=== PATIENT | female | born 1945 | race Caucasian/White ===

== ENCOUNTER → 2019-07-25 | Outpatient (CLI) | payer MEDICARE, OTHER ==
[~2019-07-25] MED LIST: TMSL.4C PO
--- NOTE | 2019-07-25 13:11 | Diagnostic Imaging Report ---
PROCEDURE: CT abdomen without contrast. TECHNIQUE: Multiple contiguous axial images were obtained through the abdomen without the use of intravenous contrast. Auto Exposure Controls were utilized during the CT exam to meet ALARA standards for radiation dose reduction. INDICATION: Kidney neoplasm. COMPARISON: No prior studies are available for comparison. FINDINGS: The lung bases are clear. Liver is unremarkable. There is no biliary ductal dilatation. Gallbladder appears to be surgically absent. Pancreas and spleen are unremarkable. No adrenal mass is detected. Left kidney does contain a 3 mm calculus in the lower pole. No hydronephrosis is seen. There appear to be postsurgical changes involving the lower pole of the right kidney. No discrete mass is seen, however study is performed without contrast, limiting evaluation. No calculi in the right kidney or evidence of hydronephrosis is identified. Aorta is calcified but nonaneurysmal. No central, retroperitoneal, or mesenteric lymphadenopathy is seen. Visualized bowel loops are normal caliber. There is a defect in the right rectus musculature with bowel loop extending through the abdominal wall defect into the subcutaneous tissues. No free fluid or fluid collection is identified. The bony structures demonstrate generalized lumbar spondylosis but no acute bony abnormality is seen. IMPRESSION: 1. Postsurgical changes to the right kidney. No discrete renal mass or evidence of tumor recurrence is seen, although study is limited due to absence of intravenous contrast. 2. 3 mm nonobstructing left renal calculus. 3. Right lower quadrant abdominal wall defect with bowel loop extending into the right lower quadrant subcutaneous tissues consistent with hernia. This is incompletely evaluated on this study since only an abdomen was ordered. Hernia is only partially included on this study. Dictated by: Dictated on workstation # [id number]
== END ==
LOC: RAD FS 12:14
PROVIDERS: ATTEND Family Medicine
DX: C64.2 Malignant neoplasm of left kidney, except renal pelvis (principal); N20.0 Calculus of kidney; R19.8 Other specified symptoms and signs involving the digestive system and abdomen; Z98.890 Other specified postprocedural states
CPT/HCPCS: 74150

== ENCOUNTER 2019-07-26 19:31 | Emergency (ER) | payer MEDICARE, OTHER ==
[~2019-07-26] VITALS: Ht 157.5 cm; Wt 63.2 kg
--- NOTE | 2019-07-26 19:54 | ED GU-Female ---
General Stated Complaint: POSS KIDNEY STONE History of Present Illness Date Seen by Provider: Jul 26, 2019 Time Seen by Provider: 19:52 Initial Comments This patient is a 74-year-old female presents to the emergency for left-sided pain. Patient states this started just a few minutes after getting her new insulin pump catheter placed in her left lower quadrant. Patient denies any specific back pain patient denies any dysuria. With the medical evaluation treatment is needed. Timing/Duration: this afternoon Severity/Quality: mild Location: unknown Radiation: none Activities at Onset: none Prior Genitourinary Problems: none Sexual [place] History: not active Allergies and Home Medications Allergies Coded Allergies: No Known Drug Allergies (Unverified , 07/26/19) Patient Home Medication List Home Medication List Reviewed: Yes Review of Systems Review of Systems Constitutional: no symptoms reported; No see HPI, No chills, No diaphoresis, No dizziness, No fever, No malaise, No weakness, No weight gain, No weight loss, No other EENTM: No see HPI, No no symptoms reported, No ear discharge, No hearing loss, No ear pain, No blurred vision, No double vision, No eye pain, No tearing, No vision loss, No dental problems, No hoarseness, No mouth pain, No mouth swelling, No epistaxis, No nose congestion, No nose pain, No throat pain, No throat swelling, No other Respiratory: No no symptoms reported, No see HPI, No cough, No dyspnea on exertion, No hemoptysis, No orthopnea, No phlegm, No short of breath, No stridor, No wheezing, No other Cardiovascular: No no symptoms reported, No see HPI, No chest pain, No edema, No Hx of Intervention, No palpitations, No syncope, No vascular heart diseas, No other Gastrointestinal: No RUQ, No LUQ, No RLQ; LLQ; No no symptoms reported, No see HPI, No abdominal pain, No constipation, No diarrhea, No dysphagia, No hematemesis, No heartburn, No jaundice, No loss of appetite, No melena, No nausea, No vomiting, No other Genitourinary: see HPI Past Fxjuzau-Stdrih-Offkdy Hx Patient Social History Recent Foreign Travel: No Contact w/Someone Who Travel: No Physical Exam Vital Signs Vital Signs - First Documented 07/26/19 19:58 Temp 36.2 Pulse 87 Resp 16 B/P (MAP) 227/93 (137) Pulse Ox 100 Capillary Refill : Height, Weight, BMI Height: '" Weight: lbs. oz. kg; BMI Method: General Appearance: WD/WN, no apparent distress Cardiovascular: normal peripheral pulses, regular rate, rhythm, no edema, no gallop, no JVD, no murmur Respiratory: chest non-tender, lungs clear, normal breath sounds, no respiratory distress, no accessory muscle use, respiratory distress Gastrointestinal: normal bowel sounds, non tender, soft, no organomegaly, no p ulsatile mass, abnormal bowel sounds Back: normal inspection, no CVA tenderness, no vertebral tenderness, CVA tenderness (R), CVA tenderness (L) Extremities: normal range of motion, non-tender, normal inspection, no pedal edema, no calf tenderness, normal capillary refill Progress/Results/Core Measures Suspected Sepsis SIRS Temperature: Pulse: Respiratory Rate: Blood Pressure / Mean: Results/Orders Lab Results Laboratory Tests Test 07/26/19 19:40 Range/Units Urine Color YELLOW Urine Clarity CLEAR Urine pH 6.0 5-9 Urine Specific Oxford 1.020 1.016-1.022 Urine Protein 2+ H NEGATIVE Urine Glucose (UA) 3+ H NEGATIVE Urine Ketones NEGATIVE NEGATIVE Urine Nitrite NEGATIVE NEGATIVE Urine Bilirubin NEGATIVE NEGATIVE Urine Urobilinogen 0.2 < = 1.0 MG/DL Urine Leukocyte Esterase TRACE H NEGATIVE Urine RBC (Auto) 2+ H NEGATIVE Urine RBC 25-50 H /HPF Urine WBC 0-2 /HPF Urine Squamous Epithelial Cells 0-2 /HPF Urine Crystals NONE /LPF Urine Bacteria NEGATIVE /HPF Urine Casts NONE /LPF Urine Mucus NEGATIVE /LPF Urine Culture Indicated NO My Orders Orders - PING FERRER MD Urinalysis (07/26/19 19:51) Vital Signs/I&O 07/26/19 19:58 Temp 36.2 Pulse 87 Resp 16 B/P (MAP) 227/93 (137) Pulse Ox 100 Capillary Refill : Progress Note : Progress Note Patient is pain-free in the emergency department. Patient does have microscopic blood and rbc's in the urine. We did discuss at length with patient about findings. Patient is agreeable B placed on Flomax. She will follow up with her primary care physician in 2-3 days for repeat urinalysis if needed. No antibodies at this time. Patient was offered full medical screening exam and couldn't further labs and imaging testing if needed. Patient declines. He is that she is pain-free at this time. We did discuss at length with patient about possible kidney stones versus pain from the side of her subcutaneous catheter for dialysis patient states understanding she will follow up with PCP as instructed. Departure Impression Primary Impression: Flank pain Additional Impression: Benign hematuria Disposition: HOME, SELF-CARE Condition: Improved Departure-Patient Inst. Referrals: RONI MITCHELL MD (PCP/Family) Primary Care Physician Patient Instructions: Blood in the Urine (Hematuria) in Adults Add. Discharge Instructions: Encourage by mouth fluids. Take medications as instructed. Continue with Tylenol Motrin as needed for fever or pain. Follow-up with your PCP in 2-3 days for repeat urinalysis. Scripts Tamsulosin HCl (Flomax) 0.4 Mg Cap 0.4 MG PO DAILY for 7 Days, #7 CAP 0 Refills Prov: PING FERRER MD 07/26/19 PING FERRER MD Jul 26, 2019 19:54
[2019-07-26 19:58] VITALS: BP 227/93
[2019-07-26 20:04] LABS: CLARITY,URINE CLEAR; COLOR,URINE YELLOW
[2019-07-26 20:05] LABS: BILIRUBIN,URINE NEGATIVE (NEGATIVE); GLUCOSE, URINE (UA) 3+ (NEGATIVE); KETONES,URINE NEGATIVE (NEGATIVE); LEUKOCYTE ESTERASE ,URINE TRACE (NEGATIVE); NITRITE,URINE NEGATIVE (NEGATIVE); PROTEIN,URINE 2+ (NEGATIVE)
[2019-07-26 20:08] LABS: BACTERIA,URINE NEGATIVE /HPF; RBC,URINE 25-50 /HPF; SQUAMOUS EPITHELIAL CELL,UR 0-2 /HPF; WBC,URINE 0-2 /HPF
[2019-07-26] MEDS ORDERED: TMSL.4C PO (20:47)
--- OUTSIDE RECORDS SUMMARY | 2019-07-28 22:47 | XMS REPORT ---
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, unspecified laterality E11.3219 Active 099568280 Problem Benign essential hypertension I10 Active 8075716 Problem 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 Active 089775833 Problem Pure hypercholesterolemia E78.00 Acti ve [id number] ALLERGIES No Information ENCOUNTERS Encounter Location Date Diagnosis [facility] [address] [address] Feb, [address] [address] Jan, [address] [address] Dec, [address] [address] Nov, [address] [address] Nov, [address] [address] Nov, [facility] [address] [facility] [id number] [address] [place] [address] Nov, [facility] [address] [facility] [id number] [address] [place] [address] Nov, [facility] [address] [place] [address] Nov, [facility] [address] [address] Nov, 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 [facility] [place] [address] [place] [address] Oct, [address] [address] Oct, Type 2 diabetes mellitus with hyperglyce charli E11.65 and 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 [address] Oct, Type 2 diabetes mellitus with hyperglyce charli E11.[address] [address] Oct, [address] [address] Oct, Type 2 diabetes mellitus with hyperglyce charli E11.65 ; Pure hypercholesterolemia E78.00 and Benign essential hypertension I10 [facility] [address] [place] [facility] [place] [address] Oct, Poison rosalba L23.7 [facility] [place] [address] [place] [address] September, Type 2 diabetes mellitus with hyperglycemia E11.[address] [address] September, Type 2 diabetes mellitus with hyperglyce charli E11.[address] [address] Aug, Benign essential hypertension I10 ; Pure hypercholesterolemia E78.00 ; Type 2 diabetes mellitus without complication, without long-term current use of insulin E11.9 and 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 [address] Aug, Essential hypertension I10 [address] [address] Aug, [address] [address] Jul, Left leg swelling M79.[address] [facility] [address] [address] Jul, Left leg swelling M79.[address] [facility] [address] [address] Jul, IMMUNIZATIONS No Known Immunizations SOCIAL HISTORY Never Assessed REASON FOR VISIT ultrasound, Debby Emery RDMS, RVT PLAN OF CARE VITAL SIGNS MEDICATIONS Unknown Medications RESULTS Name Result Date Reference Range Ultrasound : Venous Doppler, Left Leg (IN-HOUSE) 2018-08-09 PROCEDURES Procedure Date Ordered Result Body Site EXTREMITY STUDY August 09, 2018 INSTRUCTIONS MEDICATIONS ADMINISTERED No Known Medications MEDICAL (GENERAL) HISTORY Type Description Date Medical History Hypertension Medical History Type 2 diabetes mellitus Medical History Diabetic neuropathy Medical History Hypercholesterolemia Medical History Malignant neoplasm of unspecified kidney , except renal pelvis Medical History Hypertension Surgical History hysterectomy 1994 Surgical History ileostomy Surgical History tumor removed from right kidney Surgical History cholecystectomy (done at the same time a s the kidney surgery Surgical History cateract surgery in both eyes Hospitalization History surgeries Hospitalization History child x3
--- OUTSIDE RECORDS SUMMARY | 2019-07-28 22:47 | XMS REPORT ---
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, unspecified laterality E11.3219 Active 466442279 Problem Insulin long-term use Z79.4 Active 777954858 Problem Vitamin D deficiency E55.9 Active 23063373 Problem 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 Active 161 488076 Problem Chronic kidney disease, stage 3 (moderate) N18.3 Active 645170307 Problem Type 1 diabetes mellitus with hyperglycemia E10.65 Active [id number] ALLERGIES Substance Reaction Event Type Date Status Meperidine HCl hallucination Drug Allergy Jul, Active Lisinopril cough Drug Allergy Jul, Active Gabapentin dizziness Drug Allergy Jul, Active ENCOUNTERS Encounter Location Date Diagnosis [place] [address] [place] [address] Jun, [place] [address] [place] [address] May, Type 2 diabetes mellitus wit h hyperglycemia E11.65 ; jail current use of insulin Z79.4 ; Insulin long-term use Z79.4 ; Chronic kidney disease, stage 3 (moderate) N18.3 and Low serum C-peptide R77.8 [address] [place] [address] May, [facility] [place] [id number] [place] [address] May, [facility] [address] [place] [address] Mar, [facility] [address] [place] [address] Mar, [facility] [address] [place] [address] Mar, [facility] [address] [place] [address] Feb, [facility] [address] [place] [address] Feb, [address] [place] [address] Feb, Benign essential hypertensio n I10 [facility] [address] [place] [address] Feb, [address] [place] [address] Feb, Benign essential hypertensio n I10 [address] [place] [address] Feb, Benign essential hypertensio n I10 ; Type 1 diabetes mellitus with hyperglycemia E10.65 ; Vitamin D deficiency E55.9 ; 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 and Chronic kidney disease, stage 3 (moderate) N18.3 [facility] [address] [place] [address] Feb, Pure hypercholesterolemia E7 8.00 ; Type 2 diabetes mellitus with hyperglycemia E11.65 and Benign essential hypertension I10 [address] [place] [address] Feb, Type 2 diabetes mellitus wit h hyperglycemia E11.65 ; Benign essential hypertension I10 and Pure hypercholesterolemia E78.00 [facility] [address] [address] [place] [address] Feb, Benign essential hypertensio n I10 ; Type 2 diabetes mellitus with hyperglycemia E11.65 ; Encounter for immunization Z23 and intermediate designer current use of insulin Z79.4 [facility] [place] [address] [place] [address] Jan, Benign essential hypertensio n I10 [facility] [address] [place] [address] Jan, [facility] [address] [place] [address] Jan, [facility] [address] [place] [address] Dec, [facility] [address] [place] [address] Nov, [facility] [address] [place] [address] Nov, [facility] [address] [place] [address] Nov, [facility] [address] [id number] [place] [address] Nov, [facility] [address] [id number] [place] [address] Nov, [facility] [address] [place] [address] Nov, [facility] [address] [place] [address] Nov, intermediate designer current use of ins ulin Z79.4 [facility] [place] [id number] [place] [address] Oct, [facility] [address] [place] [address] Oct, Type 2 diabetes mellitus wit h hyperglycemia E11.65 and jail current use of insulin Z79.4 [facility] [address] [place] [address] Oct, Type 2 diabetes mellitus wit h hyperglycemia E11.[address] [place] [address] Oct, [address] [place] [address] Oct, Type 2 diabetes mellitus wit h hyperglycemia E11.65 ; Pure hypercholesterolemia E78.00 and Benign essential hypertension I10 [facility] [address] [place] [address] Oct, Poison rosalba L23.7 [facility] [id number] [place] [address] September, Type 2 diabetes mellitus with hyperglyce charli E11.[address] [place] [address] September, Type 2 diabetes mellitus wit h hyperglycemia E11.[address] [place] [address] Aug, Benign essential hypertensio n I10 ; Pure hypercholesterolemia E78.00 ; Type 2 diabetes mellitus without complication, without long-term current use of insulin E11.9 and jail current use of insulin Z79.4 [facility] [address] [address] [place] [address] Aug, Essential hypertension I10 [facility] [address] [address] [place] [address] Aug, [address] [place] [address] Jul, Left leg swelling M79.89 [facility] [address] [address] [place] [address] Jul, Left leg swelling M79.[address] [place] [address] Jul, IMMUNIZATIONS No Known Immunizations SOCIAL HISTORY Never Assessed REASON FOR VISIT Lt foot swelling.Cassy COOPER PLAN OF CARE Activity Details Follow Up prn Reason: VITAL SIGNS Height 62 in 2018-08-09 Weight 142 lbs 2018-08-09 Temperature 96.0 degrees Fahrenheit 2018-08-09 Heart Rate 84 bpm 2018-08-09 Respiratory Rate 12 2018-08-09 BMI 25.97 kg/m2 2018-08-09 Blood pressure systolic 196 mmHg 2018-08-09 Blood pressure diastolic 86 mmHg 2018-08-09 MEDICATIONS Medication Instructions Dosage Frequency Start Date End Date Duration S tatus NovoLog 100 UNIT/ML Subcutaneous before evening meal 10 units Active Lantus 100 UNIT/ML Subcutaneous daily at betime 20 units Active Losartan Potassium 100 MG Orally Once a day 0.5 tablet 24h 30 day(s) Active Zocor 20 MG Orally Once a day 1 tablet in the evening 24h 30 day(s) Active Estradiol 0.05 MG/24HR Transdermal one times a Week 1 patch to skin 30 day(s) Active RESULTS No Results PROCEDURES Procedure Date Ordered Result Body Site [facility] VISIT NEW PATIENT August 09, 2018 INSTRUCTIONS MEDICATIONS ADMINISTERED No [...]
--- OUTSIDE RECORDS SUMMARY | 2019-07-28 22:47 | XMS REPORT ---
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, unspecified laterality E11.3219 Active 521759779 Problem Benign essential hypertension I10 Active 1633341 Problem 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 Active 060268040 Problem Pure hypercholesterolemia E78.00 Acti ve 915474486 ALLERGIES No Information ENCOUNTERS Encounter Location Date Diagnosis [facility] [address] [address] Feb, [address] [address] Jan, [address] [address] Dec, [address] [address] Nov, [address] [address] Nov, [address] [address] Nov, [facility] [address] [facility] [id number] [address] [place] [address] Nov, [facility] [address] [facility] [id number] [address] [place] [address] Nov, [facility] [address] [place] [address] Nov, [facility] [address] [address] Nov, senior care current use of insulin Z79.4 [facility] [place] [address] [place] [address] Oct, [address] [address] Oct, Type 2 diabetes mellitus with hyperglyce charli E11.65 and 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 [address] Oct, Type 2 diabetes mellitus with hyperglyce charli E11.[address] [address] Oct, [address] [address] Oct, Type 2 diabetes mellitus with hyperglyce charli E11.65 ; Pure hypercholesterolemia E78.00 and Benign essential hypertension I10 [facility] [address] [place] [address] Oct, Poison rosalba L23.7 [facility] [place] [address] [place] [address] September, Type 2 diabetes mellitus with hyperglycemia E11.[address] [address] September, Type 2 diabetes mellitus with hyperglyce charli E11.[address] [address] Aug, Benign essential hypertension I10 ; Pure hypercholesterolemia E78.00 ; Type 2 diabetes mellitus without complication, without long-term current use of insulin E11.9 and senior care current use of insulin Z79.[address] [address] Aug, Essential hypertension I10 [address] [address] Aug, [address] [address] Jul, Left leg swelling M79.[address] [address] Jul, Left leg swelling M79.[address] [address] Jul, IMMUNIZATIONS No Known Immunizations SOCIAL HISTORY Never Assessed REASON FOR VISIT Swelling PLAN OF CARE VITAL SIGNS MEDICATIONS Unknown Medications RESULTS No Results PROCEDURES No Known procedures INSTRUCTIONS MEDICATIONS ADMINISTERED No Known Medications MEDICAL [...]
--- OUTSIDE RECORDS SUMMARY | 2019-07-28 22:47 | XMS REPORT | Clinical Summary ---
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 Active Fito Lambert MD Calculus o f gallbladder with other cholecystitis, without mention of obstruction Body Mass Index 24.0-24.9 Adult Inactive 2017 Fadumo Babin CARDIAC/VASCULAR SONOGRAPHER Body Mass Index between 19-24, adult 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 Davey Jimenez MD Malignant neoplasm of kidney, except pel vis Body Mass Index 24.0-24.9 Adult Inactive 2017 Fadumo Babin CARDIAC/VASCULAR SONOGRAPHER Body Mass Index between 19-24, adult Type 2 diabetes mellitus with hyperglycemia 250.00 Act charley Kisha JONASP Diabetes mellitus without me ntion of complication, type II or unspecified type, not stated as uncontrolled Body Mass Index 23.0-23.9 Adult Inactive 2017 Fadumo Babin CARDIAC/VASCULAR SONOGRAPHER Body Mass Index between 19-24, adult Type 2 diabetes mellitus with diabetic polyneuropathy Inactive Fadumo Babin APRN 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 use of insulin treatment V58.67 Active 2 Maliheh Ziglari HANGER OFF Long-term (current) use of insulin Type 2 diabetes mellitus with hypoglycemia without coma 250.80 Resolved Fadumo Babin CARDIAC/VASCULAR SONOGRAPHER Diabetes mellitus with other specified manifestations, type II or unspecified type, not stated as uncontrolled Body Mass Index 24.0-24.9 Adult Resolved 2017 Fadumo Babin CARDIAC/VASCULAR SONOGRAPHER Body Mass Index between 19-24, adult Noncompliance with dietary regimen V15.81 Active 2 Fadumo Babin CARDIAC/VASCULAR SONOGRAPHER Personal history of noncompl iance with medical treatment, presenting hazards to health Type 2 diabetes with diabetic polyneuropathy 357.2 Ac tive Fadumo Babin CARDIAC/VASCULAR SONOGRAPHER Polyneuropathy in diabetes Body Mass Index 26.0-26.9 Adult Refinement 2017 Fadumo Babin CARDIAC/VASCULAR SONOGRAPHER Body Mass Index 26.0-26.9, adult BMI 25-25.9 Active Fadumo Babin CARDIAC/VASCULAR SONOGRAPHER Body Mass Index 26.0-26.9, adult Overweight (BMI 25-29.9) Active Fadumo Amaro inson CARDIAC/VASCULAR SONOGRAPHER Overweight Hypertension 401.9 Active Fadumo Babin APR N Unspecified essential hypertension Hyperlipidemia 272.4 Active Fadumo Babin A PRN Other and unspecified hyperlipidemia Type 2 diabetes mellitus with other specified complication 250.8 0 Active Fadumo Babin CARDIAC/VASCULAR SONOGRAPHER Diabetes mellitus with other specified manifestations, type II or unspecified type, not stated as uncontrolled Type 2 diabetes mellitus with hypoglycemia without coma 250.80 Active Fadumo Babin CARDIAC/VASCULAR SONOGRAPHER Diabetes mellitus with other specified manifestations, type II or unspecified type, not stated as uncontrolled Influenza Vaccination for Prophylaxis V04.81 Inactive Fadumo Babin CARDIAC/VASCULAR SONOGRAPHER Need for prophylactic vaccin ation and inoculation against influenza Noncompliance with medications V15.81 Active 07/28 Fadumo Babin CARDIAC/VASCULAR SONOGRAPHER Personal history of noncompl iance with medical treatment, presenting hazards to health Body Mass Index 24.0-24.9 Adult Inac tive Fadumo Babin CARDIAC/VASCULAR SONOGRAPHER Body Mass Index 24.0-24.9 Adult Inac tive Fadumo Babin CARDIAC/VASCULAR SONOGRAPHER Body Mass Index 23.0-23.9 Adult Inac tive Fadumo Babin CARDIAC/VASCULAR SONOGRAPHER Type 2 diabetes mellitus with diabetic polyneuropathy Inactive Fadumo Babin CARDIAC/VASCULAR SONOGRAPHER Type 2 diabetes mellitus with hypoglycemia without coma ICD-250. 80 Inactive Fadumo Babin CARDIAC/VASCULAR SONOGRAPHER Body Mass Index 24.0-24.9 Adult Inactiv e Fadumo Babin CARDIAC/VASCULAR SONOGRAPHER Influenza Vaccination for Prophylaxis ICD-V04.81 2 Inactive Marie Todd [employer] TRUCK [employer]IVER Medication List Medication Instructions Start Date Stop Date Generic Name NDC Status Provider Patient Instruction FUROSEMIDE 20 MG ORAL TABLET Take one by mouth daily FUROSEMIDE 54425912972 Active Fadumo Babin CARDIAC/VASCULAR SONOGRAPHER Active HUMALOG KWIKPEN 100 UNIT/ML SUBCUTANEOUS SOLUTION PEN- INJECTOR 10 units with dinner, SQ daily for DM [id number] 04/06 x2 pens INSULIN LISPRO 15542807417 Active Fadumo Babin CARDIAC/VASCULAR SONOGRAPHER Active NOVOLOG 100 UNIT/ML SUBCUTANEOUS SOLUTION Take 20u wit h dinner for DM 05/2019 [id number] x1 vial INSULIN ASPART 60991837794 No Longer Active Fadumo Babin CARDIAC/VASCULAR SONOGRAPHER Active LOSARTAN POTASSIUM-HCTZ 100-25 MG ORAL TABLET Take one by mo uth daily LOSARTAN POTASSIUM-HCTZ 74367821613 Active Fadumo Amaroin son CARDIAC/VASCULAR SONOGRAPHER Active LOSARTAN POTASSIUM 25 MG ORAL TABLET 1 pill daily, for blood pressure LOSARTAN POTASSIUM 71000862524 No Longer Active Chloe manriqueze Talya WASHBURNN Active GLIMEPIRIDE 2 MG ORAL TABLET 1 tab PO daily for DM 201 12/26/25 GLIMEPIRIDE 50606119294 No Longer Active Fadumo Babin ALCIDES A ctive FIASP FLEXTOUCH 100 UNIT/ML SUBCUTANEOUS SOLUTION PEN- INJECTOR 10 units at lunch and dinner 03/2019; [id number] 1 vial INSULIN ASPAR T 70722955337 No Longer Active Fadumo Babin APRN Active MYRBETRIQ 50 MG ORAL TABLET EXTENDED RELEASE 24 HOUR 1 tab [place] MIRABEGRON 37871000200 Active Diana Kwan LPN A ctive ONDANSETRON 4 MG ORAL TABLET DISINTEGRATING 1 q4h PRN nausea 201 12/18/14 ONDANSETRON 97247680228 No Longer Active Diana Kwan LPN Active CONTOUR NEXT TEST IN VITRO STRIP check blood sugars 3 times a day for DM E11.65 GLUCOSE BLOOD 82882194618 No Longer Active Fadumo Babin APRN Active ACTOS 15 MG ORAL TABLET 1 tablet by mouth daily for DM PIOGLITAZONE HCL 35129204871 No Longer Active Fadumo Babin APRN Active LANTUS SOLOSTAR 100 UNIT/ML SUBCUTANEOUS SOLUTION PEN- INJECTOR 20 units SQ every PM for DM INSULIN GLARGINE 93212479028 Active Fadumo Babin APRN Active CONTOUR NEXT TEST IN VITRO STRIP check blood sugars 3 times a day for DM E11.65 GLUCOSE BLOOD 37568454417 Active Kisha Wong Active ELIZABETH CONTOUR MONITOR W/DEVICE KIT BLOOD GLUCOSE MONITORING SUPPL 06046698686 No Longer Active Fadumo Babin APRN A ctive ALEVE 220 MG ORAL TABLET 2 tabs once every 4-6hrs PRN NAPROXEN SODIUM 28247717310 Active Brigitte Saucedo MA Active GLYBURIDE 2.5 MG ORAL TABLET 1 tab by mouth daily 2017 GLYBURIDE 49401572942 No Longer Active Brigitte Saucedo MA Acti ve CLIMARA 0.025 MG/24HR TRANSDERMAL PATCH WEEKLY Place 1 patch every week ESTRADIOL 16203994487 Carrie Jimenez MD Active SIMVASTATIN 20 MG ORAL TABLET 1 tab daily at bedtime SIMVASTATIN 87990733408 Carrie Jimenez MD Active GLYBURIDE 2.5 MG ORAL TABLET 1 tab by mouth daily 2017 GLYBURIDE 2.5 MG ORAL TABLET 494089 GLYBURIDE Inactive ACTOS 15 MG ORAL TABLET 1 tablet by mouth daily for DM ACTOS 15 MG ORAL TABLET 738320 PIOGLITAZONE HCL Inactive CONTOUR NEXT TEST IN VITRO STRIP check blood sugars 3 times a day for DM E11.65 CONTOUR NEXT TEST IN VITRO STRIP GLUCOSE BLOOD Inactive ONDANSETRON 4 MG ORAL TABLET DISINTEGRATING 1 q4h PRN nausea 201 12/18/14 ONDANSETRON 4 MG ORAL TABLET DISINTEGRATING 447123 ONDA NSETRON Inactive FIASP FLEXTOUCH 100 UNIT/ML SUBCUTANEOUS SOLUTION PEN- INJECTOR 10 units at lunch and dinner 03/2019; [id number] 1 vial FIASP FLEXTOUCH 100 UNIT/ML SUBCUTANEOUS SOLUTION PEN-INJECTOR INSULIN ASPART Inactive GLIMEPIRIDE 2 MG ORAL TABLET 1 tab PO daily for DM 201 12/26/25 GLIMEPIRIDE 2 MG ORAL TABLET 338776 GLIMEPIRIDE Inactive LOSARTAN POTASSIUM 25 MG ORAL TABLET 1 pill daily, for blood pressure LOSARTAN POTASSIUM 25 MG ORAL TABLET 397893 LOSA RTAN POTASSIUM Inactive NOVOLOG 100 UNIT/ML SUBCUTANEOUS SOLUTION Take 20u wit h dinner for DM 05/2019 [id number] x1 vial NOVOLOG 100 UNIT/ML SUBCUTANEOUS SOLUTION INSULIN ASPART Inactive Advance Directives Directive Description Start Date PERMISSION TO SHARE Immunizations Vaccine Administration Date Value Standard Nhan cription influenza immunization (Flu Vax) has been administered 07/26 Done according to patient influenza virus vaccine, unspecified for mulation pneumococcal immunization administered 7 pneumococcal polysaccharide vaccine, 23 valent influenza immunization (Flu Vax) has been administered 5 02/05/2017 influenza virus vaccine, unspecified formulation Vital Signs Date Name Value Unit Range Description blood pressure, diastolic 60 mm[Hg] BP davis blood pressure, systolic 130 mm[Hg] BP sys height E&M 62 [in_us] Bdy height pulse rate E&M 84 /min Heart rate weight E&M 141 [lb_av] Weight Measure d blood pressure, diastolic 80 mm[Hg] BP davis blood pressure, systolic 130 mm[Hg] BP sys height E&M 62 [in_us] Bdy height pulse rate E&M 84 /min Heart rate weight E&M 139.80 [lb_av] Weight Measure d blood pressure, diastolic 80 mm[Hg] BP davis blood pressure, systolic 180 mm[Hg] BP sys height E&M 62 [in_us] Bdy height pulse rate E&M 96 /min Heart rate weight E&M 138 [lb_av] Weight Measure d blood pressure, diastolic, repeated by physician 96 BP davis blood pressure, diastolic 96 mm[Hg] BP davis blood pressure, systolic, repeated by physician 202 BP sys blood pressure, systolic 202 mm[Hg] BP sys height E&M 62 [in_us] Bdy height pulse rate E&M 80 /min Heart rate weight E&M 142 [lb_av] Weight Measure d height E&M 62 [in_us] Bdy height temperature E&M 97.8 [degF] Body temp erature blood pressure, diastolic 70 mm[Hg] BP davis blood pressure, systolic 138 mm[Hg] BP sys height E&M 62 [in_us] Bdy height pulse rate E&M 96 /min Heart rate weight E&M 134 [lb_av] Weight Measure d blood pressure, diastolic 80 mm[Hg] BP davis blood pressure, systolic 138 mm[Hg] BP sys height E&M 62 [in_us] Bdy height pulse rate E&M 72 /min Heart rate weight E&M 132 [lb_av] Weight Measure d blood pressure, diastolic 80 mm[Hg] BP davis blood pressure, systolic 148 mm[Hg] BP sys height E&M 62 [in_us] Bdy height pulse rate E&M 84 /min Heart rate weight E&M 129 [lb_av] Weight Measure d blood pressure, diastolic 80 mm[Hg] BP davis blood pressure, systolic 142 mm[Hg] BP sys height E&M 62 [in_us] Bdy height pulse rate E&M 84 /min Heart rate weight E&M 130 [lb_av] Weight Measure d height E&M 62 [in_us] Bdy height weight E&M 132 [lb_av] Weight Measure d blood pressure, diastolic, repeated by physician 82 BP davis blood pressure, diastolic 77 mm[Hg] BP davis blood pressure, systolic, repeated by physician 173 BP sys blood pressure, systolic 184 mm[Hg] BP sys height E&M 62 [in_us] Bdy height pulse rate E&M 86 /min Heart rate temperature E&M 97.6 [degF] Body temp erature weight E&M 133 [lb_av] Weight Measure d Diagnostic Results Date Name Value Unit Range Description Chart Maintenance: outside lab added to flowsheet - Chemistry hemoglobin A1C, blood, as % of total hemoglobin 11.5 % creatinine, serum 0.91 mg/dL cholesterol, serum 191 mg/dL LDL cholesterol, serum 97 mg/dL HDL cholesterol, serum 83 mg/dL triglyceride, serum, fasting 57 mg/dL hemoglobin A1C, blood, as % of total hemoglobin 10.7 % blood glucose 218 mg/dL creatinine, serum 1.05 mg/dL cholesterol, serum 210 mg/dL LDL cholesterol, serum 105 mg/dL HDL cholesterol, serum 91 mg/dL triglyceride, serum, fasting 68 mg/dL Lab Report: Basic Metabolic Panel, HGBA1 C, MICROALB/CREAT W/RATIO - Chemistry sodium, serum 137 mmol/L 382-617 7041/03/11 potassium, serum 4.5 mmol/L 3.5-5.2 chloride, serum 101 mmol/L 98-107 carbon dioxide, venous blood 26.0 mmol/L 21.0-32 .0 blood glucose 219 mg/dL 65-95 calcium, serum 9.1 mg/dL 8.5-10.1 urea nitrogen, blood 24 mg/dL 7-18 creatinine, serum 1.12 mg/dL 0.60-1.30 Estimated Glomerular Filtration Rate (calc) 51 (?) mL/min/1.73m2 = OR > 60 mL/min hemoglobin A1C, blood, as % of total hemoglobin 9.9 % 4.3-6.0 Lab Report: Basic Metabolic Panel, HGBA1 C, MICROALB/CREAT W/RATIO - Lab microalbumin, urine 80 mg/L 0-19 Lab Report: Basic Metabolic Panel, HGBA1 C, MICROALB/CREAT W/RATIO - Urinalysis microalbumin/total urine volume 30 - 300 mg/g Abnormal mg/g mg/L 0-29 Office Visit: 6 month followup partial n ephrectomy - PMH sexually transmitted disease no risk noted Office Visit: Diabetes Visit - Basic LDL target level 100 mg/dL LDL target level 100 mg/dL LDL target level 100 mg/dL LDL target level 100 mg/dL LDL target level 100 mg/dL LDL target level 100 mg/dL Office Visit: Diabetes Visit - Chemistry home glucose monitor utilized Yes cholesterol, target level 200 mg/dL triglyceride, target level 200 mg/dL HDL cholesterol, serum, target level 35 mg/dL home glucose monitor utilized Yes cholesterol, target level 200 mg/dL triglyceride, target level 200 mg/dL HDL cholesterol, serum, target level 35 mg/dL cholesterol, target level 200 mg/dL triglyceride, target level 200 mg/dL HDL cholesterol, serum, target level 35 mg/dL cholesterol, target level 200 mg/dL triglyceride, target level 200 mg/dL HDL cholesterol, serum, target level 35 mg/dL home glucose monitor utilized Yes cholesterol, target level 200 mg/dL triglyceride, target level 200 mg/dL HDL cholesterol, serum, target level 35 mg/dL cholesterol, target level 200 mg/dL triglyceride, target level 200 mg/dL HDL cholesterol, serum, target level 35 mg/dL home glucose monitor utilized Yes home glucose monitor utilized Yes Encounters Code Encounter Date Provider Facility CPT-92696 [id number] Vst-Est Level III 09:33:33 CDT Fadumo [facility] CPT-94810 [id number] Vst-Est Level IV 14:52:44 C DT Fadum[facility] CPT-86425 Level 3 Est. 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 Patient 15:52:58 ASSISTANT LABORATORY DIRECTOR Fadumo Leslie [facility] [facility] CPT-63557 Level 4 Est. Patient 15:44:53 ASSISTANT LABORATORY DIRECTOR Fadumo Leslie [facility] [facility] CPT-57124 Level 3 Est. Patient 14:21:54 JOEL harper MD [facility] CPT-10449 Level 5 Est. Patient 15:02:09 CDT Fadumo Leslie [facility] CPT-12926 Level 4 Est. Patient 15:16:40 CDT Fadumo Leslie [facility] CPT-75320 Level 5 Est. Patient 11:51:47 CDT Fadumo Leslie [facility] CPT-86561 Level 5 Est. Patient 12:49:59 CDT [facility] C[facility]-86256 Level 4 Est. Patient 10:56:25 CDT Fito russell MD [facility] Procedures Code Procedure Name Date Entry Date Standard Desc ription CPT-43291 Postop F/U Visit 19:34:43 CDT CPT-13879 Postop F/U Visit 14:39:09 CDT
--- OUTSIDE RECORDS SUMMARY | 2019-07-28 22:47 | XMS REPORT | Clinical Summary ---
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 Davey Jimenez MD Malignant neoplasm of kidney, except pel vis Body Mass Index 24.0-24.9 Adult Inactive 2017 Fadumo Babin VACUUM PAN OPERATOR Body Mass Index between 19-24, adult Type 2 diabetes mellitus with hyperglycemia 250.00 Act charley Kisha JONASP Diabetes mellitus without me ntion of complication, type II or unspecified type, not stated as uncontrolled Body Mass Index 23.0-23.9 Adult Inactive 2017 Fadumo Babin VACUUM PAN OPERATOR Body Mass Index between 19-24, adult Type 2 diabetes mellitus with diabetic polyneuropathy Inactive Fadumo Babin 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 use of insulin treatment V58.67 Active 2 Maliheh Ziglari FRONTEND ENGINEER Long-term (current) use of insulin Type 2 diabetes mellitus with hypoglycemia without coma 250.80 Resolved Fadumo Babin VACUUM PAN OPERATOR Diabetes mellitus with other specified manifestations, type II or unspecified type, not stated as uncontrolled Body Mass Index 24.0-24.9 Adult Resolved 2017 Fadumo Babin VACUUM PAN OPERATOR Body Mass Index between 19-24, adult Noncompliance with dietary regimen V15.81 Active 2 Fadumo Babin VACUUM PAN OPERATOR Personal history of noncompl iance with medical treatment, presenting hazards to health Type 2 diabetes with diabetic polyneuropathy 357.2 Ac tive Fadumo Babin VACUUM PAN OPERATOR Polyneuropathy in diabetes Body Mass Index 26.0-26.9 Adult Refinement 2017 Fadumo Babin VACUUM PAN OPERATOR Body Mass Index 26.0-26.9, adult BMI 25-25.9 Active Fadumo Babin VACUUM PAN OPERATOR Body Mass Index 26.0-26.9, adult Overweight (BMI 25-29.9) Active Fadumo Amaro inson VACUUM PAN OPERATOR Overweight Hypertension 401.9 Active Fadumo Babin APR N Unspecified essential hypertension Hyperlipidemia 272.4 Active Fadumo Babin A PRN Other and unspecified hyperlipidemia Type 2 diabetes mellitus with other specified complication 250.8 0 Active Fadumo Babin VACUUM PAN OPERATOR Diabetes mellitus with other specified manifestations, type II or unspecified type, not stated as uncontrolled Type 2 diabetes mellitus with hypoglycemia without coma 250.80 Active Fadumo Babin VACUUM PAN OPERATOR Diabetes mellitus with other specified manifestations, type II or unspecified type, not stated as uncontrolled Influenza Vaccination for Prophylaxis V04.81 Inactive Fadumo Babin VACUUM PAN OPERATOR Need for prophylactic vaccin ation and inoculation against influenza Noncompliance with medications V15.81 Active 07/28 Fadumo Babin VACUUM PAN OPERATOR Personal history of noncompl iance with medical treatment, presenting hazards to health Body Mass Index 24.0-24.9 Adult Inac tive Fadumo Babin VACUUM PAN OPERATOR Body Mass Index 24.0-24.9 Adult Inac tive Fadumo Babin VACUUM PAN OPERATOR Body Mass Index 23.0-23.9 Adult Inac tive Fadumo Babin VACUUM PAN OPERATOR Type 2 diabetes mellitus with diabetic polyneuropathy Inactive Fadumo Babin VACUUM PAN OPERATOR Type 2 diabetes mellitus with hypoglycemia without coma ICD-250. 80 Inactive Fadumo Babin VACUUM PAN OPERATOR Body Mass Index 24.0-24.9 Adult Inactiv e Fadumo Babin VACUUM PAN OPERATOR Influenza Vaccination for Prophylaxis ICD-V04.81 2 Inactive Marie Todd SENIOR ASSISTANT MANAGER Medication List Medication Instructions Start Date Stop Date Generic Name NDC Status Provider Patient Instruction FUROSEMIDE 20 MG ORAL TABLET Take one by mouth daily FUROSEMIDE 29672598300 Active Fadumo Babin VACUUM PAN OPERATOR Active HUMALOG KWIKPEN 100 UNIT/ML SUBCUTANEOUS SOLUTION PEN- INJECTOR 10 units with dinner, SQ daily for DM [id number] 04/06 x2 pens INSULIN LISPRO 48184959395 Active Fadumo Babin VACUUM PAN OPERATOR Active NOVOLOG 100 UNIT/ML SUBCUTANEOUS SOLUTION Take 20u wit h dinner for DM 05/2019 [id number] x1 vial INSULIN ASPART 81039405347 No Longer Active Fadumo Babin VACUUM PAN OPERATOR Active LOSARTAN POTASSIUM-HCTZ 100-25 MG ORAL TABLET Take one by mo uth daily LOSARTAN POTASSIUM-HCTZ 34570324229 Active Fadumo Amaroin son VACUUM PAN OPERATOR Active LOSARTAN POTASSIUM 25 MG ORAL TABLET 1 pill daily, for blood pressure LOSARTAN POTASSIUM 99543642961 No Longer Active Chloe manriqueze Talya WASHBURNN Active GLIMEPIRIDE 2 MG ORAL TABLET 1 tab PO daily for DM 201 12/26/25 GLIMEPIRIDE 87996470412 No Longer Active Fadumo Babin ALCIDES A ctive FIASP FLEXTOUCH 100 UNIT/ML SUBCUTANEOUS SOLUTION PEN- INJECTOR 10 units at lunch and dinner 03/2019; [id number] 1 vial INSULIN ASPAR T 94076397302 No Longer Active Fadumo Babin APRN Active MYRBETRIQ 50 MG ORAL TABLET EXTENDED RELEASE 24 HOUR 1 tab [place] MIRABEGRON 79262102885 Active Diana Kwan LPN A ctive ONDANSETRON 4 MG ORAL TABLET DISINTEGRATING 1 q4h PRN nausea 201 12/18/14 ONDANSETRON 39295074244 No Longer Active Diana Kwan LPN Active CONTOUR NEXT TEST IN VITRO STRIP check blood sugars 3 times a day for DM E11.65 GLUCOSE BLOOD 18236563185 No Longer Active Fadumo Babin APRN Active ACTOS 15 MG ORAL TABLET 1 tablet by mouth daily for DM PIOGLITAZONE HCL 90586568833 No Longer Active Fadumo Babin APRN Active LANTUS SOLOSTAR 100 UNIT/ML SUBCUTANEOUS SOLUTION PEN- INJECTOR 20 units SQ every PM for DM INSULIN GLARGINE 44836965085 Active Fadumo Babin APRN Active CONTOUR NEXT TEST IN VITRO STRIP check blood sugars 3 times a day for DM E11.65 GLUCOSE BLOOD 67099298773 Active Kisha Wong Active ELIZABETH CONTOUR MONITOR W/DEVICE KIT BLOOD GLUCOSE MONITORING SUPPL 59051288411 No Longer Active Fadumo Babin APRN A ctive ALEVE 220 MG ORAL TABLET 2 tabs once every 4-6hrs PRN NAPROXEN SODIUM 23986432460 Active Brigitte Saucedo MA Active GLYBURIDE 2.5 MG ORAL TABLET 1 tab by mouth daily 2017 GLYBURIDE 63824368655 No Longer Active Brigitte Saucedo MA Acti ve CLIMARA 0.025 MG/24HR TRANSDERMAL PATCH WEEKLY Place 1 patch every week ESTRADIOL 62619237558 Carrie Jimenez MD Active SIMVASTATIN 20 MG ORAL TABLET 1 tab daily at bedtime SIMVASTATIN 71905168774 Carrie Jimenez MD Active GLYBURIDE 2.5 MG ORAL TABLET 1 tab by mouth daily 2017 GLYBURIDE 2.5 MG ORAL TABLET 088931 GLYBURIDE Inactive ACTOS 15 MG ORAL TABLET 1 tablet by mouth daily for DM ACTOS 15 MG ORAL TABLET 118850 PIOGLITAZONE HCL Inactive CONTOUR NEXT TEST IN VITRO STRIP check blood sugars 3 times a day for DM E11.65 CONTOUR NEXT TEST IN VITRO STRIP GLUCOSE BLOOD Inactive ONDANSETRON 4 MG ORAL TABLET DISINTEGRATING 1 q4h PRN nausea 201 12/18/14 ONDANSETRON 4 MG ORAL TABLET DISINTEGRATING 626920 ONDA NSETRON Inactive FIASP FLEXTOUCH 100 UNIT/ML SUBCUTANEOUS SOLUTION PEN- INJECTOR 10 units at lunch and dinner 03/2019; [id number] 1 vial FIASP FLEXTOUCH 100 UNIT/ML SUBCUTANEOUS SOLUTION PEN-INJECTOR INSULIN ASPART Inactive GLIMEPIRIDE 2 MG ORAL TABLET 1 tab PO daily for DM 201 12/26/25 GLIMEPIRIDE 2 MG ORAL TABLET 404507 GLIMEPIRIDE Inactive LOSARTAN POTASSIUM 25 MG ORAL TABLET 1 pill daily, for blood pressure LOSARTAN POTASSIUM 25 MG ORAL TABLET 344771 LOSA RTAN POTASSIUM Inactive NOVOLOG 100 UNIT/ML SUBCUTANEOUS SOLUTION Take 20u wit h dinner for DM 05/2019 [id number] x1 vial NOVOLOG 100 UNIT/ML SUBCUTANEOUS SOLUTION INSULIN ASPART Inactive Advance Directives Directive Description Start Date PERMISSION TO SHARE Immunizations Vaccine Administration Date Value Standard Nhan cription influenza immunization (Flu Vax) has been administered 07/26 Done according to patient influenza virus vaccine, unspecified for mulation influenza immunization (Flu Vax) has been administered 5 02/05/2017 influenza virus vaccine, unspecified formulation pneumococcal immunization administered 7 pneumococcal polysaccharide vaccine, 23 valent Vital Signs Date Name Value Unit Range [...] W/RATIO - Chemistry sodium, serum 137 mmol/L 010-168 5624/03/11 potassium, serum 4.5 mmol/L 3.5-5.2 chloride, serum [...] Yes Encounters Code Encounter Date Provider Facility CPT-50799 [id number] Vst-Est Level III 09:33:33 CDT Fadumo Teamie [facility] CPT-88229 [id number] Vst-Est Level IV 14:52:44 C DT Fadumo Teamie [facility] CPT-99725 Level 3 Est. 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 Patient 15:52:58 POWER GENERATION ENGINEER Fadumo Leslie [employer] [facility] CPT-82576 Level 4 Est. Patient 15:44:53 POWER GENERATION ENGINEER Fadumo Leslie [employer] [facility] CPT-86977 Level 3 Est. Patient 14:21:54 JOEL harper MD [facility] CPT-86538 Level 5 Est. Patient 15:02:09 CDT Fadumo Leslie [facility] CPT-25923 Level 4 Est. Patient 15:16:40 CDT Fadumo Leslie [facility] CPT-29300 Level 5 Est. Patient 11:51:47 CDT Fadumo Leslie [facility] CPT-86681 Level 5 Est. Patient 12:49:59 [facility] Level 4 Est. Patient 10:56:25 CDT Fito russell MD [facility] Procedures Code Procedure Name Date Entry Date Standard Desc ription CPT-42288 Postop F/U Visit 19:34:43 CDT CPT-73043 Postop F/U Visit 14:39:09 CDT
--- OUTSIDE RECORDS SUMMARY | 2019-07-28 22:47 | XMS REPORT | Clinical Summary ---
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 Davey Jimenez MD Malignant neoplasm of kidney, except pel vis Body Mass Index 24.0-24.9 Adult Inactive 2017 Fadumo Babin DIRECTOR PHARMACY SERVICES Body Mass Index between 19-24, adult Type 2 diabetes mellitus with hyperglycemia 250.00 Act charley Kisha JONASP Diabetes mellitus without me ntion of complication, type II or unspecified type, not stated as uncontrolled Body Mass Index 23.0-23.9 Adult Inactive 2017 Fadumo Babin DIRECTOR PHARMACY SERVICES Body Mass Index between 19-24, adult Type 2 diabetes mellitus with diabetic polyneuropathy Inactive Fadumo Babin 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 use of insulin treatment V58.67 Active 2 Maliheh Ziglari UNIONMELT OPERATOR Long-term (current) use of insulin Type 2 diabetes mellitus with hypoglycemia without coma 250.80 Resolved Fadumo Babin DIRECTOR PHARMACY SERVICES Diabetes mellitus with other specified manifestations, type II or unspecified type, not stated as uncontrolled Body Mass Index 24.0-24.9 Adult Resolved 2017 Fadumo Babin DIRECTOR PHARMACY SERVICES Body Mass Index between 19-24, adult Noncompliance with dietary regimen V15.81 Active 2 Fadumo Babin DIRECTOR PHARMACY SERVICES Personal history of noncompl iance with medical treatment, presenting hazards to health Type 2 diabetes with diabetic polyneuropathy 357.2 Ac tive Fadumo Babin DIRECTOR PHARMACY SERVICES Polyneuropathy in diabetes Body Mass Index 26.0-26.9 Adult Refinement 2017 Fadumo Babin DIRECTOR PHARMACY SERVICES Body Mass Index 26.0-26.9, adult BMI 25-25.9 Active Fadumo Babin DIRECTOR PHARMACY SERVICES Body Mass Index 26.0-26.9, adult Overweight (BMI 25-29.9) Active Fadumo Amaro inson DIRECTOR PHARMACY SERVICES Overweight Hypertension 401.9 Active Fadumo Babin APR N Unspecified essential hypertension Hyperlipidemia 272.4 Active Fadumo Babin A PRN Other and unspecified hyperlipidemia Type 2 diabetes mellitus with other specified complication 250.8 0 Active Fadumo Babin DIRECTOR PHARMACY SERVICES Diabetes mellitus with other specified manifestations, type II or unspecified type, not stated as uncontrolled Type 2 diabetes mellitus with hypoglycemia without coma 250.80 Active Fadumo Babin DIRECTOR PHARMACY SERVICES Diabetes mellitus with other specified manifestations, type II or unspecified type, not stated as uncontrolled Influenza Vaccination for Prophylaxis V04.81 Inactive Fadumo Babin DIRECTOR PHARMACY SERVICES Need for prophylactic vaccin ation and inoculation against influenza Noncompliance with medications V15.81 Active 07/28 Fadumo Babin DIRECTOR PHARMACY SERVICES Personal history of noncompl iance with medical treatment, presenting hazards to health Body Mass Index 24.0-24.9 Adult Inac tive Fadumo Babin DIRECTOR PHARMACY SERVICES Body Mass Index 24.0-24.9 Adult Inac tive Fadumo Babin DIRECTOR PHARMACY SERVICES Body Mass Index 23.0-23.9 Adult Inac tive Fadumo Babin DIRECTOR PHARMACY SERVICES Type 2 diabetes mellitus with diabetic polyneuropathy Inactive Fadumo Babin DIRECTOR PHARMACY SERVICES Type 2 diabetes mellitus with hypoglycemia without coma ICD-250. 80 Inactive Fadumo Babin DIRECTOR PHARMACY SERVICES Body Mass Index 24.0-24.9 Adult Inactiv e Fadumo Babin DIRECTOR PHARMACY SERVICES Influenza Vaccination for Prophylaxis ICD-V04.81 2 Inactive Marie Todd POWDER TRUCK DRIVER Medication List Medication Instructions Start Date Stop Date Generic Name NDC Status Provider Patient Instruction FUROSEMIDE 20 MG ORAL TABLET Take one by mouth daily FUROSEMIDE 10007124493 Active Fadumo Babin DIRECTOR PHARMACY SERVICES Active HUMALOG KWIKPEN 100 UNIT/ML SUBCUTANEOUS SOLUTION PEN- INJECTOR 10 units with dinner, SQ daily for DM [id number] 04/06 x2 pens INSULIN LISPRO 60173480816 Active Fadumo Babin DIRECTOR PHARMACY SERVICES Active NOVOLOG 100 UNIT/ML SUBCUTANEOUS SOLUTION Take 20u wit h dinner for DM 05/2019 [id number] x1 vial INSULIN ASPART 97830846881 No Longer Active Fadumo Babin DIRECTOR PHARMACY SERVICES Active LOSARTAN POTASSIUM-HCTZ 100-25 MG ORAL TABLET Take one by mo uth daily LOSARTAN POTASSIUM-HCTZ 12416438339 Active Fadumo Amaroin son DIRECTOR PHARMACY SERVICES Active LOSARTAN POTASSIUM 25 MG ORAL TABLET 1 pill daily, for blood pressure LOSARTAN POTASSIUM 24062707198 No Longer Active Chloe manriqueze Talya WASHBURNN Active GLIMEPIRIDE 2 MG ORAL TABLET 1 tab PO daily for DM 201 12/26/25 GLIMEPIRIDE 99575796465 No Longer Active Fadumo Babin ALCIDES A ctive FIASP FLEXTOUCH 100 UNIT/ML SUBCUTANEOUS SOLUTION PEN- INJECTOR 10 units at lunch and dinner 03/2019; [id number] 1 vial INSULIN ASPAR T 76323400432 No Longer Active Fadumo Babin APRN Active MYRBETRIQ 50 MG ORAL TABLET EXTENDED RELEASE 24 HOUR 1 tab [place] MIRABEGRON 96165865478 Active Diana Kwan LPN A ctive ONDANSETRON 4 MG ORAL TABLET DISINTEGRATING 1 q4h PRN nausea 201 12/18/14 ONDANSETRON 75675047876 No Longer Active Diana Kwan LPN Active CONTOUR NEXT TEST IN VITRO STRIP check blood sugars 3 times a day for DM E11.65 GLUCOSE BLOOD 78291685349 No Longer Active Fadumo Babin APRN Active ACTOS 15 MG ORAL TABLET 1 tablet by mouth daily for DM PIOGLITAZONE HCL 87540351777 No Longer Active Fadumo Babin APRN Active LANTUS SOLOSTAR 100 UNIT/ML SUBCUTANEOUS SOLUTION PEN- INJECTOR 20 units SQ every PM for DM INSULIN GLARGINE 42794411270 Active Fadumo Babin APRN Active CONTOUR NEXT TEST IN VITRO STRIP check blood sugars 3 times a day for DM E11.65 GLUCOSE BLOOD 50483481044 Active Kisha Wong Active ELIZABETH CONTOUR MONITOR W/DEVICE KIT BLOOD GLUCOSE MONITORING SUPPL 02328906876 No Longer Active Fadumo Babin APRN A ctive ALEVE 220 MG ORAL TABLET 2 tabs once every 4-6hrs PRN NAPROXEN SODIUM 14800275479 Active Brigitte Saucedo MA Active GLYBURIDE 2.5 MG ORAL TABLET 1 tab by mouth daily 2017 GLYBURIDE 92081508694 No Longer Active Brigitte Saucedo MA Acti ve CLIMARA 0.025 MG/24HR TRANSDERMAL PATCH WEEKLY Place 1 patch every week ESTRADIOL 75181269782 Carrie Jimenez MD Active SIMVASTATIN 20 MG ORAL TABLET 1 tab daily at bedtime SIMVASTATIN 51615508135 Carrie Jimenez MD Active GLYBURIDE 2.5 MG ORAL TABLET 1 tab by mouth daily 2017 GLYBURIDE 2.5 MG ORAL TABLET 083355 GLYBURIDE Inactive ACTOS 15 MG ORAL TABLET 1 tablet by mouth daily for DM ACTOS 15 MG ORAL TABLET 764287 PIOGLITAZONE HCL Inactive CONTOUR NEXT TEST IN VITRO STRIP check blood sugars 3 times a day for DM E11.65 CONTOUR NEXT TEST IN VITRO STRIP GLUCOSE BLOOD Inactive ONDANSETRON 4 MG ORAL TABLET DISINTEGRATING 1 q4h PRN nausea 201 12/18/14 ONDANSETRON 4 MG ORAL TABLET DISINTEGRATING 846678 ONDA NSETRON Inactive FIASP FLEXTOUCH 100 UNIT/ML SUBCUTANEOUS SOLUTION PEN- INJECTOR 10 units at lunch and dinner 03/2019; [id number] 1 vial FIASP FLEXTOUCH 100 UNIT/ML SUBCUTANEOUS SOLUTION PEN-INJECTOR INSULIN ASPART Inactive GLIMEPIRIDE 2 MG ORAL TABLET 1 tab PO daily for DM 201 12/26/25 GLIMEPIRIDE 2 MG ORAL TABLET 946093 GLIMEPIRIDE Inactive LOSARTAN POTASSIUM 25 MG ORAL TABLET 1 pill daily, for blood pressure LOSARTAN POTASSIUM 25 MG ORAL TABLET 021322 LOSA RTAN POTASSIUM Inactive NOVOLOG 100 UNIT/ML SUBCUTANEOUS SOLUTION Take 20u wit h dinner for DM 05/2019 [id number] x1 vial NOVOLOG 100 UNIT/ML SUBCUTANEOUS SOLUTION [...] W/RATIO - Chemistry sodium, serum 137 mmol/L 378-115 4840/03/11 potassium, serum 4.5 mmol/L 3.5-5.2 chloride, serum [...] Yes Encounters Code Encounter Date Provider Facility CPT-89068 [id number] Vst-Est Level III 09:33:33 CDT Fadumo Sitemasher [facility] CPT-09661 [id number] Vst-Est Level IV 14:52:44 C DT Fadumo Sitemasher [facility] CPT-19931 Level 3 Est. Patient 09:05:17 DRILL PRESS HAND [facility] CPT-42455 Level 4 Est. Patient 15:52:58 DRILL PRESS HAND Fadumo Leslie [employer] [facility] CPT-26125 Level 4 Est. Patient 15:44:53 DRILL PRESS HAND Fadumo Leslie [employer] [facility] CPT-31508 Level 3 Est. Patient 14:21:54 JOEL harper MD [facility] CPT-13057 Level 5 Est. Patient 15:02:09 CDT Fadumo Leslie [facility] CPT-83004 Level 4 Est. Patient 15:16:40 CDT Fadumo Leslie [facility] CPT-57572 Level 5 Est. Patient 11:51:47 CDT Fadumo Leslie [facility] CPT-15957 Level 5 Est. Patient 12:49:59 [facility] Level 4 Est. Patient 10:56:25 CDT Fito russell MD [facility] Procedures Code Procedure Name Date Entry Date Standard Desc ription CPT-30003 Postop F/U Visit 19:34:43 CDT CPT-74007 Postop F/U Visit 14:39:09 CDT
--- OUTSIDE RECORDS SUMMARY | 2019-07-28 22:48 | XMS REPORT | Clinical Summary ---
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 Davey Jimenez MD Malignant neoplasm of kidney, except pel vis Body Mass Index 24.0-24.9 Adult Inactive 2017 Fadumo Babin EMERGENCY DEPARTMENT PHYSICIAN Body Mass Index between 19-24, adult Type 2 diabetes mellitus with hyperglycemia 250.00 Act charley Kisha Fieldsglariana JONASP Diabetes mellitus without me ntion of complication, type II or unspecified type, not stated as uncontrolled Body Mass Index 23.0-23.9 Adult Inactive 2017 Fadumo Babin EMERGENCY DEPARTMENT PHYSICIAN Body Mass Index between 19-24, adult Type 2 diabetes mellitus with diabetic polyneuropathy Inactive 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 insulin treatment V58.67 Active 2 Kisha Fieldsglari HAT TRIMMER Long-term (current) use of insulin Type 2 diabetes mellitus with hypoglycemia without coma 250.80 Resolved Fadumo Babin EMERGENCY DEPARTMENT PHYSICIAN Diabetes mellitus with other specified manifestations, type II or unspecified type, not stated as uncontrolled Body Mass Index 24.0-24.9 Adult Resolved 2017 Fadumo Babin EMERGENCY DEPARTMENT PHYSICIAN Body Mass Index between 19-24, adult Noncompliance with dietary regimen V15.81 Active 2 Fadumo Babin EMERGENCY DEPARTMENT PHYSICIAN Personal history of noncompl iance with medical treatment, presenting hazards to health Type 2 diabetes with diabetic polyneuropathy 357.2 Ac tive Fadumo Babin EMERGENCY DEPARTMENT PHYSICIAN Polyneuropathy in diabetes Body Mass Index 26.0-26.9 Adult Refinement 2017 Fadumo Babin EMERGENCY DEPARTMENT PHYSICIAN Body Mass Index 26.0-26.9, adult BMI 25-25.9 Active Fadumo Babin EMERGENCY DEPARTMENT PHYSICIAN Body Mass Index 26.0-26.9, adult Overweight (BMI 25-29.9) Active Fadumo Amaro inson EMERGENCY DEPARTMENT PHYSICIAN Overweight Hypertension 401.9 Active Fadumo Babin APR N Unspecified essential hypertension Hyperlipidemia 272.4 Active Fadumo Babin A PRN Other and unspecified hyperlipidemia Type 2 diabetes mellitus with other specified complication 250.8 0 Active Fadumo Babin EMERGENCY DEPARTMENT PHYSICIAN Diabetes mellitus with other specified manifestations, type II or unspecified type, not stated as uncontrolled Type 2 diabetes mellitus with hypoglycemia without coma 250.80 Active Fadumo Babin EMERGENCY DEPARTMENT PHYSICIAN Diabetes mellitus with other specified manifestations, type II or unspecified type, not stated as uncontrolled Influenza Vaccination for Prophylaxis V04.81 Inactive Fadumo Babin EMERGENCY DEPARTMENT PHYSICIAN Need for prophylactic vaccin ation and inoculation against influenza Noncompliance with medications V15.81 Active 07/28 Fadumo Babin EMERGENCY DEPARTMENT PHYSICIAN Personal history of noncompl iance with medical treatment, presenting hazards to health Body Mass Index 24.0-24.9 Adult Inac tive Fadumo Babin EMERGENCY DEPARTMENT PHYSICIAN Body Mass Index 24.0-24.9 Adult Inac tive Fadumo Babin EMERGENCY DEPARTMENT PHYSICIAN Body Mass Index 23.0-23.9 Adult Inac tive Fadumo Babin EMERGENCY DEPARTMENT PHYSICIAN Type 2 diabetes mellitus with diabetic polyneuropathy Inactive Fadumo Babin EMERGENCY DEPARTMENT PHYSICIAN Type 2 diabetes mellitus with hypoglycemia without coma ICD-250. 80 Inactive Fadumo Babin EMERGENCY DEPARTMENT PHYSICIAN Body Mass Index 24.0-24.9 Adult Inactiv e Fadumo Babin EMERGENCY DEPARTMENT PHYSICIAN Influenza Vaccination for Prophylaxis ICD-V04.81 2 Inactive Marie Todd CLASSIFICATIONS OFFICER CC/CM Medication List Medication Instructions Start Date Stop Date Generic Name NDC Status Provider Patient Instruction FUROSEMIDE 20 MG ORAL TABLET Take one by mouth daily FUROSEMIDE 73455861921 Active Fadumo Babin EMERGENCY DEPARTMENT PHYSICIAN Active HUMALOG KWIKPEN 100 UNIT/ML SUBCUTANEOUS SOLUTION PEN- INJECTOR 10 units with dinner, SQ daily for DM [id number] 04/06 x2 pens INSULIN LISPRO 83167481664 Active Fadumo Babin EMERGENCY DEPARTMENT PHYSICIAN Active NOVOLOG 100 UNIT/ML SUBCUTANEOUS SOLUTION Take 20u wit h dinner for DM 05/2019 [id number] x1 vial INSULIN ASPART 00372709946 No Longer Active Fadumo Babin EMERGENCY DEPARTMENT PHYSICIAN Active LOSARTAN POTASSIUM-HCTZ 100-25 MG ORAL TABLET Take one by mo uth daily LOSARTAN POTASSIUM-HCTZ 13566384339 Active Fadumo Amaroin son EMERGENCY DEPARTMENT PHYSICIAN Active LOSARTAN POTASSIUM 25 MG ORAL TABLET 1 pill daily, for blood pressure LOSARTAN POTASSIUM 56674083159 No Longer Active Chloe ue [place] EMERGENCY DEPARTMENT PHYSICIAN Active GLIMEPIRIDE 2 MG ORAL TABLET 1 tab PO daily for DM 201 12/26/25 GLIMEPIRIDE 73418732433 No Longer Active Fadumo Babin EMERGENCY DEPARTMENT PHYSICIAN A ctive FIASP FLEXTOUCH 100 UNIT/ML SUBCUTANEOUS SOLUTION PEN- INJECTOR 10 units at lunch and dinner 03/2019; [id number] 1 vial INSULIN ASPAR T 87088846965 No Longer Active Fadumo Babin APRN Active MYRBETRIQ 50 MG ORAL TABLET EXTENDED RELEASE 24 HOUR 1 tab [place] MIRABEGRON 87682683575 Active Diana Kwan LPN A ctive ONDANSETRON 4 MG ORAL TABLET DISINTEGRATING 1 q4h PRN nausea 201 12/18/14 ONDANSETRON 31369580972 No Longer Active Diana Kwan LPN Active CONTOUR NEXT TEST IN VITRO STRIP check blood sugars 3 times a day for DM E11.65 GLUCOSE BLOOD 65602309641 No Longer Active Fadumo Babin APRN Active ACTOS 15 MG ORAL TABLET 1 tablet by mouth daily for DM PIOGLITAZONE HCL 20507425102 No Longer Active Fadumo Babin APRN Active LANTUS SOLOSTAR 100 UNIT/ML SUBCUTANEOUS SOLUTION PEN- INJECTOR 20 units SQ every PM for DM INSULIN GLARGINE 97976908108 Active Fadumo Babin APRN Active CONTOUR NEXT TEST IN VITRO STRIP check blood sugars 3 times a day for DM E11.65 GLUCOSE BLOOD 54216180964 Active Kisha Wong Active ELIZABETH CONTOUR MONITOR W/DEVICE KIT BLOOD GLUCOSE MONITORING SUPPL 83152406809 No Longer Active Fadumo Babin APRN A ctive ALEVE 220 MG ORAL TABLET 2 tabs once every 4-6hrs PRN NAPROXEN SODIUM 96083392524 Active Brigitte Saucedo MA Active GLYBURIDE 2.5 MG ORAL TABLET 1 tab by mouth daily 2017 GLYBURIDE 97239662267 No Longer Active Brigitte Saucedo MA Acti ve CLIMARA 0.025 MG/24HR TRANSDERMAL PATCH WEEKLY Place 1 patch every week ESTRADIOL 27696217858 Carrie Jimenez MD Active SIMVASTATIN 20 MG ORAL TABLET 1 tab daily at bedtime SIMVASTATIN 23728567411 Carrie Jimenez MD Active GLYBURIDE 2.5 MG ORAL TABLET 1 tab by mouth daily 2017 GLYBURIDE 2.5 MG ORAL TABLET 817830 GLYBURIDE Inactive ACTOS 15 MG ORAL TABLET 1 tablet by mouth daily for DM ACTOS 15 MG ORAL TABLET 175912 PIOGLITAZONE HCL Inactive CONTOUR NEXT TEST IN VITRO STRIP check blood sugars 3 times a day for DM E11.65 CONTOUR NEXT TEST IN VITRO STRIP GLUCOSE BLOOD Inactive ONDANSETRON 4 MG ORAL TABLET DISINTEGRATING 1 q4h PRN nausea 201 12/18/14 ONDANSETRON 4 MG ORAL TABLET DISINTEGRATING 449331 ONDA NSETRON Inactive FIASP FLEXTOUCH 100 UNIT/ML SUBCUTANEOUS SOLUTION PEN- INJECTOR 10 units at lunch and dinner 03/2019; [id number] 1 vial FIASP FLEXTOUCH 100 UNIT/ML SUBCUTANEOUS SOLUTION PEN-INJECTOR INSULIN ASPART Inactive GLIMEPIRIDE 2 MG ORAL TABLET 1 tab PO daily for DM 201 12/26/25 GLIMEPIRIDE 2 MG ORAL TABLET 276171 GLIMEPIRIDE Inactive LOSARTAN POTASSIUM 25 MG ORAL TABLET 1 pill daily, for blood pressure LOSARTAN POTASSIUM 25 MG ORAL TABLET 382792 LOSA RTAN POTASSIUM Inactive NOVOLOG 100 UNIT/ML SUBCUTANEOUS SOLUTION Take 20u wit h dinner for DM 05/2019 [id number] x1 vial NOVOLOG 100 UNIT/ML SUBCUTANEOUS SOLUTION [...] W/RATIO - Chemistry sodium, serum 137 mmol/L 766-614 6558/03/11 potassium, serum 4.5 mmol/L 3.5-5.2 chloride, serum [...] Yes Encounters Code Encounter Date Provider Facility CPT-25867 [id number] Vst-Est Level III 09:33:33 CDT Fadumo Freeze Tag [facility] CPT-65985 [id number] Vst-Est Level IV 14:52:44 C DT Fadumo Freeze Tag [facility] CPT-65671 Level 3 Est. Patient 09:05:17 SOFTWARE DEVELOPER MANAGER [facility] CPT-87215 Level 4 Est. Patient 15:52:58 SOFTWARE DEVELOPER MANAGER Fadumo Leslie Clouli [facility] CPT-11994 Level 4 Est. Patient 15:44:53 SOFTWARE DEVELOPER MANAGER Fadumo Leslie Clouli [facility] CPT-14503 Level 3 Est. Patient 14:21:54 SOFTWARE DEVELOPER MANAGER J Tomas harper MD [facility] CPT-85431 Level 5 Est. Patient 15:02:09 CDT Fadumo Leslie [facility] CPT-37628 Level 4 Est. Patient 15:16:40 CDT Fadumo Leslie [facility] CPT-32462 Level 5 Est. Patient 11:51:47 CDT Fadumo Leslie [facility] CPT-41580 Level 5 Est. Patient 12:49:59 [facility] Level 4 Est. Patient 10:56:25 CDT Fito russell MD [facility] Procedures Code Procedure Name Date Entry Date Standard Desc ription CPT-20285 Postop F/U Visit 19:34:43 CDT CPT-11909 Postop F/U Visit 14:39:09 CDT
--- OUTSIDE RECORDS SUMMARY | 2019-07-28 22:48 | XMS REPORT | Clinical Summary ---
Author Author Karina, Leeann Vasquez Organization [employer] Address Unknown Phone Unavailable Allergies, Adverse Reactions, [...] Index 24.0-24.9 Adult Inactive 2017 Fadumo Babin ENVIRONMENTAL SUSTAINABILITY MANAGER Body Mass Index between 19-24, adult Type 2 diabetes mellitus with hyperglycemia 250.00 Act charley Kisha Fieldsglariana JONASP Diabetes mellitus without me ntion of complication, type II or unspecified type, not stated as uncontrolled Body Mass Index 23.0-23.9 Adult Inactive 2017 Fadumo Babin ENVIRONMENTAL SUSTAINABILITY MANAGER Body Mass Index between 19-24, adult Type 2 diabetes mellitus with diabetic polyneuropathy Inactive 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 treatment V58.67 Active 2 Kisha Fieldsglari [employer] Long-term (current) use of insulin Type 2 diabetes mellitus with hypoglycemia without coma 250.80 Resolved Fadumo Babin ENVIRONMENTAL SUSTAINABILITY MANAGER Diabetes mellitus with other specified manifestations, type II or unspecified type, not stated as uncontrolled Body Mass Index 24.0-24.9 Adult Resolved 2017 Fadumo Babin ENVIRONMENTAL SUSTAINABILITY MANAGER Body Mass Index between 19-24, adult Noncompliance with dietary regimen V15.81 Active 2 Fadumo Babin ENVIRONMENTAL SUSTAINABILITY MANAGER Personal history of noncompl iance with medical treatment, presenting hazards to health Type 2 diabetes with diabetic polyneuropathy 357.2 Ac tive Fadumo Babin ENVIRONMENTAL SUSTAINABILITY MANAGER Polyneuropathy in diabetes Body Mass Index 26.0-26.9 Adult Refinement 2017 Fadumo Babin ENVIRONMENTAL SUSTAINABILITY MANAGER Body Mass Index 26.0-26.9, adult BMI 25-25.9 Active Fadumo Baibn ENVIRONMENTAL SUSTAINABILITY MANAGER Body Mass Index 26.0-26.9, adult Overweight (BMI 25-29.9) Active Fadumo Amaro inson ENVIRONMENTAL SUSTAINABILITY MANAGER Overweight Hypertension 401.9 Active Fadumo Babin APR N Unspecified essential hypertension Hyperlipidemia 272.4 Active Fadumo Babin A PRN Other and unspecified hyperlipidemia Type 2 diabetes mellitus with other specified complication 250.8 0 Active Fadumo Babin ENVIRONMENTAL SUSTAINABILITY MANAGER Diabetes mellitus with other specified manifestations, type II or unspecified type, not stated as uncontrolled Type 2 diabetes mellitus with hypoglycemia without coma 250.80 Active Fadumo Babin ENVIRONMENTAL SUSTAINABILITY MANAGER Diabetes mellitus with other specified manifestations, type II or unspecified type, not stated as uncontrolled Influenza Vaccination for Prophylaxis V04.81 Inactive Fadumo Babin ENVIRONMENTAL SUSTAINABILITY MANAGER Need for prophylactic vaccin ation and inoculation against influenza Noncompliance with medications V15.81 Active 07/28 Fadumo Babin ENVIRONMENTAL SUSTAINABILITY MANAGER Personal history of noncompl iance with medical treatment, presenting hazards to health Body Mass Index 24.0-24.9 Adult Inac tive Fadumo Babin ENVIRONMENTAL SUSTAINABILITY MANAGER Body Mass Index 24.0-24.9 Adult Inac tive Fadumo Babin ENVIRONMENTAL SUSTAINABILITY MANAGER Body Mass Index 23.0-23.9 Adult Inac tive Fadumo Babin ENVIRONMENTAL SUSTAINABILITY MANAGER Type 2 diabetes mellitus with diabetic polyneuropathy Inactive Fadumo Babin ENVIRONMENTAL SUSTAINABILITY MANAGER Type 2 diabetes mellitus with hypoglycemia without coma ICD-250. 80 Inactive Fadumo Babin ENVIRONMENTAL SUSTAINABILITY MANAGER Body Mass Index 24.0-24.9 Adult Inactiv e Fadumo Babin ENVIRONMENTAL SUSTAINABILITY MANAGER Influenza Vaccination for Prophylaxis ICD-V04.81 2 Inactive Marie Todd FUSE COILER Medication List Medication Instructions Start Date Stop Date Generic Name NDC Status Provider Patient Instruction HUMALOG KWIKPEN 100 UNIT/ML SUBCUTANEOUS SOLUTION PEN- INJECTOR 20units with dinner, SQ daily for DM [id number] 04/06 x2 pens INSULIN LISPRO 51497032894 Active Fadumo Babin ENVIRONMENTAL SUSTAINABILITY MANAGER Active NOVOLOG 100 UNIT/ML SUBCUTANEOUS SOLUTION Take 20u wit h dinner for DM 05/2019 [id number] x1 vial INSULIN ASPART 42705965571 No Longer Active Fadumo Babin ENVIRONMENTAL SUSTAINABILITY MANAGER Active LOSARTAN POTASSIUM-HCTZ 100-25 MG ORAL TABLET Take one by mo [facility] daily LOSARTAN POTASSIUM-HCTZ 65259868052 Active Fadumo Aamroramon jain ENVIRONMENTAL SUSTAINABILITY MANAGER Active LOSARTAN POTASSIUM 25 MG ORAL TABLET 1 pill daily, for blood pressure LOSARTAN POTASSIUM 18821277664 No Longer Active Nunulivier manriqueze Talya ENVIRONMENTAL SUSTAINABILITY MANAGER Active GLIMEPIRIDE 2 MG ORAL TABLET 1 tab PO daily for DM 201 12/26/25 GLIMEPIRIDE 20933317052 No Longer Active Fadumo Babin ENVIRONMENTAL SUSTAINABILITY MANAGER A ctive FIASP FLEXTOUCH 100 UNIT/ML SUBCUTANEOUS SOLUTION PEN- INJECTOR 10 units at lunch and dinner 03/2019; [id number] 1 vial INSULIN ASPAR T 68950552074 No Longer Active Fadumo Babin APRN Active MYRBETRIQ 50 MG ORAL TABLET EXTENDED RELEASE 24 HOUR 1 tab [place] MIRABEGRON 60137299699 Active Diana Kwan LPN A ctive ONDANSETRON 4 MG ORAL TABLET DISINTEGRATING 1 q4h PRN nausea 201 12/18/14 ONDANSETRON 64589065916 No Longer Active Diana Kwan LPN Active CONTOUR NEXT TEST IN VITRO STRIP check blood sugars 3 times a day for DM E11.65 GLUCOSE BLOOD 03780736648 No Longer Active Fadumo Babin APRN Active ACTOS 15 MG ORAL TABLET 1 tablet by mouth daily for DM PIOGLITAZONE HCL 63226345607 No Longer Active Fadumo Babin APRN Active LANTUS SOLOSTAR 100 UNIT/ML SUBCUTANEOUS SOLUTION PEN- INJECTOR 20 units SQ every PM for DM INSULIN GLARGINE 12994884535 Active Fadumo Babin APRN Active CONTOUR NEXT TEST IN VITRO STRIP check blood sugars 3 times a day for DM E11.65 GLUCOSE BLOOD 55825559151 Active Kisha Wong Active ELIZABETH CONTOUR MONITOR W/DEVICE KIT BLOOD GLUCOSE MONITORING SUPPL 61598350838 No Longer Active Fadumo Babin APRN A ctive ALEVE 220 MG ORAL TABLET 2 tabs once every 4-6hrs PRN NAPROXEN SODIUM 11926621463 Active Brigitte Saucedo MA Active GLYBURIDE 2.5 MG ORAL TABLET 1 tab by mouth daily 2017 GLYBURIDE 30617416416 No Longer Active Brigitte Saucedo MA Acti ve CLIMARA 0.025 MG/24HR TRANSDERMAL PATCH WEEKLY Place 1 patch every week ESTRADIOL 96358534438 Carrie Jimenez MD Active SIMVASTATIN 20 MG ORAL TABLET 1 tab daily at bedtime SIMVASTATIN 43089518409 Carrie Jimenez MD Active GLYBURIDE 2.5 MG ORAL TABLET 1 tab by mouth daily 2017 GLYBURIDE 2.5 MG ORAL TABLET 817193 GLYBURIDE Inactive ACTOS 15 MG ORAL TABLET 1 tablet by mouth daily for DM ACTOS 15 MG ORAL TABLET 704273 PIOGLITAZONE HCL Inactive CONTOUR NEXT TEST IN VITRO STRIP check blood sugars 3 times a day for DM E11.65 CONTOUR NEXT TEST IN VITRO STRIP GLUCOSE BLOOD Inactive ONDANSETRON 4 MG ORAL TABLET DISINTEGRATING 1 q4h PRN nausea 201 12/18/14 ONDANSETRON 4 MG ORAL TABLET DISINTEGRATING 406905 ONDA NSETRON Inactive FIASP FLEXTOUCH 100 UNIT/ML SUBCUTANEOUS SOLUTION PEN- INJECTOR 10 units at lunch and dinner 03/2019; [id number] 1 vial FIASP FLEXTOUCH 100 UNIT/ML SUBCUTANEOUS SOLUTION PEN-INJECTOR INSULIN ASPART Inactive GLIMEPIRIDE 2 MG ORAL TABLET 1 tab PO daily for DM 201 12/26/25 GLIMEPIRIDE 2 MG ORAL TABLET 310998 GLIMEPIRIDE Inactive LOSARTAN POTASSIUM 25 MG ORAL TABLET 1 pill daily, for blood pressure LOSARTAN POTASSIUM 25 MG ORAL TABLET 055617 LOS RTAN POTASSIUM Inactive NOVOLOG 100 UNIT/ML SUBCUTANEOUS SOLUTION Take 20u wit h dinner for DM 05/2019 [id number] x1 vial NOVOLOG 100 UNIT/ML SUBCUTANEOUS SOLUTION [...] Value Unit Range Description blood pressure, diastolic 80 mm[Hg] BP davis [...] pressure, diastolic, repeated by physician 96 BP advis blood pressure, diastolic 96 mm[Hg] BP davis [...] d blood pressure, diastolic 80 mm[Hg] BP dvais blood pressure, systolic 138 mm[Hg] BP sys [...] weight E&M 133 [lb_av] Weight Measure d blood pressure, diastolic 71 mm[Hg] BP davis blood pressure, systolic 135 mm[Hg] BP sys height E&M 62 [in_us] Bdy height pulse rate E&M 85 /min Heart rate temperature E&M 97.1 [degF] Body temp erature weight E&M 132 [lb_av] Weight Measure d Diagnostic Results Date Name Value Unit Range Description Chart Maintenance: outside lab added to flowsheet - Chemistry triglyceride, serum, fasting 57 mg/dL hemoglobin A1C, blood, as % of total hemoglobin 10.7 % blood glucose 218 mg/dL creatinine, serum 1.05 mg/dL cholesterol, serum 210 mg/dL LDL cholesterol, serum 105 mg/dL HDL cholesterol, serum 91 mg/dL triglyceride, serum, fasting 68 mg/dL HDL cholesterol, serum 83 mg/dL LDL cholesterol, serum 97 mg/dL cholesterol, serum 191 mg/dL creatinine, serum 0.91 mg/dL hemoglobin A1C, blood, as % of total hemoglobin 11.5 % Lab Report: Basic Metabolic Panel, HGBA1 C, MICROALB/CREAT W/RATIO - Chemistry sodium, serum 137 mmol/L 938-568 2945/03/11 potassium, serum 4.5 mmol/L 3.5-5.2 chloride, serum [...] utilized Yes home glucose monitor utilized Yes cholesterol, target level 200 mg/dL triglyceride, target level 200 mg/dL HDL cholesterol, serum, target level 35 mg/dL cholesterol, target level 200 mg/dL triglyceride, target level 200 mg/dL HDL cholesterol, serum, target level 35 mg/dL Encounters Code Encounter Date Provider Facility CPT-08964 [id number] Vst-Est Level IV 14:52:44 C ANSLEY Babin [facility] CPT-24307 Level 3 Est. Patient 09:05:17 SALES REPRESENTATIVE PRINTING Fadumo dunn [facility] CPT-17843 Level 4 Est. Patient 15:52:58 SALES REPRESENTATIVE PRINTING Fadumo Leslie icanya [facility] CPT-59150 Level 4 Est. Patient 15:44:53 SALES REPRESENTATIVE PRINTING Fadumo dunn [facility] CPT-83365 Level 3 Est. Patient 14:21:54 JOEL harper MD [facility] CPT-36658 Level 5 Est. Patient 15:02:09 [facility] Level 4 Est. Patient 15:16:40 CDT Fadumo Leslie [facility] CPT-95078 Level 5 Est. Patient 11:51:47 CDT Fadumo Leslie [facility] CPT-82624 Level 5 Est. Patient 12:49:59 CDT Kisha VALLE [facility] CPT-71364 Level 4 Est. Patient 10:56:25 CDT Fito russell MD [facility] Procedures Code Procedure Name Date Entry Date Standard Desc ription CPT-19396 Postop F/U Visit 19:34:43 CDT CPT-30157 Postop F/U Visit 14:39:09 CDT
--- OUTSIDE RECORDS SUMMARY | 2019-07-28 22:48 | XMS REPORT | Clinical Summary ---
Author Author Karina, Leeann Vasquez Organization [employer] Address Unknown Phone Unavailable Allergies, Adverse Reactions, [...] Index 24.0-24.9 Adult Inactive 2017 Fadumo Babin SOIL SORT WORKER Body Mass Index between 19-24, adult Type 2 diabetes mellitus with hyperglycemia 250.00 Act charley Kisha Fieldsglariana JONASP Diabetes mellitus without me ntion of complication, type II or unspecified type, not stated as uncontrolled Body Mass Index 23.0-23.9 Adult Inactive 2017 Fadumo Babin SOIL SORT WORKER Body Mass Index between 19-24, adult Type 2 diabetes mellitus with diabetic polyneuropathy Inactive Fadumo Babin 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 insulin treatment V58.67 Active 2 Kisha Fieldsglari POLYSOMNOGRAPHER Long-term (current) use of insulin Type 2 diabetes mellitus with hypoglycemia without coma 250.80 Resolved Fadumo Babin SOIL SORT WORKER Diabetes mellitus with other specified manifestations, type II or unspecified type, not stated as uncontrolled Body Mass Index 24.0-24.9 Adult Resolved 2017 Fadumo Babin SOIL SORT WORKER Body Mass Index between 19-24, adult Noncompliance with dietary regimen V15.81 Active 2 Fadumo Babin SOIL SORT WORKER Personal history of noncompl iance with medical treatment, presenting hazards to health Type 2 diabetes with diabetic polyneuropathy 357.2 Ac tive Fadumo Babin SOIL SORT WORKER Polyneuropathy in diabetes Body Mass Index 26.0-26.9 Adult Refinement 2017 Fadumo Babin SOIL SORT WORKER Body Mass Index 26.0-26.9, adult BMI 25-25.9 Active Fadumo Babin SOIL SORT WORKER Body Mass Index 26.0-26.9, adult Overweight (BMI 25-29.9) Active Fadumo Amaro inson SOIL SORT WORKER Overweight Hypertension 401.9 Active Fadumo Babin APR N Unspecified essential hypertension Hyperlipidemia 272.4 Active Fadumo Babin A PRN Other and unspecified hyperlipidemia Type 2 diabetes mellitus with other specified complication 250.8 0 Active Fadumo Babin SOIL SORT WORKER Diabetes mellitus with other specified manifestations, type II or unspecified type, not stated as uncontrolled Type 2 diabetes mellitus with hypoglycemia without coma 250.80 Active Fadumo Babin SOIL SORT WORKER Diabetes mellitus with other specified manifestations, type II or unspecified type, not stated as uncontrolled Influenza Vaccination for Prophylaxis V04.81 Inactive Fadumo Babin SOIL SORT WORKER Need for prophylactic vaccin ation and inoculation against influenza Noncompliance with medications V15.81 Active 07/28 Fadumo Babin SOIL SORT WORKER Personal history of noncompl iance with medical treatment, presenting hazards to health Body Mass Index 24.0-24.9 Adult Inac tive Fadumo Babin SOIL SORT WORKER Body Mass Index 24.0-24.9 Adult Ina tive Fadumo Babin SOIL SORT WORKER Type 2 diabetes mellitus with hypoglycemia without coma ICD-250. 80 Inactive Fadumo Babin SOIL SORT WORKER Body Mass Index 24.0-24.9 Adult Inactiv e Fadumo Babin SOIL SORT WORKER Body Mass Index 23.0-23.9 Adult Inac tive Fadumo Babin SOIL SORT WORKER Influenza Vaccination for Prophylaxis ICD-V04.81 2 Inactive aMrie Brooks RECRUITMENT ASSISTANT Type 2 diabetes mellitus with diabetic polyneuropathy Inactive Fadumo Babin SOIL SORT WORKER Medication List Medication Instructions Start Date Stop Date Generic Name NDC Status Provider Patient Instruction HUMALOG KWIKPEN 100 UNIT/ML SUBCUTANEOUS SOLUTION PEN- INJECTOR 20units with dinner, SQ daily for DM [id number] 04/06 x2 pens INSULIN LISPRO 55260007483 Active Fadumo Babin SOIL SORT WORKER Active NOVOLOG 100 UNIT/ML SUBCUTANEOUS SOLUTION Take 20u wit h dinner for DM 05/2019 [id number] x1 vial INSULIN ASPART 70361482776 No Longer Active Fadumo Babin SOIL SORT WORKER Active LOSARTAN POTASSIUM-HCTZ 100-25 MG ORAL TABLET Take one by mo [facility] daily LOSARTAN POTASSIUM-HCTZ 67901467385 Active Fadumo Amaroramon susy SOIL SORT WORKER Active LOSARTAN POTASSIUM 25 MG ORAL TABLET 1 pill daily, for blood pressure LOSARTAN POTASSIUM 16625885172 No Longer Active Nunulivier manriqueze Talya WASHBURNN Active GLIMEPIRIDE 2 MG ORAL TABLET 1 tab PO daily for DM 201 12/26/25 GLIMEPIRIDE 55037469064 No Longer Active Fadumo Babin ALCIDES A ctive FIASP FLEXTOUCH 100 UNIT/ML SUBCUTANEOUS SOLUTION PEN- INJECTOR 10 units at lunch and dinner 03/2019; [id number] 1 vial INSULIN ASPAR T 86257515191 No Longer Active Fadumo Babin APRN Active MYRBETRIQ 50 MG ORAL TABLET EXTENDED RELEASE 24 HOUR 1 tab [place] MIRABEGRON 05034915763 Active Diana Kwan LPN A ctive ONDANSETRON 4 MG ORAL TABLET DISINTEGRATING 1 q4h PRN nausea 201 12/18/14 ONDANSETRON 65043735332 No Longer Active Diana Kwan LPN Active CONTOUR NEXT TEST IN VITRO STRIP check blood sugars 3 times a day for DM E11.65 GLUCOSE BLOOD 54597603801 No Longer Active Fadumo Babin APRN Active ACTOS 15 MG ORAL TABLET 1 tablet by mouth daily for DM PIOGLITAZONE HCL 50915738376 No Longer Active Fadumo Babin APRN Active LANTUS SOLOSTAR 100 UNIT/ML SUBCUTANEOUS SOLUTION PEN- INJECTOR 20 units SQ every PM for DM INSULIN GLARGINE 14006890605 Active Fadumo Babin APRN Active CONTOUR NEXT TEST IN VITRO STRIP check blood sugars 3 times a day for DM E11.65 GLUCOSE BLOOD 50673879087 Active Kisha Wong Active ELIZABETH CONTOUR MONITOR W/DEVICE KIT BLOOD GLUCOSE MONITORING SUPPL 58791283821 No Longer Active Fadumo Babin APRN A ctive ALEVE 220 MG ORAL TABLET 2 tabs once every 4-6hrs PRN NAPROXEN SODIUM 23438597107 Active Brigitte Saucedo MA Active GLYBURIDE 2.5 MG ORAL TABLET 1 tab by mouth daily 2017 GLYBURIDE 87133909044 No Longer Active Brigitte Saucedo MA Acti ve CLIMARA 0.025 MG/24HR TRANSDERMAL PATCH WEEKLY Place 1 patch every week ESTRADIOL 19176187142 Carrie Jimenez MD Active SIMVASTATIN 20 MG ORAL TABLET 1 tab daily at bedtime SIMVASTATIN 15775187466 Carrie Jimenez MD Active GLYBURIDE 2.5 MG ORAL TABLET 1 tab by mouth daily 2017 GLYBURIDE 2.5 MG ORAL TABLET 740045 GLYBURIDE Inactive ACTOS 15 MG ORAL TABLET 1 tablet by mouth daily for DM ACTOS 15 MG ORAL TABLET 813747 PIOGLITAZONE HCL Inactive CONTOUR NEXT TEST IN VITRO STRIP check blood sugars 3 times a day for DM E11.65 CONTOUR NEXT TEST IN VITRO STRIP GLUCOSE BLOOD Inactive ONDANSETRON 4 MG ORAL TABLET DISINTEGRATING 1 q4h PRN nausea 201 12/18/14 ONDANSETRON 4 MG ORAL TABLET DISINTEGRATING 295351 ONDA NSETRON Inactive FIASP FLEXTOUCH 100 UNIT/ML SUBCUTANEOUS SOLUTION PEN- INJECTOR 10 units at lunch and dinner 03/2019; [id number] 1 vial FIASP FLEXTOUCH 100 UNIT/ML SUBCUTANEOUS SOLUTION PEN-INJECTOR INSULIN ASPART Inactive GLIMEPIRIDE 2 MG ORAL TABLET 1 tab PO daily for DM 201 12/26/25 GLIMEPIRIDE 2 MG ORAL TABLET 851575 GLIMEPIRIDE Inactive LOSARTAN POTASSIUM 25 MG ORAL TABLET 1 pill daily, for blood pressure LOSARTAN POTASSIUM 25 MG ORAL TABLET 564080 LOS RTAN POTASSIUM Inactive NOVOLOG 100 UNIT/ML SUBCUTANEOUS SOLUTION Take 20u wit h dinner for DM 05/2019 [id number] x1 vial NOVOLOG 100 UNIT/ML SUBCUTANEOUS SOLUTION [...] - Chemistry triglyceride, serum, fasting 57 mg/dL HDL cholesterol, serum 83 mg/dL LDL cholesterol, serum 97 mg/dL cholesterol, serum 191 mg/dL cholesterol, serum 210 mg/dL LDL cholesterol, serum 105 mg/dL HDL cholesterol, serum 91 mg/dL triglyceride, serum, fasting 68 mg/dL creatinine, serum 0.91 mg/dL hemoglobin A1C, blood, as % of total hemoglobin 11.5 % hemoglobin A1C, blood, as % of total hemoglobin 10.7 % blood glucose 218 mg/dL creatinine, serum 1.05 mg/dL Lab Report: Basic Metabolic Panel, HGBA1 C, MICROALB/CREAT W/RATIO - Chemistry carbon dioxide, venous blood 26.0 mmol/L 21.0-32 .0 urea nitrogen, blood 24 mg/dL 7-18 creatinine, serum 1.12 mg/dL 0.60-1.30 Estimated Glomerular Filtration Rate (calc) 51 (?) mL/min/1.73m2 = OR > 60 mL/min hemoglobin A1C, blood, as % of total hemoglobin 9.9 % 4.3-6.0 blood glucose 219 mg/dL 65-95 calcium, serum 9.1 mg/dL 8.5-10.1 sodium, serum 137 mmol/L 353-725 3077/03/11 potassium, serum 4.5 mmol/L 3.5-5.2 chloride, serum 101 mmol/L 98-107 Lab Report: Basic Metabolic Panel, HGBA1 C, MICROALB/CREAT W/RATIO - Lab microalbumin, urine 80 mg/L 0-19 Lab Report: Basic Metabolic Panel, HGBA1 C, MICROALB/CREAT W/RATIO - Urinalysis microalbumin/total urine volume 30 - 300 mg/g Abnormal mg/g mg/L 0-29 Office Visit: 6 month followup partial n ephrectomy - [facility] sexually transmitted disease no risk noted Office [...] mg/dL Encounters Code Encounter Date Provider Facility CPT-30562 [id number] Vst-Est Level IV 14:52:44 C DT Fadumo Babin [facility] CPT-29354 Level 3 Est. Patient 09:05:17 ALUMNI SECRETARY Fadumo dunn [facility] CPT-18248 Level 4 Est. Patient 15:52:58 ALUMNI SECRETARY Fadumo Mariama [facility] CPT-27161 Level 4 Est. Patient 15:44:53 ALUMNI SECRETARY [facility] Level 3 Est. Patient 14:21:54 ALUMNI SECRETARY Davey harper MD [facility] CPT-92212 Level 5 Est. Patient 15:02:09 CDT Fadumo Mariama icanya [facility] CPT-48145 Level 4 Est. Patient 15:16:40 CDT Fadumo Mariama ickinson [facility] CPT-68514 Level 5 Est. Patient 11:51:47 CDT Fadumo Mariama ickinson [facility] CPT-20821 Level 5 Est. Patient 12:49:59 CDT Kisha rnedon [facility] CPT-67479 Level 4 Est. Patient 10:56:25 CDT Fito russell MD [facility] Procedures Code Procedure Name Date Entry Date Standard Desc ription CPT-37364 Postop F/U Visit 19:34:43 CDT CPT-10096 Postop F/U Visit 14:39:09 CDT
--- OUTSIDE RECORDS SUMMARY | 2019-07-28 22:48 | XMS REPORT | Clinical Summary ---
Author Author Karina, Leeann Vasquez Organization [employer] Address Unknown Phone Unavailable Allergies, Adverse Reactions, [...] Index 24.0-24.9 Adult Inactive 2017 Fadumo Babin TRACK EQUIPMENT OPERATOR Body Mass Index between 19-24, adult Type 2 diabetes mellitus with hyperglycemia 250.00 Act charley Kisha Fieldsglariana JONASP Diabetes mellitus without me ntion of complication, type II or unspecified type, not stated as uncontrolled Body Mass Index 23.0-23.9 Adult Inactive 2017 Fadumo Babin TRACK EQUIPMENT OPERATOR Body Mass Index between 19-24, adult Type 2 diabetes mellitus with diabetic polyneuropathy Inactive Fadumo Babin APRN intermission coordinator use of insulin treatment V58.67 Active 2 Kisha Fieldsglari GASTROENTEROLOGY TEACHER Long-term (current) use of insulin Type 2 diabetes mellitus with hypoglycemia without coma 250.80 Resolved Fadumo Babin TRACK EQUIPMENT OPERATOR Diabetes mellitus with other specified manifestations, type II or unspecified type, not stated as uncontrolled Body Mass Index 24.0-24.9 Adult Resolved 2017 Fadumo Babin TRACK EQUIPMENT OPERATOR Body Mass Index between 19-24, adult Noncompliance with dietary regimen V15.81 Active 2 Fadumo Babin TRACK EQUIPMENT OPERATOR Personal history of noncompl iance with medical treatment, presenting hazards to health Type 2 diabetes with diabetic polyneuropathy 357.2 Ac tive Fadumo Babin TRACK EQUIPMENT OPERATOR Polyneuropathy in diabetes Body Mass Index 26.0-26.9 Adult Refinement 2017 Fadumo Babin TRACK EQUIPMENT OPERATOR Body Mass Index 26.0-26.9, adult BMI 25-25.9 Active Fadumo Babin TRACK EQUIPMENT OPERATOR Body Mass Index 26.0-26.9, adult Overweight (BMI 25-29.9) Active Fadumo Amaro inson TRACK EQUIPMENT OPERATOR Overweight Hypertension 401.9 Active Fadumo Babin APR N Unspecified essential hypertension Hyperlipidemia 272.4 Active Fadumo Babin A PRN Other and unspecified hyperlipidemia Type 2 diabetes mellitus with other specified complication 250.8 0 Active Fadumo Babin TRACK EQUIPMENT OPERATOR Diabetes mellitus with other specified manifestations, type II or unspecified type, not stated as uncontrolled Type 2 diabetes mellitus with hypoglycemia without coma 250.80 Active Fadumo Babin TRACK EQUIPMENT OPERATOR Diabetes mellitus with other specified manifestations, type II or unspecified type, not stated as uncontrolled Influenza Vaccination for Prophylaxis V04.81 Inactive Fadumo Babin TRACK EQUIPMENT OPERATOR Need for prophylactic vaccin ation and inoculation against influenza Noncompliance with medications V15.81 Active 07/28 Fadumo Babin TRACK EQUIPMENT OPERATOR Personal history of noncompl iance with medical treatment, presenting hazards to health Body Mass Index 24.0-24.9 Adult Inac tive Fadumo Babin TRACK EQUIPMENT OPERATOR Body Mass Index 24.0-24.9 Adult Inac tive Fadumo Babin TRACK EQUIPMENT OPERATOR Body Mass Index 23.0-23.9 Adult Inac tive Fadumo Babin TRACK EQUIPMENT OPERATOR Type 2 diabetes mellitus with diabetic polyneuropathy Inactive Fadumo Babin TRACK EQUIPMENT OPERATOR Type 2 diabetes mellitus with hypoglycemia without coma ICD-250. 80 Inactive Fadumo Babin TRACK EQUIPMENT OPERATOR Body Mass Index 24.0-24.9 Adult Inactiv e Fadumo Babin TRACK EQUIPMENT OPERATOR Influenza Vaccination for Prophylaxis ICD-V04.81 2 Inactive Marie Todd FOOD SAFETY FIELD SPECIALIST Medication List Medication Instructions Start Date Stop Date Generic Name NDC Status Provider Patient Instruction FUROSEMIDE 20 MG ORAL TABLET Take one by mouth daily FUROSEMIDE 09365865555 Active Fadumo Babin TRACK EQUIPMENT OPERATOR Active HUMALOG KWIKPEN 100 UNIT/ML SUBCUTANEOUS SOLUTION PEN- INJECTOR 10 units with dinner, SQ daily for DM [id number] 04/06 x2 pens INSULIN LISPRO 64608789766 Active Fadumo Babin TRACK EQUIPMENT OPERATOR Active NOVOLOG 100 UNIT/ML SUBCUTANEOUS SOLUTION Take 20u wit h dinner for DM 05/2019 [id number] x1 vial INSULIN ASPART 52840798093 No Longer Active Fadumo Babin TRACK EQUIPMENT OPERATOR Active LOSARTAN POTASSIUM-HCTZ 100-25 MG ORAL TABLET Take one by mo uth daily LOSARTAN POTASSIUM-HCTZ 74177854333 Active Fadumo Amaroin son TRACK EQUIPMENT OPERATOR Active LOSARTAN POTASSIUM 25 MG ORAL TABLET 1 pill daily, for blood pressure LOSARTAN POTASSIUM 25851233645 No Longer Active Chloe ue Stanberry TRACK EQUIPMENT OPERATOR Active GLIMEPIRIDE 2 MG ORAL TABLET 1 tab PO daily for DM 201 12/26/25 GLIMEPIRIDE 52564842439 No Longer Active Fadumo Babin TRACK EQUIPMENT OPERATOR A ctive FIASP FLEXTOUCH 100 UNIT/ML SUBCUTANEOUS SOLUTION PEN- INJECTOR 10 units at lunch and dinner 03/2019; [id number] 1 vial INSULIN ASPAR T 73761958017 No Longer Active Fadumo Babin APRN Active MYRBETRIQ 50 MG ORAL TABLET EXTENDED RELEASE 24 HOUR 1 tab [place] MIRABEGRON 15367750789 Active Diana Kwan LPN A ctive ONDANSETRON 4 MG ORAL TABLET DISINTEGRATING 1 q4h PRN nausea 201 12/18/14 ONDANSETRON 81377117769 No Longer Active Diana Kwan LPN Active CONTOUR NEXT TEST IN VITRO STRIP check blood sugars 3 times a day for DM E11.65 GLUCOSE BLOOD 16627531176 No Longer Active Fadumo Babin APRN Active ACTOS 15 MG ORAL TABLET 1 tablet by mouth daily for DM PIOGLITAZONE HCL 94127090402 No Longer Active Fadumo Babin APRN Active LANTUS SOLOSTAR 100 UNIT/ML SUBCUTANEOUS SOLUTION PEN- INJECTOR 20 units SQ every PM for DM INSULIN GLARGINE 09525254835 Active Fadumo Babin APRN Active CONTOUR NEXT TEST IN VITRO STRIP check blood sugars 3 times a day for DM E11.65 GLUCOSE BLOOD 82015432019 Active Kisha Wong Active ELIZABETH CONTOUR MONITOR W/DEVICE KIT BLOOD GLUCOSE MONITORING SUPPL 38865481671 No Longer Active Fadumo Babin APRN A ctive ALEVE 220 MG ORAL TABLET 2 tabs once every 4-6hrs PRN NAPROXEN SODIUM 86044976717 Active Brigitte Saucedo MA Active GLYBURIDE 2.5 MG ORAL TABLET 1 tab by mouth daily 2017 GLYBURIDE 23345024076 No Longer Active Brigitte Saucedo MA Acti ve CLIMARA 0.025 MG/24HR TRANSDERMAL PATCH WEEKLY Place 1 patch every week ESTRADIOL 13325196306 Carrie Jimenez MD Active SIMVASTATIN 20 MG ORAL TABLET 1 tab daily at bedtime SIMVASTATIN 11183101692 Carrie Jimenez MD Active GLYBURIDE 2.5 MG ORAL TABLET 1 tab by mouth daily 2017 GLYBURIDE 2.5 MG ORAL TABLET 296850 GLYBURIDE Inactive ACTOS 15 MG ORAL TABLET 1 tablet by mouth daily for DM ACTOS 15 MG ORAL TABLET 903904 PIOGLITAZONE HCL Inactive CONTOUR NEXT TEST IN VITRO STRIP check blood sugars 3 times a day for DM E11.65 CONTOUR NEXT TEST IN VITRO STRIP GLUCOSE BLOOD Inactive ONDANSETRON 4 MG ORAL TABLET DISINTEGRATING 1 q4h PRN nausea 201 12/18/14 ONDANSETRON 4 MG ORAL TABLET DISINTEGRATING 679574 ONDA NSETRON Inactive FIASP FLEXTOUCH 100 UNIT/ML SUBCUTANEOUS SOLUTION PEN- INJECTOR 10 units at lunch and dinner 03/2019; [id number] 1 vial FIASP FLEXTOUCH 100 UNIT/ML SUBCUTANEOUS SOLUTION PEN-INJECTOR INSULIN ASPART Inactive GLIMEPIRIDE 2 MG ORAL TABLET 1 tab PO daily for DM 201 12/26/25 GLIMEPIRIDE 2 MG ORAL TABLET 841170 GLIMEPIRIDE Inactive LOSARTAN POTASSIUM 25 MG ORAL TABLET 1 pill daily, for blood pressure LOSARTAN POTASSIUM 25 MG ORAL TABLET 807977 LOSA RTAN POTASSIUM Inactive NOVOLOG 100 UNIT/ML SUBCUTANEOUS SOLUTION Take 20u wit h dinner for DM 05/2019 [id number] x1 vial NOVOLOG 100 UNIT/ML SUBCUTANEOUS SOLUTION [...] W/RATIO - Chemistry sodium, serum 137 mmol/L 083-806 7372/03/11 potassium, serum 4.5 mmol/L 3.5-5.2 chloride, serum [...] mg/dL Encounters Code Encounter Date Provider Facility CPT-22391 [id number] Vst-Est Level III 09:33:33 CDT Fadumo BUX [facility] CPT-80992 [id number] Vst-Est Level IV 14:52:44 C DT Fadumo BUX [facility] CPT-80788 Level 3 Est. Patient 09:05:17 LEARNING SUPPORT SPECIALIST Fadumo Leslie [facility] [facility] CPT-94616 Level 4 Est. Patient 15:52:58 LEARNING SUPPORT SPECIALIST Fadumo Leslie [employer] [facility] CPT-15535 Level 4 Est. Patient 15:44:53 LEARNING SUPPORT SPECIALIST Fadumo Leslie [employer] [facility] CPT-37066 Level 3 Est. Patient 14:21:54 LEARNING SUPPORT SPECIALIST J Tomas harper MD [facility] CPT-16324 Level 5 Est. Patient 15:02:09 CDT Fadumo Leslie [facility] CPT-75757 Level 4 Est. Patient 15:16:40 CDT Fadumo Leslie [facility] CPT-08556 Level 5 Est. Patient 11:51:47 CDT Fadumo Leslie [facility] CPT-26978 Level 5 Est. Patient 12:49:59 [facility] Level 4 Est. Patient 10:56:25 CDT Fito russell MD [facility] Procedures Code Procedure Name Date Entry Date Standard Desc ription CPT-38476 Postop F/U Visit 19:34:43 CDT CPT-57539 Postop F/U Visit 14:39:09 CDT
--- OUTSIDE RECORDS SUMMARY | 2019-07-28 22:49 | XMS REPORT | Clinical Summary ---
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 Davey Jimenez MD Malignant neoplasm of kidney, except pel vis Body Mass Index 24.0-24.9 Adult Inactive 2017 Fadumo Babin PATHOLOGY ASSISTANT Body Mass Index between 19-24, adult Type 2 diabetes mellitus with hyperglycemia 250.00 Act charley Kisha JONASP Diabetes mellitus without me ntion of complication, type II or unspecified type, not stated as uncontrolled Body Mass Index 23.0-23.9 Adult Inactive 2017 Fadumo Babin PATHOLOGY ASSISTANT Body Mass Index between 19-24, adult Type 2 diabetes mellitus with diabetic polyneuropathy Inactive 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 V58.67 Active 2 Maliheh Ziglari SLICER MACHINE OPERATOR Long-term (current) use of insulin Type 2 diabetes mellitus with hypoglycemia without coma 250.80 Resolved Fadumo Babin PATHOLOGY ASSISTANT Diabetes mellitus with other specified manifestations, type II or unspecified type, not stated as uncontrolled Body Mass Index 24.0-24.9 Adult Resolved 2017 Fadumo Babin PATHOLOGY ASSISTANT Body Mass Index between 19-24, adult Noncompliance with dietary regimen V15.81 Active 2 Fadumo Babin PATHOLOGY ASSISTANT Personal history of noncompl iance with medical treatment, presenting hazards to health Type 2 diabetes with diabetic polyneuropathy 357.2 Ac tive Fadumo Babin PATHOLOGY ASSISTANT Polyneuropathy in diabetes Body Mass Index 26.0-26.9 Adult Refinement 2017 Fadumo Babin PATHOLOGY ASSISTANT Body Mass Index 26.0-26.9, adult BMI 25-25.9 Active Fadumo Babin PATHOLOGY ASSISTANT Body Mass Index 26.0-26.9, adult Overweight (BMI 25-29.9) Active Fadumo Amaro inson PATHOLOGY ASSISTANT Overweight Hypertension 401.9 Active Fadumo Babin APR N Unspecified essential hypertension Hyperlipidemia 272.4 Active Fadumo Babin A PRN Other and unspecified hyperlipidemia Type 2 diabetes mellitus with other specified complication 250.8 0 Active Fadumo Babin PATHOLOGY ASSISTANT Diabetes mellitus with other specified manifestations, type II or unspecified type, not stated as uncontrolled Type 2 diabetes mellitus with hypoglycemia without coma 250.80 Active Fadumo Babin PATHOLOGY ASSISTANT Diabetes mellitus with other specified manifestations, type II or unspecified type, not stated as uncontrolled Influenza Vaccination for Prophylaxis V04.81 Inactive Fadumo Babin PATHOLOGY ASSISTANT Need for prophylactic vaccin ation and inoculation against influenza Noncompliance with medications V15.81 Active 07/28 Fadumo Babin PATHOLOGY ASSISTANT Personal history of noncompl iance with medical treatment, presenting hazards to health Body Mass Index 24.0-24.9 Adult Inac tive Fadumo Babin PATHOLOGY ASSISTANT Body Mass Index 24.0-24.9 Adult Inac tive Fadumo Babin PATHOLOGY ASSISTANT Type 2 diabetes mellitus with hypoglycemia without coma ICD-250. 80 Inactive Fadumo Babin PATHOLOGY ASSISTANT Body Mass Index 24.0-24.9 Adult Inactiv e Fadumo Babin PATHOLOGY ASSISTANT Influenza Vaccination for Prophylaxis ICD-V04.81 2 Inactive Marie Brooks POKER [place] Body Mass Index 23.0-23.9 Adult Inac tive Fadumo Babin PATHOLOGY ASSISTANT Type 2 diabetes mellitus with diabetic polyneuropathy Inactive Fadumo Babin PATHOLOGY ASSISTANT Medication List Medication Instructions Start Date Stop Date Generic Name NDC Status Provider Patient Instruction HUMALOG KWIKPEN 100 UNIT/ML SUBCUTANEOUS SOLUTION PEN- INJECTOR 20units with dinner, SQ daily for DM [id number] 04/06 x2 pens INSULIN LISPRO 81406886192 Active Fadumo Babin PATHOLOGY ASSISTANT Active NOVOLOG 100 UNIT/ML SUBCUTANEOUS SOLUTION Take 20u wit h dinner for DM 05/2019 [id number] x1 vial INSULIN ASPART 43914122022 No Longer Active Fadumo Babin PATHOLOGY ASSISTANT Active LOSARTAN POTASSIUM-HCTZ 100-25 MG ORAL TABLET Take one by mo nmh daily LOSARTAN POTASSIUM-HCTZ 30002761550 Active Fadumo Palma jain PATHOLOGY ASSISTANT Active LOSARTAN POTASSIUM 25 MG ORAL TABLET 1 pill daily, for blood pressure LOSARTAN POTASSIUM 44736241199 No Longer Active Nunulivier manriqueze Talya WASHBURNN Active GLIMEPIRIDE 2 MG ORAL TABLET 1 tab PO daily for DM 201 12/26/25 GLIMEPIRIDE 84856546333 No Longer Active Fadumo Babin ALCIDES A ctive FIASP FLEXTOUCH 100 UNIT/ML SUBCUTANEOUS SOLUTION PEN- INJECTOR 10 units at lunch and dinner 03/2019; [id number] 1 vial INSULIN ASPAR T 37141060193 No Longer Active Fadumo Babin APRN Active MYRBETRIQ 50 MG ORAL TABLET EXTENDED RELEASE 24 HOUR 1 tab [place] MIRABEGRON 23587378454 Active Diana Kwan LPN A ctive ONDANSETRON 4 MG ORAL TABLET DISINTEGRATING 1 q4h PRN nausea 201 12/18/14 ONDANSETRON 14385157580 No Longer Active Diana Kwan LPN Active CONTOUR NEXT TEST IN VITRO STRIP check blood sugars 3 times a day for DM E11.65 GLUCOSE BLOOD 45972825763 No Longer Active Fadumo Babin APRN Active ACTOS 15 MG ORAL TABLET 1 tablet by mouth daily for DM PIOGLITAZONE HCL 66306972540 No Longer Active Fadumo Babin APRN Active LANTUS SOLOSTAR 100 UNIT/ML SUBCUTANEOUS SOLUTION PEN- INJECTOR 20 units SQ every PM for DM INSULIN GLARGINE 20017678367 Active Fadumo Babin APRN Active CONTOUR NEXT TEST IN VITRO STRIP check blood sugars 3 times a day for DM E11.65 GLUCOSE BLOOD 31565875307 Active Kisha Wong Active ELIZABETH CONTOUR MONITOR W/DEVICE KIT BLOOD GLUCOSE MONITORING SUPPL 64835521617 No Longer Active Fadumo Babin APRN A ctive ALEVE 220 MG ORAL TABLET 2 tabs once every 4-6hrs PRN NAPROXEN SODIUM 47865705473 Active Brigitte Saucedo MA Active GLYBURIDE 2.5 MG ORAL TABLET 1 tab by mouth daily 2017 GLYBURIDE 02435762752 No Longer Active Brigitte Saucedo MA Acti ve CLIMARA 0.025 MG/24HR TRANSDERMAL PATCH WEEKLY Place 1 patch every week ESTRADIOL 77470300100 Carrie Jimenez MD Active SIMVASTATIN 20 MG ORAL TABLET 1 tab daily at bedtime SIMVASTATIN 19714522472 Carrie Jimenez MD Active GLYBURIDE 2.5 MG ORAL TABLET 1 tab by mouth daily 2017 GLYBURIDE 2.5 MG ORAL TABLET 544966 GLYBURIDE Inactive ACTOS 15 MG ORAL TABLET 1 tablet by mouth daily for DM ACTOS 15 MG ORAL TABLET 382508 PIOGLITAZONE HCL Inactive CONTOUR NEXT TEST IN VITRO STRIP check blood sugars 3 times a day for DM E11.65 CONTOUR NEXT TEST IN VITRO STRIP GLUCOSE BLOOD Inactive ONDANSETRON 4 MG ORAL TABLET DISINTEGRATING 1 q4h PRN nausea 201 12/18/14 ONDANSETRON 4 MG ORAL TABLET DISINTEGRATING 879705 ONDA NSETRON Inactive FIASP FLEXTOUCH 100 UNIT/ML SUBCUTANEOUS SOLUTION PEN- INJECTOR 10 units at lunch and dinner 03/2019; [id number] 1 vial FIASP FLEXTOUCH 100 UNIT/ML SUBCUTANEOUS SOLUTION PEN-INJECTOR INSULIN ASPART Inactive GLIMEPIRIDE 2 MG ORAL TABLET 1 tab PO daily for DM 201 12/26/25 GLIMEPIRIDE 2 MG ORAL TABLET 528577 GLIMEPIRIDE Inactive LOSARTAN POTASSIUM 25 MG ORAL TABLET 1 pill daily, for blood pressure LOSARTAN POTASSIUM 25 MG ORAL TABLET 747793 LOSA RTAN POTASSIUM Inactive NOVOLOG 100 UNIT/ML SUBCUTANEOUS SOLUTION Take 20u wit h dinner for DM 05/2019 [id number] x1 vial NOVOLOG 100 UNIT/ML SUBCUTANEOUS SOLUTION [...] W/RATIO - Chemistry sodium, serum 137 mmol/L 667-066 8252/03/11 potassium, serum 4.5 mmol/L 3.5-5.2 chloride, serum [...] mg/dL Encounters Code Encounter Date Provider Facility CPT-06655 [id number] Vst-Est Level IV 14:52:44 C ANSLEY Babin [facility] CPT-41609 Level 3 Est. Patient 09:05:17 AIR DEFENSE SPECIALIST Fadumo dunn [facility] CPT-85781 Level 4 Est. Patient 15:52:58 AIR DEFENSE SPECIALIST Fadumo Leslie icanya [facility] CPT-16481 Level 4 Est. Patient 15:44:53 AIR DEFENSE SPECIALIST Fadumo dunn [facility] CPT-81209 Level 3 Est. Patient 14:21:54 JOEL harper MD [facility] CPT-99022 Level 5 Est. Patient 15:02:09 [facility] Level 4 Est. Patient 15:16:40 CDT [facility] Level 5 Est. Patient 11:51:47 CDT Fadumo Leslie anya [facility] CPT-57439 Level 5 Est. Patient 12:49:59 CDT Kisha VALLE [facility] CPT-37216 Level 4 Est. Patient 10:56:25 CDT Fito russell MD [facility] Procedures Code Procedure Name Date Entry Date Standard Desc ription CPT-84287 Postop F/U Visit 19:34:43 CDT CPT-88665 Postop F/U Visit 14:39:09 CDT
--- OUTSIDE RECORDS SUMMARY | 2019-07-28 22:49 | XMS REPORT | Clinical Summary ---
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 Davey Jimenez MD Malignant neoplasm of kidney, except pel vis Body Mass Index 24.0-24.9 Adult Inactive 2017 Fadumo Babin MANAGER COUN[place] Body Mass Index between 19-24, adult Type 2 diabetes mellitus with hyperglycemia 250.00 Act charley Kisha JONASP Diabetes mellitus without me ntion of complication, type II or unspecified type, not stated as uncontrolled Body Mass Index 23.0-23.9 Adult Inactive 2017 Fadumo Babin MANAGER COUN[place] Body Mass Index between 19-24, adult Type 2 diabetes mellitus with diabetic polyneuropathy Inactive 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 V58.67 Active 2 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 Long-term (current) use of insulin Type 2 diabetes mellitus with hypoglycemia without coma 250.80 Resolved Fadumo Babin MANAGER COUNTRY Diabetes mellitus with other specified manifestations, type II or unspecified type, not stated as uncontrolled Body Mass Index 24.0-24.9 Adult Resolved 2017 Fadumo Babin MANAGER [place] Body Mass Index between 19-24, adult Noncompliance with dietary regimen V15.81 Active 2 Fadumo Babin MANAGER [place] Personal history of noncompl iance with medical treatment, presenting hazards to health Type 2 diabetes with diabetic polyneuropathy 357.2 Ac tive Fadumo Babin MANAGER COUNTRY Polyneuropathy in diabetes Body Mass Index 26.0-26.9 Adult Refinement 2017 Fadumo Babin MANAGER [place] Body Mass Index 26.0-26.9, adult BMI 25-25.9 Active Fadumo Babin MANAGER [place] Body Mass Index 26.0-26.9, adult Overweight (BMI 25-29.9) Active Fadumo Amaro inson MANAGER COUNTRY Overweight Hypertension 401.9 Active Fadumo Babin APR N Unspecified essential hypertension Hyperlipidemia 272.4 Active Fadumo Babin A PRN Other and unspecified hyperlipidemia Type 2 diabetes mellitus with other specified complication 250.8 0 Active Fadumo Babin MANAGER [place] Diabetes mellitus with other specified manifestations, type II or unspecified type, not stated as uncontrolled Type 2 diabetes mellitus with hypoglycemia without coma 250.80 Active Fadumo Babin MANAGER [place] Diabetes mellitus with other specified manifestations, type II or unspecified type, not stated as uncontrolled Influenza Vaccination for Prophylaxis V04.81 Inactive Fadumo Babin MANAGER COUNTRY Need for prophylactic vaccin ation and inoculation against influenza Noncompliance with medications V15.81 Active 07/28 Fadumo Babin MANAGER [place] Personal history of noncompl iance with medical treatment, presenting hazards to health Body Mass Index 24.0-24.9 Adult Inac tive Fadumo Babin MANAGER COUNTRY Body Mass Index 24.0-24.9 Adult Inac tive Fadumo Babin MANAGER COUNTRY Type 2 diabetes mellitus with diabetic polyneuropathy Inactive Fadumo Babin MANAGER [place] Type 2 diabetes mellitus with hypoglycemia without coma ICD-250. 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 Body Mass Index 23.0-23.9 Adult Inac tive Fadumo Babin MANAGER COUNTRY Medication List Medication Instructions Start Date Stop Date Generic Name NDC Status Provider Patient Instruction HUMALOG KWIKPEN 100 UNIT/ML SUBCUTANEOUS SOLUTION PEN- INJECTOR 20units with dinner, SQ daily for DM [id number] 04/06 x2 pens INSULIN LISPRO 74518359922 Active Fadumo Babin MANAGER COUN[place] Active NOVOLOG 100 UNIT/ML SUBCUTANEOUS SOLUTION Take 20u wit h dinner for DM 05/2019 [id number] x1 vial INSULIN ASPART 02329626185 No Longer Active Fadumo Babin MANAGER COUNTRY Active LOSARTAN POTASSIUM-HCTZ 100-25 MG ORAL TABLET Take one by mo uth daily LOSARTAN POTASSIUM-HCTZ 74363960039 Active Fadumo Amaroramon son MANAGER COUNTRY Active LOSARTAN POTASSIUM 25 MG ORAL TABLET 1 pill daily, for blood pressure LOSARTAN POTASSIUM 92873065306 No Longer Active Chloe ue Talya WASHBURNN Active GLIMEPIRIDE 2 MG ORAL TABLET 1 tab PO daily for DM 201 12/26/25 GLIMEPIRIDE 64813822877 No Longer Active Fadumo Babin MANAGER COUNTRY A ctive FIASP FLEXTOUCH 100 UNIT/ML SUBCUTANEOUS SOLUTION PEN- INJECTOR 10 units at lunch and dinner 03/2019; [id number] 1 vial INSULIN ASPAR T 45538308593 No Longer Active Fadumo Babin APRN Active MYRBETRIQ 50 MG ORAL TABLET EXTENDED RELEASE 24 HOUR 1 tab [place] MIRABEGRON 09941387270 Active Diana Kwan LPN A ctive ONDANSETRON 4 MG ORAL TABLET DISINTEGRATING 1 q4h PRN nausea 201 12/18/14 ONDANSETRON 81404418735 No Longer Active Diana Kwan LPN Active CONTOUR NEXT TEST IN VITRO STRIP check blood sugars 3 times a day for DM E11.65 GLUCOSE BLOOD 85354529189 No Longer Active Fadumo Babin APRN Active ACTOS 15 MG ORAL TABLET 1 tablet by mouth daily for DM PIOGLITAZONE HCL 57302345291 No Longer Active Fadumo Babin APRN Active LANTUS SOLOSTAR 100 UNIT/ML SUBCUTANEOUS SOLUTION PEN- INJECTOR 20 units SQ every PM for DM INSULIN GLARGINE 34636841545 Active Fadumo Babin APRN Active CONTOUR NEXT TEST IN VITRO STRIP check blood sugars 3 times a day for DM E11.65 GLUCOSE BLOOD 05966204611 Active Kisha Wong Active ELIZABETH CONTOUR MONITOR W/DEVICE KIT BLOOD GLUCOSE MONITORING SUPPL 94621556690 No Longer Active Fadumo Babin APRN A ctive ALEVE 220 MG ORAL TABLET 2 tabs once every 4-6hrs PRN NAPROXEN SODIUM 44440621386 Active Brigitte Saucedo MA Active GLYBURIDE 2.5 MG ORAL TABLET 1 tab by mouth daily 2017 GLYBURIDE 11244296846 No Longer Active Brigitte Saucedo MA Acti ve CLIMARA 0.025 MG/24HR TRANSDERMAL PATCH WEEKLY Place 1 patch every week ESTRADIOL 12697122188 Carrie Jimenez MD Active SIMVASTATIN 20 MG ORAL TABLET 1 tab daily at bedtime SIMVASTATIN 24740717547 Carrie Jimenez MD Active GLYBURIDE 2.5 MG ORAL TABLET 1 tab by mouth daily 2017 GLYBURIDE 2.5 MG ORAL TABLET 128097 GLYBURIDE Inactive ACTOS 15 MG ORAL TABLET 1 tablet by mouth daily for DM ACTOS 15 MG ORAL TABLET 358650 PIOGLITAZONE HCL Inactive CONTOUR NEXT TEST IN VITRO STRIP check blood sugars 3 times a day for DM E11.65 CONTOUR NEXT TEST IN VITRO STRIP GLUCOSE BLOOD Inactive ONDANSETRON 4 MG ORAL TABLET DISINTEGRATING 1 q4h PRN nausea 201 12/18/14 ONDANSETRON 4 MG ORAL TABLET DISINTEGRATING 929155 ONDA NSETRON Inactive FIASP FLEXTOUCH 100 UNIT/ML SUBCUTANEOUS SOLUTION PEN- INJECTOR 10 units at lunch and dinner 03/2019; [id number] 1 vial FIASP FLEXTOUCH 100 UNIT/ML SUBCUTANEOUS SOLUTION PEN-INJECTOR INSULIN ASPART Inactive GLIMEPIRIDE 2 MG ORAL TABLET 1 tab PO daily for DM 201 12/26/25 GLIMEPIRIDE 2 MG ORAL TABLET 902208 GLIMEPIRIDE Inactive LOSARTAN POTASSIUM 25 MG ORAL TABLET 1 pill daily, for blood pressure LOSARTAN POTASSIUM 25 MG ORAL TABLET 186701 LOSA RTAN POTASSIUM Inactive NOVOLOG 100 UNIT/ML SUBCUTANEOUS SOLUTION Take 20u wit h dinner for DM 05/2019 [id number] x1 vial NOVOLOG 100 UNIT/ML SUBCUTANEOUS SOLUTION [...] [lb_av] Weight Measure d blood pressure, diastolic 75 mm[Hg] BP davis blood pressure, systolic 115 mm[Hg] BP sys height E&M 62 [in_us] Bdy height pulse rate E&M 94 /min Heart rate temperature E&M 97.6 [degF] Body temp erature weight E&M 135 [lb_av] Weight Measure d Diagnostic Results Date Name Value Unit Range Description Chart Maintenance: outside lab added to flowsheet - Chemistry triglyceride, serum, fasting 57 mg/dL HDL cholesterol, serum 91 mg/dL triglyceride, serum, fasting 68 mg/dL LDL cholesterol, serum 105 mg/dL cholesterol, serum 210 mg/dL creatinine, serum 1.05 mg/dL blood glucose 218 mg/dL HDL cholesterol, serum 83 mg/dL LDL cholesterol, serum 97 mg/dL cholesterol, serum 191 mg/dL creatinine, serum 0.91 mg/dL hemoglobin A1C, blood, as % of total hemoglobin 11.5 % hemoglobin A1C, blood, as % of total hemoglobin 10.7 % Lab Report: Basic Metabolic Panel, HGBA1 C, MICROALB/CREAT W/RATIO - Chemistry potassium, serum 4.5 mmol/L 3.5-5.2 chloride, serum 101 mmol/L 98-107 carbon dioxide, venous blood 26.0 mmol/L 21.0-32 .0 sodium, serum 137 mmol/L 697-896 3990/03/11 blood glucose 219 mg/dL 65-95 calcium, serum [...] 35 mg/dL home glucose monitor utilized Yes Encounters Code Encounter Date Provider Facility CPT-04557 [id number] Vst-Est Level IV 14:52:44 C ANSLEY Babin [facility] CPT-78020 Level 3 Est. Patient 09:05:17 DIRECTOR SURGICAL Fadumo dunn [facility] CPT-95557 Level 4 Est. Patient 15:52:58 [facility] Level 4 Est. Patient 15:44:53 DIRECTOR SURGICAL Fadumo Leslie [facility] CPT-67954 Level 3 Est. Patient 14:21:54 JOEL harper MD [facility] CPT-28662 Level 5 Est. Patient 15:02:09 CDT Fadumo Leslie [facility] CPT-00996 Level 4 Est. Patient 15:16:40 CDT Fadumo Leslie [facility] CPT-20617 Level 5 Est. Patient 11:51:47 CDT Fadumo Leslie [facility]-97089 Level 5 Est. Patient 12:49:59 [facility] Level 4 Est. Patient 10:56:25 CDT Fito russell MD [facility] Procedures Code Procedure Name Date Entry Date Standard Desc ription CPT-05927 Postop F/U Visit 19:34:43 CDT CPT-69524 Postop F/U Visit 14:39:09 CDT
--- OUTSIDE RECORDS SUMMARY | 2019-07-28 22:49 | XMS REPORT | Clinical Summary ---
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 Body Mass Index between 19-24, adult Type 2 diabetes mellitus with hyperglycemia 250.00 Act charley Kisha Fieldsglariana JONASP Diabetes mellitus without me ntion of complication, type II or unspecified type, not stated as uncontrolled Body Mass Index 23.0-23.9 Adult Inactive 2017 Fadumo Babin COAL GASIFICATION TECHNICIAN Body Mass Index between 19-24, adult Type 2 diabetes mellitus with diabetic polyneuropathy Inactive 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 use of insulin treatment V58.67 Active 2 Kisha Fieldsglari 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 Long-term (current) use of insulin Type 2 diabetes mellitus with hypoglycemia without coma 250.80 Resolved Fadumo Babin COAL GASIFICATION TECHNICIAN Diabetes mellitus with other specified manifestations, type II or unspecified type, not stated as uncontrolled Body Mass Index 24.0-24.9 Adult Resolved 2017 Fadumo Babin COAL GASIFICATION TECHNICIAN Body Mass Index between 19-24, adult Noncompliance with dietary regimen V15.81 Active 2 Fadumo Babin COAL GASIFICATION TECHNICIAN Personal history of noncompl iance with medical treatment, presenting hazards to health Type 2 diabetes with diabetic polyneuropathy 357.2 Ac tive Fadumo Babin COAL GASIFICATION TECHNICIAN Polyneuropathy in diabetes Body Mass Index 26.0-26.9 Adult Refinement 2017 Fadumo Babin COAL GASIFICATION TECHNICIAN Body Mass Index 26.0-26.9, adult BMI 25-25.9 Active Fadumo Babin COAL GASIFICATION TECHNICIAN Body Mass Index 26.0-26.9, adult Overweight (BMI 25-29.9) Active Fadumo Amaro inson COAL GASIFICATION TECHNICIAN Overweight Hypertension 401.9 Active Fadumo Babin APR N Unspecified essential hypertension Hyperlipidemia 272.4 Active Fadumo Babin A PRN Other and unspecified hyperlipidemia Type 2 diabetes mellitus with other specified complication 250.8 0 Active Fadumo Babin COAL GASIFICATION TECHNICIAN Diabetes mellitus with other specified manifestations, type II or unspecified type, not stated as uncontrolled Type 2 diabetes mellitus with hypoglycemia without coma 250.80 Active Fadumo Babin COAL GASIFICATION TECHNICIAN Diabetes mellitus with other specified manifestations, type II or unspecified type, not stated as uncontrolled Influenza Vaccination for Prophylaxis V04.81 Inactive Fadumo Babin COAL GASIFICATION TECHNICIAN Need for prophylactic vaccin ation and inoculation against influenza Noncompliance with medications V15.81 Active 07/28 Fadumo Babin COAL GASIFICATION TECHNICIAN Personal history of noncompl iance with medical treatment, presenting hazards to health Body Mass Index 24.0-24.9 Adult Inac tive Fadumo Babin COAL GASIFICATION TECHNICIAN Body Mass Index 24.0-24.9 Adult Inac tive Fadumo Babin COAL GASIFICATION TECHNICIAN Body Mass Index 23.0-23.9 Adult Inac tive Fadumo Babin COAL GASIFICATION TECHNICIAN Type 2 diabetes mellitus with diabetic polyneuropathy Inactive Fadumo Babin COAL GASIFICATION TECHNICIAN Type 2 diabetes mellitus with hypoglycemia without coma ICD-250. 80 Inactive Fadumo Babin COAL GASIFICATION TECHNICIAN Body Mass Index 24.0-24.9 Adult Inactiv e Fadumo Babin COAL GASIFICATION TECHNICIAN Influenza Vaccination for Prophylaxis ICD-V04.81 2 Inactive Marie Todd HEALTH ANALYTICS CONSULTANT Medication List Medication Instructions Start Date Stop Date Generic Name NDC Status Provider Patient Instruction HUMALOG KWIKPEN 100 UNIT/ML SUBCUTANEOUS SOLUTION PEN- INJECTOR 20units with dinner, SQ daily for DM [id number] 04/06 x2 pens INSULIN LISPRO 71591854470 Active Fadumo Babin COAL GASIFICATION TECHNICIAN Active NOVOLOG 100 UNIT/ML SUBCUTANEOUS SOLUTION Take 20u wit h dinner for DM 05/2019 [id number] x1 vial INSULIN ASPART 11854662505 No Longer Active Fadumo Babin COAL GASIFICATION TECHNICIAN Active LOSARTAN POTASSIUM-HCTZ 100-25 MG ORAL TABLET Take one by mo [facility] daily LOSARTAN POTASSIUM-HCTZ 57563126044 Active Fadumo Amaroramon jain COAL GASIFICATION TECHNICIAN Active LOSARTAN POTASSIUM 25 MG ORAL TABLET 1 pill daily, for blood pressure LOSARTAN POTASSIUM 63168380541 No Longer Active Nunulivier manriqueze Talya COAL GASIFICATION TECHNICIAN Active GLIMEPIRIDE 2 MG ORAL TABLET 1 tab PO daily for DM 201 12/26/25 GLIMEPIRIDE 82919242031 No Longer Active Fadumo Babin COAL GASIFICATION TECHNICIAN A ctive FIASP FLEXTOUCH 100 UNIT/ML SUBCUTANEOUS SOLUTION PEN- INJECTOR 10 units at lunch and dinner 03/2019; [id number] 1 vial INSULIN ASPAR T 37628507134 No Longer Active Fadumo Babin APRN Active MYRBETRIQ 50 MG ORAL TABLET EXTENDED RELEASE 24 HOUR 1 tab [place] MIRABEGRON 06305739611 Active Diana Kwan LPN A ctive ONDANSETRON 4 MG ORAL TABLET DISINTEGRATING 1 q4h PRN nausea 201 12/18/14 ONDANSETRON 83491954099 No Longer Active Diana Kwan LPN Active CONTOUR NEXT TEST IN VITRO STRIP check blood sugars 3 times a day for DM E11.65 GLUCOSE BLOOD 96320999626 No Longer Active Fadumo Babin APRN Active ACTOS 15 MG ORAL TABLET 1 tablet by mouth daily for DM PIOGLITAZONE HCL 46528237388 No Longer Active Fadumo Babin APRN Active LANTUS SOLOSTAR 100 UNIT/ML SUBCUTANEOUS SOLUTION PEN- INJECTOR 20 units SQ every PM for DM INSULIN GLARGINE 66495361944 Active Fadumo Babin APRN Active CONTOUR NEXT TEST IN VITRO STRIP check blood sugars 3 times a day for DM E11.65 GLUCOSE BLOOD 11213795294 Active Kisha Wong Active ELIZABETH CONTOUR MONITOR W/DEVICE KIT BLOOD GLUCOSE MONITORING SUPPL 29821840119 No Longer Active Fadumo Babin APRN A ctive ALEVE 220 MG ORAL TABLET 2 tabs once every 4-6hrs PRN NAPROXEN SODIUM 16598210769 Active Brigitte Saucedo MA Active GLYBURIDE 2.5 MG ORAL TABLET 1 tab by mouth daily 2017 GLYBURIDE 48598807102 No Longer Active Brigitte Saucedo MA Acti ve CLIMARA 0.025 MG/24HR TRANSDERMAL PATCH WEEKLY Place 1 patch every week ESTRADIOL 80964875128 Carrie Jimenez MD Active SIMVASTATIN 20 MG ORAL TABLET 1 tab daily at bedtime SIMVASTATIN 55671710061 Carrie Jimenez MD Active GLYBURIDE 2.5 MG ORAL TABLET 1 tab by mouth daily 2017 GLYBURIDE 2.5 MG ORAL TABLET 018712 GLYBURIDE Inactive ACTOS 15 MG ORAL TABLET 1 tablet by mouth daily for DM ACTOS 15 MG ORAL TABLET 257588 PIOGLITAZONE HCL Inactive CONTOUR NEXT TEST IN VITRO STRIP check blood sugars 3 times a day for DM E11.65 CONTOUR NEXT TEST IN VITRO STRIP GLUCOSE BLOOD Inactive ONDANSETRON 4 MG ORAL TABLET DISINTEGRATING 1 q4h PRN nausea 201 12/18/14 ONDANSETRON 4 MG ORAL TABLET DISINTEGRATING 897331 ONDA NSETRON Inactive FIASP FLEXTOUCH 100 UNIT/ML SUBCUTANEOUS SOLUTION PEN- INJECTOR 10 units at lunch and dinner 03/2019; [id number] 1 vial FIASP FLEXTOUCH 100 UNIT/ML SUBCUTANEOUS SOLUTION PEN-INJECTOR INSULIN ASPART Inactive GLIMEPIRIDE 2 MG ORAL TABLET 1 tab PO daily for DM 201 12/26/25 GLIMEPIRIDE 2 MG ORAL TABLET 574831 GLIMEPIRIDE Inactive LOSARTAN POTASSIUM 25 MG ORAL TABLET 1 pill daily, for blood pressure LOSARTAN POTASSIUM 25 MG ORAL TABLET 098259 LOS RTAN POTASSIUM Inactive NOVOLOG 100 UNIT/ML SUBCUTANEOUS SOLUTION Take 20u wit h dinner for DM 05/2019 [id number] x1 vial NOVOLOG 100 UNIT/ML SUBCUTANEOUS SOLUTION [...] W/RATIO - Chemistry sodium, serum 137 mmol/L 778-935 4462/03/11 potassium, serum 4.5 mmol/L 3.5-5.2 chloride, serum [...] Yes Encounters Code Encounter Date Provider Facility CPT-[id number] Vst-Est Level IV 14:52:44 C ANSLEY Babin [facility] CPT-96878 Level 3 Est. Patient 09:05:17 IRIDOLOGIST Fadumo dunn [facility] CPT-74916 Level 4 Est. Patient 15:52:58 IRIDOLOGIST Fadumo Leslie ickinson [facility] CPT-88894 Level 4 Est. Patient 15:44:53 IRIDOLOGIST Fadumo dunn [facility] CPT-00818 Level 3 Est. Patient 14:21:54 JOEL harper MD [facility] CPT-54662 Level 5 Est. [facility] 15[facility]02[facility] 4 Est. Patient 15:16:[address] [facility] [place] CPT-65505 Level 5 Est. Patient 11:51:[address] [facility] [place] CPT-24188 Level 5 Est. Patient 12:49:59 CDT Kisha VALLE [facility] CPT-43922 Level 4 Est. Patient 10:56:25 CDT Fito russell MD [facility] Procedures Code Procedure Name Date Entry Date Standard Desc ription CPT-96436 Postop F/U Visit 19:34:43 CDT CPT-77132 Postop F/U Visit 14:39:09 CDT
--- OUTSIDE RECORDS SUMMARY | 2019-07-28 22:49 | XMS REPORT | Clinical Summary ---
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 Active Dvaey Jimenez MD Malignant neoplasm of kidney, except pel vis Body Mass Index 24.0-24.9 Adult Inactive 2017 Fadumo Babin TURNING MACHINE OPERATOR Body Mass Index between 19-24, adult Type 2 diabetes mellitus with hyperglycemia 250.00 Act charley Kisha Fieldsglariana JONASP Diabetes mellitus without me ntion of complication, type II or unspecified type, not stated as uncontrolled Body Mass Index 23.0-23.9 Adult Inactive 2017 Fadumo Babin TURNING MACHINE OPERATOR Body Mass Index between 19-24, adult Type 2 diabetes mellitus with diabetic polyneuropathy Inactive Fadumo Babin APRN exterminator use of insulin treatment V58.67 Active 2 Kisha Fieldsglari GAS PROCESSING PLANT OPERATOR Long-term (current) use of insulin Type 2 diabetes mellitus with hypoglycemia without coma 250.80 Resolved Fadumo Babin TURNING MACHINE OPERATOR Diabetes mellitus with other specified manifestations, type II or unspecified type, not stated as uncontrolled Body Mass Index 24.0-24.9 Adult Resolved 2017 Fadumo Babin TURNING MACHINE OPERATOR Body Mass Index between 19-24, adult Noncompliance with dietary regimen V15.81 Active 2 Fadumo Babin TURNING MACHINE OPERATOR Personal history of noncompl iance with medical treatment, presenting hazards to health Type 2 diabetes with diabetic polyneuropathy 357.2 Ac tive Fadumo Babin TURNING MACHINE OPERATOR Polyneuropathy in diabetes Body Mass Index 26.0-26.9 Adult Refinement 2017 Fadumo Babin TURNING MACHINE OPERATOR Body Mass Index 26.0-26.9, adult BMI 25-25.9 Active Fadumo Babin TURNING MACHINE OPERATOR Body Mass Index 26.0-26.9, adult Overweight (BMI 25-29.9) Active Fadumo Amaro inson TURNING MACHINE OPERATOR Overweight Hypertension 401.9 Active Fadumo Babin APR N Unspecified essential hypertension Hyperlipidemia 272.4 Active Fadumo Babin A PRN Other and unspecified hyperlipidemia Type 2 diabetes mellitus with other specified complication 250.8 0 Active Fadumo Babin TURNING MACHINE OPERATOR Diabetes mellitus with other specified manifestations, type II or unspecified type, not stated as uncontrolled Type 2 diabetes mellitus with hypoglycemia without coma 250.80 Active Fadumo Babin TURNING MACHINE OPERATOR Diabetes mellitus with other specified manifestations, type II or unspecified type, not stated as uncontrolled Influenza Vaccination for Prophylaxis V04.81 Inactive Fadumo Babin TURNING MACHINE OPERATOR Need for prophylactic vaccin ation and inoculation against influenza Noncompliance with medications V15.81 Active 07/28 Fadumo Babin TURNING MACHINE OPERATOR Personal history of noncompl iance with medical treatment, presenting hazards to health Body Mass Index 24.0-24.9 Adult Inac tive Fadumo Babin TURNING MACHINE OPERATOR Body Mass Index 24.0-24.9 Adult Inac tive Fadumo Babin TURNING MACHINE OPERATOR Body Mass Index 23.0-23.9 Adult Inac tive Fadumo Babin TURNING MACHINE OPERATOR Type 2 diabetes mellitus with diabetic polyneuropathy Inactive Fadumo Babin TURNING MACHINE OPERATOR Type 2 diabetes mellitus with hypoglycemia without coma ICD-250. 80 Inactive Fadumo Babin TURNING MACHINE OPERATOR Body Mass Index 24.0-24.9 Adult Inactiv e Fadumo Babni TURNING MACHINE OPERATOR Influenza Vaccination for Prophylaxis ICD-V04.81 2 Inactive Marie Todd MUSIC RESEARCHER Medication List Medication Instructions Start Date Stop Date Generic Name NDC Status Provider Patient Instruction HUMALOG KWIKPEN 100 UNIT/ML SUBCUTANEOUS SOLUTION PEN- INJECTOR 20units with dinner, SQ daily for DM [id number] 04/06 x2 pens INSULIN LISPRO 09203035272 Active Fadumo Babin TURNING MACHINE OPERATOR Active NOVOLOG 100 UNIT/ML SUBCUTANEOUS SOLUTION Take 20u wit h dinner for DM 05/2019 [id number] x1 vial INSULIN ASPART 84568949036 No Longer Active Fadumo Babin TURNING MACHINE OPERATOR Active LOSARTAN POTASSIUM-HCTZ 100-25 MG ORAL TABLET Take one by mo [facility] daily LOSARTAN POTASSIUM-HCTZ 23258317001 Active Fadumo Amaroramon jain TURNING MACHINE OPERATOR Active LOSARTAN POTASSIUM 25 MG ORAL TABLET 1 pill daily, for blood pressure LOSARTAN POTASSIUM 90706673834 No Longer Active Nunulivier manriqueze Talya TURNING MACHINE OPERATOR Active GLIMEPIRIDE 2 MG ORAL TABLET 1 tab PO daily for DM 201 12/26/25 GLIMEPIRIDE 92371582062 No Longer Active Fadumo Babin TURNING MACHINE OPERATOR A ctive FIASP FLEXTOUCH 100 UNIT/ML SUBCUTANEOUS SOLUTION PEN- INJECTOR 10 units at lunch and dinner 03/2019; [id number] 1 vial INSULIN ASPAR T 27204724004 No Longer Active Fadumo Babin APRN Active MYRBETRIQ 50 MG ORAL TABLET EXTENDED RELEASE 24 HOUR 1 tab [place] MIRABEGRON 33856466610 Active Diana Kwan LPN A ctive ONDANSETRON 4 MG ORAL TABLET DISINTEGRATING 1 q4h PRN nausea 201 12/18/14 ONDANSETRON 95994372653 No Longer Active Diana Kwan LPN Active CONTOUR NEXT TEST IN VITRO STRIP check blood sugars 3 times a day for DM E11.65 GLUCOSE BLOOD 17458003338 No Longer Active Fadumo Babin APRN Active ACTOS 15 MG ORAL TABLET 1 tablet by mouth daily for DM PIOGLITAZONE HCL 69978847505 No Longer Active Fadumo Babin APRN Active LANTUS SOLOSTAR 100 UNIT/ML SUBCUTANEOUS SOLUTION PEN- INJECTOR 20 units SQ every PM for DM INSULIN GLARGINE 21007304630 Active Fadumo Babin APRN Active CONTOUR NEXT TEST IN VITRO STRIP check blood sugars 3 times a day for DM E11.65 GLUCOSE BLOOD 13971768843 Active Kisha Wong Active ELIZABETH CONTOUR MONITOR W/DEVICE KIT BLOOD GLUCOSE MONITORING SUPPL 06743426437 No Longer Active Fadumo Babin APRN A ctive ALEVE 220 MG ORAL TABLET 2 tabs once every 4-6hrs PRN NAPROXEN SODIUM 69024923863 Active Brigitte Saucedo MA Active GLYBURIDE 2.5 MG ORAL TABLET 1 tab by mouth daily 2017 GLYBURIDE 29608907373 No Longer Active Brigitte Saucedo MA Acti ve CLIMARA 0.025 MG/24HR TRANSDERMAL PATCH WEEKLY Place 1 patch every week ESTRADIOL 41904842015 Carrie Jimenez MD Active SIMVASTATIN 20 MG ORAL TABLET 1 tab daily at bedtime SIMVASTATIN 69108334809 Carrie Jimenez MD Active GLYBURIDE 2.5 MG ORAL TABLET 1 tab by mouth daily 2017 GLYBURIDE 2.5 MG ORAL TABLET 545610 GLYBURIDE Inactive ACTOS 15 MG ORAL TABLET 1 tablet by mouth daily for DM ACTOS 15 MG ORAL TABLET 099307 PIOGLITAZONE HCL Inactive CONTOUR NEXT TEST IN VITRO STRIP check blood sugars 3 times a day for DM E11.65 CONTOUR NEXT TEST IN VITRO STRIP GLUCOSE BLOOD Inactive ONDANSETRON 4 MG ORAL TABLET DISINTEGRATING 1 q4h PRN nausea 201 12/18/14 ONDANSETRON 4 MG ORAL TABLET DISINTEGRATING 162849 ONDA NSETRON Inactive FIASP FLEXTOUCH 100 UNIT/ML SUBCUTANEOUS SOLUTION PEN- INJECTOR 10 units at lunch and dinner 03/2019; [id number] 1 vial FIASP FLEXTOUCH 100 UNIT/ML SUBCUTANEOUS SOLUTION PEN-INJECTOR INSULIN ASPART Inactive GLIMEPIRIDE 2 MG ORAL TABLET 1 tab PO daily for DM 201 12/26/25 GLIMEPIRIDE 2 MG ORAL TABLET 431522 GLIMEPIRIDE Inactive LOSARTAN POTASSIUM 25 MG ORAL TABLET 1 pill daily, for blood pressure LOSARTAN POTASSIUM 25 MG ORAL TABLET 046106 LOS RTAN POTASSIUM Inactive NOVOLOG 100 UNIT/ML SUBCUTANEOUS SOLUTION Take 20u wit h dinner for DM 05/2019 [id number] x1 vial NOVOLOG 100 UNIT/ML SUBCUTANEOUS SOLUTION [...] W/RATIO - Chemistry sodium, serum 137 mmol/L 671-046 4337/03/11 potassium, serum 4.5 mmol/L 3.5-5.2 chloride, serum [...] Yes Encounters Code Encounter Date Provider Facility CPT-[id number] Vst-Est Level IV 14:52:44 C ANSLEY Babin [facility] CPT-21550 Level 3 Est. Patient 09:05:17 ADJUNCT INSTRUCTOR Fadumo dunn [facility] CPT-67253 Level 4 Est. Patient 15:52:58 [facility] IN[facility] 4 Est. Patient 15:44:53 ADJUNCT INSTRUCTOR Fadumo Leslie [facility] CPT-25991 Level 3 Est. Patient 14:21:54 ADJUNCT INSTRUCTOR Davey harper MD [facility] CPT-69592 Level 5 Est. Patient 15:02:09 CDT Fadumo Mariama [facility] CPT-66482 Level 4 Est. Patient 15:16:40 CDT Fadumo Leslie [facility] CPT-57349 Level 5 Est. Patient 11:51:47 CDT Fadumo Leslie [facility] [place]-57061 Level 5 Est. Patient 12:49:59 CDT Kisha JONASHCA [facility] CPT-56735 Level 4 Est. Patient 10:56:25 CDT Fito russell MD [facility] Procedures Code Procedure Name Date Entry Date Standard Desc ription CPT-97155 Postop F/U Visit 19:34:43 CDT CPT-26302 Postop F/U Visit 14:39:09 CDT
--- OUTSIDE RECORDS SUMMARY | 2019-07-28 22:50 | XMS REPORT | Clinical Summary ---
Author Author Karina, Leeann Vasquez Organization [employer] Address Unknown Phone Unavailable Allergies, Adverse Reactions, [...] Index 24.0-24.9 Adult Inactive 2017 Fadumo Babin MAILROOM PERSONNEL Body Mass Index between 19-24, adult Type 2 diabetes mellitus with hyperglycemia 250.00 Act charley Kisha Fieldsglariana JONASP Diabetes mellitus without me ntion of complication, type II or unspecified type, not stated as uncontrolled Body Mass Index 23.0-23.9 Adult Inactive 2017 Fadumo Babin [employer]ILROOM PERSONNEL Body Mass Index between 19-24, adult Type 2 diabetes mellitus with diabetic polyneuropathy Inactive 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 insulin treatment V58.67 Active 2 Kisha Fieldsglari PAPER PATTERN FOLDER Long-term (current) use of insulin Type 2 diabetes mellitus with hypoglycemia without coma 250.80 Resolved Fadumo Babin MAILROOM PERSONNEL Diabetes mellitus with other specified manifestations, type II or unspecified type, not stated as uncontrolled Body Mass Index 24.0-24.9 Adult Resolved 2017 Fadumo Babin MAILROOM PERSONNEL Body Mass Index between 19-24, adult Noncompliance with dietary regimen V15.81 Active 2 Fadumo Babin MAILROOM PERSONNEL Personal history of noncompl iance with medical treatment, presenting hazards to health Type 2 diabetes with diabetic polyneuropathy 357.2 Ac tive Fadumo Babin MAILROOM PERSONNEL Polyneuropathy in diabetes Body Mass Index 26.0-26.9 Adult Refinement 2017 Fadumo Babin MAILROOM PERSONNEL Body Mass Index 26.0-26.9, adult BMI 25-25.9 Active Fadumo Babin MAILROOM PERSONNEL Body Mass Index 26.0-26.9, adult Overweight (BMI 25-29.9) Active Fadumo Amaro inson [employer]ILROOM PERSONNEL Overweight Hypertension 401.9 Active Fadumojeny Babin APR N Unspecified essential hypertension Hyperlipidemia 272.4 Active Fadumo Babin A PRN Other and unspecified hyperlipidemia Type 2 diabetes mellitus with other specified complication 250.8 0 Active Fadumo Babin MAILROOM PERSONNEL Diabetes mellitus with other specified manifestations, type II or unspecified type, not stated as uncontrolled Type 2 diabetes mellitus with hypoglycemia without coma 250.80 Active Fadumo Babin MAILROOM PERSONNEL Diabetes mellitus with other specified manifestations, type II or unspecified type, not stated as uncontrolled Body Mass Index 24.0-24.9 Adult Inac tive Fadumo Talya [employer]ILROOM PERSONNEL Body Mass Index 24.0-24.9 Adult Inac tive Fadumo Talya MAILROOM PERSONNEL Body Mass Index 23.0-23.9 Adult Inac tive Fadumo Talya [employer]ILROOM PERSONNEL Type 2 diabetes mellitus with diabetic polyneuropathy Inactive Fadumo Babin MAILROOM PERSONNEL Type 2 diabetes mellitus with hypoglycemia without coma ICD-250. 80 Inactive Fadumo Babin MAILROOM PERSONNEL Body Mass Index 24.0-24.9 Adult Inactiv e Fadumo Babin MAILROOM PERSONNEL Medication List Medication Instructions Start Date Stop Date Generic Name NDC Status Provider Patient Instruction NOVOLOG 100 UNIT/ML SUBCUTANEOUS SOLUTION Take 20u wit h dinner for DM 05/2019 [id number] x1 vial INSULIN ASPART 29659531508 Active Maria G berumen Talya MCGRATH Active LOSARTAN POTASSIUM-HCTZ 100-25 MG ORAL TABLET Take one by mo uth daily LOSARTAN POTASSIUM-HCTZ 21209538803 Active Fadumo Premramon jain [employer]ILROOM PERSONNEL Active LOSARTAN POTASSIUM 25 MG ORAL TABLET 1 pill daily, for blood pressure LOSARTAN POTASSIUM 00201597971 No Longer Active Nunulivier zambrano Talya MCGRATH Active GLIMEPIRIDE 2 MG ORAL TABLET 1 tab PO daily for DM 201 12/26/25 GLIMEPIRIDE 65211623844 No Longer Active Fadumo Babin APRN A ctive FIASP FLEXTOUCH 100 UNIT/ML SUBCUTANEOUS SOLUTION PEN- INJECTOR 10 units at lunch and dinner 03/2019; [id number] 1 vial INSULIN ASPAR T 21513629714 No Longer Active Fadumo Babin APRN Active MYRBETRIQ 50 MG ORAL TABLET EXTENDED RELEASE 24 HOUR 1 tab [place] MIRABEGRON 85230564287 Active Diana Kwan LPN A ctive ONDANSETRON 4 MG ORAL TABLET DISINTEGRATING 1 q4h PRN nausea 201 12/18/14 ONDANSETRON 88650493545 No Longer Active Diana Kwan LPN Active CONTOUR NEXT TEST IN VITRO STRIP check blood sugars 3 times a day for DM E11.65 GLUCOSE BLOOD 87070180532 No Longer Active Fadumo Babin APRN Active ACTOS 15 MG ORAL TABLET 1 tablet by mouth daily for DM PIOGLITAZONE HCL 47728773433 No Longer Active Fitcline MAILROOM PERSONNEL Active LANTUS SOLOSTAR 100 UNIT/ML SUBCUTANEOUS SOLUTION PEN- INJECTOR 20 units SQ every PM for DM INSULIN GLARGINE 97814114072 Active Fitcline MAILROOM PERSONNEL Active CONTOUR NEXT TEST IN VITRO STRIP check blood sugars 3 times a day for DM E11.65 GLUCOSE BLOOD 15144009008 Active Kisha Wong Active ELIZABETH CONTOUR MONITOR W/DEVICE KIT BLOOD GLUCOSE MONITORING SUPPL 93345116856 No Longer Active Fitcline ALCIDES A ctive ALEVE 220 MG ORAL TABLET 2 tabs once every 4-6hrs PRN NAPROXEN SODIUM 49439214086 Active Brigitte Saucedo MA Active GLYBURIDE 2.5 MG ORAL TABLET 1 tab by mouth daily 2017 GLYBURIDE 77168724544 No Longer Active Brigitte Saucedo MA Acti ve CLIMARA 0.025 MG/24HR TRANSDERMAL PATCH WEEKLY Place 1 patch every week ESTRADIOL 42530697287 Active Davey Jimenez MD Active SIMVASTATIN 20 MG ORAL TABLET 1 tab daily at bedtime SIMVASTATIN 34702439510 Active Davey Jimenez MD Active GLYBURIDE 2.5 MG ORAL TABLET 1 tab by mouth daily 2017 GLYBURIDE 2.5 MG ORAL TABLET 303198 GLYBURIDE Inactive ACTOS 15 MG ORAL TABLET 1 tablet by mouth daily for DM ACTOS 15 MG ORAL TABLET 333835 PIOGLITAZONE HCL Inactive CONTOUR NEXT TEST IN VITRO STRIP check blood sugars 3 times a day for DM E11.65 CONTOUR NEXT TEST IN VITRO STRIP GLUCOSE BLOOD Inactive ONDANSETRON 4 MG ORAL TABLET DISINTEGRATING 1 q4h PRN nausea 201 12/18/14 ONDANSETRON 4 MG ORAL TABLET DISINTEGRATING 168616 ONDA NSETRON Inactive FIASP FLEXTOUCH 100 UNIT/ML SUBCUTANEOUS SOLUTION PEN- INJECTOR 10 units at lunch and dinner 03/2019; [id number] 1 vial FIASP FLEXTOUCH 100 UNIT/ML SUBCUTANEOUS SOLUTION PEN-INJECTOR INSULIN ASPART Inactive GLIMEPIRIDE 2 MG ORAL TABLET 1 tab PO daily for DM 201 12/26/25 GLIMEPIRIDE 2 MG ORAL TABLET 843314 GLIMEPIRIDE Inactive LOSARTAN POTASSIUM 25 MG ORAL TABLET 1 pill daily, for blood pressure LOSARTAN POTASSIUM 25 MG ORAL TABLET 544405 FABRICE RTAN POTASSIUM Inactive Advance Directives Directive Description Start Date [...] as % of total hemoglobin 11.5 % Office Visit: 6 month followup partial n ephrectomy - PM sexually transmitted disease no risk noted Office [...] mg/dL Encounters Code Encounter Date Provider Facility CPT-09900 Level 3 Est. Patient 09:05:17 PROFESSOR OF LITERACY [facility] CPT-47236 Level 4 Est. Patient 15:52:58 PROFESSOR OF LITERACY [facility]PT-[facility] Level 4 Est. Patient 15:44:53 PROFESSOR OF LITERACY [facility] CPT-08871 Level 3 Est. Patient 14:21:54 PROFESSOR OF LITERACY Davey harper MD [facility] CPT-59704 Level 5 Est. Patient 15:02:09 CDT [facility] D [facility] CPT-70592 Level 4 Est. Patient 15:16:40 CDT [facility] CPT-48037 Level 5 Est. Patient 11:51:47 CDT [facility] CPT-38147 Level 5 Est. Patient 12:49:59 CDT Kisha Faith joseariana VALLE [facility] CPT-23040 Level 4 Est. Patient 10:56:25 CDT Fito russell MD [facility] Procedures Code Procedure Name Date Entry Date Standard Desc ription CPT-69686 Postop F/U Visit 19:34:43 CDT CPT-43183 Postop F/U Visit 14:39:09 CDT
--- OUTSIDE RECORDS SUMMARY | 2019-07-28 22:50 | XMS REPORT | Clinical Summary ---
Author Author Karina, Leeann Vasquez Organization 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 Active Fito Lambert MD Calculus o f gallbladder with other cholecystitis, without mention of obstruction Body Mass Index 24.0-24.9 Adult Inactive 2017 Fadumo Babin ARCH SUPPORT MAKER Body Mass Index between 19-24, adult 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 Davey Jimenez MD Malignant neoplasm of kidney, except pel vis Body Mass Index 24.0-24.9 Adult Inactive 2017 Fadumo Babin ARCH SUPPORT MAKER Body Mass Index between 19-24, adult Type 2 diabetes mellitus with hyperglycemia 250.00 Act charley Kisha JONASP Diabetes mellitus without me ntion of complication, type II or unspecified type, not stated as uncontrolled Body Mass Index 23.0-23.9 Adult Inactive 2017 Fadumo Babin ARCH SUPPORT MAKER Body Mass Index between 19-24, adult Type 2 diabetes mellitus with diabetic polyneuropathy Inactive Fadumo Babin APRN terminologist use of insulin treatment V58.67 Active 2 Maliheh Ziglari METAL MODEL BUILDER Long-term (current) use of insulin Type 2 diabetes mellitus with hypoglycemia without coma 250.80 Resolved Fadumo Rothsay ARCH SUPPORT MAKER Diabetes mellitus with other specified manifestations, type II or unspecified type, not stated as uncontrolled Body Mass Index 24.0-24.9 Adult Resolved 2017 Fadumojeny Babin ARCH SUPPORT MAKER Body Mass Index between 19-24, adult Noncompliance with dietary regimen V15.81 Active 2 Fadumo Babin ARCH SUPPORT MAKER Personal history of noncompl iance with medical treatment, presenting hazards to health Type 2 diabetes with diabetic polyneuropathy 357.2 Ac tive Fadumojeny Babin ARCH SUPPORT MAKER Polyneuropathy in diabetes Body Mass Index 26.0-26.9 Adult Refinement 2017 Fadumojeny Babin ARCH SUPPORT MAKER Body Mass Index 26.0-26.9, adult BMI 25-25.9 Active Fadumo Babin ARCH SUPPORT MAKER Body Mass Index 26.0-26.9, adult Overweight (BMI 25-29.9) Active Fadumo Amaro inson ARCH SUPPORT MAKER Overweight Hypertension 401.9 Active Fadumo Rothsay APR N Unspecified essential hypertension Hyperlipidemia 272.4 Active Fadumojeny Babin A PRN Other and unspecified hyperlipidemia Type 2 diabetes mellitus with other specified complication 250.8 0 Active Fadumojeny Babin ARCH SUPPORT MAKER Diabetes mellitus with other specified manifestations, type II or unspecified type, not stated as uncontrolled Type 2 diabetes mellitus with hypoglycemia without coma 250.80 Active Fadumo Rothsay ARCH SUPPORT MAKER Diabetes mellitus with other specified manifestations, type II or unspecified type, not stated as uncontrolled Body Mass Index 24.0-24.9 Adult Inac tive Fadumo Talya ARCH SUPPORT MAKER Body Mass Index 24.0-24.9 Adult Inac tive Fadumo Talya ARCH SUPPORT MAKER Body Mass Index 23.0-23.9 Adult Inac tive Fadumo Talya ARCH SUPPORT MAKER Type 2 diabetes mellitus with diabetic polyneuropathy Inactive Fadumo Babin ALCIDES Type 2 diabetes mellitus with hypoglycemia without coma ICD-250. 80 Inactive Fadumo Babin ARCH SUPPORT MAKER Body Mass Index 24.0-24.9 Adult Inactiv e Fadumo Babin ARCH SUPPORT MAKER Medication List Medication Instructions Start Date Stop Date Generic Name NDC Status Provider Patient Instruction NOVOLOG 100 UNIT/ML SUBCUTANEOUS SOLUTION Take 20u wit h dinner for DM 05/2019 [id number] x1 vial INSULIN ASPART 92254170269 Active Maria G berumen Talya MCGRATH Active LOSARTAN POTASSIUM-HCTZ 100-25 MG ORAL TABLET Take one by mo uth daily LOSARTAN POTASSIUM-HCTZ 45087352514 Active Fadumo Premramon jain ARCH SUPPORT MAKER Active LOSARTAN POTASSIUM 25 MG ORAL TABLET 1 pill daily, for blood pressure LOSARTAN POTASSIUM 53757392882 No Longer Active Nunulivier zambrano Talya MCGRATH Active GLIMEPIRIDE 2 MG ORAL TABLET 1 tab PO daily for DM 201 12/26/25 GLIMEPIRIDE 28967393148 No Longer Active Fadumo Babin APRN A ctive FIASP FLEXTOUCH 100 UNIT/ML SUBCUTANEOUS SOLUTION PEN- INJECTOR 10 units at lunch and dinner 03/2019; [id number] 1 vial INSULIN ASPAR T 98919145388 No Longer Active Fadumo Babin APRN Active MYRBETRIQ 50 MG ORAL TABLET EXTENDED RELEASE 24 HOUR 1 tab [place] MIRABEGRON 17343240284 Active Diana Kwan LPN A ctive ONDANSETRON 4 MG ORAL TABLET DISINTEGRATING 1 q4h PRN nausea 201 12/18/14 ONDANSETRON 83875917459 No Longer Active Diana Kwan LPN Active CONTOUR NEXT TEST IN VITRO STRIP check blood sugars 3 times a day for DM E11.65 GLUCOSE BLOOD 53815279114 No Longer Active Fadumo Babin APRN Active ACTOS 15 MG ORAL TABLET 1 tablet by mouth daily for DM PIOGLITAZONE HCL 98093309926 No Longer Active [employer] ARCH SUPPORT MAKER Active LANTUS SOLOSTAR 100 UNIT/ML SUBCUTANEOUS SOLUTION PEN- INJECTOR 20 units SQ every PM for DM INSULIN GLARGINE 88022383509 Active FadumoPhilanthropedia ARCH SUPPORT MAKER Active CONTOUR NEXT TEST IN VITRO STRIP check blood sugars 3 times a day for DM E11.65 GLUCOSE BLOOD 46069837495 Active Kisha Wong Active ELIZABETH CONTOUR MONITOR W/DEVICE KIT BLOOD GLUCOSE MONITORING SUPPL 16982523598 No Longer Active Fadumo Rothsay ALCIDES A ctive ALEVE 220 MG ORAL TABLET 2 tabs once every 4-6hrs PRN NAPROXEN SODIUM 75534842402 Active Brigitte Saucedo MA Active GLYBURIDE 2.5 MG ORAL TABLET 1 tab by mouth daily 2017 GLYBURIDE 32552737620 No Longer Active Brigitte Saucedo MA Acti ve CLIMARA 0.025 MG/24HR TRANSDERMAL PATCH WEEKLY Place 1 patch every week ESTRADIOL 64007248954 Active Davey Jimenez MD Active SIMVASTATIN 20 MG ORAL TABLET 1 tab daily at bedtime SIMVASTATIN 11516106685 Active Davey Jimenez MD Active GLYBURIDE 2.5 MG ORAL TABLET 1 tab by mouth daily 2017 GLYBURIDE 2.5 MG ORAL TABLET 327314 GLYBURIDE Inactive ACTOS 15 MG ORAL TABLET 1 tablet by mouth daily for DM ACTOS 15 MG ORAL TABLET 248485 PIOGLITAZONE HCL Inactive CONTOUR NEXT TEST IN VITRO STRIP check blood sugars 3 times a day for DM E11.65 CONTOUR NEXT TEST IN VITRO STRIP GLUCOSE BLOOD Inactive ONDANSETRON 4 MG ORAL TABLET DISINTEGRATING 1 q4h PRN nausea 201 12/18/14 ONDANSETRON 4 MG ORAL TABLET DISINTEGRATING 161303 ONDA NSETRON Inactive FIASP FLEXTOUCH 100 UNIT/ML SUBCUTANEOUS SOLUTION PEN- INJECTOR 10 units at lunch and dinner 03/2019; [id number] 1 vial FIASP FLEXTOUCH 100 UNIT/ML SUBCUTANEOUS SOLUTION PEN-INJECTOR INSULIN ASPART Inactive GLIMEPIRIDE 2 MG ORAL TABLET 1 tab PO daily for DM 201 12/26/25 GLIMEPIRIDE 2 MG ORAL TABLET 456975 GLIMEPIRIDE Inactive LOSARTAN POTASSIUM 25 MG ORAL TABLET 1 pill daily, for blood pressure LOSARTAN POTASSIUM 25 MG ORAL TABLET 352813 FABRICE RTAN POTASSIUM Inactive Advance Directives Directive [...] mg/dL Encounters Code Encounter Date Provider Facility CPT-12686 Level 3 Est. Patient 09:05:17 SPECIAL AGENT GROUP INSURANCE Fadumo D [facility] CPT-80714 Level 4 Est. Patient 15:52:58 SPECIAL AGENT GROUP INSURANCE [facility] Level 4 Est. Patient 15:44:53 SPECIAL AGENT GROUP INSURANCE [facility]PT-178[facility] Level 3 Est. Patient 14:21:54 SPECIAL AGENT GROUP INSURANCE Davey harper MD [facility] CPT-84667 Level 5 Est. Patient 15:02:09 CDT Fadumo D [facility] CPT-79034 Level 4 Est. Patient 15:16:40 CDT [facility]PT-84394 Level 5 Est. Patient 11:51:47 CDT [facility] CPT-[facility]19 Level 5 Est. Patient 12:49:59 CDT Kisha VALLE [facility] CPT-69137 Level 4 Est. Patient 10:56:25 CDT Fito russell MD [facility] Procedures Code Procedure Name Date Entry Date Standard Desc ription CPT-08531 Postop F/U Visit 19:34:43 CDT CPT-24026 Postop F/U Visit 14:39:09 CDT
--- OUTSIDE RECORDS SUMMARY | 2019-07-28 22:50 | XMS REPORT | Clinical Summary ---
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 Davey Jimenez MD Malignant neoplasm of kidney, except pel vis Body Mass Index 24.0-24.9 Adult Inactive 2017 Fadumo Babin LOGGING CREW SUPERVISOR Body Mass Index between 19-24, adult Type 2 diabetes mellitus with hyperglycemia 250.00 Act charley Kisha JONASP Diabetes mellitus without me ntion of complication, type II or unspecified type, not stated as uncontrolled Body Mass Index 23.0-23.9 Adult Inactive 2017 Fadumo Babin LOGGING CREW SUPERVISOR Body Mass Index between 19-24, adult Type 2 diabetes mellitus with diabetic polyneuropathy Inactive Fadumo Babin APRN prepress stripper use of insulin treatment V58.67 Active 2 Maliheh Ziglari EQUINE DENTIST Long-term (current) use of insulin Type 2 diabetes mellitus with hypoglycemia without coma 250.80 Resolved Fadumojeny Babin LOGGING CREW SUPERVISOR Diabetes mellitus with other specified manifestations, type II or unspecified type, not stated as uncontrolled Body Mass Index 24.0-24.9 Adult Resolved 2017 Fadumojeny Babin LOGGING CREW SUPERVISOR Body Mass Index between 19-24, adult Noncompliance with dietary regimen V15.81 Active 2 Fadumo Babin LOGGING CREW SUPERVISOR Personal history of noncompl iance with medical treatment, presenting hazards to health Type 2 diabetes with diabetic polyneuropathy 357.2 Ac tive Fadumo Babin LOGGING CREW SUPERVISOR Polyneuropathy in diabetes Body Mass Index 26.0-26.9 Adult Refinement 2017 Fadumo Babin LOGGING CREW SUPERVISOR Body Mass Index 26.0-26.9, adult BMI 25-25.9 Active Fadumo Babin LOGGING CREW SUPERVISOR Body Mass Index 26.0-26.9, adult Overweight (BMI 25-29.9) Active Fadumo Amaro inson LOGGING CREW SUPERVISOR Overweight Hypertension 401.9 Active Fadumojeny Babin APR N Unspecified essential hypertension Hyperlipidemia 272.4 Active Fadumo Babin A PRN Other and unspecified hyperlipidemia Type 2 diabetes mellitus with other specified complication 250.8 0 Active Fadumo Babin LOGGING CREW SUPERVISOR Diabetes mellitus with other specified manifestations, type II or unspecified type, not stated as uncontrolled Type 2 diabetes mellitus with hypoglycemia without coma 250.80 Active Fadumojeny Babin LOGGING CREW SUPERVISOR Diabetes mellitus with other specified manifestations, type II or unspecified type, not stated as uncontrolled Influenza Vaccination for Prophylaxis V04.81 Active Fadumo Babin LOGGING CREW SUPERVISOR Need for prophylactic vaccin ation and inoculation against influenza Body Mass Index 24.0-24.9 Adult Inac tive Fadumo Talya LOGGING CREW SUPERVISOR Body Mass Index 24.0-24.9 Adult Inac tive Fadumo Talya LOGGING CREW SUPERVISOR Body Mass Index 23.0-23.9 Adult Inac tive Fadumo Babin LOGGING CREW SUPERVISOR Type 2 diabetes mellitus with diabetic polyneuropathy Inactive Fadumo Babin LOGGING CREW SUPERVISOR Type 2 diabetes mellitus with hypoglycemia without coma ICD-250. 80 Inactive Fadumo Babin ALCIDES Body Mass Index 24.0-24.9 Adult Inactiv e Fadumo Babin LOGGING CREW SUPERVISOR Medication List Medication Instructions Start Date Stop Date Generic Name NDC Status Provider Patient Instruction HUMALOG KWIKPEN 100 UNIT/ML SUBCUTANEOUS SOLUTION PEN- INJECTOR 20units with dinner, SQ daily for DM [id number] 04/06 x2 pens INSULIN LISPRO 80866254008 Active Fadumo Babin ALCDIES Active NOVOLOG 100 UNIT/ML SUBCUTANEOUS SOLUTION Take 20u wit h dinner for DM 05/2019 [id number] x1 vial INSULIN ASPART 11571258829 No Longer Active Fadumo Talya MCGRATH Active LOSARTAN POTASSIUM-HCTZ 100-25 MG ORAL TABLET Take one by mo uth daily LOSARTAN POTASSIUM-HCTZ 49369010965 Active Fadumo jain LOGGING CREW SUPERVISOR Active LOSARTAN POTASSIUM 25 MG ORAL TABLET 1 pill daily, for blood pressure LOSARTAN POTASSIUM 60161333057 No Longer Active Chloe zambrano Talya MCGRATH Active GLIMEPIRIDE 2 MG ORAL TABLET 1 tab PO daily for DM 201 12/26/25 GLIMEPIRIDE 44123622077 No Longer Active Fadumojeny Babin APRN A ctive FIASP FLEXTOUCH 100 UNIT/ML SUBCUTANEOUS SOLUTION PEN- INJECTOR 10 units at lunch and dinner 03/2019; [id number] 1 vial INSULIN ASPAR T 98088858110 No Longer Active Fadumo Talya MCGRATH Active MYRBETRIQ 50 MG ORAL TABLET EXTENDED RELEASE 24 HOUR 1 tab [place] MIRABEGRON 58294001263 Active Diana Kwan LPN A ctive ONDANSETRON 4 MG ORAL TABLET DISINTEGRATING 1 q4h PRN nausea 201 12/18/14 ONDANSETRON 81548673579 No Longer Active Diana Kwan LPN Active CONTOUR NEXT TEST IN VITRO STRIP check blood sugars 3 times a day for DM E11.65 GLUCOSE BLOOD 56223956241 No Longer Active Fadumo Babin APRN Active ACTOS 15 MG ORAL TABLET 1 tablet by mouth daily for DM PIOGLITAZONE HCL 80570491414 No Longer Active Fadumo Babin APRN Active LANTUS SOLOSTAR 100 UNIT/ML SUBCUTANEOUS SOLUTION PEN- INJECTOR 20 units SQ every PM for DM INSULIN GLARGINE 14856428245 Active Fadumo Babin APRN Active CONTOUR NEXT TEST IN VITRO STRIP check blood sugars 3 times a day for DM E11.65 GLUCOSE BLOOD 07269769698 Active Kisha JONAS P Active ELIZABETH CONTOUR MONITOR W/DEVICE KIT BLOOD GLUCOSE MONITORING SUPPL 86694367050 No Longer Active Fadumo Babin APRN A ctive ALEVE 220 MG ORAL TABLET 2 tabs once every 4-6hrs PRN NAPROXEN SODIUM 85309982680 Active Brigitte Saucedo MA Active GLYBURIDE 2.5 MG ORAL TABLET 1 tab by mouth daily 2017 GLYBURIDE 70833973435 No Longer Active Brigitte Saucedo MA Acti ve CLIMARA 0.025 MG/24HR TRANSDERMAL PATCH WEEKLY Place 1 patch every week ESTRADIOL 84473095266 Carrie Jimenez MD Active SIMVASTATIN 20 MG ORAL TABLET 1 tab daily at bedtime SIMVASTATIN 23814353561 Active Davey Jimenez MD Active GLYBURIDE 2.5 MG ORAL TABLET 1 tab by mouth daily 2017 GLYBURIDE 2.5 MG ORAL TABLET 070410 GLYBURIDE Inactive ACTOS 15 MG ORAL TABLET 1 tablet by mouth daily for DM ACTOS 15 MG ORAL TABLET 704126 PIOGLITAZONE HCL Inactive CONTOUR NEXT TEST IN VITRO STRIP check blood sugars 3 times a day for DM E11.65 CONTOUR NEXT TEST IN VITRO STRIP GLUCOSE BLOOD Inactive ONDANSETRON 4 MG ORAL TABLET DISINTEGRATING 1 q4h PRN nausea 201 12/18/14 ONDANSETRON 4 MG ORAL TABLET DISINTEGRATING 149005 ONDA NSETRON Inactive FIASP FLEXTOUCH 100 UNIT/ML SUBCUTANEOUS SOLUTION PEN- INJECTOR 10 units at lunch and dinner 03/2019; [id number] 1 vial FIASP FLEXTOUCH 100 UNIT/ML SUBCUTANEOUS SOLUTION PEN-INJECTOR INSULIN ASPART Inactive GLIMEPIRIDE 2 MG ORAL TABLET 1 tab PO daily for DM 201 12/26/25 GLIMEPIRIDE 2 MG ORAL TABLET 203714 GLIMEPIRIDE Inactive LOSARTAN POTASSIUM 25 MG ORAL TABLET 1 pill daily, for blood pressure LOSARTAN POTASSIUM 25 MG ORAL TABLET 574615 LOSA RTAN POTASSIUM Inactive NOVOLOG 100 UNIT/ML SUBCUTANEOUS SOLUTION Take 20u wit h dinner for DM 05/2019 [id number] x1 vial NOVOLOG 100 UNIT/ML SUBCUTANEOUS SOLUTION [...] W/RATIO - Chemistry sodium, serum 137 mmol/L 736-330 9668/03/11 potassium, serum 4.5 mmol/L 3.5-5.2 chloride, serum [...] 6 month followup partial n ephrectomy - [facility] sexually transmitted disease no risk noted Office [...] Yes Encounters Code Encounter Date Provider Facility CPT-32921 Level 3 Est. Patient 09:05:17 FACTORY HELPER [facility] CPT-98322 Level 4 Est. Patient 15:52:58 FACTORY HELPER Fadumo D [facility] CPT-81099 Level 4 Est. Patient 15:44:53 [facility] Level 3 Est. Patient 14:21:54 FACTORY HELPER Davey harper MD [facility] CPT-33302 Level 5 Est. Patient 15:02:09 CDT [facility] D [facility] CPT-77802 Level 4 Est. Patient 15:16:40 [facility] Level 5 Est. Patient 11:51:47 CDT [facility] D [facility] CPT-37686 Level 5 Est. Patient 12:49:59 CDT Kisha rendon [facility] CPT-89719 Level 4 Est. Patient 10:56:25 CDT Fito russell MD [facility] Procedures Code Procedure Name Date Entry Date Standard Desc ription CPT-32754 Postop F/U Visit 19:34:43 CDT CPT-85870 Postop F/U Visit 14:39:09 CDT
--- OUTSIDE RECORDS SUMMARY | 2019-07-28 22:50 | XMS REPORT | Clinical Summary ---
Author Author Karina, Leeann Vasquez Organization [facility] Address Unknown Phone Unavailable Allergies, Adverse Reactions, [...] Index 24.0-24.9 Adult Inactive 2017 Fadumo Babin PET CARE ASSOCIATE Body Mass Index between 19-24, adult Type 2 diabetes mellitus with hyperglycemia 250.00 Act charley Kisha Fieldsglariana JONASP Diabetes mellitus without me ntion of complication, type II or unspecified type, not stated as uncontrolled Body Mass Index 23.0-23.9 Adult Inactive 2017 Fadumo Babin PET CARE ASSOCIATE Body Mass Index between 19-24, adult Type 2 diabetes mellitus with diabetic polyneuropathy Inactive Fadumo Babin APRN buttermaker continuous churn use of insulin treatment V58.67 Active 2 Kisha Fieldsglari BIZTALK SOFTWARE DEVELOPER Long-term (current) use of insulin Type 2 diabetes mellitus with hypoglycemia without coma 250.80 Resolved Fadumo Babin PET CARE ASSOCIATE Diabetes mellitus with other specified manifestations, type II or unspecified type, not stated as uncontrolled Body Mass Index 24.0-24.9 Adult Resolved 2017 Fadumo Babin PET CARE ASSOCIATE Body Mass Index between 19-24, adult Noncompliance with dietary regimen V15.81 Active 2 Fadumo Babin PET CARE ASSOCIATE Personal history of noncompl iance with medical treatment, presenting hazards to health Type 2 diabetes with diabetic polyneuropathy 357.2 Ac tive Fadumo Babin PET CARE ASSOCIATE Polyneuropathy in diabetes Body Mass Index 26.0-26.9 Adult Refinement 2017 Fadumo Babin PET CARE ASSOCIATE Body Mass Index 26.0-26.9, adult BMI 25-25.9 Active Fadumo Babin PET CARE ASSOCIATE Body Mass Index 26.0-26.9, adult Overweight (BMI 25-29.9) Active Fadumo Amaro inson PET CARE ASSOCIATE Overweight Hypertension 401.9 Active Fadumojeny Babin APR N Unspecified essential hypertension Hyperlipidemia 272.4 Active Fadumo Babin A PRN Other and unspecified hyperlipidemia Type 2 diabetes mellitus with other specified complication 250.8 0 Active Fadumo Babin PET CARE ASSOCIATE Diabetes mellitus with other specified manifestations, type II or unspecified type, not stated as uncontrolled Type 2 diabetes mellitus with hypoglycemia without coma 250.80 Active Fadumo Babin PET CARE ASSOCIATE Diabetes mellitus with other specified manifestations, type II or unspecified type, not stated as uncontrolled Body Mass Index 24.0-24.9 Adult Inac tive Fadumo Talya PET CARE ASSOCIATE Body Mass Index 24.0-24.9 Adult Inac tive Fadumo Talya PET CARE ASSOCIATE Body Mass Index 23.0-23.9 Adult Inac tive Fadumo Talya PET CARE ASSOCIATE Type 2 diabetes mellitus with diabetic polyneuropathy Inactive Fadumo Babin PET CARE ASSOCIATE Type 2 diabetes mellitus with hypoglycemia without coma ICD-250. 80 Inactive Fadumo Babin PET CARE ASSOCIATE Body Mass Index 24.0-24.9 Adult Inactiv e Fadumo Babin PET CARE ASSOCIATE Medication List Medication Instructions Start Date Stop Date Generic Name NDC Status Provider Patient Instruction NOVOLOG 100 UNIT/ML SUBCUTANEOUS SOLUTION Take 20u wit h dinner for DM 05/2019 [id number] x1 vial INSULIN ASPART 53202142912 Active Maria G berumen Talya MCGRATH Active LOSARTAN POTASSIUM-HCTZ 100-25 MG ORAL TABLET Take one by mo uth daily LOSARTAN POTASSIUM-HCTZ 84062913288 Active Fadumo Premramon jain PET CARE ASSOCIATE Active LOSARTAN POTASSIUM 25 MG ORAL TABLET 1 pill daily, for blood pressure LOSARTAN POTASSIUM 75444768977 No Longer Active Nunulivier zambrano Talya MCGRATH Active GLIMEPIRIDE 2 MG ORAL TABLET 1 tab PO daily for DM 201 12/26/25 GLIMEPIRIDE 28792205887 No Longer Active Fadumo Babin APRN A ctive FIASP FLEXTOUCH 100 UNIT/ML SUBCUTANEOUS SOLUTION PEN- INJECTOR 10 units at lunch and dinner 03/2019; [id number] 1 vial INSULIN ASPAR T 50926956258 No Longer Active Fadumo Babin APRN Active MYRBETRIQ 50 MG ORAL TABLET EXTENDED RELEASE 24 HOUR 1 tab [place] MIRABEGRON 72856924107 Active Diana Kwan LPN A ctive ONDANSETRON 4 MG ORAL TABLET DISINTEGRATING 1 q4h PRN nausea 201 12/18/14 ONDANSETRON 03909429139 No Longer Active Diana Kwan LPN Active CONTOUR NEXT TEST IN VITRO STRIP check blood sugars 3 times a day for DM E11.65 GLUCOSE BLOOD 74232207508 No Longer Active Fadumo Babin APRN Active ACTOS 15 MG ORAL TABLET 1 tablet by mouth daily for DM PIOGLITAZONE HCL 74062160536 No Longer Active [employer] PET CARE ASSOCIATE Active LANTUS SOLOSTAR 100 UNIT/ML SUBCUTANEOUS SOLUTION PEN- INJECTOR 20 units SQ every PM for DM INSULIN GLARGINE 80571623306 Active [employer] PET CARE ASSOCIATE Active CONTOUR NEXT TEST IN VITRO STRIP check blood sugars 3 times a day for DM E11.65 GLUCOSE BLOOD 98712107342 Active Kisha Wong Active ELIZABETH CONTOUR MONITOR W/DEVICE KIT BLOOD GLUCOSE MONITORING SUPPL 90133164817 No Longer Active [employer] ALCIDES A ctive ALEVE 220 MG ORAL TABLET 2 tabs once every 4-6hrs PRN NAPROXEN SODIUM 03342106041 Active Brigitte Saucedo MA Active GLYBURIDE 2.5 MG ORAL TABLET 1 tab by mouth daily 2017 GLYBURIDE 33776916807 No Longer Active Brigitte Saucedo MA Acti ve CLIMARA 0.025 MG/24HR TRANSDERMAL PATCH WEEKLY Place 1 patch every week ESTRADIOL 38874025088 Active Davey Jimenez MD Active SIMVASTATIN 20 MG ORAL TABLET 1 tab daily at bedtime SIMVASTATIN 07058120932 Active Davey Jimenez MD Active GLYBURIDE 2.5 MG ORAL TABLET 1 tab by mouth daily 2017 GLYBURIDE 2.5 MG ORAL TABLET 560750 GLYBURIDE Inactive ACTOS 15 MG ORAL TABLET 1 tablet by mouth daily for DM ACTOS 15 MG ORAL TABLET 010683 PIOGLITAZONE HCL Inactive CONTOUR NEXT TEST IN VITRO STRIP check blood sugars 3 times a day for DM E11.65 CONTOUR NEXT TEST IN VITRO STRIP GLUCOSE BLOOD Inactive ONDANSETRON 4 MG ORAL TABLET DISINTEGRATING 1 q4h PRN nausea 201 12/18/14 ONDANSETRON 4 MG ORAL TABLET DISINTEGRATING 879215 ONDA NSETRON Inactive FIASP FLEXTOUCH 100 UNIT/ML SUBCUTANEOUS SOLUTION PEN- INJECTOR 10 units at lunch and dinner 03/2019; [id number] 1 vial FIASP FLEXTOUCH 100 UNIT/ML SUBCUTANEOUS SOLUTION PEN-INJECTOR INSULIN ASPART Inactive GLIMEPIRIDE 2 MG ORAL TABLET 1 tab PO daily for DM 201 12/26/25 GLIMEPIRIDE 2 MG ORAL TABLET 773205 GLIMEPIRIDE Inactive LOSARTAN POTASSIUM 25 MG ORAL TABLET 1 pill daily, for blood pressure LOSARTAN POTASSIUM 25 MG ORAL TABLET 866914 FABRICE RTAN POTASSIUM Inactive Advance Directives Directive [...] 91 mg/dL triglyceride, serum, fasting 68 mg/dL Office Visit: 6 month followup partial n [...] Yes Encounters Code Encounter Date Provider Facility CPT-47896 Level 3 Est. Patient 09:05:17 LOW ALTITUDE [employer] DEFENSE OFFICER Fadumo D [employer] [facility] CPT-87576 Level 4 Est. Patient 15:52:58 LOW [employer] DEFENSE OFFICER [facility] Level 4 Est. Patient 15:44:53 LOW [employer]ITUDE [employer] DEFENSE OFFICER Fadumo D [employer] [facility] CPT-18873 Level 3 Est. Patient 14:21:54 LOW [employer]ITUDE [employer] DEFENSE OFFICER Davey harper MD [facility] CPT-16219 Level 5 Est. Patient 15:02:09 CDT Fadumo D [employer] [facility] CPT-57090 Level 4 Est. Patient 15:16:40 CDT Fadumo D [employer] [facility] CPT-27810 Level 5 Est. Patient 11:51:47 CDT [facility] CPT-53218 Level 5 Est. Patient 12:49:59 CDT Kisha Faith joseariana VALLE [facility] CPT-79220 Level 4 Est. Patient 10:56:25 CDT Fito russell MD [facility] Procedures Code Procedure Name Date Entry Date Standard Desc ription CPT-43355 Postop F/U Visit 19:34:43 CDT CPT-22877 Postop F/U Visit 14:39:09 CDT
--- OUTSIDE RECORDS SUMMARY | 2019-07-28 22:50 | XMS REPORT | Clinical Summary ---
Author Author Karina, Leeann Vasquez Organization [facility] Address Unknown Phone Unavailable Allergies, Adverse Reactions, [...] Index 24.0-24.9 Adult Inactive 2017 Fadumo Babin LIME HIDE INSPECTOR Body Mass Index between 19-24, adult Type 2 diabetes mellitus with hyperglycemia 250.00 Act charley Kisha Fieldsglariana JONASP Diabetes mellitus without me ntion of complication, type II or unspecified type, not stated as uncontrolled Body Mass Index 23.0-23.9 Adult Inactive 2017 Fadumo Babin LIME HIDE INSPECTOR Body Mass Index between 19-24, adult Type 2 diabetes mellitus with diabetic polyneuropathy Inactive Fadumo Babin APRN joint terminal 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 use of insulin treatment V58.67 Active 2 Kisha Fieldsglari APN Long-term (current) use of insulin Type 2 diabetes mellitus with hypoglycemia without coma 250.80 Resolved Fadumo Babin LIME HIDE INSPECTOR Diabetes mellitus with other specified manifestations, type II or unspecified type, not stated as uncontrolled Body Mass Index 24.0-24.9 Adult Resolved 2017 Fadumo Babin LIME HIDE INSPECTOR Body Mass Index between 19-24, adult Noncompliance with dietary regimen V15.81 Active 2 Fadumo Babin LIME HIDE INSPECTOR Personal history of noncompl iance with medical treatment, presenting hazards to health Type 2 diabetes with diabetic polyneuropathy 357.2 Ac tive Fadumo Babin LIME HIDE INSPECTOR Polyneuropathy in diabetes Body Mass Index 26.0-26.9 Adult Refinement 2017 Fadumo Babin LIME HIDE INSPECTOR Body Mass Index 26.0-26.9, adult BMI 25-25.9 Active Fadumo Babin LIME HIDE INSPECTOR Body Mass Index 26.0-26.9, adult Overweight (BMI 25-29.9) Active Fadumo Amaro inson LIME HIDE INSPECTOR Overweight Hypertension 401.9 Active Fadumo Babin APR N Unspecified essential hypertension Hyperlipidemia 272.4 Active Fadumo Babin A PRN Other and unspecified hyperlipidemia Type 2 diabetes mellitus with other specified complication 250.8 0 Active Fadumo Babin LIME HIDE INSPECTOR Diabetes mellitus with other specified manifestations, type II or unspecified type, not stated as uncontrolled Type 2 diabetes mellitus with hypoglycemia without coma 250.80 Active Fadumo Babin LIME HIDE INSPECTOR Diabetes mellitus with other specified manifestations, type II or unspecified type, not stated as uncontrolled Influenza Vaccination for Prophylaxis V04.81 Active Fadumo Babin LIME HIDE INSPECTOR Need for prophylactic vaccin ation and inoculation against influenza Body Mass Index 24.0-24.9 Adult Inac tive Fadumo Babin LIME HIDE INSPECTOR Body Mass Index 24.0-24.9 Adult Inac tive Fadumo Babin LIME HIDE INSPECTOR Body Mass Index 23.0-23.9 Adult Inac tive Fadumo Babin LIME HIDE INSPECTOR Type 2 diabetes mellitus with diabetic polyneuropathy Inactive Fadumo Babin LIME HIDE INSPECTOR Type 2 diabetes mellitus with hypoglycemia without coma ICD-250. 80 Inactive Fadumo Babin ALCIDES Body Mass Index 24.0-24.9 Adult Inactiv e Fadumo Babin LIME HIDE INSPECTOR Medication List Medication Instructions Start Date Stop Date Generic Name NDC Status Provider Patient Instruction HUMALOG KWIKPEN 100 UNIT/ML SUBCUTANEOUS SOLUTION PEN- INJECTOR 20units with dinner, SQ daily for DM [id number] 04/06 x2 pens INSULIN LISPRO 73724426028 Active Fadumo Talya MCGRATH Active NOVOLOG 100 UNIT/ML SUBCUTANEOUS SOLUTION Take 20u wit h dinner for DM 05/2019 [id number] x1 vial INSULIN ASPART 40055180024 No Longer Active Fadumo Talya MCGRATH Active LOSARTAN POTASSIUM-HCTZ 100-25 MG ORAL TABLET Take one by mo uth daily LOSARTAN POTASSIUM-HCTZ 14771220956 Active Fadumo jain ALCIDES Active LOSARTAN POTASSIUM 25 MG ORAL TABLET 1 pill daily, for blood pressure LOSARTAN POTASSIUM 40924818547 No Longer Active Chloe zambrano Talya MCGRATH Active GLIMEPIRIDE 2 MG ORAL TABLET 1 tab PO daily for DM 201 12/26/25 GLIMEPIRIDE 43353461927 No Longer Active Fadumojeny Babin APRN A ctive FIASP FLEXTOUCH 100 UNIT/ML SUBCUTANEOUS SOLUTION PEN- INJECTOR 10 units at lunch and dinner 03/2019; [id number] 1 vial INSULIN ASPAR T 78767463707 No Longer Active Fadumo Talya MCGRATH Active MYRBETRIQ 50 MG ORAL TABLET EXTENDED RELEASE 24 HOUR 1 tab [place] MIRABEGRON 58677787587 Active Diana Kwan LPN A ctive ONDANSETRON 4 MG ORAL TABLET DISINTEGRATING 1 q4h PRN nausea 201 12/18/14 ONDANSETRON 39710425278 No Longer Active Diana Kwan LPN Active CONTOUR NEXT TEST IN VITRO STRIP check blood sugars 3 times a day for DM E11.65 GLUCOSE BLOOD 44767534685 No Longer Active Fadumo Babin APRN Active ACTOS 15 MG ORAL TABLET 1 tablet by mouth daily for DM PIOGLITAZONE HCL 35651521057 No Longer Active Fadumo Babin APRN Active LANTUS SOLOSTAR 100 UNIT/ML SUBCUTANEOUS SOLUTION PEN- INJECTOR 20 units SQ every PM for DM INSULIN GLARGINE 23157488431 Active Fadumo Babin APRN Active CONTOUR NEXT TEST IN VITRO STRIP check blood sugars 3 times a day for DM E11.65 GLUCOSE BLOOD 05204219526 Active Kisha JONAS P Active ELIZABETH CONTOUR MONITOR W/DEVICE KIT BLOOD GLUCOSE MONITORING SUPPL 20526071276 No Longer Active Fadumo Babin APRN A ctive ALEVE 220 MG ORAL TABLET 2 tabs once every 4-6hrs PRN NAPROXEN SODIUM 62589835547 Active Brigitte Saucedo MA Active GLYBURIDE 2.5 MG ORAL TABLET 1 tab by mouth daily 2017 GLYBURIDE 73114538063 No Longer Active Brigitte Saucedo MA Acti ve CLIMARA 0.025 MG/24HR TRANSDERMAL PATCH WEEKLY Place 1 patch every week ESTRADIOL 94351014758 Carrie Jimenez MD Active SIMVASTATIN 20 MG ORAL TABLET 1 tab daily at bedtime SIMVASTATIN 61883889258 Carrie Jimenez MD Active GLYBURIDE 2.5 MG ORAL TABLET 1 tab by mouth daily 2017 GLYBURIDE 2.5 MG ORAL TABLET 085129 GLYBURIDE Inactive ACTOS 15 MG ORAL TABLET 1 tablet by mouth daily for DM ACTOS 15 MG ORAL TABLET 667806 PIOGLITAZONE HCL Inactive CONTOUR NEXT TEST IN VITRO STRIP check blood sugars 3 times a day for DM E11.65 CONTOUR NEXT TEST IN VITRO STRIP GLUCOSE BLOOD Inactive ONDANSETRON 4 MG ORAL TABLET DISINTEGRATING 1 q4h PRN nausea 201 12/18/14 ONDANSETRON 4 MG ORAL TABLET DISINTEGRATING 246024 ONDA NSETRON Inactive FIASP FLEXTOUCH 100 UNIT/ML SUBCUTANEOUS SOLUTION PEN- INJECTOR 10 units at lunch and dinner 03/2019; [id number] 1 vial FIASP FLEXTOUCH 100 UNIT/ML SUBCUTANEOUS SOLUTION PEN-INJECTOR INSULIN ASPART Inactive GLIMEPIRIDE 2 MG ORAL TABLET 1 tab PO daily for DM 201 12/26/25 GLIMEPIRIDE 2 MG ORAL TABLET 813669 GLIMEPIRIDE Inactive LOSARTAN POTASSIUM 25 MG ORAL TABLET 1 pill daily, for blood pressure LOSARTAN POTASSIUM 25 MG ORAL TABLET 557550 LOSA RTAN POTASSIUM Inactive NOVOLOG 100 UNIT/ML SUBCUTANEOUS SOLUTION Take 20u wit h dinner for DM 05/2019 [id number] x1 vial NOVOLOG 100 UNIT/ML SUBCUTANEOUS SOLUTION INSULIN ASPART Inactive Advance Directives Directive Description Start Date PERMISSION TO SHARE Immunizations Vaccine Administration Date Value Standard Nhan cription pneumococcal immunization administered 7 pneumococcal polysaccharide vaccine, [...] W/RATIO - Chemistry sodium, serum 137 mmol/L 310-469 3132/03/11 potassium, serum 4.5 mmol/L 3.5-5.2 chloride, serum [...] 6 month followup partial n ephrectomy - [facility] sexually transmitted disease no risk noted [...] Yes Encounters Code Encounter Date Provider Facility CPT-65476 Level 3 Est. Patient 09:05:17 [facility] 4 Est[facility] Patient 15:52:58 MEDICAL DIR Fadumo D [facility] CPT-89595 Level 4 Est. Patient 15:44:53 [facility] Level 3 Est. Patient 14:21:54 MEDICAL DIR Davey harper MD [facility] CPT-71581 Level 5 Est. Patient 15:02:09 CDT Fadumo D ickinson [facility] CPT-44618 Level 4 Est. Patient 15:16:40 CD[facility] Level 5 Est. Patient 11:51:47 CD[facility] Level 5 Est. Patient 12:49:[address] [facility] CPT-07067 Level 4 Est. Patient 10:56:25 CDT Fito russell MD [facility] Procedures Code Procedure Name Date Entry Date Standard Desc ription CPT-85245 Postop F/U Visit 19:34:43 CDT CPT-41647 Postop F/U Visit 14:39:09 CDT
--- OUTSIDE RECORDS SUMMARY | 2019-07-28 22:51 | XMS REPORT | Clinical Summary ---
Author Author Karina, Leeann Vasquez Organization [facility] Address Unknown Phone Unavailable Allergies, Adverse Reactions, [...] Index 24.0-24.9 Adult Inactive 2017 Fadumo Babin WHEEL WORKER Body Mass Index between 19-24, adult Type 2 diabetes mellitus with hyperglycemia 250.00 Act charley Kisha Fieldsglariana JONASP Diabetes mellitus without me ntion of complication, type II or unspecified type, not stated as uncontrolled Body Mass Index 23.0-23.9 Adult Inactive 2017 Fadumo Babin WHEEL WORKER Body Mass Index between 19-24, adult Type 2 diabetes mellitus with diabetic polyneuropathy Inactive 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 V58.67 Active 2 Kisha Fieldsglari 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 OPERATOR Long-term (current) use of insulin Type 2 diabetes mellitus with hypoglycemia without coma 250.80 Resolved Fadumo Babin WHEEL WORKER Diabetes mellitus with other specified manifestations, type II or unspecified type, not stated as uncontrolled Body Mass Index 24.0-24.9 Adult Resolved 2017 Fadumo Babin WHEEL WORKER Body Mass Index between 19-24, adult Noncompliance with dietary regimen V15.81 Active 2 Fadumo Babin WHEEL WORKER Personal history of noncompl iance with medical treatment, presenting hazards to health Type 2 diabetes with diabetic polyneuropathy 357.2 Ac tive Fadumo Babin WHEEL WORKER Polyneuropathy in diabetes Body Mass Index 26.0-26.9 Adult Refinement 2017 Fadumo Babin WHEEL WORKER Body Mass Index 26.0-26.9, adult BMI 25-25.9 Active Fadumo Babin WHEEL WORKER Body Mass Index 26.0-26.9, adult Overweight (BMI 25-29.9) Active Fadumo Amaro inson WHEEL WORKER Overweight Hypertension 401.9 Active Fadumojeny Babin APR N Unspecified essential hypertension Hyperlipidemia 272.4 Active Fadumo Babin A PRN Other and unspecified hyperlipidemia Type 2 diabetes mellitus with other specified complication 250.8 0 Active Fadumo Babin WHEEL WORKER Diabetes mellitus with other specified manifestations, type II or unspecified type, not stated as uncontrolled Type 2 diabetes mellitus with hypoglycemia without coma 250.80 Active Fadumo Babin WHEEL WORKER Diabetes mellitus with other specified manifestations, type II or unspecified type, not stated as uncontrolled Body Mass Index 24.0-24.9 Adult Inac tive Fadumo Talya WHEEL WORKER Body Mass Index 24.0-24.9 Adult Inac tive Fadumo Talya WHEEL WORKER Body Mass Index 23.0-23.9 Adult Inac tive Fadumo Talya WHEEL WORKER Type 2 diabetes mellitus with diabetic polyneuropathy Inactive Fadumo Babin WHEEL WORKER Type 2 diabetes mellitus with hypoglycemia without coma ICD-250. 80 Inactive Fadumo Babin WHEEL WORKER Body Mass Index 24.0-24.9 Adult Inactiv e Fadumo Babin WHEEL WORKER Medication List Medication Instructions Start Date Stop Date Generic Name NDC Status Provider Patient Instruction NOVOLOG 100 UNIT/ML SUBCUTANEOUS SOLUTION Take 20u wit h dinner for DM 05/2019 [id number] x1 vial INSULIN ASPART 92613338972 Active Maria G berumen Talya MCGRATH Active LOSARTAN POTASSIUM-HCTZ 100-25 MG ORAL TABLET Take one by mo uth daily LOSARTAN POTASSIUM-HCTZ 00778302249 Active Fadumo Premramon jain WHEEL WORKER Active LOSARTAN POTASSIUM 25 MG ORAL TABLET 1 pill daily, for blood pressure LOSARTAN POTASSIUM 31133120193 No Longer Active Nunulivier zambrano Talya MCGRATH Active GLIMEPIRIDE 2 MG ORAL TABLET 1 tab PO daily for DM 201 12/26/25 GLIMEPIRIDE 52334795825 No Longer Active Fadumo Babin APRN A ctive FIASP FLEXTOUCH 100 UNIT/ML SUBCUTANEOUS SOLUTION PEN- INJECTOR 10 units at lunch and dinner 03/2019; [id number] 1 vial INSULIN ASPAR T 83306491262 No Longer Active Fadumo Babin APRN Active MYRBETRIQ 50 MG ORAL TABLET EXTENDED RELEASE 24 HOUR 1 tab [place] MIRABEGRON 85342014398 Active Diana Kwan LPN A ctive ONDANSETRON 4 MG ORAL TABLET DISINTEGRATING 1 q4h PRN nausea 201 12/18/14 ONDANSETRON 07266440364 No Longer Active Diana Kwan LPN Active CONTOUR NEXT TEST IN VITRO STRIP check blood sugars 3 times a day for DM E11.65 GLUCOSE BLOOD 52298069484 No Longer Active Fadumo Babin APRN Active ACTOS 15 MG ORAL TABLET 1 tablet by mouth daily for DM PIOGLITAZONE HCL 31735363623 No Longer Active Bilbus WHEEL WORKER Active LANTUS SOLOSTAR 100 UNIT/ML SUBCUTANEOUS SOLUTION PEN- INJECTOR 20 units SQ every PM for DM INSULIN GLARGINE 54585396720 Active Bilbus WHEEL WORKER Active CONTOUR NEXT TEST IN VITRO STRIP check blood sugars 3 times a day for DM E11.65 GLUCOSE BLOOD 34995409995 Active Kisha Wong Active ELIZABETH CONTOUR MONITOR W/DEVICE KIT BLOOD GLUCOSE MONITORING SUPPL 69623940842 No Longer Active Bilbus ALCIDES A ctive ALEVE 220 MG ORAL TABLET 2 tabs once every 4-6hrs PRN NAPROXEN SODIUM 74187230420 Active Brigitte Saucedo MA Active GLYBURIDE 2.5 MG ORAL TABLET 1 tab by mouth daily 2017 GLYBURIDE 01684781328 No Longer Active Brigitte Saucedo MA Acti ve CLIMARA 0.025 MG/24HR TRANSDERMAL PATCH WEEKLY Place 1 patch every week ESTRADIOL 25780394398 Active Davey Jimenez MD Active SIMVASTATIN 20 MG ORAL TABLET 1 tab daily at bedtime SIMVASTATIN 41971273202 Active Davey Jimenez MD Active GLYBURIDE 2.5 MG ORAL TABLET 1 tab by mouth daily 2017 GLYBURIDE 2.5 MG ORAL TABLET 055545 GLYBURIDE Inactive ACTOS 15 MG ORAL TABLET 1 tablet by mouth daily for DM ACTOS 15 MG ORAL TABLET 532791 PIOGLITAZONE HCL Inactive CONTOUR NEXT TEST IN VITRO STRIP check blood sugars 3 times a day for DM E11.65 CONTOUR NEXT TEST IN VITRO STRIP GLUCOSE BLOOD Inactive ONDANSETRON 4 MG ORAL TABLET DISINTEGRATING 1 q4h PRN nausea 201 12/18/14 ONDANSETRON 4 MG ORAL TABLET DISINTEGRATING 304181 ONDA NSETRON Inactive FIASP FLEXTOUCH 100 UNIT/ML SUBCUTANEOUS SOLUTION PEN- INJECTOR 10 units at lunch and dinner 03/2019; [id number] 1 vial FIASP FLEXTOUCH 100 UNIT/ML SUBCUTANEOUS SOLUTION PEN-INJECTOR INSULIN ASPART Inactive GLIMEPIRIDE 2 MG ORAL TABLET 1 tab PO daily for DM 201 12/26/25 GLIMEPIRIDE 2 MG ORAL TABLET 398976 GLIMEPIRIDE Inactive LOSARTAN POTASSIUM 25 MG ORAL TABLET 1 pill daily, for blood pressure LOSARTAN POTASSIUM 25 MG ORAL TABLET 876261 FABRICE RTAN POTASSIUM Inactive Advance Directives Directive [...] Yes Encounters Code Encounter Date Provider Facility CPT-16022 Level 3 Est. Patient 09:05:17 ROLLER CHECKER Fadumo D [facility]pany [facility] CPT-46637 Level 4 Est. Patient 15:52:58 [facility] Level 4 Est[facility] Patient 15:44:53 ROLLER CHECKER Fadumo D [facility] [place] CPT-20890 Level 3 Est. Patient 14:21:54 ROLLER CHECKER Davey harper MD [facility] CPT-66524 Level 5 Est. Patient 15:02:09 CDT Fadumo D [facility] [place] CPT-64519 Level 4 Est. Patient 15:16:40 CDT Fadumo D [facility] [place] CPT-83923 Level 5 Est. Patient 11:51:47 [facility] Level 5 Est. Patient 12:49:59 CDT Kisha Faith joseariana VALLE [facility] CPT-36556 Level 4 Est. Patient 10:56:25 CDT Fito russell MD [facility] Procedures Code Procedure Name Date Entry Date Standard Desc ription CPT-28042 Postop F/U Visit 19:34:43 CDT CPT-82514 Postop F/U Visit 14:39:09 CDT
--- OUTSIDE RECORDS SUMMARY | 2019-07-28 22:51 | XMS REPORT | Clinical Summary ---
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 Davey Jimenez MD Malignant neoplasm of kidney, except pel vis Body Mass Index 24.0-24.9 Adult Inactive 2017 Fadumo Babin LAY OUT AND DETAIL DRAFTER Body Mass Index between 19-24, adult Type 2 diabetes mellitus with hyperglycemia 250.00 Act charley Kisha JONASP Diabetes mellitus without me ntion of complication, type II or unspecified type, not stated as uncontrolled Body Mass Index 23.0-23.9 Adult Inactive 2017 Fadumo Babin LAY OUT AND DETAIL DRAFTER Body Mass Index between 19-24, adult Type 2 diabetes mellitus with diabetic polyneuropathy Inactive Fadumo Babin 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 use of insulin treatment V58.67 Active 2 Maliheh Ziglari EMAIL MARKETING SPECIALIST Long-term (current) use of insulin Type 2 diabetes mellitus with hypoglycemia without coma 250.80 Resolved Fadumo Babin LAY OUT AND DETAIL DRAFTER Diabetes mellitus with other specified manifestations, type II or unspecified type, not stated as uncontrolled Body Mass Index 24.0-24.9 Adult Resolved 2017 Fadumo Babin LAY OUT AND DETAIL DRAFTER Body Mass Index between 19-24, adult Noncompliance with dietary regimen V15.81 Active 2 Fadumo Babin LAY OUT AND DETAIL DRAFTER Personal history of noncompl iance with medical treatment, presenting hazards to health Type 2 diabetes with diabetic polyneuropathy 357.2 Ac tive Fadumo Babin LAY OUT AND DETAIL DRAFTER Polyneuropathy in diabetes Body Mass Index 26.0-26.9 Adult Active 2017 Fadumo Babin LAY OUT AND DETAIL DRAFTER Body Mass Index 26.0-26.9, adult Overweight (BMI 25-29.9) Active Fadumo Amaro inson LAY OUT AND DETAIL DRAFTER Overweight Hypertension 401.9 Active Fadumo Babin APR N Unspecified essential hypertension Hyperlipidemia 272.4 Active Fadumo Babin A PRN Other and unspecified hyperlipidemia Body Mass Index 24.0-24.9 Adult Inac tive Fadumo Sinclair LAY OUT AND DETAIL DRAFTER Body Mass Index 24.0-24.9 Adult Inac tive Fadumo Talya LAY OUT AND DETAIL DRAFTER Body Mass Index 23.0-23.9 Adult Inac tive Fadumo Talya LAY OUT AND DETAIL DRAFTER Type 2 diabetes mellitus with diabetic polyneuropathy Inactive Fadumo Talya LAY OUT AND DETAIL DRAFTER Type 2 diabetes mellitus with hypoglycemia without coma ICD-250. 80 Inactive Fadumojeny Babin LAY OUT AND DETAIL DRAFTER Body Mass Index 24.0-24.9 Adult Inactiv e Fadumojeny Babin LAY OUT AND DETAIL DRAFTER Medication List Medication Instructions Start Date Stop Date Generic Name NDC Status Provider Patient Instruction GLIMEPIRIDE 2 MG ORAL TABLET 1 tab PO daily for DM 201 12/26/25 GLIMEPIRIDE 87641308039 No Longer Active Fadumo Babin APRN A ctive NOVOLOG 100 UNIT/ML SUBCUTANEOUS SOLUTION Take 20u wit h dinner for DM 05/2019 [id number] x1 vial INSULIN ASPART 96743333561 Active Maria G Babin APRN Active FIASP FLEXTOUCH 100 UNIT/ML SUBCUTANEOUS SOLUTION PEN- INJECTOR 10 units at lunch and dinner 03/2019; [id number] 1 vial INSULIN ASPAR T 47820111950 No Longer Active Fadumo Babin APRN Active MYRBETRIQ 50 MG ORAL TABLET EXTENDED RELEASE 24 HOUR 1 tab [place] MIRABEGRON 22889435591 Active Diana Kwan LPN A ctive ONDANSETRON 4 MG ORAL TABLET DISINTEGRATING 1 q4h PRN nausea 201 12/18/14 ONDANSETRON 24716399594 No Longer Active Diana Kwan LPN Active CONTOUR NEXT TEST IN VITRO STRIP check blood sugars 3 times a day for DM E11.65 GLUCOSE BLOOD 38884695583 No Longer Active Fadumo Babin APRN Active ACTOS 15 MG ORAL TABLET 1 tablet by mouth daily for DM PIOGLITAZONE HCL 73038997654 No Longer Active Fadumo Babin APRN Active LANTUS SOLOSTAR 100 UNIT/ML SUBCUTANEOUS SOLUTION PEN- INJECTOR 20 units SQ every PM for DM INSULIN GLARGINE 01136387452 Active Fadumo Babin APRN Active CONTOUR NEXT TEST IN VITRO STRIP check blood sugars 3 times a day for DM E11.65 GLUCOSE BLOOD 77533456934 Active Kisha JONAS P Active ELIZABETH CONTOUR MONITOR W/DEVICE KIT BLOOD GLUCOSE MONITORING SUPPL 70943976321 No Longer Active Fadumo Babin APRN A ctive ALEVE 220 MG ORAL TABLET 2 tabs once every 4-6hrs PRN NAPROXEN SODIUM 60880247504 Active Brigitte Saucedo MA Active GLYBURIDE 2.5 MG ORAL TABLET 1 tab by mouth daily 2017 GLYBURIDE 30619426227 No Longer Active Brigitte Saucedo MA Acti ve CLIMARA 0.025 MG/24HR TRANSDERMAL PATCH WEEKLY Place 1 patch every week ESTRADIOL 22471961100 Active Davey Jimenez MD Active SIMVASTATIN 20 MG ORAL TABLET 1 tab daily at bedtime SIMVASTATIN 98757356839 Active Davey Jimenez MD Active LOSARTAN POTASSIUM 25 MG ORAL TABLET 1 pill daily, for blood pressure LOSARTAN POTASSIUM 66106130540 Active Davey Jimenez MD Active GLYBURIDE 2.5 MG ORAL TABLET 1 tab by mouth daily 2017 GLYBURIDE 2.5 MG ORAL TABLET 621412 GLYBURIDE Inactive ACTOS 15 MG ORAL TABLET 1 tablet by mouth daily for DM ACTOS 15 MG ORAL TABLET 777935 PIOGLITAZONE HCL Inactive CONTOUR NEXT TEST IN VITRO STRIP check blood sugars 3 times a day for DM E11.65 CONTOUR NEXT TEST IN VITRO STRIP GLUCOSE BLOOD Inactive ONDANSETRON 4 MG ORAL TABLET DISINTEGRATING 1 q4h PRN nausea 201 12/18/14 ONDANSETRON 4 MG ORAL TABLET DISINTEGRATING 755741 ONDA NSETRON Inactive FIASP FLEXTOUCH 100 UNIT/ML SUBCUTANEOUS SOLUTION PEN- INJECTOR 10 units at lunch and dinner 03/2019; [id number] 1 vial FIASP FLEXTOUCH 100 UNIT/ML SUBCUTANEOUS SOLUTION PEN-INJECTOR INSULIN ASPART Inactive GLIMEPIRIDE 2 MG ORAL TABLET 1 tab PO daily for DM 201 12/26/25 GLIMEPIRIDE 2 MG ORAL TABLET 355141 GLIMEPIRIDE Inactive Advance Directives Directive Description Start Date PERMISSION TO SHARE Immunizations Vaccine Administration Date Value Standard Nhan cription influenza immunization (Flu Vax) has been administered 5 02/05/2017 influenza virus vaccine, unspecified formulation pneumococcal immunization administered 7 pneumococcal polysaccharide vaccine, 23 valent Vital Signs Date Name Value Unit Range Description blood pressure, diastolic, repeated by physician 96 [...] mg/dL Encounters Code Encounter Date Provider Facility CPT-33760 Level 4 Est. 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 Patient 15:44:53 [facility] Level 3 Est. Patient 14:21:54 JOEL harper MD [facility] CPT-00243 Level 5 Est. Patient 15:02:09 [facility] Level 4 Est. Patient 15:16:40 CDT Fadumo Leslie [facility] CPT-76967 Level 5 Est. Patient 11:51:47 CDT Fadumo Leslie [facility] CPT-14506 Level 5 Est. Patient 12:49:59 [facility] Level 4 Est. Patient 10:56:25 CDT Fito russell MD [facility] Procedures Code Procedure Name Date Entry Date Standard Desc ription CPT-84542 Postop F/U Visit 19:34:43 CDT CPT-38516 Postop F/U Visit 14:39:09 CDT
--- OUTSIDE RECORDS SUMMARY | 2019-07-28 22:51 | XMS REPORT | Clinical Summary ---
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 Davey Jimenez MD Malignant neoplasm of kidney, except pel vis Body Mass Index 24.0-24.9 Adult Inactive 2017 Fadumo Babin FISHING BOAT MATE Body Mass Index between 19-24, adult Type 2 diabetes mellitus with hyperglycemia 250.00 Act charley Kisha JONASP Diabetes mellitus without me ntion of complication, type II or unspecified type, not stated as uncontrolled Body Mass Index 23.0-23.9 Adult Inactive 2017 Fadumo Babin FISHING BOAT MATE Body Mass Index between 19-24, adult Type 2 diabetes mellitus with diabetic polyneuropathy Inactive 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 insulin treatment V58.67 Active 2 Maliheh Ziglari WEATHER STRIP INSTALLER Long-term (current) use of insulin Type 2 diabetes mellitus with hypoglycemia without coma 250.80 Resolved Fadumo Babin FISHING BOAT MATE Diabetes mellitus with other specified manifestations, type II or unspecified type, not stated as uncontrolled Body Mass Index 24.0-24.9 Adult Resolved 2017 Fadumo Babin FISHING BOAT MATE Body Mass Index between 19-24, adult Noncompliance with dietary regimen V15.81 Active 2 Fadumo Babin FISHING BOAT MATE Personal history of noncompl iance with medical treatment, presenting hazards to health Type 2 diabetes with diabetic polyneuropathy 357.2 Ac tive Fadumo Babin FISHING BOAT MATE Polyneuropathy in diabetes Body Mass Index 26.0-26.9 Adult Active 2017 Fadumo Babin FISHING BOAT MATE Body Mass Index 26.0-26.9, adult Overweight (BMI 25-29.9) Active Fadumo Amaro inson FISHING BOAT MATE Overweight Hypertension 401.9 Active Fadumo Babin APR N Unspecified essential hypertension Hyperlipidemia 272.4 Active Fadumo Babin A PRN Other and unspecified hyperlipidemia Body Mass Index 24.0-24.9 Adult Inac tive Fadumo [place] FISHING BOAT MATE Body Mass Index 24.0-24.9 Adult Inac tive Fadumo Talya FISHING BOAT MATE Body Mass Index 23.0-23.9 Adult Inac tive Fadumo Talya FISHING BOAT MATE Type 2 diabetes mellitus with diabetic polyneuropathy Inactive Fadumo Talya FISHING BOAT MATE Type 2 diabetes mellitus with hypoglycemia without coma ICD-250. 80 Inactive Fadumojeny Babin FISHING BOAT MATE Body Mass Index 24.0-24.9 Adult Inactiv e Fadumojeny Babin FISHING BOAT MATE Medication List Medication Instructions Start Date Stop Date Generic Name NDC Status Provider Patient Instruction GLIMEPIRIDE 2 MG ORAL TABLET 1 tab PO daily for DM 201 12/26/25 GLIMEPIRIDE 95563666034 No Longer Active Fadumo Babin APRN A ctive NOVOLOG 100 UNIT/ML SUBCUTANEOUS SOLUTION Take 20u wit h dinner for DM 05/2019 [id number] x1 vial INSULIN ASPART 62114493183 Active Maria G Babin APRN Active FIASP FLEXTOUCH 100 UNIT/ML SUBCUTANEOUS SOLUTION PEN- INJECTOR 10 units at lunch and dinner 03/2019; [id number] 1 vial INSULIN ASPAR T 20492803860 No Longer Active Fadumo Babin APRN Active MYRBETRIQ 50 MG ORAL TABLET EXTENDED RELEASE 24 HOUR 1 tab [place] MIRABEGRON 58543753405 Active Diana Kwan LPN A ctive ONDANSETRON 4 MG ORAL TABLET DISINTEGRATING 1 q4h PRN nausea 201 12/18/14 ONDANSETRON 42636302802 No Longer Active Diana Kwan LPN Active CONTOUR NEXT TEST IN VITRO STRIP check blood sugars 3 times a day for DM E11.65 GLUCOSE BLOOD 56910507167 No Longer Active Fadumo Babin APRN Active ACTOS 15 MG ORAL TABLET 1 tablet by mouth daily for DM PIOGLITAZONE HCL 17218325740 No Longer Active Fadumo Babin APRN Active LANTUS SOLOSTAR 100 UNIT/ML SUBCUTANEOUS SOLUTION PEN- INJECTOR 20 units SQ every PM for DM INSULIN GLARGINE 06200350013 Active Fadumo Babin APRN Active CONTOUR NEXT TEST IN VITRO STRIP check blood sugars 3 times a day for DM E11.65 GLUCOSE BLOOD 44612827718 Active Kisha JONAS P Active ELIZABETH CONTOUR MONITOR W/DEVICE KIT BLOOD GLUCOSE MONITORING SUPPL 72244226457 No Longer Active Fadumo Babin APRN A ctive ALEVE 220 MG ORAL TABLET 2 tabs once every 4-6hrs PRN NAPROXEN SODIUM 51372646895 Active Brigitte Saucedo MA Active GLYBURIDE 2.5 MG ORAL TABLET 1 tab by mouth daily 2017 GLYBURIDE 04903029573 No Longer Active Brigitte Saucedo MA Acti ve CLIMARA 0.025 MG/24HR TRANSDERMAL PATCH WEEKLY Place 1 patch every week ESTRADIOL 39763329887 Active Davey Jimenez MD Active SIMVASTATIN 20 MG ORAL TABLET 1 tab daily at bedtime SIMVASTATIN 03412862302 Active Davey Jimenez MD Active LOSARTAN POTASSIUM 25 MG ORAL TABLET 1 pill daily, for blood pressure LOSARTAN POTASSIUM 35494263240 Active Davey Jimenez MD Active GLYBURIDE 2.5 MG ORAL TABLET 1 tab by mouth daily 2017 GLYBURIDE 2.5 MG ORAL TABLET 450380 GLYBURIDE Inactive ACTOS 15 MG ORAL TABLET 1 tablet by mouth daily for DM ACTOS 15 MG ORAL TABLET 690559 PIOGLITAZONE HCL Inactive CONTOUR NEXT TEST IN VITRO STRIP check blood sugars 3 times a day for DM E11.65 CONTOUR NEXT TEST IN VITRO STRIP GLUCOSE BLOOD Inactive ONDANSETRON 4 MG ORAL TABLET DISINTEGRATING 1 q4h PRN nausea 201 12/18/14 ONDANSETRON 4 MG ORAL TABLET DISINTEGRATING 825420 ONDA NSETRON Inactive FIASP FLEXTOUCH 100 UNIT/ML SUBCUTANEOUS SOLUTION PEN- INJECTOR 10 units at lunch and dinner 03/2019; [id number] 1 vial FIASP FLEXTOUCH 100 UNIT/ML SUBCUTANEOUS SOLUTION PEN-INJECTOR INSULIN ASPART Inactive GLIMEPIRIDE 2 MG ORAL TABLET 1 tab PO daily for DM 201 12/26/25 GLIMEPIRIDE 2 MG ORAL TABLET 196216 GLIMEPIRIDE Inactive Advance Directives Directive Description Start [...] mg/dL Encounters Code Encounter Date Provider Facility CPT-18511 Level 4 Est. 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 Patient 15:44:53 PRINT BINDING WORKER [facility] Level 3 Est. Patient 14:21:54 JOEL harper MD [facility] CPT-66514 Level 5 Est. Patient 15:02:09 [facility] Level 4 Est. Patient 15:16:40 CDT Fadumo Leslie [facility] CPT-93587 Level 5 Est. Patient 11:51:47 CDT Fadumo Leslie [facility] CPT-51042 Level 5 Est. Patient 12:49:59 [facility] Level 4 Est. Patient 10:56:25 CDT Fito russell MD [facility] Procedures Code Procedure Name Date Entry Date Standard Desc ription CPT-34728 Postop F/U Visit 19:34:43 CDT CPT-03985 Postop F/U Visit 14:39:09 CDT
--- OUTSIDE RECORDS SUMMARY | 2019-07-28 22:51 | XMS REPORT | Clinical Summary ---
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 Davey Jimenez MD Malignant neoplasm of kidney, except pel vis Body Mass Index 24.0-24.9 Adult Inactive 2017 Fadumo Babin SECRETARY TO BOARD OF COMMISSIONERS Body Mass Index between 19-24, adult Type 2 diabetes mellitus with hyperglycemia 250.00 Act charley Kisha JONASP Diabetes mellitus without me ntion of complication, type II or unspecified type, not stated as uncontrolled Body Mass Index 23.0-23.9 Adult Inactive 2017 Fadumo Babin SECRETARY TO BOARD OF COMMISSIONERS Body Mass Index between 19-24, adult Type 2 diabetes mellitus with diabetic polyneuropathy Inactive Fadumo Babin APRN 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 container 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 use of insulin treatment V58.67 Active 2 Maliheh Ziglari PATTERN DRUM MAKER Long-term (current) use of insulin Type 2 diabetes mellitus with hypoglycemia without coma 250.80 Resolved Fadumo Babin SECRETARY TO BOARD OF COMMISSIONERS Diabetes mellitus with other specified manifestations, type II or unspecified type, not stated as uncontrolled Body Mass Index 24.0-24.9 Adult Resolved 2017 Fadumojeny Babin SECRETARY TO BOARD OF COMMISSIONERS Body Mass Index between 19-24, adult Noncompliance with dietary regimen V15.81 Active 2 Fadumo Babin SECRETARY TO BOARD OF COMMISSIONERS Personal history of noncompl iance with medical treatment, presenting hazards to health Type 2 diabetes with diabetic polyneuropathy 357.2 Ac tive Fadumo Babin SECRETARY TO BOARD OF COMMISSIONERS Polyneuropathy in diabetes Body Mass Index 26.0-26.9 Adult Active 2017 Fadumo Babin SECRETARY TO BOARD OF COMMISSIONERS Body Mass Index 26.0-26.9, adult Overweight (BMI 25-29.9) Active Fadumo Amaro inson SECRETARY TO BOARD OF COMMISSIONERS Overweight Hypertension 401.9 Active Fadumo Babin APR N Unspecified essential hypertension Hyperlipidemia 272.4 Active Fadumo Babin A PRN Other and unspecified hyperlipidemia Body Mass Index 24.0-24.9 Adult Inac tive Fadumojeny Babin SECRETARY TO BOARD OF COMMISSIONERS Body Mass Index 24.0-24.9 Adult Inac tive Fadumojeny Babin SECRETARY TO BOARD OF COMMISSIONERS Type 2 diabetes mellitus with diabetic polyneuropathy Inactive Fadumo Villalba SECRETARY TO BOARD OF COMMISSIONERS Type 2 diabetes mellitus with hypoglycemia without coma ICD-250. 80 Inactive Fadumojeny Babin SECRETARY TO BOARD OF COMMISSIONERS Body Mass Index 24.0-24.9 Adult Inactiv e Fadumo Babin SECRETARY TO BOARD OF COMMISSIONERS Body Mass Index 23.0-23.9 Adult Inac tive Fadumojeny Babin SECRETARY TO BOARD OF COMMISSIONERS Medication List Medication Instructions Start Date Stop Date Generic Name NDC Status Provider Patient Instruction GLIMEPIRIDE 2 MG ORAL TABLET 1 tab PO daily for DM 201 12/26/25 GLIMEPIRIDE 25219665949 No Longer Active Fadumo Babin APRN A ctive NOVOLOG 100 UNIT/ML SUBCUTANEOUS SOLUTION Take 20u wit h dinner for DM 05/2019 [id number] x1 vial INSULIN ASPART 51078491643 Active Maria G Babin APRN Active FIASP FLEXTOUCH 100 UNIT/ML SUBCUTANEOUS SOLUTION PEN- INJECTOR 10 units at lunch and dinner 03/2019; [id number] 1 vial INSULIN ASPAR T 52955873492 No Longer Active Fadumo Babin APRN Active MYRBETRIQ 50 MG ORAL TABLET EXTENDED RELEASE 24 HOUR 1 tab [place] MIRABEGRON 97427857603 Active Diana Kwan LPN A ctive ONDANSETRON 4 MG ORAL TABLET DISINTEGRATING 1 q4h PRN nausea 201 12/18/14 ONDANSETRON 42547813431 No Longer Active Diana Kwan LPN Active CONTOUR NEXT TEST IN VITRO STRIP check blood sugars 3 times a day for DM E11.65 GLUCOSE BLOOD 64322773065 No Longer Active Fadumo Babin APRN Active ACTOS 15 MG ORAL TABLET 1 tablet by mouth daily for DM PIOGLITAZONE HCL 87017119935 No Longer Active Fadumo Babin APRN Active LANTUS SOLOSTAR 100 UNIT/ML SUBCUTANEOUS SOLUTION PEN- INJECTOR 20 units SQ every PM for DM INSULIN GLARGINE 19430571895 Active Fadumo Babin APRN Active CONTOUR NEXT TEST IN VITRO STRIP check blood sugars 3 times a day for DM E11.65 GLUCOSE BLOOD 59647898125 Active Kisha JONAS P Active ELIZABETH CONTOUR MONITOR W/DEVICE KIT BLOOD GLUCOSE MONITORING SUPPL 31503003750 No Longer Active Fadumo Babin APRN A ctive ALEVE 220 MG ORAL TABLET 2 tabs once every 4-6hrs PRN NAPROXEN SODIUM 83474952499 Active Brigitte Saucedo MA Active GLYBURIDE 2.5 MG ORAL TABLET 1 tab by mouth daily 2017 GLYBURIDE 70800913150 No Longer Active Brigitte Saucedo MA Acti ve CLIMARA 0.025 MG/24HR TRANSDERMAL PATCH WEEKLY Place 1 patch every week ESTRADIOL 43395691043 Active Davey Jimenez MD Active SIMVASTATIN 20 MG ORAL TABLET 1 tab daily at bedtime SIMVASTATIN 44653863756 Active Davey Jimenez MD Active LOSARTAN POTASSIUM 25 MG ORAL TABLET 1 pill daily, for blood pressure LOSARTAN POTASSIUM 75814977012 Active Davey Jimenez MD Active GLYBURIDE 2.5 MG ORAL TABLET 1 tab by mouth daily 2017 GLYBURIDE 2.5 MG ORAL TABLET 347438 GLYBURIDE Inactive ACTOS 15 MG ORAL TABLET 1 tablet by mouth daily for DM ACTOS 15 MG ORAL TABLET 952803 PIOGLITAZONE HCL Inactive CONTOUR NEXT TEST IN VITRO STRIP check blood sugars 3 times a day for DM E11.65 CONTOUR NEXT TEST IN VITRO STRIP GLUCOSE BLOOD Inactive ONDANSETRON 4 MG ORAL TABLET DISINTEGRATING 1 q4h PRN nausea 201 12/18/14 ONDANSETRON 4 MG ORAL TABLET DISINTEGRATING 807483 ONDA NSETRON Inactive FIASP FLEXTOUCH 100 UNIT/ML SUBCUTANEOUS SOLUTION PEN- INJECTOR 10 units at lunch and dinner 03/2019; [id number] 1 vial FIASP FLEXTOUCH 100 UNIT/ML SUBCUTANEOUS SOLUTION PEN-INJECTOR INSULIN ASPART Inactive GLIMEPIRIDE 2 MG ORAL TABLET 1 tab PO daily for DM 201 12/26/25 GLIMEPIRIDE 2 MG ORAL TABLET 885984 GLIMEPIRIDE Inactive Advance Directives Directive Description Start [...] mg/dL Encounters Code Encounter Date Provider Facility CPT-59902 Level 4 Est. Patient 15:52:58 OPTOMECHANICAL TECHNICIAN Fadumo dunn [facility] CPT-18888 Level 4 Est. Patient 15:44:53 OPTOMECHANICAL TECHNICIAN [facility] Level 3 Est. Patient 14:21:54 JOEL harper MD [facility] CPT-83568 Level 5 Est. Patient 15:02:09 [facility] Level 4 Est. Patient 15:16:40 CDT Fadumo Leslie [facility] CPT-03370 Level 5 Est. Patient 11:51:47 CDT Fadumo Leslie [facility] CPT-04394 Level 5 Est. Patient 12:49:59 [facility] Level 4 Est. Patient 10:56:25 CDT Fito russell MD [facility] Procedures Code Procedure Name Date Entry Date Standard Desc ription CPT-52097 Postop F/U Visit 19:34:43 CDT CPT-13239 Postop F/U Visit 14:39:09 CDT
--- OUTSIDE RECORDS SUMMARY | 2019-07-28 22:51 | XMS REPORT | Clinical Summary ---
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 Davey Jimenez MD Malignant neoplasm of kidney, except pel vis Body Mass Index 24.0-24.9 Adult Inactive 2017 Fadumo Babin POWER PLANT INSTALLER Body Mass Index between 19-24, adult Type 2 diabetes mellitus with hyperglycemia 250.00 Act charley Kisha JONASP Diabetes mellitus without me ntion of complication, type II or unspecified type, not stated as uncontrolled Body Mass Index 23.0-23.9 Adult Inactive 2017 Fadumo Babin POWER PLANT INSTALLER Body Mass Index between 19-24, adult Type 2 diabetes mellitus with diabetic polyneuropathy Inactive Fadumo Babin APRN 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 intermediates use of insulin treatment V58.67 Active 2 Maliheh Ziglari [employer] DEAN Long-term (current) use of insulin Type 2 diabetes mellitus with hypoglycemia without coma 250.80 Resolved Fadumo [place] POWER PLANT INSTALLER Diabetes mellitus with other specified manifestations, type II or unspecified type, not stated as uncontrolled Body Mass Index 24.0-24.9 Adult Resolved 2017 Fadumojeny Babin POWER PLANT INSTALLER Body Mass Index between 19-24, adult Noncompliance with dietary regimen V15.81 Active 2 Fadumo Babin POWER PLANT INSTALLER Personal history of noncompl iance with medical treatment, presenting hazards to health Type 2 diabetes with diabetic polyneuropathy 357.2 Ac tive Fadumojeny Babin POWER PLANT INSTALLER Polyneuropathy in diabetes Body Mass Index 26.0-26.9 Adult Refinement 2017 Fadumojeny Babin POWER PLANT INSTALLER Body Mass Index 26.0-26.9, adult BMI 25-25.9 Active Fadumo Babin POWER PLANT INSTALLER Body Mass Index 26.0-26.9, adult Overweight (BMI 25-29.9) Active Fadumo Amaro inson POWER PLANT INSTALLER Overweight Hypertension 401.9 Active Fadumo [place] APR N Unspecified essential hypertension Hyperlipidemia 272.4 Active Fadumojeny Babin A PRN Other and unspecified hyperlipidemia Type 2 diabetes mellitus with other specified complication 250.8 0 Active Fadumojeny Babin POWER PLANT INSTALLER Diabetes mellitus with other specified manifestations, type II or unspecified type, not stated as uncontrolled Type 2 diabetes mellitus with hypoglycemia without coma 250.80 Active Fadumo [place] POWER PLANT INSTALLER Diabetes mellitus with other specified manifestations, type II or unspecified type, not stated as uncontrolled Body Mass Index 24.0-24.9 Adult Inac tive Fadumo Talya POWER PLANT INSTALLER Body Mass Index 24.0-24.9 Adult Inac tive Fadumo Talya POWER PLANT INSTALLER Body Mass Index 23.0-23.9 Adult Inac tive Fadumo Talya POWER PLANT INSTALLER Type 2 diabetes mellitus with diabetic polyneuropathy Inactive Fadumo Babin ALCIDES Type 2 diabetes mellitus with hypoglycemia without coma ICD-250. 80 Inactive Fadumo Babin POWER PLANT INSTALLER Body Mass Index 24.0-24.9 Adult Inactiv e Fadumo Babin POWER PLANT INSTALLER Medication List Medication Instructions Start Date Stop Date Generic Name NDC Status Provider Patient Instruction NOVOLOG 100 UNIT/ML SUBCUTANEOUS SOLUTION Take 20u wit h dinner for DM 05/2019 [id number] x1 vial INSULIN ASPART 37289005854 Active Maria G berumen Talya MCGRATH Active LOSARTAN POTASSIUM-HCTZ 100-25 MG ORAL TABLET Take one by mo uth daily LOSARTAN POTASSIUM-HCTZ 57987207361 Active Fadumo Premramon jain POWER PLANT INSTALLER Active LOSARTAN POTASSIUM 25 MG ORAL TABLET 1 pill daily, for blood pressure LOSARTAN POTASSIUM 42739654337 No Longer Active Nunulivier zambrano Talya MCGRATH Active GLIMEPIRIDE 2 MG ORAL TABLET 1 tab PO daily for DM 201 12/26/25 GLIMEPIRIDE 00594325148 No Longer Active Fadumo Babin APRN A ctive FIASP FLEXTOUCH 100 UNIT/ML SUBCUTANEOUS SOLUTION PEN- INJECTOR 10 units at lunch and dinner 03/2019; [id number] 1 vial INSULIN ASPAR T 41540725896 No Longer Active Fadumo Babin APRN Active MYRBETRIQ 50 MG ORAL TABLET EXTENDED RELEASE 24 HOUR 1 tab [place] MIRABEGRON 66849993670 Active Diana Kwan LPN A ctive ONDANSETRON 4 MG ORAL TABLET DISINTEGRATING 1 q4h PRN nausea 201 12/18/14 ONDANSETRON 11500405688 No Longer Active Diana Kwan LPN Active CONTOUR NEXT TEST IN VITRO STRIP check blood sugars 3 times a day for DM E11.65 GLUCOSE BLOOD 54961105369 No Longer Active Fadumo Babin APRN Active ACTOS 15 MG ORAL TABLET 1 tablet by mouth daily for DM PIOGLITAZONE HCL 62207556485 No Longer Active [employer] POWER PLANT INSTALLER Active LANTUS SOLOSTAR 100 UNIT/ML SUBCUTANEOUS SOLUTION PEN- INJECTOR 20 units SQ every PM for DM INSULIN GLARGINE 40655343743 Active [employer]Watch POWER PLANT INSTALLER Active CONTOUR NEXT TEST IN VITRO STRIP check blood sugars 3 times a day for DM E11.65 GLUCOSE BLOOD 33275157629 Active Kisha Wong Active ELIZABETH CONTOUR MONITOR W/DEVICE KIT BLOOD GLUCOSE MONITORING SUPPL 91982841394 No Longer Active Fadumo [place] ALCIDES A ctive ALEVE 220 MG ORAL TABLET 2 tabs once every 4-6hrs PRN NAPROXEN SODIUM 61280641311 Active Brigitte Saucedo MA Active GLYBURIDE 2.5 MG ORAL TABLET 1 tab by mouth daily 2017 GLYBURIDE 51312822015 No Longer Active Brigitte Saucedo MA Acti ve CLIMARA 0.025 MG/24HR TRANSDERMAL PATCH WEEKLY Place 1 patch every week ESTRADIOL 72980149110 Active Davey Jimenez MD Active SIMVASTATIN 20 MG ORAL TABLET 1 tab daily at bedtime SIMVASTATIN 28295385599 Active Davey Jimenez MD Active GLYBURIDE 2.5 MG ORAL TABLET 1 tab by mouth daily 2017 GLYBURIDE 2.5 MG ORAL TABLET 541177 GLYBURIDE Inactive ACTOS 15 MG ORAL TABLET 1 tablet by mouth daily for DM ACTOS 15 MG ORAL TABLET 924950 PIOGLITAZONE HCL Inactive CONTOUR NEXT TEST IN VITRO STRIP check blood sugars 3 times a day for DM E11.65 CONTOUR NEXT TEST IN VITRO STRIP GLUCOSE BLOOD Inactive ONDANSETRON 4 MG ORAL TABLET DISINTEGRATING 1 q4h PRN nausea 201 12/18/14 ONDANSETRON 4 MG ORAL TABLET DISINTEGRATING 031200 ONDA NSETRON Inactive FIASP FLEXTOUCH 100 UNIT/ML SUBCUTANEOUS SOLUTION PEN- INJECTOR 10 units at lunch and dinner 03/2019; [id number] 1 vial FIASP FLEXTOUCH 100 UNIT/ML SUBCUTANEOUS SOLUTION PEN-INJECTOR INSULIN ASPART Inactive GLIMEPIRIDE 2 MG ORAL TABLET 1 tab PO daily for DM 201 12/26/25 GLIMEPIRIDE 2 MG ORAL TABLET 156661 GLIMEPIRIDE Inactive LOSARTAN POTASSIUM 25 MG ORAL TABLET 1 pill daily, for blood pressure LOSARTAN POTASSIUM 25 MG ORAL TABLET 587162 FABRICE RTAN POTASSIUM Inactive Advance Directives Directive [...] outside lab added to flowsheet - Chemistry HDL cholesterol, serum 83 mg/dL LDL cholesterol, serum 97 mg/dL cholesterol, serum 191 mg/dL creatinine, serum 0.91 mg/dL hemoglobin A1C, blood, as % of total hemoglobin 11.5 % hemoglobin A1C, blood, as % of total hemoglobin 10.7 % blood glucose 218 mg/dL creatinine, serum 1.05 mg/dL cholesterol, serum 210 mg/dL triglyceride, serum, fasting 68 mg/dL HDL cholesterol, serum 91 mg/dL LDL cholesterol, serum 105 mg/dL triglyceride, serum, fasting 57 mg/dL Office Visit: 6 month followup partial [...] Yes Encounters Code Encounter Date Provider Facility CPT-04853 Level 3 Est. Patient 09:05:17 ANALYTICAL CONSULTANT Fadumo D [employer] [facility] CPT-70723 Level 4 Est. Patient 15:52:58 ANALYTICAL CONSULTANT [facility] Level 4 Est. Patient 15:44:53 ANALYTICAL CONSULTANT [facility]70834 Level 3 Est. Patient 14:21:54 ANALYTICAL CONSULTANT Davey harper MD [facility] CPT-32079 Level 5 Est. Patient 15:02:09 CDT [facility]31292 Level 4 Est. Patient 15:16:40 CDT [facility]72128 Level 5 Est. Patient 11:51:47 [facility] Level 5 Est. Patient 12:49:59 CDT Kisha VALLE [facility] CPT-32858 Level 4 Est. Patient 10:56:25 CDT Fito russell MD [facility] Procedures Code Procedure Name Date Entry Date Standard Desc ription CPT-72986 Postop F/U Visit 19:34:43 CDT CPT-90072 Postop F/U Visit 14:39:09 CDT
--- OUTSIDE RECORDS SUMMARY | 2019-07-28 22:52 | XMS REPORT | Clinical Summary ---
Author Author Karina, Leeann Vasquez Organization [employer] Address Unknown Phone Unavailable Allergies, Adverse Reactions, Alerts Allergy Name Reaction Description Start Date Severity Status Pr ovider DEMEROL hallucinations Critical Active Davye vazquez MD LISINOPRIL cough Moderate Active Davey [...] Index 24.0-24.9 Adult Inactive 2017 Fadumo Babin BANDOLEER STRAIGHTENER STAMPER Body Mass Index between 19-24, adult Type 2 diabetes mellitus with hyperglycemia 250.00 Act charley Kisha Fieldsglariana JONASP Diabetes mellitus without me ntion of complication, type II or unspecified type, not stated as uncontrolled Body Mass Index 23.0-23.9 Adult Inactive 2017 Fadumo Babin BANDOLEER STRAIGHTENER STAMPER Body Mass Index between 19-24, adult Type 2 diabetes mellitus with diabetic polyneuropathy Inactive Fadumo Babin APRN buttermaker use of insulin treatment V58.67 Active 2 Kisha Fieldsglari [employer] Long-term (current) use of insulin Type 2 diabetes mellitus with hypoglycemia without coma 250.80 Resolved Fadumo Babin BANDOLEER STRAIGHTENER STAMPER Diabetes mellitus with other specified manifestations, type II or unspecified type, not stated as uncontrolled Body Mass Index 24.0-24.9 Adult Resolved 2017 Fadumo Babin BANDOLEER STRAIGHTENER STAMPER Body Mass Index between 19-24, adult Noncompliance with dietary regimen V15.81 Active 2 Fadumo Babin BANDOLEER STRAIGHTENER STAMPER Personal history of noncompl iance with medical treatment, presenting hazards to health Type 2 diabetes with diabetic polyneuropathy 357.2 Ac tive Fadumo Babin BANDOLEER STRAIGHTENER STAMPER Polyneuropathy in diabetes Body Mass Index 26.0-26.9 Adult Active 2017 Fadumo Babin BANDOLEER STRAIGHTENER STAMPER Body Mass Index 26.0-26.9, adult Overweight (BMI 25-29.9) Active Fadumo Amaro inson BANDOLEER STRAIGHTENER STAMPER Overweight Hypertension 401.9 Active Fadumo Babin APR N Unspecified essential hypertension Hyperlipidemia 272.4 Active Fadumo Babin A PRN Other and unspecified hyperlipidemia Body Mass Index 24.0-24.9 Adult Inac tive Fadumojeny Babin BANDOLEER STRAIGHTENER STAMPER Body Mass Index 24.0-24.9 Adult Inac bran Fadumojeny Babin BANDOLEER STRAIGHTENER STAMPER Body Mass Index 23.0-23.9 Adult Inac tive Fadumo Talya BANDOLEER STRAIGHTENER STAMPER Type 2 diabetes mellitus with diabetic polyneuropathy Inactive Fadumojeny Babin BANDOLEER STRAIGHTENER STAMPER Type 2 diabetes mellitus with hypoglycemia without coma ICD-250. 80 Inactive Fadumojeny Babin BANDOLEER STRAIGHTENER STAMPER Body Mass Index 24.0-24.9 Adult Inactiv e Fadumo Babin BANDOLEER STRAIGHTENER STAMPER Medication List Medication Instructions Start Date Stop Date Generic Name NDC Status Provider Patient Instruction GLIMEPIRIDE 2 MG ORAL TABLET 1 tab PO daily for DM 201 12/26/25 GLIMEPIRIDE 87835586596 No Longer Active Fadumo Babin APRN A ctive NOVOLOG 100 UNIT/ML SUBCUTANEOUS SOLUTION Take 20u wit h dinner for DM 05/2019 [id number] x1 vial INSULIN ASPART 08312447819 Active Maria G Babin APRN Active FIASP FLEXTOUCH 100 UNIT/ML SUBCUTANEOUS SOLUTION PEN- INJECTOR 10 units at lunch and dinner 03/2019; [id number] 1 vial INSULIN ASPAR T 88515873003 No Longer Active Fadumo Babin APRN Active MYRBETRIQ 50 MG ORAL TABLET EXTENDED RELEASE 24 HOUR 1 tab [place] MIRABEGRON 71500818262 Active JENNIFER Jimenez ctive ONDANSETRON 4 MG ORAL TABLET DISINTEGRATING 1 q4h PRN nausea 201 12/18/14 ONDANSETRON 89666302743 No Longer Active Diana Kwan LPN Active CONTOUR NEXT TEST IN VITRO STRIP check blood sugars 3 times a day for DM E11.65 GLUCOSE BLOOD 10216421894 No Longer Active Fadumo Babin APRN Active ACTOS 15 MG ORAL TABLET 1 tablet by mouth daily for DM PIOGLITAZONE HCL 85511430790 No Longer Active Fadumo Babin APRN Active LANTUS SOLOSTAR 100 UNIT/ML SUBCUTANEOUS SOLUTION PEN- INJECTOR 20 units SQ every PM for DM INSULIN GLARGINE 32469767992 Active Fadumo Babin APRN Active CONTOUR NEXT TEST IN VITRO STRIP check blood sugars 3 times a day for DM E11.65 GLUCOSE BLOOD 99936915802 Active Kisha JONAS P Active ELIZABETH CONTOUR MONITOR W/DEVICE KIT BLOOD GLUCOSE MONITORING SUPPL 14152279199 No Longer Active Fadumo Babin APRN A ctive ALEVE 220 MG ORAL TABLET 2 tabs once every 4-6hrs PRN NAPROXEN SODIUM 53427648582 Active Brigitte Saucedo MA Active GLYBURIDE 2.5 MG ORAL TABLET 1 tab by mouth daily 2017 GLYBURIDE 21601204111 No Longer Active Brigitte Saucedo MA Acti ve CLIMARA 0.025 MG/24HR TRANSDERMAL PATCH WEEKLY Place 1 patch every week ESTRADIOL 56861950696 Active Davey Jimenez MD Active SIMVASTATIN 20 MG ORAL TABLET 1 tab daily at bedtime SIMVASTATIN 08930200028 Active Davey Jimenez MD Active LOSARTAN POTASSIUM 25 MG ORAL TABLET 1 pill daily, for blood pressure LOSARTAN POTASSIUM 89945658166 Active Davey Jimenez MD Active GLYBURIDE 2.5 MG ORAL TABLET 1 tab by mouth daily 2017 GLYBURIDE 2.5 MG ORAL TABLET 423495 GLYBURIDE Inactive ACTOS 15 MG ORAL TABLET 1 tablet by mouth daily for DM ACTOS 15 MG ORAL TABLET 003565 PIOGLITAZONE HCL Inactive CONTOUR NEXT TEST IN VITRO STRIP check blood sugars 3 times a day for DM E11.65 CONTOUR NEXT TEST IN VITRO STRIP GLUCOSE BLOOD Inactive ONDANSETRON 4 MG ORAL TABLET DISINTEGRATING 1 q4h PRN nausea 201 12/18/14 ONDANSETRON 4 MG ORAL TABLET DISINTEGRATING 135567 ONDA NSETRON Inactive FIASP FLEXTOUCH 100 UNIT/ML SUBCUTANEOUS SOLUTION PEN- INJECTOR 10 units at lunch and dinner 03/2019; [id number] 1 vial FIASP FLEXTOUCH 100 UNIT/ML SUBCUTANEOUS SOLUTION PEN-INJECTOR INSULIN ASPART Inactive GLIMEPIRIDE 2 MG ORAL TABLET 1 tab PO daily for DM 201 12/26/25 GLIMEPIRIDE 2 MG ORAL TABLET 613340 GLIMEPIRIDE Inactive Advance Directives Directive Description Start [...] mg/dL Encounters Code Encounter Date Provider Facility CPT-16259 Level 4 Est. Patient 15:52:58 JOEL dunn [facility] CPT-38417 Level 4 Est. Patient 15:44:53 INSPECTOR BARREL [facility] Level 3 Est. Patient 14:21:54 JOEL harper MD [facility] CPT-87163 Level 5 Est. Patient 15:02:09 [facility] Level 4 Est. Patient 15:16:40 CDT Fadumo Leslie [facility] CPT-19178 Level 5 Est. Patient 11:51:47 CDT Fadumo Leslie [facility] CPT-07355 Level 5 Est. Patient 12:49:59 [facility] Level 4 Est. Patient 10:56:25 CDT Fito russell MD [facility] Procedures Code Procedure Name Date Entry Date Standard Desc ription CPT-28345 Postop F/U Visit 19:34:43 CDT CPT-31156 Postop F/U Visit 14:39:09 CDT
--- OUTSIDE RECORDS SUMMARY | 2019-07-28 22:52 | XMS REPORT | Clinical Summary ---
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 Davey Jimenez MD Malignant neoplasm of kidney, except pel vis Body Mass Index 24.0-24.9 Adult Inactive 2017 Fadumo Babin LOG SORTING SUPERVISOR Body Mass Index between 19-24, adult Type 2 diabetes mellitus with hyperglycemia 250.00 Act charley Kisha JONASP Diabetes mellitus without me ntion of complication, type II or unspecified type, not stated as uncontrolled Body Mass Index 23.0-23.9 Adult Inactive 2017 Fadumo Babin LOG SORTING SUPERVISOR Body Mass Index between 19-24, adult Type 2 diabetes mellitus with diabetic polyneuropathy Inactive Fadumo 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 insulin treatment V58.67 Active 2 Maliheh Ziglari WATER MAIN INSPECTOR Long-term (current) use of insulin Type 2 diabetes mellitus with hypoglycemia without coma 250.80 Resolved Fadumo Babin LOG SORTING SUPERVISOR Diabetes mellitus with other specified manifestations, type II or unspecified type, not stated as uncontrolled Body Mass Index 24.0-24.9 Adult Active 2017 Fadumo [place] LOG SORTING SUPERVISOR Body Mass Index between 19-24, adult Noncompliance with dietary regimen V15.81 Active 2 Fadumo Talya WASHBURNN Personal history of noncompl iance with medical treatment, presenting hazards to health Type 2 diabetes with diabetic polyneuropathy 357.2 Ac tive Fadumo Talya WASHBURNN Polyneuropathy in diabetes Body Mass Index 26.0-26.9 Adult Active 2017 Fadumo Babin LOG SORTING SUPERVISOR Body Mass Index 26.0-26.9, adult Body Mass Index 24.0-24.9 [facility] LOG SORTING SUPERVISOR Body Mass Index 24.0-24.9 Adult [facility] LOG SORTING SUPERVISOR Type 2 diabetes mellitus with diabetic polyneuropathy Inactive Fadumo Babin LOG SORTING SUPERVISOR Type 2 diabetes mellitus with hypoglycemia without coma ICD-250. 80 Inactive Fadumo Babin LOG SORTING SUPERVISOR Body Mass Index 23.0-23.9 Adult [facility] Fadumo Babin LOG SORTING SUPERVISOR Medication List Medication Instructions Start Date Stop Date Generic Name NDC Status Provider Patient Instruction NOVOLOG 100 UNIT/ML SUBCUTANEOUS SOLUTION Take 20u wit h dinner for DM 05/2019 [id number] x1 vial INSULIN ASPART 11147264682 Active Maria G berumen Talya WASHBURNN Active GLIMEPIRIDE 2 MG ORAL TABLET 1 tab PO daily for DM GLIMEPIRIDE 64796024965 Active Fadumo Babin LOG SORTING SUPERVISOR Active FIASP FLEXTOUCH 100 UNIT/ML SUBCUTANEOUS SOLUTION PEN- INJECTOR 10 units at lunch and dinner 03/2019; [id number] 1 vial INSULIN ASPAR T 57002351159 No Longer Active Fadumo Babin APRN Active MYRBETRIQ 50 MG ORAL TABLET EXTENDED RELEASE 24 HOUR 1 tab [place] MIRABEGRON 80089082627 Active Diana Kwan LPN A ctive ONDANSETRON 4 MG ORAL TABLET DISINTEGRATING 1 q4h PRN nausea 201 12/18/14 ONDANSETRON 15042051451 No Longer Active Diana Kwan LPN Active CONTOUR NEXT TEST IN VITRO STRIP check blood sugars 3 times a day for DM E11.65 GLUCOSE BLOOD 86349019993 No Longer Active Fadumo Babin APRN Active ACTOS 15 MG ORAL TABLET 1 tablet by mouth daily for DM PIOGLITAZONE HCL 87824841412 No Longer Active Fadumo Babin APRN Active LANTUS SOLOSTAR 100 UNIT/ML SUBCUTANEOUS SOLUTION PEN- INJECTOR 20 units SQ every PM for DM INSULIN GLARGINE 88275475913 Active Fadumo Babin APRN Active CONTOUR NEXT TEST IN VITRO STRIP check blood sugars 3 times a day for DM E11.65 GLUCOSE BLOOD 90342987877 Active Kisha Wong Active ELIZABETH CONTOUR MONITOR W/DEVICE KIT BLOOD GLUCOSE MONITORING SUPPL 21175307096 No Longer Active Fadumo Babin APRN A ctive ALEVE 220 MG ORAL TABLET 2 tabs once every 4-6hrs PRN NAPROXEN SODIUM 96658768544 Active Brigitte Saucedo MA Active GLYBURIDE 2.5 MG ORAL TABLET 1 tab by mouth daily 2017 GLYBURIDE 63924432631 No Longer Active Brigitte Saucedo MA Acti ve CLIMARA 0.025 MG/24HR TRANSDERMAL PATCH WEEKLY Place 1 patch every week ESTRADIOL 59685539863 Carrie Jimenez MD Active SIMVASTATIN 20 MG ORAL TABLET 1 tab daily at bedtime SIMVASTATIN 21889326733 Carrie Jimenez MD Active LOSARTAN POTASSIUM 25 MG ORAL TABLET 1 pill daily, for blood pressure LOSARTAN POTASSIUM 52506088381 Carrie Jimenez MD Active GLYBURIDE 2.5 MG ORAL TABLET 1 tab by mouth daily 2017 GLYBURIDE 2.5 MG ORAL TABLET 820466 GLYBURIDE Inactive ACTOS 15 MG ORAL TABLET 1 tablet by mouth daily for DM ACTOS 15 MG ORAL TABLET 698606 PIOGLITAZONE HCL Inactive CONTOUR NEXT TEST IN VITRO STRIP check blood sugars 3 times a day for DM E11.65 CONTOUR NEXT TEST IN VITRO STRIP GLUCOSE BLOOD Inactive ONDANSETRON 4 MG ORAL TABLET DISINTEGRATING 1 q4h PRN nausea 201 12/18/14 ONDANSETRON 4 MG ORAL TABLET DISINTEGRATING 553121 ONDA NSETRON Inactive FIASP FLEXTOUCH 100 UNIT/ML SUBCUTANEOUS SOLUTION PEN- INJECTOR 10 units at lunch and dinner 03/2019; [id number] 1 vial FIASP FLEXTOUCH 100 UNIT/ML SUBCUTANEOUS SOLUTION PEN-INJECTOR INSULIN ASPART Inactive Advance Directives Directive Description Start Date PERMISSION TO SHARE Immunizations Vaccine Administration Date Value Standard Nhan cription pneumococcal immunization administered 7 pneumococcal polysaccharide vaccine, 23 valent influenza immunization (Flu Vax) has been administered 5 02/05/2017 influenza virus vaccine, unspecified formulation Vital Signs Date Name Value Unit Range Description height E&M 62 [in_us] Bdy height temperature [...] 6 month followup partial n ephrectomy - [facility] sexually transmitted disease no risk noted [...] Yes Encounters Code Encounter Date Provider Facility CPT-73537 Level 3 Est. Patient 14:21:54 LOCOMOTIVE OILER J Tomas harper MD [facility] CPT-45998 Level 5 Est. Patient 15:02:09 CDT Fadumo Leslie [facility] CPT-86270 Level 4 Est. Patient 15:16:40 CDT Fadumo Leslie [facility] CPT-29825 Level 5 Est. Patient 11:51:47 CDT Fadumo Leslie [facility] CPT-70594 Level 5 Est. Patient 12:49:59 [facility] Level 4 Est. Patient 10:56:25 CDT Fito russell MD [facility] Procedures Code Procedure Name Date Entry Date Standard Desc ription CPT-05411 Postop F/U Visit 19:34:43 CDT CPT-19429 Postop F/U Visit 14:39:09 CDT
--- OUTSIDE RECORDS SUMMARY | 2019-07-28 22:52 | XMS REPORT | Clinical Summary ---
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 Davey Jimenez MD Malignant neoplasm of kidney, except pel vis Body Mass Index 24.0-24.9 Adult Inactive 2017 Fadumo Babin WEIGHT CONTROL ENGINEER Body Mass Index between 19-24, adult Type 2 diabetes mellitus with hyperglycemia 250.00 Act charley Kisha JONASP Diabetes mellitus without me ntion of complication, type II or unspecified type, not stated as uncontrolled Body Mass Index 23.0-23.9 Adult Inactive 2017 Fadumo Babin WEIGHT CONTROL ENGINEER Body Mass Index between 19-24, adult Type 2 diabetes mellitus with diabetic polyneuropathy Inactive Fadumo Babin APRN bed bug exterminator use of insulin treatment V58.67 Active 2 Maliheh Ziglari BOOM STORAGE Long-term (current) use of insulin Type 2 diabetes mellitus with hypoglycemia without coma 250.80 Resolved Fadumo Talya WASHBURNN Diabetes mellitus with other specified manifestations, type II or unspecified type, not stated as uncontrolled Body Mass Index 24.0-24.9 Adult Active 2017 Fadumo Hiram WEIGHT CONTROL ENGINEER Body Mass Index between 19-24, adult Noncompliance with dietary regimen V15.81 Active 2 Fadumo Talya WASHBURNN Personal history of noncompl iance with medical treatment, presenting hazards to health Type 2 diabetes with diabetic polyneuropathy 357.2 Ac tive Fadumo Talya WASHBURNN Polyneuropathy in diabetes Body Mass Index 24.0-24.9 Adult Inac tive Fadumo Babin WEIGHT CONTROL ENGINEER Body Mass Index 24.0-24.9 [facility] Hiram WEIGHT CONTROL ENGINEER Body Mass Index 23.0-23.9 Adult [facility] tive Fadumo Hiram WEIGHT CONTROL ENGINEER Type 2 diabetes mellitus with diabetic polyneuropathy Inactive Fadumo Babin WEIGHT CONTROL ENGINEER Type 2 diabetes mellitus with hypoglycemia without coma ICD-250. 80 Inactive Fadumo Babin WEIGHT CONTROL ENGINEER Medication List Medication Instructions Start Date Stop Date Generic Name NDC Status Provider Patient Instruction CONTOUR NEXT TEST IN VITRO STRIP check blood sugars 3 times a day for DM E11.65 GLUCOSE BLOOD 83028760250 No Longer Active Fadumo Babin ALCIDES Active ACTOS 15 MG ORAL TABLET 1 tablet by mouth daily for DM PIOGLITAZONE HCL 63289625603 No Longer Active Fadumo Babin WEIGHT CONTROL ENGINEER Active FIASP FLEXTOUCH 100 UNIT/ML SUBCUTANEOUS SOLUTION PEN- INJECTOR 10 units at lunch and dinner 03/2019; [id number] 1 vial INSULIN ASPART 0016 2814816 [facility] Active LANTUS SOLOSTAR 100 UNIT/ML SUBCUTANEOUS SOLUTION PEN- INJECTOR 20 units SQ every PM for DM INSULIN GLARGINE 30349626311 Active Fadumo Babin WEIGHT CONTROL ENGINEER Active CONTOUR NEXT TEST IN VITRO STRIP check blood sugars 3 times a day for DM E11.65 GLUCOSE BLOOD 83373129965 Active Kisha Fieldsmason JONAS P Active GLIMEPIRIDE 2 MG ORAL TABLET 2 tabs PO daily GL IMEPIRIDE 87490732973 Active Fadumo Babin APRN Active ELIZABETH CONTOUR MONITOR W/DEVICE KIT BLOOD GLUCOSE MONITORING SUPPL 75429625231 No Longer Active Fadumo Babin APRN A ctive ALEVE 220 MG ORAL TABLET 2 tabs once every 4-6hrs PRN NAPROXEN SODIUM 51216719846 Active Brigitte Saucedo MA Active GLYBURIDE 2.5 MG ORAL TABLET 1 tab by mouth daily 2017 GLYBURIDE 09452054423 No Longer Active Brigitte Saucedo MA Acti ve CLIMARA 0.025 MG/24HR TRANSDERMAL PATCH WEEKLY Place 1 patch every week ESTRADIOL 51726394587 Active Davey Jimenez MD Active ONDANSETRON 4 MG ORAL TABLET DISINTEGRATING 1 q4h PRN nausea 07/30 ONDANSETRON 15032742276 Active Davey Jimenez MD Active SIMVASTATIN 20 MG ORAL TABLET 1 tab daily at bedtime SIMVASTATIN 90521166500 Active Davey Jimenez MD Active LOSARTAN POTASSIUM 25 MG ORAL TABLET 1 pill daily, for blood pressure LOSARTAN POTASSIUM 73523489456 Active Davey Jimenez MD Active GLYBURIDE 2.5 MG ORAL TABLET 1 tab by mouth daily 2017 GLYBURIDE 2.5 MG ORAL TABLET 819980 GLYBURIDE Inactive ACTOS 15 MG ORAL TABLET 1 tablet by mouth daily for DM ACTOS 15 MG ORAL TABLET 759077 PIOGLITAZONE HCL Inactive CONTOUR NEXT TEST IN VITRO STRIP check blood sugars 3 times a day for DM E11.65 CONTOUR NEXT TEST IN VITRO STRIP GLUCOSE BLOOD Inactive Advance Directives Directive Description Start Date [...] erature blood pressure, diastolic 70 mm[Hg] BP dvais blood pressure, systolic 138 [...] Yes Encounters Code Encounter Date Provider Facility CPT-91388 Level 3 Est. Patient 14:21:54 ALARM ADJUSTER J Tomas harper MD [facility] CPT-94517 Level 5 Est. Patient 15:02:09 CDT [facility] Level 4 Est. Patient 15:16:40 CDT Fadumo D [facility] CPT-37679 Level 5 Est. Patient 11:51:47 CDT Fadumo Leslie [facility] CPT-53962 Level 5 Est. Patient 12:49:59 CDT Kisha rendon [facility] CPT-72813 Level 4 Est. Patient 10:56:25 CDT Fito russell MD [facility] Procedures Code Procedure Name Date Entry Date Standard Desc ription CPT-93105 Postop F/U Visit 19:34:43 CDT CPT-46242 Postop F/U Visit 14:39:09 CDT
--- OUTSIDE RECORDS SUMMARY | 2019-07-28 22:52 | XMS REPORT | Clinical Summary ---
Author Author Karina, Leeann Vasquez Organization [employer] Address Unknown Phone Unavailable Allergies, Adverse Reactions, [...] carcinoma of right kidney 189.0 Active Davey Jimneez MD Malignant neoplasm of kidney, except pel vis Body Mass Index 24.0-24.9 Adult Inactive 2017 Fadumo Babin COAL HAULER Body Mass Index between 19-24, adult Type 2 diabetes mellitus with hyperglycemia 250.00 Act charley Kisha Fieldsglariana JONASP Diabetes mellitus without me ntion of complication, type II or unspecified type, not stated as uncontrolled Body Mass Index 23.0-23.9 Adult Inactive 2017 Fadumo Babin COAL HAULER Body Mass Index between 19-24, adult Type 2 diabetes mellitus with diabetic polyneuropathy Inactive Fadumo Babin APRN 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 marine oil terminal use of insulin treatment V58.67 Active 2 Kisha Fieldsglari FUEL HANDLER Long-term (current) use of insulin Type 2 diabetes mellitus with hypoglycemia without coma 250.80 Resolved Fadumo Talya WASHBURNN Diabetes mellitus with other specified manifestations, type II or unspecified type, not stated as uncontrolled Body Mass Index 24.0-24.9 Adult Active 2017 Fadumojeny Babin COAL HAULER Body Mass Index between 19-24, adult Noncompliance with dietary regimen V15.81 Active 2 Fadumojeny Babin APRN Personal history of noncompl iance with medical treatment, presenting hazards to health Type 2 diabetes with diabetic polyneuropathy 357.2 Ac tive Fadumojeny Babin APRN Polyneuropathy in diabetes Body Mass Index 26.0-26.9 Adult Active 2017 Fadumojeny Babin APRN Body Mass Index 26.0-26.9, adult Body Mass Index 24.0-24.9 Adult [facility] bran Thorne [place] COAL HAULER Body Mass Index 24.0-24.9 Adult [facility] bran Babin COAL HAULER Body Mass Index 23.0-23.9 [facility] Type 2 diabetes mellitus with diabetic polyneuropathy Inactive Fadumo Talya WASHBURNN Type 2 diabetes mellitus with hypoglycemia without coma ICD-250. 80 Inactive Fadumo Babin COAL HAULER Medication List Medication Instructions Start Date Stop Date Generic Name NDC Status Provider Patient Instruction NOVOLOG 100 UNIT/ML SUBCUTANEOUS SOLUTION Take 20u wit h dinner for DM 05/2019 [id number] x1 vial INSULIN ASPART 98788378692 Active Maria G jamaica Babin APRN Active GLIMEPIRIDE 2 MG ORAL TABLET 1 tab PO daily for DM GLIMEPIRIDE 08650615900 Active Fadumo Talya WASHBURNN Active FIASP FLEXTOUCH 100 UNIT/ML SUBCUTANEOUS SOLUTION PEN- INJECTOR 10 units at lunch and dinner 03/2019; [id number] 1 vial INSULIN ASPAR T 79855966312 No Longer Active Fadumo Babin APRN Active MYRBETRIQ 50 MG ORAL TABLET EXTENDED RELEASE 24 HOUR 1 tab [place] MIRABEGRON 45023736806 Active Diana Kwan LPN A ctive ONDANSETRON 4 MG ORAL TABLET DISINTEGRATING 1 q4h PRN nausea 201 12/18/14 ONDANSETRON 35954377693 No Longer Active Diana Kwan LPN Active CONTOUR NEXT TEST IN VITRO STRIP check blood sugars 3 times a day for DM E11.65 GLUCOSE BLOOD 95481148239 No Longer Active Fadumo Babin APRN Active ACTOS 15 MG ORAL TABLET 1 tablet by mouth daily for DM PIOGLITAZONE HCL 67715660532 No Longer Active Fadumo Babin APRN Active LANTUS SOLOSTAR 100 UNIT/ML SUBCUTANEOUS SOLUTION PEN- INJECTOR 20 units SQ every PM for DM INSULIN GLARGINE 66352454876 Active Fadumo Babin APRN Active CONTOUR NEXT TEST IN VITRO STRIP check blood sugars 3 times a day for DM E11.65 GLUCOSE BLOOD 84620249801 Active Kisha Wong Active ELIZABETH CONTOUR MONITOR W/DEVICE KIT BLOOD GLUCOSE MONITORING SUPPL 52702308374 No Longer Active Fadumo Babin APRN A ctive ALEVE 220 MG ORAL TABLET 2 tabs once every 4-6hrs PRN NAPROXEN SODIUM 74325941233 Active Brigitte Saucedo MA Active GLYBURIDE 2.5 MG ORAL TABLET 1 tab by mouth daily 2017 GLYBURIDE 12267058739 No Longer Active Brigitte Saucedo MA Acti ve CLIMARA 0.025 MG/24HR TRANSDERMAL PATCH WEEKLY Place 1 patch every week ESTRADIOL 04625289000 Carrie Jimenez MD Active SIMVASTATIN 20 MG ORAL TABLET 1 tab daily at bedtime SIMVASTATIN 72522880040 Carrie Jimenez MD Active LOSARTAN POTASSIUM 25 MG ORAL TABLET 1 pill daily, for blood pressure LOSARTAN POTASSIUM 01449262657 Carrie Jimenez MD Active GLYBURIDE 2.5 MG ORAL TABLET 1 tab by mouth daily 2017 GLYBURIDE 2.5 MG ORAL TABLET 028218 GLYBURIDE Inactive ACTOS 15 MG ORAL TABLET 1 tablet by mouth daily for DM ACTOS 15 MG ORAL TABLET 156193 PIOGLITAZONE HCL Inactive CONTOUR NEXT TEST IN VITRO STRIP check blood sugars 3 times a day for DM E11.65 CONTOUR NEXT TEST IN VITRO STRIP GLUCOSE BLOOD Inactive ONDANSETRON 4 MG ORAL TABLET DISINTEGRATING 1 q4h PRN nausea 201 12/18/14 ONDANSETRON 4 MG ORAL TABLET DISINTEGRATING 901892 ONDA NSETRON Inactive FIASP FLEXTOUCH 100 UNIT/ML SUBCUTANEOUS SOLUTION PEN- INJECTOR 10 units at lunch and dinner 03/2019; [id number] 1 vial FIASP FLEXTOUCH 100 UNIT/ML SUBCUTANEOUS [...] 6 month followup partial n ephrectomy - [facility] sexually transmitted disease no risk noted [...] Yes Encounters Code Encounter Date Provider Facility CPT-52271 Level 3 Est. Patient 14:21:54 ROAD TRAIN DRIVER J Tomas harper MD [facility] CPT-71354 Level 5 Est. Patient 15:02:09 CDT Fadumo Leslie [facility] CPT-37524 Level 4 Est. Patient 15:16:40 CDT Fadumo Leslie [facility] CPT-74775 Level 5 Est. Patient 11:51:47 CDT Fadumo Leslie [facility] CPT-82734 Level 5 Est. Patient 12:49:59 CDT Kisha VALLE [facility] CPT-98558 Level 4 Est. Patient 10:56:25 CDT Fito russell MD [facility] Procedures Code Procedure Name Date Entry Date Standard Desc ription CPT-42448 Postop F/U Visit 19:34:43 CDT CPT-87503 Postop F/U Visit 14:39:09 CDT
--- OUTSIDE RECORDS SUMMARY | 2019-07-28 22:52 | XMS REPORT | Clinical Summary ---
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 Davey Jimenez MD Malignant neoplasm of kidney, except pel vis Body Mass Index 24.0-24.9 Adult Inactive 2017 Fadumo Babin TANDEM MILL OPERATOR Body Mass Index between 19-24, adult Type 2 diabetes mellitus with hyperglycemia 250.00 Act charley Kisha JONASP Diabetes mellitus without me ntion of complication, type II or unspecified type, not stated as uncontrolled Body Mass Index 23.0-23.9 Adult Inactive 2017 Fadumo Babin TANDEM MILL OPERATOR Body Mass Index between 19-24, adult Type 2 diabetes mellitus with diabetic polyneuropathy Inactive Fadumo Babin APRN terminal make up operator use of insulin treatment V58.67 Active 2 Maliheh Ziglari NATIONAL ACCOUNT EXECUTIVE Long-term (current) use of insulin Type 2 diabetes mellitus with hypoglycemia without coma 250.80 Resolved Fadumo Babin TANDEM MILL OPERATOR Diabetes mellitus with other specified manifestations, type II or unspecified type, not stated as uncontrolled Body Mass Index 24.0-24.9 Adult Resolved 2017 Fadumo Babin TANDEM MILL OPERATOR Body Mass Index between 19-24, adult Noncompliance with dietary regimen V15.81 Active 2 Fadumo Babin TANDEM MILL OPERATOR Personal history of noncompl iance with medical treatment, presenting hazards to health Type 2 diabetes with diabetic polyneuropathy 357.2 Ac tive Fadumo Babin TANDEM MILL OPERATOR Polyneuropathy in diabetes Body Mass Index 26.0-26.9 Adult Active 2017 Fadumo Babin TANDEM MILL OPERATOR Body Mass Index 26.0-26.9, adult Overweight (BMI 25-29.9) Active Fadumo Amaro inson TANDEM MILL OPERATOR Overweight Hypertension 401.9 Active Fadumo Babin APR N Unspecified essential hypertension Hyperlipidemia 272.4 Active Fadumo Babin A PRN Other and unspecified hyperlipidemia Body Mass Index 24.0-24.9 Adult Inac tive Fadumo Barron TANDEM MILL OPERATOR Body Mass Index 24.0-24.9 Adult Inac tive Fadumo Talya TANDEM MILL OPERATOR Body Mass Index 23.0-23.9 Adult Inac tive Fadumo Tayla TANDEM MILL OPERATOR Type 2 diabetes mellitus with diabetic polyneuropathy Inactive Fadumo Talya TANDEM MILL OPERATOR Type 2 diabetes mellitus with hypoglycemia without coma ICD-250. 80 Inactive Fadumojeny Babin TANDEM MILL OPERATOR Body Mass Index 24.0-24.9 Adult Inactiv e Fadumojeny Babin TANDEM MILL OPERATOR Medication List Medication Instructions Start Date Stop Date Generic Name NDC Status Provider Patient Instruction GLIMEPIRIDE 2 MG ORAL TABLET 1 tab PO daily for DM 201 12/26/25 GLIMEPIRIDE 39658256078 No Longer Active Fadumo Babin APRN A ctive NOVOLOG 100 UNIT/ML SUBCUTANEOUS SOLUTION Take 20u wit h dinner for DM 05/2019 [id number] x1 vial INSULIN ASPART 50362525493 Active Maria G Babin APRN Active FIASP FLEXTOUCH 100 UNIT/ML SUBCUTANEOUS SOLUTION PEN- INJECTOR 10 units at lunch and dinner 03/2019; [id number] 1 vial INSULIN ASPAR T 17857283939 No Longer Active Fadumo Babin APRN Active MYRBETRIQ 50 MG ORAL TABLET EXTENDED RELEASE 24 HOUR 1 tab [place] MIRABEGRON 54344690119 Active Diana Kwan LPN A ctive ONDANSETRON 4 MG ORAL TABLET DISINTEGRATING 1 q4h PRN nausea 201 12/18/14 ONDANSETRON 91812840487 No Longer Active Diana Kwan LPN Active CONTOUR NEXT TEST IN VITRO STRIP check blood sugars 3 times a day for DM E11.65 GLUCOSE BLOOD 32770221964 No Longer Active Fadumo Babin APRN Active ACTOS 15 MG ORAL TABLET 1 tablet by mouth daily for DM PIOGLITAZONE HCL 48532226543 No Longer Active Fadumo Babin APRN Active LANTUS SOLOSTAR 100 UNIT/ML SUBCUTANEOUS SOLUTION PEN- INJECTOR 20 units SQ every PM for DM INSULIN GLARGINE 06075218307 Active Fadumo Babin APRN Active CONTOUR NEXT TEST IN VITRO STRIP check blood sugars 3 times a day for DM E11.65 GLUCOSE BLOOD 33893254434 Active Kisha JONAS P Active ELIZABETH CONTOUR MONITOR W/DEVICE KIT BLOOD GLUCOSE MONITORING SUPPL 29147712438 No Longer Active Fadumo Babin APRN A ctive ALEVE 220 MG ORAL TABLET 2 tabs once every 4-6hrs PRN NAPROXEN SODIUM 56057003470 Active Brigitte Saucedo MA Active GLYBURIDE 2.5 MG ORAL TABLET 1 tab by mouth daily 2017 GLYBURIDE 51074567377 No Longer Active Brigitte Saucedo MA Acti ve CLIMARA 0.025 MG/24HR TRANSDERMAL PATCH WEEKLY Place 1 patch every week ESTRADIOL 84545380029 Active Davey Jimenez MD Active SIMVASTATIN 20 MG ORAL TABLET 1 tab daily at bedtime SIMVASTATIN 43782496577 Active Davey Jimenez MD Active LOSARTAN POTASSIUM 25 MG ORAL TABLET 1 pill daily, for blood pressure LOSARTAN POTASSIUM 24700642085 Active Davey Jimenez MD Active GLYBURIDE 2.5 MG ORAL TABLET 1 tab by mouth daily 2017 GLYBURIDE 2.5 MG ORAL TABLET 913329 GLYBURIDE Inactive ACTOS 15 MG ORAL TABLET 1 tablet by mouth daily for DM ACTOS 15 MG ORAL TABLET 037237 PIOGLITAZONE HCL Inactive CONTOUR NEXT TEST IN VITRO STRIP check blood sugars 3 times a day for DM E11.65 CONTOUR NEXT TEST IN VITRO STRIP GLUCOSE BLOOD Inactive ONDANSETRON 4 MG ORAL TABLET DISINTEGRATING 1 q4h PRN nausea 201 12/18/14 ONDANSETRON 4 MG ORAL TABLET DISINTEGRATING 062182 ONDA NSETRON Inactive FIASP FLEXTOUCH 100 UNIT/ML SUBCUTANEOUS SOLUTION PEN- INJECTOR 10 units at lunch and dinner 03/2019; [id number] 1 vial FIASP FLEXTOUCH 100 UNIT/ML SUBCUTANEOUS SOLUTION PEN-INJECTOR INSULIN ASPART Inactive GLIMEPIRIDE 2 MG ORAL TABLET 1 tab PO daily for DM 201 12/26/25 GLIMEPIRIDE 2 MG ORAL TABLET 354270 GLIMEPIRIDE Inactive Advance Directives Directive Description Start [...] mg/dL Encounters Code Encounter Date Provider Facility CPT-19209 Level 4 Est. Patient 15:52:58 CASING SOAKER Fadumo dunn [facility][note 3] CPT-96555 Level 4 Est. Patient 15:44:53 CASING SOAKER [facility] Level 3 Est. Patient 14:21:54 JOEL harper MD [facility] CPT-79007 Level 5 Est. Patient 15:02:09 CDT [facility] CPT-98534 Level 4 Est. Patient 15:16:40 CDT Fadumo Leslie [facility] CPT-05031 Level 5 Est. Patient 11:51:47 CDT Fadumo Leslie [facility] CPT-99345 Level 5 Est. Patient 12:49:59 [facility] Level 4 Est. Patient 10:56:25 CDT Fito russell MD [facility] Procedures Code Procedure Name Date Entry Date Standard Desc ription CPT-93987 Postop F/U Visit 19:34:43 CDT CPT-22965 Postop F/U Visit 14:39:09 CDT
--- OUTSIDE RECORDS SUMMARY | 2019-07-28 22:53 | XMS REPORT | Clinical Summary ---
Author Author Karina, Leeann Vasquez Organization [employer] Address Unknown Phone Unavailable Allergies, Adverse Reactions, [...] Index 24.0-24.9 Adult Inactive 2017 Fadumo Babin SISAL PICKER Body Mass Index between 19-24, adult Type 2 diabetes mellitus with hyperglycemia 250.00 Act charley Kisha Fieldsglariana JONASP Diabetes mellitus without me ntion of complication, type II or unspecified type, not stated as uncontrolled Body Mass Index 23.0-23.9 Adult Inactive 2017 Fadumo Babin SISAL PICKER Body Mass Index between 19-24, adult Type 2 diabetes mellitus with diabetic polyneuropathy Inactive Fadumo Babin 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 use of insulin treatment V58.67 Active 2 Kisha Fieldsglari PIANO ACCOMPANIST Long-term (current) use of insulin Type 2 diabetes mellitus with hypoglycemia without coma 250.80 Resolved Fadumo Talya WASHBURNN Diabetes mellitus with other specified manifestations, type II or unspecified type, not stated as uncontrolled Body Mass Index 24.0-24.9 Adult Active 2017 Fadumojeny Babin APRN Body Mass Index between 19-24, adult Noncompliance with dietary regimen V15.81 Active 2 Fadumo Babin APRN Personal history of noncompl iance with medical treatment, presenting hazards to health Type 2 diabetes with diabetic polyneuropathy 357.2 Ac tive Fadumo Talya WASHBURNN Polyneuropathy in diabetes Body Mass Index 24.0-24.9 Adult [facility] ti Fadumo Talya WASHBURNN Body Mass Index 24.0-24.9 Adult [facility] Fadumo Talya WASHBURNN Type 2 diabetes mellitus with hypoglycemia without coma ICD-250. 80 Inactive Fadumo Babin SISAL PICKER Body Mass Index 23.0-23.9 Adult [facility] tileslie Babin SISAL PICKER Type 2 diabetes mellitus with diabetic polyneuropathy Inactive Fadumo Babin SISAL PICKER Medication List Medication Instructions Start Date Stop Date Generic Name NDC Status Provider Patient Instruction CONTOUR NEXT TEST IN VITRO STRIP check blood sugars 3 times a day for DM E11.65 GLUCOSE BLOOD 09423812595 No Longer Active Fadumo Talya MCGRATH Active ACTOS 15 MG ORAL TABLET 1 tablet by mouth daily for DM PIOGLITAZONE HCL 98825893966 No Longer Active Fadumo Babin ALCIDES Active FIASP FLEXTOUCH 100 UNIT/ML SUBCUTANEOUS SOLUTION PEN- INJECTOR 10 units at lunch and dinner 03/2019; [id number] 1 vial INSULIN ASPART 0016 4864687 Active Fadumo [place] ALCIDES Active LANTUS SOLOSTAR 100 UNIT/ML SUBCUTANEOUS SOLUTION PEN- INJECTOR 20 units SQ every PM for DM INSULIN GLARGINE 32968381122 Active Fadumo Talya WASHBURNN Active CONTOUR NEXT TEST IN VITRO STRIP check blood sugars 3 times a day for DM E11.65 GLUCOSE BLOOD 18817931534 Active Kisha Fieldsmason JONAS P Active GLIMEPIRIDE 2 MG ORAL TABLET 2 tabs PO daily GL IMEPIRIDE 78735838242 Active Fadumo Bbain APRN Active ELIZABETH CONTOUR MONITOR W/DEVICE KIT BLOOD GLUCOSE MONITORING SUPPL 01681262525 No Longer Active Fadumo Babin APRN A ctive ALEVE 220 MG ORAL TABLET 2 tabs once every 4-6hrs PRN NAPROXEN SODIUM 50501382500 Active Brigitte Saucedo MA Active GLYBURIDE 2.5 MG ORAL TABLET 1 tab by mouth daily 2017 GLYBURIDE 43762497220 No Longer Active Brigitte Saucedo MA Acti ve CLIMARA 0.025 MG/24HR TRANSDERMAL PATCH WEEKLY Place 1 patch every week ESTRADIOL 50173411591 Active Davey Jimenez MD Active ONDANSETRON 4 MG ORAL TABLET DISINTEGRATING 1 q4h PRN nausea 07/30 ONDANSETRON 60830613890 Active Davey Jimenez MD Active SIMVASTATIN 20 MG ORAL TABLET 1 tab daily at bedtime SIMVASTATIN 33536773005 Active Davey Jimenez MD Active LOSARTAN POTASSIUM 25 MG ORAL TABLET 1 pill daily, for blood pressure LOSARTAN POTASSIUM 92192773099 Active Davey Jimenez MD Active GLYBURIDE 2.5 MG ORAL TABLET 1 tab by mouth daily 2017 GLYBURIDE 2.5 MG ORAL TABLET 320020 GLYBURIDE Inactive ACTOS 15 MG ORAL TABLET 1 tablet by mouth daily for DM ACTOS 15 MG ORAL TABLET 608753 PIOGLITAZONE HCL Inactive CONTOUR NEXT TEST IN [...] Yes Encounters Code Encounter Date Provider Facility CPT-47333 Level 3 Est. Patient 14:21:54 EXTRACORPOREAL CIRCULATION SPECIALIST J Tomas harper MD [facility] CPT-85364 Level 5 Est. Patient 15:02:09 CDT Fadumo Mariama [facility] CPT-10900 Level 4 Est. Patient 15:16:40 [facility] Level 5 Est. Patient 11:51:47 CDT Fadumo D [facility] CPT-71690 Level 5 Est. Patient 12:49:59 [facility] Level 4 Est. Patient 10:56:25 CDT Fito russell MD [facility] Procedures Code Procedure Name Date Entry Date Standard Desc ription CPT-90030 Postop F/U Visit 19:34:43 CDT CPT-55019 Postop F/U Visit 14:39:09 CDT
--- OUTSIDE RECORDS SUMMARY | 2019-07-28 22:53 | XMS REPORT | Clinical Summary ---
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 Davey Jimenez MD Malignant neoplasm of kidney, except pel vis Body Mass Index 24.0-24.9 Adult Inactive 2017 Fadumo Babin MEDICAL VAN DRIVER Body Mass Index between 19-24, adult Type 2 diabetes mellitus with hyperglycemia 250.00 Act charley Kisha JONASP Diabetes mellitus without me ntion of complication, type II or unspecified type, not stated as uncontrolled Body Mass Index 23.0-23.9 Adult Inactive 2017 Fadumo Babin MEDICAL VAN DRIVER Body Mass Index between 19-24, adult Type 2 diabetes mellitus with diabetic polyneuropathy Inactive Fadumo Babin APRN tip 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 use of insulin treatment V58.67 Active 2 Maliheh Ziglari SOLE BUFFER Long-term (current) use of insulin Type 2 diabetes mellitus with hypoglycemia without coma 250.80 Resolved Fadumo Talya WASHBURNN Diabetes mellitus with other specified manifestations, type II or unspecified type, not stated as uncontrolled Body Mass Index 24.0-24.9 Adult Active 2017 Fadumo [place] MEDICAL VAN DRIVER Body Mass Index between 19-24, adult Noncompliance with dietary regimen V15.81 Active 2 Fadumo Talya WASHBURNN Personal history of noncompl iance with medical treatment, presenting hazards to health Type 2 diabetes with diabetic polyneuropathy 357.2 Ac tive Fadumo Talya WASHBURNN Polyneuropathy in diabetes Body Mass Index 24.0-24.9 Adult Inac tive Fadumo Babin MEDICAL VAN DRIVER Body Mass Index 24.0-24.[address] [place] MEDICAL VAN DRIVER Body Mass Index 23.0-23.9 Adult [facility] tive Fadumo [place] MEDICAL VAN DRIVER Type 2 diabetes mellitus with diabetic polyneuropathy Inactive Fadumo Babin MEDICAL VAN DRIVER Type 2 diabetes mellitus with hypoglycemia without coma ICD-250. 80 Inactive Fadumo Babin MEDICAL VAN DRIVER Medication List Medication Instructions Start Date Stop Date Generic Name NDC Status Provider Patient Instruction CONTOUR NEXT TEST IN VITRO STRIP check blood sugars 3 times a day for DM E11.65 GLUCOSE BLOOD 61792218214 No Longer Active Fadumo Babin ALCIDES Active ACTOS 15 MG ORAL TABLET 1 tablet by mouth daily for DM PIOGLITAZONE HCL 27789402151 No Longer Active Fadumo Babin MEDICAL VAN DRIVER Active FIASP FLEXTOUCH 100 UNIT/ML SUBCUTANEOUS SOLUTION PEN- INJECTOR 10 units at lunch and dinner 03/2019; [id number] 1 vial INSULIN ASPART 0016 7782808 [facility] Active LANTUS SOLOSTAR 100 UNIT/ML SUBCUTANEOUS SOLUTION PEN- INJECTOR 20 units SQ every PM for DM INSULIN GLARGINE 63179265069 Active Fadumo Babin MEDICAL VAN DRIVER Active CONTOUR NEXT TEST IN VITRO STRIP check blood sugars 3 times a day for DM E11.65 GLUCOSE BLOOD 24516671958 Active Kisha Fieldsmason JONAS P Active GLIMEPIRIDE 2 MG ORAL TABLET 2 tabs PO daily GL IMEPIRIDE 79979114462 Active Fadumo Babin APRN Active ELIZABETH CONTOUR MONITOR W/DEVICE KIT BLOOD GLUCOSE MONITORING SUPPL 83219336854 No Longer Active Fadumo Babin APRN A ctive ALEVE 220 MG ORAL TABLET 2 tabs once every 4-6hrs PRN NAPROXEN SODIUM 18261318940 Active Brigitte Saucedo MA Active GLYBURIDE 2.5 MG ORAL TABLET 1 tab by mouth daily 2017 GLYBURIDE 56904426516 No Longer Active Brigitte Saucedo MA Acti ve CLIMARA 0.025 MG/24HR TRANSDERMAL PATCH WEEKLY Place 1 patch every week ESTRADIOL 66570846252 Active Davey Jimenez MD Active ONDANSETRON 4 MG ORAL TABLET DISINTEGRATING 1 q4h PRN nausea 07/30 ONDANSETRON 49638019687 Active Davey Jimenez MD Active SIMVASTATIN 20 MG ORAL TABLET 1 tab daily at bedtime SIMVASTATIN 01590685103 Active Davey Jimenez MD Active LOSARTAN POTASSIUM 25 MG ORAL TABLET 1 pill daily, for blood pressure LOSARTAN POTASSIUM 24126483312 Active Davey Jimenez MD Active GLYBURIDE 2.5 MG ORAL TABLET 1 tab by mouth daily 2017 GLYBURIDE 2.5 MG ORAL TABLET 942256 GLYBURIDE Inactive ACTOS 15 MG ORAL TABLET 1 tablet by mouth daily for DM ACTOS 15 MG ORAL TABLET 252611 PIOGLITAZONE HCL Inactive CONTOUR NEXT TEST IN [...] Value Unit Range Description blood pressure, diastolic 70 mm[Hg] BP davis [...] 83 mg/dL triglyceride, serum, fasting 57 mg/dL Office Visit: Diabetes Visit - Basic LDL target level 100 mg/dL LDL target level 100 mg/dL LDL target level 100 mg/dL LDL target level 100 mg/dL Office Visit: Diabetes Visit - Chemistry home glucose monitor utilized Yes home glucose [...] mg/dL Encounters Code Encounter Date Provider Facility CPT-62110 Level 5 Est. Patient 15:02:09 CDT Fadumo Leslie [facility] CPT-24584 Level 4 Est. Patient 15:16:40 CDT Fadumo Leslie [facility] CPT-39949 Level 5 Est. Patient 11:51:47 CDT Fadumo Leslie [facility] CPT-69003 Level 5 Est. Patient 12:49:59 CDT Kisha VALLE [facility] CPT-80438 Level 4 Est. Patient 10:56:25 CDT Fito russell MD [facility] Procedures Code Procedure Name Date Entry Date Standard Desc ription CPT-56596 Postop F/U Visit 19:34:43 CDT CPT-62778 Postop F/U Visit 14:39:09 CDT
--- OUTSIDE RECORDS SUMMARY | 2019-07-28 22:53 | XMS REPORT | Clinical Summary ---
Author Author Karina, Leeann Vasquez Organization [email or web address] Address Unknown Phone Unavailable Allergies, Adverse Reactions, [...] Index 24.0-24.9 Adult Inactive 2017 Fadumo Babin EXPLOSIVE SPECIALIST Body Mass Index between 19-24, adult Type 2 diabetes mellitus with hyperglycemia 250.00 Act charley Kisha Fieldsglariana JONASP Diabetes mellitus without me ntion of complication, type II or unspecified type, not stated as uncontrolled Body Mass Index 23.0-23.9 Adult Inactive 2017 Fadumo Babin EXPLOSIVE SPECIALIST Body Mass Index between 19-24, adult Type 2 diabetes mellitus with diabetic polyneuropathy Inactive Fadumo Babin 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 use of insulin treatment V58.67 Active 2 Kisha Fieldsglari HR INTERN Long-term (current) use of insulin Type 2 diabetes mellitus with hypoglycemia without coma 250.80 Resolved Fadumo Babin APRN Diabetes mellitus with other specified manifestations, type II or unspecified type, not stated as uncontrolled Body Mass Index 24.0-24.9 Adult Active 2017 Fadumo Babin APRN Body Mass Index between 19-24, adult Noncompliance with dietary regimen V15.81 Active 2 Fadumo Babin APRN Personal history of noncompl iance with medical treatment, presenting hazards to health Type 2 diabetes with diabetic polyneuropathy 357.2 Ac tive Fadumo Babin APRN Polyneuropathy in diabetes Body Mass Index 24.0-24.9 Adult Inac tive Fadumo Talya WASHBURNN Body Mass Index 24.0-24.9 Adult [facility] tive Fadumo Talya WASHBURNN Body Mass Index 23.0-23.9 Adult [place] t[place] Fadumo Babin EXPLOSIVE SPECIALIST Type 2 diabetes mellitus with diabetic polyneuropathy Inactive Fadumojeny Babin APRN Type 2 diabetes mellitus with hypoglycemia without coma ICD-250. 80 Inactive Fadumo Babin ALCIDES Medication List Medication Instructions Start Date Stop Date Generic Name NDC Status Provider Patient Instruction LANTUS SOLOSTAR 100 UNIT/ML SUBCUTANEOUS SOLUTION PEN- INJECTOR 20 units SQ every PM for DM INSULIN GLARGINE 51128614307 Active Fadumo Talya MCGRATH Active FIASP FLEXTOUCH 100 UNIT/ML SUBCUTANEOUS SOLUTION PEN- INJECTOR Take 5 units at breakfast and 10 units at dinner. [id number] 8- I NSULIN ASPART 28502642684 Active Fadumo Talya MCGRATH Active ACTOS 15 MG ORAL TABLET 1 tablet by mouth daily for DM PIOGLITAZONE HCL 87656171126 Active Fadumo Talya MCGRATH Activ e CONTOUR NEXT TEST IN VITRO STRIP check blood sugars 3 times a day for DM E11.65 GLUCOSE BLOOD 16929781066 Active Kseniadick Devine Active CONTOUR NEXT TEST IN VITRO STRIP check blood sugars 3 times a day for DM E11.65 GLUCOSE BLOOD 92788066767 Active Fadumo Babin A PRN Active GLIMEPIRIDE 2 MG ORAL TABLET 2 tabs PO daily GL IMEPIRIDE 30682371100 Active Fadumo [place] EXPLOSIVE SPECIALIST Active ELIZABETH CONTOUR MONITOR W/DEVICE KIT BLOOD GLUCOSE MONITORING SUPPL 35985997330 No Longer Active Fadumo Babin APRN A ctive ALEVE 220 MG ORAL TABLET 2 tabs once every 4-6hrs PRN NAPROXEN SODIUM 92366266067 Active Brigitte Saucedo MA Active GLYBURIDE 2.5 MG ORAL TABLET 1 tab by mouth daily 2017 GLYBURIDE 30084853085 No Longer Active Brigitte Saucedo MA Acti ve CLIMARA 0.025 MG/24HR TRANSDERMAL PATCH WEEKLY Place 1 patch every week ESTRADIOL 04446123703 Active Davey Jimenez MD Active ONDANSETRON 4 MG ORAL TABLET DISINTEGRATING 1 q4h PRN nausea 07/30 ONDANSETRON 79641554527 Active Davey Jimenez MD Active SIMVASTATIN 20 MG ORAL TABLET 1 tab daily at bedtime SIMVASTATIN 20586112658 Active Davey Jimenez MD Active LOSARTAN POTASSIUM 25 MG ORAL TABLET 1 pill daily, for blood pressure LOSARTAN POTASSIUM 32430255826 Active Davey Jimenez MD Active GLYBURIDE 2.5 MG ORAL TABLET 1 tab by mouth daily 2017 GLYBURIDE 2.5 MG ORAL TABLET 615152 GLYBURIDE Inactive Advance Directives Directive Description Start Date PERMISSION TO SHARE Immunizations Vaccine Administration Date Value Standard Hnan cription influenza immunization (Flu Vax) has been [...] d blood pressure, diastolic 80 mm[Hg] BP davsi blood pressure, systolic 138 mm[Hg] BP sys [...] mg/dL Encounters Code Encounter Date Provider Facility CPT-04906 Level 5 Est. Patient 15:02:09 CDT Fadumo Leslie [facility] CPT-20495 Level 4 Est. Patient 15:16:40 CDT Fadumo Leslie [facility] CPT-08440 Level 5 Est. Patient 11:51:47 CDT Fadumo Lelsie [facility] CPT-65561 Level 5 Est. [facility] 12[facility]49:59 [facility] Level 4 Est. Patient 10:56:25 CDT Fito russell MD [facility] Procedures Code Procedure Name Date Entry Date Standard Desc ription CPT-85890 Postop F/U Visit 19:34:43 CDT CPT-21768 Postop F/U Visit 14:39:09 CDT
--- OUTSIDE RECORDS SUMMARY | 2019-07-28 22:53 | XMS REPORT | Clinical Summary ---
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 Davey Jimenez MD Malignant neoplasm of kidney, except pel vis Body Mass Index 24.0-24.9 Adult Inactive 2017 Fadumo Babin COREMAKING SUPERVISOR Body Mass Index between 19-24, adult Type 2 diabetes mellitus with hyperglycemia 250.00 Act charley Kisha JONASP Diabetes mellitus without me ntion of complication, type II or unspecified type, not stated as uncontrolled Body Mass Index 23.0-23.9 Adult Inactive 2017 Fadumo Babin COREMAKING SUPERVISOR Body Mass Index between 19-24, adult Type 2 diabetes mellitus with diabetic polyneuropathy Inactive Fadumo Babin 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 use of insulin treatment V58.67 Active 2 Maliheh Ziglari [employer] Long-term (current) use of insulin Type 2 diabetes mellitus with hypoglycemia without coma 250.80 Resolved Fadumo Talya WASHBURNN Diabetes mellitus with other specified manifestations, type II or unspecified type, not stated as uncontrolled Body Mass Index 24.0-24.9 Adult Active 2017 Fadumo Talya WASHBURNN Body Mass Index between 19-24, adult Noncompliance with dietary regimen V15.81 Active 2 Fadumo Babin APRN Personal history of noncompl iance with medical treatment, presenting hazards to health Type 2 diabetes with diabetic polyneuropathy 357.2 Ac tive Fadumo Talya WASHBURNN Polyneuropathy in diabetes Body Mass Index 24.0-24.9 Adult Inac tive Fadumo [place] COREMAKING SUPERVISOR Body Mass Index 24.0-24.9 Adult Inac tive Fadumo Placer COREMAKING SUPERVISOR Body Mass Index 23.0-23.9 Adult Inac tive Fadumo Placer COREMAKING SUPERVISOR Type 2 diabetes mellitus with diabetic polyneuropathy Inactive Fadumo Talya MCGRATH Type 2 diabetes mellitus with hypoglycemia without coma ICD-250. 80 Inactive Fadumo Babin COREMAKING SUPERVISOR Medication List Medication Instructions Start Date Stop Date Generic Name NDC Status Provider Patient Instruction LANTUS SOLOSTAR 100 UNIT/ML SUBCUTANEOUS SOLUTION PEN- INJECTOR 20 units SQ every PM for DM INSULIN GLARGINE 91877196333 Active Fadumo Babin ALCIDES Active FIASP FLEXTOUCH 100 UNIT/ML SUBCUTANEOUS SOLUTION PEN- INJECTOR Take 5 units at breakfast and 10 units at dinner. [id number] 01-03 I NSULIN ASPART 77509735464 Active Fadumo Talya MCGRATH Active ACTOS 15 MG ORAL TABLET 1 tablet by mouth daily for DM PIOGLITAZONE HCL 35017889726 Active Fadumo Talya MCGRATH Activ e CONTOUR NEXT TEST IN VITRO STRIP check blood sugars 3 times a day for DM E11.65 GLUCOSE BLOOD 38527873153 Active Ksenia Devine Active CONTOUR NEXT TEST IN VITRO STRIP check blood sugars 3 times a day for DM E11.65 GLUCOSE BLOOD 47874376579 Active Fadumo Babin A PRN Active GLIMEPIRIDE 2 MG ORAL TABLET 2 tabs PO daily GL IMEPIRIDE 12398244352 Active Fadumo Placer COREMAKING SUPERVISOR Active ELIZABETH CONTOUR MONITOR W/DEVICE KIT BLOOD GLUCOSE MONITORING SUPPL 56782615133 No Longer Active Fadumo Babin COREMAKING SUPERVISOR A ctive ALEVE 220 MG ORAL TABLET 2 tabs once every 4-6hrs PRN NAPROXEN SODIUM 35187997459 Active Brigitte Saucedo MA Active GLYBURIDE 2.5 MG ORAL TABLET 1 tab by mouth daily 2017 GLYBURIDE 58476518971 No Longer Active Brigitte Saucedo MA Acti ve CLIMARA 0.025 MG/24HR TRANSDERMAL PATCH WEEKLY Place 1 patch every week ESTRADIOL 12350172113 Active Davey Jimenez MD Active ONDANSETRON 4 MG ORAL TABLET DISINTEGRATING 1 q4h PRN nausea 07/30 ONDANSETRON 23347902558 Active Davey Jimenez MD Active SIMVASTATIN 20 MG ORAL TABLET 1 tab daily at bedtime SIMVASTATIN 48346408592 Active Davey Jimenez MD Active LOSARTAN POTASSIUM 25 MG ORAL TABLET 1 pill daily, for blood pressure LOSARTAN POTASSIUM 83492393995 Active Davey Jimenez MD Active GLYBURIDE 2.5 MG ORAL TABLET 1 tab by mouth daily 2017 GLYBURIDE 2.5 MG ORAL TABLET 200375 GLYBURIDE Inactive Advance Directives Directive Description Start [...] mg/dL Encounters Code Encounter Date Provider Facility CPT-65298 Level 5 Est. Patient 15:02:09 CDT Fadumo Leslie [facility] CPT-37489 Level 4 Est. Patient 15:16:40 CDT Fadumo Mariama [facility] CPT-44046 Level 5 Est. Patient 11:51:47 CDT Fadumo Leslie [facility] CPT-38617 Level 5 Est. Patient 12:49:59 CDT Kisha rendon [facility] [place] CPT-53241 Level 4 Est. Patient 10:56:25 CDT Fito russell MD [facility] Procedures Code Procedure Name Date Entry Date Standard Desc ription CPT-85000 Postop F/U Visit 19:34:43 CDT CPT-84278 Postop F/U Visit 14:39:09 CDT
--- OUTSIDE RECORDS SUMMARY | 2019-07-28 22:53 | XMS REPORT | Clinical Summary ---
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 Davey Jimenez MD Malignant neoplasm of kidney, except pel vis Body Mass Index 24.0-24.9 Adult Inactive 2017 Fadumo Babin REGIONAL OWNER OPERATOR TRUCK DRIVER Body Mass Index between 19-24, adult Type 2 diabetes mellitus with hyperglycemia 250.00 Act charley Kisha JONASP Diabetes mellitus without me ntion of complication, type II or unspecified type, not stated as uncontrolled Body Mass Index 23.0-23.9 Adult Inactive 2017 Fadumo Babin REGIONAL OWNER OPERATOR TRUCK DRIVER Body Mass Index between 19-24, adult Type 2 diabetes mellitus with diabetic polyneuropathy Inactive Fadumo Babin APRN watermaster use of insulin treatment V58.67 Active 2 Maliheh Ziglari BUSINESS OBJECTS REPORT DEVELOPER Long-term (current) use of insulin Type 2 diabetes mellitus with hypoglycemia without coma 250.80 Resolved Fadumo Talya WASHBURNN Diabetes mellitus with other specified manifestations, type II or unspecified type, not stated as uncontrolled Body Mass Index 24.0-24.9 Adult Active 2017 Fadumo [place] REGIONAL OWNER OPERATOR TRUCK DRIVER Body Mass Index between 19-24, adult Noncompliance with dietary regimen V15.81 Active 2 Fadumo Talya WASHBURNN Personal history of noncompl iance with medical treatment, presenting hazards to health Type 2 diabetes with diabetic polyneuropathy 357.2 Ac tive Fadumo Talya WASHBURNN Polyneuropathy in diabetes Body Mass Index 24.0-24.9 Adult Inac tive Fadumo Babin REGIONAL OWNER OPERATOR TRUCK DRIVER Body Mass Index 24.0-24.9 [facility] [place] REGIONAL OWNER OPERATOR TRUCK DRIVER Body Mass Index 23.0-23.9 Adult [facility] tive Fadumo [place] REGIONAL OWNER OPERATOR TRUCK DRIVER Type 2 diabetes mellitus with diabetic polyneuropathy Inactive Fadumo Babin REGIONAL OWNER OPERATOR TRUCK DRIVER Type 2 diabetes mellitus with hypoglycemia without coma ICD-250. 80 Inactive Fadumo Babin REGIONAL OWNER OPERATOR TRUCK DRIVER Medication List Medication Instructions Start Date Stop Date Generic Name NDC Status Provider Patient Instruction CONTOUR NEXT TEST IN VITRO STRIP check blood sugars 3 times a day for DM E11.65 GLUCOSE BLOOD 56690398163 No Longer Active Fadumo Babin ALCIDES Active ACTOS 15 MG ORAL TABLET 1 tablet by mouth daily for DM PIOGLITAZONE HCL 89288785408 No Longer Active Fadumo Babin REGIONAL OWNER OPERATOR TRUCK DRIVER Active FIASP FLEXTOUCH 100 UNIT/ML SUBCUTANEOUS SOLUTION PEN- INJECTOR 10 units at lunch and dinner 03/2019; [id number] 1 vial INSULIN ASPART 0016 6882159 [facility] REGIONAL OWNER OPERATOR TRUCK DRIVER Active LANTUS SOLOSTAR 100 UNIT/ML SUBCUTANEOUS SOLUTION PEN- INJECTOR 20 units SQ every PM for DM INSULIN GLARGINE 42544937453 Active Fadumo Babin REGIONAL OWNER OPERATOR TRUCK DRIVER Active CONTOUR NEXT TEST IN VITRO STRIP check blood sugars 3 times a day for DM E11.65 GLUCOSE BLOOD 39766758324 Active Kisha Fieldsmason JONAS P Active GLIMEPIRIDE 2 MG ORAL TABLET 2 tabs PO daily GL IMEPIRIDE 26618251249 Active Fadumo Babin APRN Active ELIZABETH CONTOUR MONITOR W/DEVICE KIT BLOOD GLUCOSE MONITORING SUPPL 92631767767 No Longer Active Fadumo Babin APRN A ctive ALEVE 220 MG ORAL TABLET 2 tabs once every 4-6hrs PRN NAPROXEN SODIUM 66537188193 Active Brigitte Saucedo MA Active GLYBURIDE 2.5 MG ORAL TABLET 1 tab by mouth daily 2017 GLYBURIDE 98342400864 No Longer Active Brigitte Saucedo MA Acti ve CLIMARA 0.025 MG/24HR TRANSDERMAL PATCH WEEKLY Place 1 patch every week ESTRADIOL 00859185583 Active Davey Jimenez MD Active ONDANSETRON 4 MG ORAL TABLET DISINTEGRATING 1 q4h PRN nausea 07/30 ONDANSETRON 65656137697 Active Davey Jimenez MD Active SIMVASTATIN 20 MG ORAL TABLET 1 tab daily at bedtime SIMVASTATIN 14191647310 Active Davey Jimenez MD Active LOSARTAN POTASSIUM 25 MG ORAL TABLET 1 pill daily, for blood pressure LOSARTAN POTASSIUM 04852663395 Active Davey Jimenez MD Active GLYBURIDE 2.5 MG ORAL TABLET 1 tab by mouth daily 2017 GLYBURIDE 2.5 MG ORAL TABLET 068667 GLYBURIDE Inactive ACTOS 15 MG ORAL TABLET 1 tablet by mouth daily for DM ACTOS 15 MG ORAL TABLET 404800 PIOGLITAZONE HCL Inactive CONTOUR NEXT TEST IN [...] mg/dL Encounters Code Encounter Date Provider Facility CPT-11264 Level 5 Est. Patient 15:02:09 CDT Fadumo Leslie [facility] CPT-13894 Level 4 Est. Patient 15:16:40 CDT Fadumo Leslie [facility] CPT-40835 Level 5 Est. Patient 11:51:47 CDT Fadumo Leslie [facility] CPT-00735 Level 5 Est. Patient 12:49:59 CDT Kisha VALLE [facility] CPT-24968 Level 4 Est. Patient 10:56:25 CDT Fito russell MD [facility] Procedures Code Procedure Name Date Entry Date Standard Desc ription CPT-15184 Postop F/U Visit 19:34:43 CDT CPT-26464 Postop F/U Visit 14:39:09 CDT
--- OUTSIDE RECORDS SUMMARY | 2019-07-28 22:53 | XMS REPORT | Clinical Summary ---
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 Davey Jimenez MD Malignant neoplasm of kidney, except pel vis Body Mass Index 24.0-24.9 Adult Inactive 2017 Fadumo Babin UNCRATER Body Mass Index between 19-24, adult Type 2 diabetes mellitus with hyperglycemia 250.00 Act charley Kisha JONASP Diabetes mellitus without me ntion of complication, type II or unspecified type, not stated as uncontrolled Body Mass Index 23.0-23.9 Adult Inactive 2017 Fadumo Babin UNCRATER Body Mass Index between 19-24, adult Type 2 diabetes mellitus with diabetic polyneuropathy Inactive Fadumo Babin APRN 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 80 Inactive Fadumo Babin UNCRATER Medication List Medication Instructions Start Date Stop Date Generic Name NDC Status Provider Patient Instruction LANTUS SOLOSTAR 100 UNIT/ML SUBCUTANEOUS SOLUTION PEN- INJECTOR 20 units SQ every PM for DM INSULIN GLARGINE 56910153690 Active Fadumo Babin ALCIDES Active FIASP FLEXTOUCH 100 UNIT/ML SUBCUTANEOUS SOLUTION PEN- INJECTOR Take 5 units at breakfast and 10 units at dinner. [id number] 01-03 I NSULIN ASPART 62702897263 Active Fadumo Talya MCGRATH Active ACTOS 15 MG ORAL TABLET 1 tablet by mouth daily for DM PIOGLITAZONE HCL 16764310916 Active Fadumo Talya MCGRATH Activ e CONTOUR NEXT TEST IN VITRO STRIP check blood sugars 3 times a day for DM E11.65 GLUCOSE BLOOD 02613510578 Active Ksenia Devine Active CONTOUR NEXT TEST IN VITRO STRIP check blood sugars 3 times a day for DM E11.65 GLUCOSE BLOOD 88231281733 Active Fadumo Babin A PRN Active GLIMEPIRIDE 2 MG ORAL TABLET 2 tabs PO daily GL IMEPIRIDE 68859375347 Active Fadumo Payne UNCRATER Active ELIZABETH CONTOUR MONITOR W/DEVICE KIT BLOOD GLUCOSE MONITORING SUPPL 63092187241 No Longer Active Fadumo Babin UNCRATER A ctive ALEVE 220 MG ORAL TABLET 2 tabs once every 4-6hrs PRN NAPROXEN SODIUM 20549978474 Active Brigitte Saucedo MA Active GLYBURIDE 2.5 MG ORAL TABLET 1 tab by mouth daily 2017 GLYBURIDE 88646819807 No Longer Active Brigitte Saucedo MA Acti ve CLIMARA 0.025 MG/24HR TRANSDERMAL PATCH WEEKLY Place 1 patch every week ESTRADIOL 77726211115 Active Davey Jimenez MD Active ONDANSETRON 4 MG ORAL TABLET DISINTEGRATING 1 q4h PRN nausea 07/30 ONDANSETRON 12890671084 Active Davey Jimenez MD Active SIMVASTATIN 20 MG ORAL TABLET 1 tab daily at bedtime SIMVASTATIN 74215110939 Active Davey Jimenez MD Active LOSARTAN POTASSIUM 25 MG ORAL TABLET 1 pill daily, for blood pressure LOSARTAN POTASSIUM 07897881736 Active Davey Jimenez MD Active GLYBURIDE 2.5 MG ORAL TABLET 1 tab by mouth daily 2017 GLYBURIDE 2.5 MG ORAL TABLET 287453 GLYBURIDE Inactive Advance Directives Directive Description Start [...] mg/dL Encounters Code Encounter Date Provider Facility CPT-38881 Level 5 Est. Patient 15:02:09 CDT Fadumo Leslie [facility] CPT-21684 Level 4 Est. Patient 15:16:40 CDT Fadumo Mariama [facility] CPT-99910 Level 5 Est. Patient 11:51:47 CDT Fadumo Leslie [facility] CPT-61629 Level 5 Est. Patient 12:49:59 CDT Kisha rendon [facility] CPT-60756 Level 4 Est. Patient 10:56:25 CDT Fito russell MD [facility] Procedures Code Procedure Name Date Entry Date Standard Desc ription CPT-35787 Postop F/U Visit 19:34:43 CDT CPT-55737 Postop F/U Visit 14:39:09 CDT
--- OUTSIDE RECORDS SUMMARY | 2019-07-28 22:53 | XMS REPORT | Clinical Summary ---
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 Davey Jimenez MD Malignant neoplasm of kidney, except pel vis Body Mass Index 24.0-24.9 Adult Inactive 2017 Fadumo Babin SUPERVISORY AIDE Body Mass Index between 19-24, adult Type 2 diabetes mellitus with hyperglycemia 250.00 Act charley Kisha JONASP Diabetes mellitus without me ntion of complication, type II or unspecified type, not stated as uncontrolled Body Mass Index 23.0-23.9 Adult Inactive 2017 Fadumo Babin SUPERVISORY AIDE Body Mass Index between 19-24, adult Type 2 diabetes mellitus with diabetic polyneuropathy Inactive Fadumo Babin 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 80 Inactive Fadumo Babin SUPERVISORY AIDE Medication List Medication Instructions Start Date Stop Date Generic Name NDC Status Provider Patient Instruction LANTUS SOLOSTAR 100 UNIT/ML SUBCUTANEOUS SOLUTION PEN- INJECTOR 20 units SQ every PM for DM INSULIN GLARGINE 73524370273 Active Fadumo Babin ALCIDES Active FIASP FLEXTOUCH 100 UNIT/ML SUBCUTANEOUS SOLUTION PEN- INJECTOR Take 5 units at breakfast and 10 units at dinner. [id number] 01-03 I NSULIN ASPART 93021396732 Active Fadumo Talya MCGRATH Active ACTOS 15 MG ORAL TABLET 1 tablet by mouth daily for DM PIOGLITAZONE HCL 57027965221 Active Fadumo Talya MCGRATH Activ e CONTOUR NEXT TEST IN VITRO STRIP check blood sugars 3 times a day for DM E11.65 GLUCOSE BLOOD 82159392742 Active Ksenia Devine Active CONTOUR NEXT TEST IN VITRO STRIP check blood sugars 3 times a day for DM E11.65 GLUCOSE BLOOD 27899266378 Active Fadumo Babin A PRN Active GLIMEPIRIDE 2 MG ORAL TABLET 2 tabs PO daily GL IMEPIRIDE 16369510501 Active Fadumo [place] SUPERVISORY AIDE Active ELIZABETH CONTOUR MONITOR W/DEVICE KIT BLOOD GLUCOSE MONITORING SUPPL 46652550136 No Longer Active Fadumo Babin SUPERVISORY AIDE A ctive ALEVE 220 MG ORAL TABLET 2 tabs once every 4-6hrs PRN NAPROXEN SODIUM 36213952358 Active Brigitte Saucedo MA Active GLYBURIDE 2.5 MG ORAL TABLET 1 tab by mouth daily 2017 GLYBURIDE 73772309978 No Longer Active Brigitte Saucedo MA Acti ve CLIMARA 0.025 MG/24HR TRANSDERMAL PATCH WEEKLY Place 1 patch every week ESTRADIOL 81797686076 Active Davey Jimenez MD Active ONDANSETRON 4 MG ORAL TABLET DISINTEGRATING 1 q4h PRN nausea 07/30 ONDANSETRON 06200646481 Active Davey Jimenez MD Active SIMVASTATIN 20 MG ORAL TABLET 1 tab daily at bedtime SIMVASTATIN 69655185981 Active Davey Jimenez MD Active LOSARTAN POTASSIUM 25 MG ORAL TABLET 1 pill daily, for blood pressure LOSARTAN POTASSIUM 54273332649 Active Davey Jimenez MD Active GLYBURIDE 2.5 MG ORAL TABLET 1 tab by mouth daily 2017 GLYBURIDE 2.5 MG ORAL TABLET 080864 GLYBURIDE Inactive Advance Directives Directive Description Start [...] mg/dL Encounters Code Encounter Date Provider Facility CPT-89735 Level 5 Est. Patient 15:02:09 CDT Fadumo Leslie [facility] CPT-34198 Level 4 Est. Patient 15:16:40 CDT Fadumo Mariama [facility] CPT-93464 Level 5 Est. Patient 11:51:47 CDT Fadumo Leslie [facility] CPT-74591 Level 5 Est. Patient 12:49:59 CDT Kisha rendon [facility] CPT-53388 Level 4 Est. Patient 10:56:25 CDT Fito russell MD [facility] Procedures Code Procedure Name Date Entry Date Standard Desc ription CPT-15806 Postop F/U Visit 19:34:43 CDT CPT-37340 Postop F/U Visit 14:39:09 CDT
--- OUTSIDE RECORDS SUMMARY | 2019-07-28 22:54 | XMS REPORT | Clinical Summary ---
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 Davey Jimenez MD Malignant neoplasm of kidney, except pel vis Body Mass Index 24.0-24.9 Adult Inactive 2017 Fadumo Babin FILM REPLACEMENT ORDERER Body Mass Index between 19-24, adult Type 2 diabetes mellitus with hyperglycemia 250.00 Act charley Kisha JONASP Diabetes mellitus without me ntion of complication, type II or unspecified type, not stated as uncontrolled Body Mass Index 23.0-23.9 Adult Inactive 2017 Fadumo Babin FILM REPLACEMENT ORDERER Body Mass Index between 19-24, adult Type 2 diabetes mellitus with diabetic polyneuropathy Inactive Fadumo Babin 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 insulin treatment V58.67 Active 2 Maliheh Ziglari INSPECTOR CLIP ON SUNGLASSES Long-term (current) use of insulin Type 2 diabetes mellitus with hypoglycemia without coma 250.80 Resolved Fadumo Talya FILM REPLACEMENT ORDERER Diabetes mellitus with other specified manifestations, type II or unspecified type, not stated as uncontrolled Body Mass Index 24.0-24.9 Adult Active 2017 Fadumo Talya FILM REPLACEMENT ORDERER Body Mass Index between 19-24, adult Noncompliance with dietary regimen V15.81 Active 2 Fadumo Babin FILM REPLACEMENT ORDERER Personal history of noncompl iance with medical treatment, presenting hazards to health Type 2 diabetes with diabetic polyneuropathy 357.2 Ac tive Fadumo Talya FILM REPLACEMENT ORDERER Polyneuropathy in diabetes Body Mass Index 24.0-24.9 Adult Inac tive Fadumo [place] FILM REPLACEMENT ORDERER Body Mass Index 24.0-24.9 Adult [facility] tive Fadumo Babin FILM REPLACEMENT ORDERER Body Mass Index 23.0-23.9 Adult [facility] tive Fadumo Babin FILM REPLACEMENT ORDERER Type 2 diabetes mellitus with diabetic polyneuropathy Inactive Fadumo Talya WASHBURNN Type 2 diabetes mellitus with hypoglycemia without coma ICD-250. 80 Inactive Fadumo Babin FILM REPLACEMENT ORDERER Medication List Medication Instructions Start Date Stop Date Generic Name NDC Status Provider Patient Instruction ACTOS 15 MG ORAL TABLET 1 tablet by mouth daily for DM PIOGLITAZONE HCL 08997577877 Active Fadumo Talya WASHBURNN Activ e LANTUS SOLOSTAR SOLUTION PEN-INJECTOR 20 units at bedtime 2 INSULIN GLARGINE SOPN 63596182912 Active Fadumojeny Babin APRN Acti ve CONTOUR NEXT TEST IN VITRO STRIP check blood sugars 3 times a day for DM E11.65 GLUCOSE BLOOD 57335053767 Active Ksenia Devine Active CONTOUR NEXT TEST IN VITRO STRIP check blood sugars 3 times a day for DM E11.65 GLUCOSE BLOOD 03990153712 Active Fadumo Babin A PRN Active GLIMEPIRIDE 2 MG ORAL TABLET 2 tabs PO daily GL IMEPIRIDE 68206533921 Active Fadumo Babin FILM REPLACEMENT ORDERER Active ELIZABETH CONTOUR MONITOR W/DEVICE KIT BLOOD GLUCOSE MONITORING SUPPL 56493009063 No Longer Active Fadumo Babin FILM REPLACEMENT ORDERER A ctive ALEVE 220 MG ORAL TABLET 2 tabs once every 4-6hrs PRN NAPROXEN SODIUM 75448688613 Active Brigitte Saucedo MA Active GLYBURIDE 2.5 MG ORAL TABLET 1 tab by mouth daily 2017 GLYBURIDE 20873278909 No Longer Active Brigitte Saucedo MA Acti ve CLIMARA 0.025 MG/24HR TRANSDERMAL PATCH WEEKLY Place 1 patch every week ESTRADIOL 09379819070 Active Davey Jimenez MD Active ONDANSETRON 4 MG ORAL TABLET DISINTEGRATING 1 q4h PRN nausea 07/30 ONDANSETRON 91733656882 Active Davey Jimenez MD Active SIMVASTATIN 20 MG ORAL TABLET 1 tab daily at bedtime SIMVASTATIN 80357388533 Active Davey Jimenez MD Active LOSARTAN POTASSIUM 25 MG ORAL TABLET 1 pill daily, for blood pressure LOSARTAN POTASSIUM 54499048078 Active Davey Jimenez MD Active GLYBURIDE 2.5 MG ORAL TABLET 1 tab by mouth daily 2017 GLYBURIDE 2.5 MG ORAL TABLET 274848 GLYBURIDE Inactive Advance Directives Directive Description Start [...] Results Date Name Value Unit Range Description Office Visit: Diabetes Visit - Basic LDL [...] mg/dL Encounters Code Encounter Date Provider Facility CPT-24066 Level 4 Est. Patient 15:16:40 CDT Fadumo Leslie [facility] CPT-12880 Level 5 Est. Patient 11:51:47 CDT [facility]ad[facility]o [facility] CPT-19942 Level 5 Est. Patient 12:49:59 CDT Kisha rendon [facility] CPT-67049 Level 4 Est. Patient 10:56:25 CDT Fito russell MD [facility] Procedures Code Procedure Name Date Entry Date Standard Desc ription CPT-82573 Postop F/U Visit 19:34:43 CDT CPT-42360 Postop F/U Visit 14:39:09 CDT
--- OUTSIDE RECORDS SUMMARY | 2019-07-28 22:54 | XMS REPORT | Clinical Summary ---
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 Davey Jimenez MD Malignant neoplasm of kidney, except pel vis Body Mass Index 24.0-24.9 Adult Inactive 2017 Fadumo Babin ASSISTANT HEAD CASHIER Body Mass Index between 19-24, adult Type 2 diabetes mellitus with hyperglycemia 250.00 Act charley Kisha JONASP Diabetes mellitus without me ntion of complication, type II or unspecified type, not stated as uncontrolled Body Mass Index 23.0-23.9 Adult Inactive 2017 Fadumo Babin ASSISTANT HEAD CASHIER Body Mass Index between 19-24, adult Type 2 diabetes mellitus with diabetic polyneuropathy Inactive Fadumo Babin 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 use of insulin treatment V58.67 Active 2 Maliheh Ziglari PROTECTION ANALYST Long-term (current) use of insulin Type 2 diabetes mellitus with hypoglycemia without coma 250.80 Resolved Fadumo Talya ASSISTANT HEAD CASHIER Diabetes mellitus with other specified manifestations, type II or unspecified type, not stated as uncontrolled Body Mass Index 24.0-24.9 Adult Active 2017 Fadumo Talya ASSISTANT HEAD CASHIER Body Mass Index between 19-24, adult Noncompliance with dietary regimen V15.81 Active 2 Fadumo Babin ASSISTANT HEAD CASHIER Personal history of noncompl iance with medical treatment, presenting hazards to health Type 2 diabetes with diabetic polyneuropathy 357.2 Ac tive Fadumo Talya ASSISTANT HEAD CASHIER Polyneuropathy in diabetes Body Mass Index 24.0-24.9 Adult Inac tive Fadumo [place] ASSISTANT HEAD CASHIER Body Mass Index 24.0-24.9 Adult [facility] tive Fadumo Babin ASSISTANT HEAD CASHIER Body Mass Index 23.0-23.9 Adult [facility] tive Fadumo Babin ASSISTANT HEAD CASHIER Type 2 diabetes mellitus with diabetic polyneuropathy Inactive Fadumo Talya WASHBURNN Type 2 diabetes mellitus with hypoglycemia without coma ICD-250. 80 Inactive Fadumo Babin ASSISTANT HEAD CASHIER Medication List Medication Instructions Start Date Stop Date Generic Name NDC Status Provider Patient Instruction ACTOS 15 MG ORAL TABLET 1 tablet by mouth daily for DM PIOGLITAZONE HCL 83238286349 Active Fadumo Talya WASHBURNN Activ e LANTUS SOLOSTAR SOLUTION PEN-INJECTOR 20 units at bedtime 2 INSULIN GLARGINE SOPN 69650288204 Active Fadumojeny Babin APRN Acti ve CONTOUR NEXT TEST IN VITRO STRIP check blood sugars 3 times a day for DM E11.65 GLUCOSE BLOOD 20207325198 Active Ksenia Devine Active CONTOUR NEXT TEST IN VITRO STRIP check blood sugars 3 times a day for DM E11.65 GLUCOSE BLOOD 27093964418 Active Fadumo Babin A PRN Active GLIMEPIRIDE 2 MG ORAL TABLET 2 tabs PO daily GL IMEPIRIDE 36456785943 Active Fadumo Babin ASSISTANT HEAD CASHIER Active ELIZABETH CONTOUR MONITOR W/DEVICE KIT BLOOD GLUCOSE MONITORING SUPPL 97653977493 No Longer Active Fadumo Babin ASSISTANT HEAD CASHIER A ctive ALEVE 220 MG ORAL TABLET 2 tabs once every 4-6hrs PRN NAPROXEN SODIUM 00536217947 Active Brigitte Saucedo MA Active GLYBURIDE 2.5 MG ORAL TABLET 1 tab by mouth daily 2017 GLYBURIDE 09386713617 No Longer Active Brigitte Saucedo MA Acti ve CLIMARA 0.025 MG/24HR TRANSDERMAL PATCH WEEKLY Place 1 patch every week ESTRADIOL 77375438485 Active Davey Jimenez MD Active ONDANSETRON 4 MG ORAL TABLET DISINTEGRATING 1 q4h PRN nausea 07/30 ONDANSETRON 41765056196 Active Davey Jimenez MD Active SIMVASTATIN 20 MG ORAL TABLET 1 tab daily at bedtime SIMVASTATIN 31291282750 Active Davey Jimenez MD Active LOSARTAN POTASSIUM 25 MG ORAL TABLET 1 pill daily, for blood pressure LOSARTAN POTASSIUM 03005996819 Active Davey Jimenez MD Active GLYBURIDE 2.5 MG ORAL TABLET 1 tab by mouth daily 2017 GLYBURIDE 2.5 MG ORAL TABLET 112389 GLYBURIDE Inactive Advance Directives Directive Description Start [...] mg/dL Encounters Code Encounter Date Provider Facility CPT-33852 Level 4 Est. Patient 15:16:40 CDT Fadumo Leslie [facility] CPT-22246 Level 5 Est. Patient 11:51:47 CDT [facility] CPT-67158 Level 5 Est. Patient 12:49:59 CDT Kisha rendon [facility] CPT-89532 Level 4 Est. Patient 10:56:25 CDT Fito russell MD [facility] Procedures Code Procedure Name Date Entry Date Standard Desc ription CPT-42326 Postop F/U Visit 19:34:43 CDT CPT-48433 Postop F/U Visit 14:39:09 CDT
--- OUTSIDE RECORDS SUMMARY | 2019-07-28 22:54 | XMS REPORT | Clinical Summary ---
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 Davey Jimenez MD Malignant neoplasm of kidney, except pel vis Body Mass Index 24.0-24.9 Adult Inactive 2017 Fadumo Babin MOTION PICTURE CAMERA LENS TECHNICIAN Body Mass Index between 19-24, adult Type 2 diabetes mellitus with hyperglycemia 250.00 Act charley Kisha JONASP Diabetes mellitus without me ntion of complication, type II or unspecified type, not stated as uncontrolled Body Mass Index 23.0-23.9 Adult Inactive 2017 Fadumo Babin MOTION PICTURE CAMERA LENS TECHNICIAN Body Mass Index between 19-24, adult Type 2 diabetes mellitus with diabetic polyneuropathy Inactive Fadumo Babin APRN terminal 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 80 Inactive Fadumo Babin MOTION PICTURE CAMERA LENS TECHNICIAN Medication List Medication Instructions Start Date Stop Date Generic Name NDC Status Provider Patient Instruction LANTUS SOLOSTAR 100 UNIT/ML SUBCUTANEOUS SOLUTION PEN- INJECTOR 20 units SQ every PM for DM INSULIN GLARGINE 86713294105 Active Fadumo Babin ALCIDES Active FIASP FLEXTOUCH 100 UNIT/ML SUBCUTANEOUS SOLUTION PEN- INJECTOR Take 5 units at breakfast and 10 units at dinner. [id number] 01-03 I NSULIN ASPART 93962444583 Active Fadumo Talya MCGRATH Active ACTOS 15 MG ORAL TABLET 1 tablet by mouth daily for DM PIOGLITAZONE HCL 66171156983 Active Fadumo Talya MCGRATH Activ e CONTOUR NEXT TEST IN VITRO STRIP check blood sugars 3 times a day for DM E11.65 GLUCOSE BLOOD 94067888323 Active Ksenia Devine Active CONTOUR NEXT TEST IN VITRO STRIP check blood sugars 3 times a day for DM E11.65 GLUCOSE BLOOD 38502587513 Active Fadumo Babin A PRN Active GLIMEPIRIDE 2 MG ORAL TABLET 2 tabs PO daily GL IMEPIRIDE 84082388580 Active Fadumo [place] MOTION PICTURE CAMERA LENS TECHNICIAN Active ELIZABETH CONTOUR MONITOR W/DEVICE KIT BLOOD GLUCOSE MONITORING SUPPL 76754737900 No Longer Active Fadumo Babin MOTION PICTURE CAMERA LENS TECHNICIAN A ctive ALEVE 220 MG ORAL TABLET 2 tabs once every 4-6hrs PRN NAPROXEN SODIUM 72875674705 Active Brigitte Saucedo MA Active GLYBURIDE 2.5 MG ORAL TABLET 1 tab by mouth daily 2017 GLYBURIDE 03612048468 No Longer Active Brigitte Saucedo MA Acti ve CLIMARA 0.025 MG/24HR TRANSDERMAL PATCH WEEKLY Place 1 patch every week ESTRADIOL 90976680318 Active Davey Jimenez MD Active ONDANSETRON 4 MG ORAL TABLET DISINTEGRATING 1 q4h PRN nausea 07/30 ONDANSETRON 02418871485 Active Davey Jimenez MD Active SIMVASTATIN 20 MG ORAL TABLET 1 tab daily at bedtime SIMVASTATIN 07835296971 Active Davey Jimenez MD Active LOSARTAN POTASSIUM 25 MG ORAL TABLET 1 pill daily, for blood pressure LOSARTAN POTASSIUM 05411999405 Active Davey Jimenez MD Active GLYBURIDE 2.5 MG ORAL TABLET 1 tab by mouth daily 2017 GLYBURIDE 2.5 MG ORAL TABLET 624196 GLYBURIDE Inactive Advance Directives Directive Description Start [...] mg/dL Encounters Code Encounter Date Provider Facility CPT-20036 Level 5 Est. Patient 15:02:09 CDT Fadumo Leslie [facility] CPT-21818 Level 4 Est. Patient 15:16:40 CDT Fadumo Mariama [facility] CPT-06057 Level 5 Est. Patient 11:51:47 CDT Fadumo Leslie [facility] CPT-43673 Level 5 Est. Patient 12:49:59 CDT Kisha rendon [facility] CPT-71556 Level 4 Est. Patient 10:56:25 CDT Fito russell MD [facility] Procedures Code Procedure Name Date Entry Date Standard Desc ription CPT-79203 Postop F/U Visit 19:34:43 CDT CPT-68746 Postop F/U Visit 14:39:09 CDT
--- OUTSIDE RECORDS SUMMARY | 2019-07-28 22:54 | XMS REPORT | Clinical Summary ---
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 Davey Jimenez MD Malignant neoplasm of kidney, except pel vis Body Mass Index 24.0-24.9 Adult Inactive 2017 Fadumo Babin MANAGER SUSTAINABILITY Body Mass Index between 19-24, adult Type 2 diabetes mellitus with hyperglycemia 250.00 Act charley Kisha JONASP Diabetes mellitus without me ntion of complication, type II or unspecified type, not stated as uncontrolled Body Mass Index 23.0-23.9 Adult Inactive 2017 Fadumo Babin MANAGER SUSTAINABILITY Body Mass Index between 19-24, adult Type 2 diabetes mellitus with diabetic polyneuropathy Inactive Fadumo Babin APRN terminal supervisor use of insulin treatment V58.67 Active 2 Maliheh Ziglari ADVANCED PRACTICE NURSE PSYCHOTHERAPIST Long-term (current) use of insulin Type 2 diabetes mellitus with hypoglycemia without coma 250.80 Resolved Fadumo Talya MANAGER SUSTAINABILITY Diabetes mellitus with other specified manifestations, type II or unspecified type, not stated as uncontrolled Body Mass Index 24.0-24.9 Adult Active 2017 Fadumo Talya MANAGER SUSTAINABILITY Body Mass Index between 19-24, adult Noncompliance with dietary regimen V15.81 Active 2 Fadumo Babin MANAGER SUSTAINABILITY Personal history of noncompl iance with medical treatment, presenting hazards to health Type 2 diabetes with diabetic polyneuropathy 357.2 Ac tive Fadumo Talya MANAGER SUSTAINABILITY Polyneuropathy in diabetes Body Mass Index 24.0-24.9 Adult Inac tive Fadumo Orange MANAGER SUSTAINABILITY Body Mass Index 24.0-24.9 Adult [facility] tive Fadumo Babin MANAGER SUSTAINABILITY Body Mass Index 23.0-23.9 Adult [facility] tive Fadumo Babin MANAGER SUSTAINABILITY Type 2 diabetes mellitus with diabetic polyneuropathy Inactive Fadumo Talya WASHBURNN Type 2 diabetes mellitus with hypoglycemia without coma ICD-250. 80 Inactive Fadumo Babin MANAGER SUSTAINABILITY Medication List Medication Instructions Start Date Stop Date Generic Name NDC Status Provider Patient Instruction ACTOS 15 MG ORAL TABLET 1 tablet by mouth daily for DM PIOGLITAZONE HCL 44812205091 Active Fadumo Talya WASHBURNN Activ e LANTUS SOLOSTAR SOLUTION PEN-INJECTOR 20 units at bedtime 2 INSULIN GLARGINE SOPN 46109743251 Active Fadumojeny Babin APRN Acti ve CONTOUR NEXT TEST IN VITRO STRIP check blood sugars 3 times a day for DM E11.65 GLUCOSE BLOOD 12247948833 Active Ksenia Devine Active CONTOUR NEXT TEST IN VITRO STRIP check blood sugars 3 times a day for DM E11.65 GLUCOSE BLOOD 06918681505 Active Fadumo Babin A PRN Active GLIMEPIRIDE 2 MG ORAL TABLET 2 tabs PO daily GL IMEPIRIDE 01502191059 Active Fadumo Babin MANAGER SUSTAINABILITY Active ELIZABETH CONTOUR MONITOR W/DEVICE KIT BLOOD GLUCOSE MONITORING SUPPL 72506394662 No Longer Active Fadumo Babin MANAGER SUSTAINABILITY A ctive ALEVE 220 MG ORAL TABLET 2 tabs once every 4-6hrs PRN NAPROXEN SODIUM 29979873663 Active Brigitte Saucedo MA Active GLYBURIDE 2.5 MG ORAL TABLET 1 tab by mouth daily 2017 GLYBURIDE 12704258733 No Longer Active Brigitte Saucedo MA Acti ve CLIMARA 0.025 MG/24HR TRANSDERMAL PATCH WEEKLY Place 1 patch every week ESTRADIOL 44595702176 Active Davey Jimenez MD Active ONDANSETRON 4 MG ORAL TABLET DISINTEGRATING 1 q4h PRN nausea 07/30 ONDANSETRON 24316711651 Active Davey Jimenez MD Active SIMVASTATIN 20 MG ORAL TABLET 1 tab daily at bedtime SIMVASTATIN 35464057406 Active Davey Jimenez MD Active LOSARTAN POTASSIUM 25 MG ORAL TABLET 1 pill daily, for blood pressure LOSARTAN POTASSIUM 92331811003 Active Davey Jimenez MD Active GLYBURIDE 2.5 MG ORAL TABLET 1 tab by mouth daily 2017 GLYBURIDE 2.5 MG ORAL TABLET 891183 GLYBURIDE Inactive Advance Directives Directive Description Start [...] mg/dL Encounters Code Encounter Date Provider Facility CPT-65444 Level 4 Est. Patient 15:16:40 CDT Fadumo Leslie [facility] CPT-29020 Level 5 Est. Patient 11:51:47 CDT [facility] Level 5 Est. Patient 12:49:59 CDT Kisha rendon [facility] CPT-75059 Level 4 Est. Patient 10:56:25 CDT Fito russell MD [facility] Procedures Code Procedure Name Date Entry Date Standard Desc ription CPT-01006 Postop F/U Visit 19:34:43 CDT CPT-26573 Postop F/U Visit 14:39:09 CDT
--- OUTSIDE RECORDS SUMMARY | 2019-07-28 22:54 | XMS REPORT | Clinical Summary ---
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 Davey Jimenez MD Malignant neoplasm of kidney, except pel vis Body Mass Index 24.0-24.9 Adult Inactive 2017 Fadumo Babin CLINICAL DOCUMENTATION SPECIALIST Body Mass Index between 19-24, adult Type 2 diabetes mellitus with hyperglycemia 250.00 Act charley Kisha JONASP Diabetes mellitus without me ntion of complication, type II or unspecified type, not stated as uncontrolled Body Mass Index 23.0-23.9 Adult Inactive 2017 Fadumo Babin CLINICAL DOCUMENTATION SPECIALIST Body Mass Index between 19-24, adult Type 2 diabetes mellitus with diabetic polyneuropathy Inactive Fadumo Babin APRN terminal operations supervisor use of insulin treatment V58.67 Active 2 Maliheh Ziglari PLATE GRAINER Long-term (current) use of insulin Type 2 diabetes mellitus with hypoglycemia without coma 250.80 Resolved Fadumo Talya CLINICAL DOCUMENTATION SPECIALIST Diabetes mellitus with other specified manifestations, type II or unspecified type, not stated as uncontrolled Body Mass Index 24.0-24.9 Adult Active 2017 Fadumo Talya CLINICAL DOCUMENTATION SPECIALIST Body Mass Index between 19-24, adult Noncompliance with dietary regimen V15.81 Active 2 Fadumo Babin CLINICAL DOCUMENTATION SPECIALIST Personal history of noncompl iance with medical treatment, presenting hazards to health Type 2 diabetes with diabetic polyneuropathy 357.2 Ac tive Fadumo Talya CLINICAL DOCUMENTATION SPECIALIST Polyneuropathy in diabetes Body Mass Index 24.0-24.9 Adult Inac tive Fadumo [place] CLINICAL DOCUMENTATION SPECIALIST Body Mass Index 24.0-24.9 Adult [facility] tive Fadumo Babin CLINICAL DOCUMENTATION SPECIALIST Body Mass Index 23.0-23.9 Adult [facility] tive Fadumo Babin CLINICAL DOCUMENTATION SPECIALIST Type 2 diabetes mellitus with diabetic polyneuropathy Inactive Fadumo Talya WASHBURNN Type 2 diabetes mellitus with hypoglycemia without coma ICD-250. 80 Inactive Fadumo Babin CLINICAL DOCUMENTATION SPECIALIST Medication List Medication Instructions Start Date Stop Date Generic Name NDC Status Provider Patient Instruction ACTOS 15 MG ORAL TABLET 1 tablet by mouth daily for DM PIOGLITAZONE HCL 06743367306 Active Fadumo Talya WASHBURNN Activ e LANTUS SOLOSTAR SOLUTION PEN-INJECTOR 20 units at bedtime 2 INSULIN GLARGINE SOPN 33047132061 Active Fadumojeny Babin APRN Acti ve CONTOUR NEXT TEST IN VITRO STRIP check blood sugars 3 times a day for DM E11.65 GLUCOSE BLOOD 69807277510 Active Ksenia Devine Active CONTOUR NEXT TEST IN VITRO STRIP check blood sugars 3 times a day for DM E11.65 GLUCOSE BLOOD 52693192120 Active Fadumo Babin A PRN Active GLIMEPIRIDE 2 MG ORAL TABLET 2 tabs PO daily GL IMEPIRIDE 26807911093 Active Fadumo Babin CLINICAL DOCUMENTATION SPECIALIST Active ELIZABETH CONTOUR MONITOR W/DEVICE KIT BLOOD GLUCOSE MONITORING SUPPL 66237571682 No Longer Active Fadumo Babin CLINICAL DOCUMENTATION SPECIALIST A ctive ALEVE 220 MG ORAL TABLET 2 tabs once every 4-6hrs PRN NAPROXEN SODIUM 20870875572 Active Brigitte Saucedo MA Active GLYBURIDE 2.5 MG ORAL TABLET 1 tab by mouth daily 2017 GLYBURIDE 64799651315 No Longer Active Brigitte Saucedo MA Acti ve CLIMARA 0.025 MG/24HR TRANSDERMAL PATCH WEEKLY Place 1 patch every week ESTRADIOL 94727226210 Active Davey Jimenez MD Active ONDANSETRON 4 MG ORAL TABLET DISINTEGRATING 1 q4h PRN nausea 07/30 ONDANSETRON 25791764177 Active Davey Jimenez MD Active SIMVASTATIN 20 MG ORAL TABLET 1 tab daily at bedtime SIMVASTATIN 38535003728 Active Davey Jimenez MD Active LOSARTAN POTASSIUM 25 MG ORAL TABLET 1 pill daily, for blood pressure LOSARTAN POTASSIUM 82873003017 Active Davey Jimenez MD Active GLYBURIDE 2.5 MG ORAL TABLET 1 tab by mouth daily 2017 GLYBURIDE 2.5 MG ORAL TABLET 268461 GLYBURIDE Inactive Advance Directives Directive Description Start [...] mg/dL Encounters Code Encounter Date Provider Facility CPT-89522 Level 4 Est. Patient 15:16:40 CDT Fadumo Leslie [facility] CPT-39359 Level 5 Est. Patient 11:51:47 CDT [facility] CPT-15857 Level 5 Est. Patient 12:49:59 CDT Kisha rendon [facility] CPT-42290 Level 4 Est. Patient 10:56:25 CDT Fito russell MD [facility] Procedures Code Procedure Name Date Entry Date Standard Desc ription CPT-98603 Postop F/U Visit 19:34:43 CDT CPT-81913 Postop F/U Visit 14:39:09 CDT
--- OUTSIDE RECORDS SUMMARY | 2019-07-28 22:54 | XMS REPORT | Clinical Summary ---
Author Author Karina, Leeann Vasquez Organization 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 Davey Jimenez MD Malignant neoplasm of kidney, except pel vis Body Mass Index 24.0-24.9 Adult Inactive 2017 Fadumo Babin LOOM MECHANIC Body Mass Index between 19-24, adult Type 2 diabetes mellitus with hyperglycemia 250.00 Act charley Kisha JONASP Diabetes mellitus without me ntion of complication, type II or unspecified type, not stated as uncontrolled Body Mass Index 23.0-23.9 Adult Inactive 2017 Fadumo Babin LOOM MECHANIC Body Mass Index between 19-24, adult Type 2 diabetes mellitus with diabetic polyneuropathy Inactive Fadumo Babin APRN oysterman use of insulin treatment V58.67 Active 2 Maliheh Ziglari FIBER HEEL PIECE SHAPER Long-term (current) use of insulin Type 2 diabetes mellitus with hypoglycemia without coma 250.80 Resolved Fadumo Talya LOOM MECHANIC Diabetes mellitus with other specified manifestations, type II or unspecified type, not stated as uncontrolled Body Mass Index 24.0-24.9 Adult Active 2017 Fadumo Talya LOOM MECHANIC Body Mass Index between 19-24, adult Noncompliance with dietary regimen V15.81 Active 2 Fadumo Babin LOOM MECHANIC Personal history of noncompl iance with medical treatment, presenting hazards to health Type 2 diabetes with diabetic polyneuropathy 357.2 Ac tive Fadumo Talya LOOM MECHANIC Polyneuropathy in diabetes Body Mass Index 24.0-24.9 Adult Inac tive Fadumo Loup LOOM MECHANIC Body Mass Index 24.0-24.9 Adult [facility] tive Fadumo Babin LOOM MECHANIC Body Mass Index 23.0-23.9 Adult [facility] tive Fadumo Babin LOOM MECHANIC Type 2 diabetes mellitus with diabetic polyneuropathy Inactive Fadumo Talya WASHBURNN Type 2 diabetes mellitus with hypoglycemia without coma ICD-250. 80 Inactive Fadumo Babin LOOM MECHANIC Medication List Medication Instructions Start Date Stop Date Generic Name NDC Status Provider Patient Instruction ACTOS 15 MG ORAL TABLET 1 tablet by mouth daily for DM PIOGLITAZONE HCL 72155739131 Active Fadumo Talya WASHBURNN Activ e LANTUS SOLOSTAR SOLUTION PEN-INJECTOR 20 units at bedtime 2 INSULIN GLARGINE SOPN 43628017937 Active Fadumojeny Babin APRN Acti ve CONTOUR NEXT TEST IN VITRO STRIP check blood sugars 3 times a day for DM E11.65 GLUCOSE BLOOD 96721389439 Active Ksenia Devine Active CONTOUR NEXT TEST IN VITRO STRIP check blood sugars 3 times a day for DM E11.65 GLUCOSE BLOOD 65017441901 Active Fadumo Babin A PRN Active GLIMEPIRIDE 2 MG ORAL TABLET 2 tabs PO daily GL IMEPIRIDE 57892395486 Active Fadumo Babin LOOM MECHANIC Active ELIZABETH CONTOUR MONITOR W/DEVICE KIT BLOOD GLUCOSE MONITORING SUPPL 98433446149 No Longer Active Fadumo Babin LOOM MECHANIC A ctive ALEVE 220 MG ORAL TABLET 2 tabs once every 4-6hrs PRN NAPROXEN SODIUM 59157415226 Active Brigitte Saucedo MA Active GLYBURIDE 2.5 MG ORAL TABLET 1 tab by mouth daily 2017 GLYBURIDE 06805689950 No Longer Active Brigitte Saucedo MA Acti ve CLIMARA 0.025 MG/24HR TRANSDERMAL PATCH WEEKLY Place 1 patch every week ESTRADIOL 85094245763 Active Davey Jimenez MD Active ONDANSETRON 4 MG ORAL TABLET DISINTEGRATING 1 q4h PRN nausea 07/30 ONDANSETRON 19639548056 Active Davey Jimenez MD Active SIMVASTATIN 20 MG ORAL TABLET 1 tab daily at bedtime SIMVASTATIN 73240884365 Active Davey Jimenez MD Active LOSARTAN POTASSIUM 25 MG ORAL TABLET 1 pill daily, for blood pressure LOSARTAN POTASSIUM 83987405628 Active Davey Jimenez MD Active GLYBURIDE 2.5 MG ORAL TABLET 1 tab by mouth daily 2017 GLYBURIDE 2.5 MG ORAL TABLET 938982 GLYBURIDE Inactive Advance Directives Directive Description Start [...] mg/dL Encounters Code Encounter Date Provider Facility CPT-76420 Level 4 Est. Patient 15:16:40 CDT Fadumo dunn [facility] CPT-79962 Level 5 Est. Patient 11:51:47 CDT Fadumo dunn [facility] CPT-74302 Level 5 Est. Patient 12:49:59 CD[facility] Level 4 Est. Patient 10:56:25 CDT Fito russell MD [facility] Procedures Code Procedure Name Date Entry Date Standard Desc ription CPT-67783 Postop F/U Visit 19:34:43 CDT CPT-42202 Postop F/U Visit 14:39:09 CDT
--- OUTSIDE RECORDS SUMMARY | 2019-07-28 22:55 | XMS REPORT | Clinical Summary ---
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 Davey Jimenez MD Malignant neoplasm of kidney, except pel vis Body Mass Index 24.0-24.9 Adult Inactive 2017 Fadumo Babin OVERNIGHT CASHIER Body Mass Index between 19-24, adult Type 2 diabetes mellitus with hyperglycemia 250.00 Act charley Maliheh Ziglari FLUX PLANT OPERATOR Diabetes mellitus without me ntion of complication, type II or unspecified type, not stated as uncontrolled Body Mass Index 23.0-23.9 Adult Active 2017 Maliheh Ziglari FLUX PLANT OPERATOR Body Mass Index between 19-24, adult Type 2 diabetes mellitus with diabetic polyneuropathy Active Maliheh Ziglari FLUX PLANT OPERATOR buttermaker use of insulin treatment V58.67 Active 2 Maliheh Ziglari FLUX PLANT OPERATOR Long-term (current) use of insulin Type 2 diabetes mellitus with hypoglycemia without coma 250.80 Resolved Fadumo Babin OVERNIGHT CASHIER Diabetes mellitus with other specified manifestations, type II or unspecified type, not stated as uncontrolled Body Mass Index 24.0-24.9 Adult Inac tive Fadumo Baibn OVERNIGHT CASHIER Body Mass Index 24.0-24.9 Adult Ina tive Fadumo Babin OVERNIGHT CASHIER Type 2 diabetes mellitus with hypoglycemia without coma ICD-250. 80 Inactive Fadumo Babin OVERNIGHT CASHIER Medication List Medication Instructions Start Date Stop Date Generic Name NDC Status Provider Patient Instruction CONTOUR NEXT TEST IN VITRO STRIP check blood sugars 3 times a day for DM E11.65 GLUCOSE BLOOD 92884480624 Active Fadumo Babin A PRN Active GLIMEPIRIDE 2 MG ORAL TABLET 2 tabs PO daily GL IMEPIRIDE 84204852397 Active Fadumo Talya OVERNIGHT CASHIER Active ELIZABETH CONTOUR TEST IN VITRO STRIP check blood sugars 3 times a day for DM E11.65 GLUCOSE BLOOD 98191991157 Active Fadumo Babin A PRN Active ELIZABETH CONTOUR MONITOR W/DEVICE KIT BLOOD GLUCOSE MONITORING SUPPL 44632958547 No Longer Active Fadumo Babin OVERNIGHT CASHIER A ctive ALE[address] 220 MG ORAL TABLET 2 tabs once every 4-6hrs PRN NAPROXEN SODIUM 54768473023 Active Brigitte Saucedo MA Active LANTUS SOLOSTAR SOLUTION PEN-INJECTOR 18 units at bedtime 2 INSULIN GLARGINE SOPN 16778405485 Active Brigitte Saucedo MA Active GLYBURIDE 2.5 MG ORAL TABLET 1 tab by mouth daily 2017 GLYBURIDE 48606924790 No Longer Active Brigitte Saucedo MA Acti ve CLIMARA 0.025 MG/24HR TRANSDERMAL PATCH WEEKLY Place 1 patch every week ESTRADIOL 77952081850 Active Davey Jimenez MD Active ONDANSETRON 4 MG ORAL TABLET DISINTEGRATING 1 q4h PRN nausea 07/30 ONDANSETRON 99415277872 Active Davey Jimenez MD Active SIMVASTATIN 20 MG ORAL TABLET 1 tab daily at bedtime SIMVASTATIN 69996532842 Active Davey Jimenez MD Active LOSARTAN POTASSIUM 25 MG ORAL TABLET 1 pill daily, for blood pressure LOSARTAN POTASSIUM 12178967217 Active Davey Jimenez MD Active GLYBURIDE 2.5 MG ORAL TABLET 1 tab by mouth daily 2017 GLYBURIDE 2.5 MG ORAL TABLET 675589 GLYBURIDE Inactive Advance Directives Directive Description Start [...] mg/dL Encounters Code Encounter Date Provider Facility CPT-46398 Level 5 Est. Patient 11:51:47 CDT Fadumo dunn [facility] CPT-17984 Level 5 Est. Patient 12:49:59 CDT Kisha rendon [facility] CPT-99712 Level 4 Est. Patient 10:56:25 CDT Fito russell MD [facility] Procedures Code Procedure Name Date Entry Date Standard Desc ription CPT-41476 Postop F/U Visit 19:34:43 CDT CPT-31518 Postop F/U Visit 14:39:09 CDT
--- OUTSIDE RECORDS SUMMARY | 2019-07-28 22:55 | XMS REPORT | Clinical Summary ---
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 Davey Jimenez MD Malignant neoplasm of kidney, except pel vis Body Mass Index 24.0-24.9 Adult Inactive 2017 Fadumo Babin GLASS ENGRAVER Body Mass Index between 19-24, adult Type 2 diabetes mellitus with hyperglycemia 250.00 Act charley Maliheh Ziglari HEEL FINISHER Diabetes mellitus without me ntion of complication, type II or unspecified type, not stated as uncontrolled Body Mass Index 23.0-23.9 Adult Active 2017 Maliheh Ziglari HEEL FINISHER Body Mass Index between 19-24, adult Type 2 diabetes mellitus with diabetic polyneuropathy Active Maliheh Ziglari HEEL FINISHER extermination supervisor use of insulin treatment V58.67 Active 2 Maliheh Ziglari HEEL FINISHER Long-term (current) use of insulin Type 2 diabetes mellitus with hypoglycemia without coma 250.80 Resolved Fadumo Babin GLASS ENGRAVER Diabetes mellitus with other specified manifestations, type II or unspecified type, not stated as uncontrolled Body Mass Index 24.0-24.9 Adult Ina tive Fadumo Babin GLASS ENGRAVER Body Mass Index 24.0-24.9 Adult Ina tive Fadumo Babin GLASS ENGRAVER Type 2 diabetes mellitus with hypoglycemia without coma ICD-250. 80 Inactive Fadumo Babin GLASS ENGRAVER Medication List Medication Instructions Start Date Stop Date Generic Name NDC Status Provider Patient Instruction CONTOUR NEXT TEST IN VITRO STRIP check blood sugars 3 times a day for DM E11.65 GLUCOSE BLOOD 27474808309 Active Ksenia Devine Active CONTOUR NEXT TEST IN VITRO STRIP check blood sugars 3 times a day for DM E11.65 GLUCOSE BLOOD 56483554896 Active Fadumo Babin A PRN Active GLIMEPIRIDE 2 MG ORAL TABLET 2 tabs PO daily GL IMEPIRIDE 60678438339 Active Fadumo Babin GLASS ENGRAVER Active ELIZABETH CONTOUR MONITOR W/DEVICE KIT BLOOD GLUCOSE MONITORING SUPPL 15413399835 No Longer Active Fadumo Babin APRN A ctive ALEVE 220 MG ORAL TABLET 2 tabs once every 4-6hrs PRN NAPROXEN SODIUM 55145090300 Active Brigitte Saucedo MA Active LANTUS SOLOSTAR SOLUTION PEN-INJECTOR 18 units at bedtime 2 INSULIN GLARGINE SOPN 47207615970 Active Brigitte Saucedo MA Active GLYBURIDE 2.5 MG ORAL TABLET 1 tab by mouth daily 2017 GLYBURIDE 60757210539 No Longer Active Brigitte Saucedo MA Acti ve CLIMARA 0.025 MG/24HR TRANSDERMAL PATCH WEEKLY Place 1 patch every week ESTRADIOL 62235609846 Active Davey Jimenez MD Active ONDANSETRON 4 MG ORAL TABLET DISINTEGRATING 1 q4h PRN nausea 07/30 ONDANSETRON 86161521463 Active Davey Jimenez MD Active SIMVASTATIN 20 MG ORAL TABLET 1 tab daily at bedtime SIMVASTATIN 08024303910 Active Davey Jimenez MD Active LOSARTAN POTASSIUM 25 MG ORAL TABLET 1 pill daily, for blood pressure LOSARTAN POTASSIUM 84944567019 Active Davey Jimenez MD Active GLYBURIDE 2.5 MG ORAL TABLET 1 tab by mouth daily 2017 GLYBURIDE 2.5 MG ORAL TABLET 347898 GLYBURIDE Inactive Advance Directives Directive Description Start [...] mg/dL Encounters Code Encounter Date Provider Facility CPT-98130 Level 5 Est. Patient 11:51:47 CDT Fadumo dunn [facility] CPT-08893 Level 5 Est. Patient 12:49:59 CDT Kisha rendon [facility] CPT-71997 Level 4 Est. Patient 10:56:25 CDT Fito russell MD [facility] Procedures Code Procedure Name Date Entry Date Standard Desc ription CPT-49236 Postop F/U Visit 19:34:43 CDT CPT-79455 Postop F/U Visit 14:39:09 CDT
--- OUTSIDE RECORDS SUMMARY | 2019-07-28 22:55 | XMS REPORT | Clinical Summary ---
Author Author Karina, Leeann Vasquez Organization [employer] Address Unknown Phone Unavailable Allergies, Adverse Reactions, [...] Index 24.0-24.9 Adult Inactive 2017 Fadumo Babin CONSTITUTIONAL LAW PROFESSOR Body Mass Index between 19-24, adult Type 2 diabetes mellitus with hyperglycemia 250.00 Act charley Kisha Fieldsglariana JONASP Diabetes mellitus without me ntion of complication, type II or unspecified type, not stated as uncontrolled Body Mass Index 23.0-23.9 Adult Inactive 2017 Fadumo Babin CONSTITUTIONAL LAW PROFESSOR Body Mass Index between 19-24, adult Type 2 diabetes mellitus with diabetic polyneuropathy Inactive Fadumo Babin 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 use of insulin treatment V58.67 Active 2 Kisha Fieldsglari PUBLIC TRANSIT BUS DRIVER Long-term (current) use of insulin Type 2 diabetes mellitus with hypoglycemia without coma 250.80 Resolved Fadumo Babin CONSTITUTIONAL LAW PROFESSOR Diabetes mellitus with other specified manifestations, type II or unspecified type, not stated as uncontrolled Body Mass Index 24.0-24.9 Adult Active 2017 Fadumojeny Babin CONSTITUTIONAL LAW PROFESSOR Body Mass Index between 19-24, adult Noncompliance with dietary regimen V15.81 Active 2 Fadumo Babin APRN Personal history of noncompl iance with medical treatment, presenting hazards to health Type 2 diabetes with diabetic polyneuropathy 357.2 Ac tive Fadumo Babin APRN Polyneuropathy in diabetes Body Mass Index 24.0-24.9 Adult Inac tive Fadumo [place] CONSTITUTIONAL LAW PROFESSOR Body Mass Index 24.0-24.9 Adult [facility] tive Fadumo [place] CONSTITUTIONAL LAW PROFESSOR Body Mass Index 23.0-23.9 Adult [facility] tive Fadumo Babin CONSTITUTIONAL LAW PROFESSOR Type 2 diabetes mellitus with diabetic polyneuropathy Inactive Fadumojeny Babin APRN Type 2 diabetes mellitus with hypoglycemia without coma ICD-250. 80 Inactive Fadumo Talya WASHBURNN Medication List Medication Instructions Start Date Stop Date Generic Name NDC Status Provider Patient Instruction ACTOS 15 MG ORAL TABLET 1 tablet by mouth daily for DM PIOGLITAZONE HCL 18117035869 Active Fadumo Talya WASHBURNN Activ e LANTUS SOLOSTAR SOLUTION PEN-INJECTOR 20 units at bedtime 2 INSULIN GLARGINE SOPN 45260962665 Active Fadumojeny Babin APRN Acti ve CONTOUR NEXT TEST IN VITRO STRIP check blood sugars 3 times a day for DM E11.65 GLUCOSE BLOOD 92338546501 Active Ksenia Devine Active CONTOUR NEXT TEST IN VITRO STRIP check blood sugars 3 times a day for DM E11.65 GLUCOSE BLOOD 90572394664 Active Fadumo Babin A PRN Active GLIMEPIRIDE 2 MG ORAL TABLET 2 tabs PO daily GL IMEPIRIDE 08900619601 Active Fadumo Babin CONSTITUTIONAL LAW PROFESSOR Active ELIZABETH CONTOUR MONITOR W/DEVICE KIT BLOOD GLUCOSE MONITORING SUPPL 26427845803 No Longer Active Fadumo Babin CONSTITUTIONAL LAW PROFESSOR A ctive ALEVE 220 MG ORAL TABLET 2 tabs once every 4-6hrs PRN NAPROXEN SODIUM 50508361787 Active Brigitte Saucedo MA Active GLYBURIDE 2.5 MG ORAL TABLET 1 tab by mouth daily 2017 GLYBURIDE 19172096095 No Longer Active Brigitte Saucedo MA Acti ve CLIMARA 0.025 MG/24HR TRANSDERMAL PATCH WEEKLY Place 1 patch every week ESTRADIOL 57811222893 Active Davey Jimenez MD Active ONDANSETRON 4 MG ORAL TABLET DISINTEGRATING 1 q4h PRN nausea 07/30 ONDANSETRON 46165455265 Active Davey Jimenez MD Active SIMVASTATIN 20 MG ORAL TABLET 1 tab daily at bedtime SIMVASTATIN 37149068130 Active Davey Jimenez MD Active LOSARTAN POTASSIUM 25 MG ORAL TABLET 1 pill daily, for blood pressure LOSARTAN POTASSIUM 62406930351 Active Davey Jimenez MD Active GLYBURIDE 2.5 MG ORAL TABLET 1 tab by mouth daily 2017 GLYBURIDE 2.5 MG ORAL TABLET 664747 GLYBURIDE Inactive Advance Directives Directive Description Start [...] mg/dL Encounters Code Encounter Date Provider Facility CPT-17321 Level 4 Est. Patient 15:16:40 CDT Fadumo Leslie [facility] CPT-81902 Level 5 Est. Patient 11:51:47 CDT Fadumo Leslie [facility] CPT-92403 Level 5 Est. Patient 12:49:59 CDT Kisha rendon [facility] CPT-12981 Level 4 Est. Patient 10:56:25 CDT Fito russell MD [facility] Procedures Code Procedure Name Date Entry Date Standard Desc ription CPT-40866 Postop F/U Visit 19:34:43 CDT CPT-70938 Postop F/U Visit 14:39:09 CDT
--- OUTSIDE RECORDS SUMMARY | 2019-07-28 22:55 | XMS REPORT | Clinical Summary ---
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 Davey Jimenez MD Malignant neoplasm of kidney, except pel vis Body Mass Index 24.0-24.9 Adult Inactive 2017 Fadumo Babin SOMMELIER Body Mass Index between 19-24, adult Type 2 diabetes mellitus with hyperglycemia 250.00 Act charley Maliheh Ziglari PERFUME COMPOUNDER Diabetes mellitus without me ntion of complication, type II or unspecified type, not stated as uncontrolled Body Mass Index 23.0-23.9 Adult Active 2017 Maliheh Ziglari PERFUME COMPOUNDER Body Mass Index between 19-24, adult Type 2 diabetes mellitus with diabetic polyneuropathy Active Maliheh Ziglari PERFUME COMPOUNDER 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 80 Inactive Fadumo Babin SOMMELIER Medication List Medication Instructions Start Date Stop Date Generic Name NDC Status Provider Patient Instruction CONTOUR NEXT TEST IN VITRO STRIP check blood sugars 3 times a day for DM E11.65 GLUCOSE BLOOD 42229899703 Active Fadumo Babin A PRN Active GLIMEPIRIDE 2 MG ORAL TABLET 2 tabs PO daily GL IMEPIRIDE 40242245185 Active Fadumo Babin SOMMELIER Active ELIZABETH CONTOUR TEST IN VITRO STRIP check blood sugars 3 times a day for DM E11.65 GLUCOSE BLOOD 65345630324 Active Fadumo Babin A PRN Active ELIZABETH CONTOUR MONITOR W/DEVICE KIT BLOOD GLUCOSE MONITORING SUPPL 96694707355 No Longer Active Fadumo Babin SOMMELIER A ctive ALEVE 220 MG ORAL TABLET 2 tabs once every 4-6hrs PRN NAPROXEN SODIUM 47267687632 Active Brigitte Saucedo MA Active LANTUS SOLOSTAR SOLUTION PEN-INJECTOR 18 units at bedtime 2 INSULIN GLARGINE SOPN 03371959119 Active Brigitte Saucedo MA Active GLYBURIDE 2.5 MG ORAL TABLET 1 tab by mouth daily 2017 GLYBURIDE 57053914644 No Longer Active Brigitte Saucedo MA Acti ve CLIMARA 0.025 MG/24HR TRANSDERMAL PATCH WEEKLY Place 1 patch every week ESTRADIOL 33252980389 Active Davey Jimenez MD Active ONDANSETRON 4 MG ORAL TABLET DISINTEGRATING 1 q4h PRN nausea 07/30 ONDANSETRON 74592634324 Active Davey Jimenez MD Active SIMVASTATIN 20 MG ORAL TABLET 1 tab daily at bedtime SIMVASTATIN 28957439442 Active Davey Jimenez MD Active LOSARTAN POTASSIUM 25 MG ORAL TABLET 1 pill daily, for blood pressure LOSARTAN POTASSIUM 76088483368 Active Davey Jimenez MD Active GLYBURIDE 2.5 MG ORAL TABLET 1 tab by mouth daily 2017 GLYBURIDE 2.5 MG ORAL TABLET 421697 GLYBURIDE Inactive Advance Directives Directive Description Start [...] mg/dL Encounters Code Encounter Date Provider Facility CPT-98648 Level 5 Est. Patient 11:51:47 CDT Fadumo dunn [facility] CPT-47269 Level 5 Est. Patient 12:49:59 CDT Kisha rendon [facility] CPT-99668 Level 4 Est. Patient 10:56:25 CDT Fito russell MD [facility] Procedures Code Procedure Name Date Entry Date Standard Desc ription CPT-51273 Postop F/U Visit 19:34:43 CDT CPT-55889 Postop F/U Visit 14:39:09 CDT
--- OUTSIDE RECORDS SUMMARY | 2019-07-28 22:55 | XMS REPORT | Clinical Summary ---
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 Davey Jimenez MD Malignant neoplasm of kidney, except pel vis Body Mass Index 24.0-24.9 Adult Inactive 2017 Fadumo Babin MELTER SUPERVISOR Body Mass Index between 19-24, adult Type 2 diabetes mellitus with hyperglycemia 250.00 Act charley Maliheh Ziglari FIREWOOD CUTTER Diabetes mellitus without me ntion of complication, type II or unspecified type, not stated as uncontrolled Body Mass Index 23.0-23.9 Adult Active 2017 Maliheh Ziglari FIREWOOD CUTTER Body Mass Index between 19-24, adult Type 2 diabetes mellitus with diabetic polyneuropathy Active Maliheh Ziglari FIREWOOD CUTTER 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 80 Inactive Fadumo Babin MELTER SUPERVISOR Medication List Medication Instructions Start Date Stop Date Generic Name NDC Status Provider Patient Instruction CONTOUR NEXT TEST IN VITRO STRIP check blood sugars 3 times a day for DM E11.65 GLUCOSE BLOOD 50044310852 Active Fadumo Babin A PRN Active GLIMEPIRIDE 2 MG ORAL TABLET 2 tabs PO daily GL IMEPIRIDE 08733150580 Active Fadumo Talya MELTER SUPERVISOR Active ELIZABETH CONTOUR TEST IN VITRO STRIP check blood sugars 3 times a day for DM E11.65 GLUCOSE BLOOD 51945851470 Active Fadumo Babin A PRN Active ELIZABETH CONTOUR MONITOR W/DEVICE KIT BLOOD GLUCOSE MONITORING SUPPL 42556331885 No Longer Active Fadumo Babin MELTER SUPERVISOR A ctive ALE[address] 220 MG ORAL TABLET 2 tabs once every 4-6hrs PRN NAPROXEN SODIUM 89739270924 Active Brigitte Saucedo MA Active LANTUS SOLOSTAR SOLUTION PEN-INJECTOR 18 units at bedtime 2 INSULIN GLARGINE SOPN 04894911412 Active Brigitte Saucedo MA Active GLYBURIDE 2.5 MG ORAL TABLET 1 tab by mouth daily 2017 GLYBURIDE 63001087375 No Longer Active Brigitte Saucedo MA Acti ve CLIMARA 0.025 MG/24HR TRANSDERMAL PATCH WEEKLY Place 1 patch every week ESTRADIOL 70858392699 Active Davey Jimenez MD Active ONDANSETRON 4 MG ORAL TABLET DISINTEGRATING 1 q4h PRN nausea 07/30 ONDANSETRON 75624835617 Active Davey Jimenez MD Active SIMVASTATIN 20 MG ORAL TABLET 1 tab daily at bedtime SIMVASTATIN 17339984827 Active Davey Jimenez MD Active LOSARTAN POTASSIUM 25 MG ORAL TABLET 1 pill daily, for blood pressure LOSARTAN POTASSIUM 27002689888 Active Davey Jimenez MD Active GLYBURIDE 2.5 MG ORAL TABLET 1 tab by mouth daily 2017 GLYBURIDE 2.5 MG ORAL TABLET 980710 GLYBURIDE Inactive Advance Directives Directive Description Start [...] mg/dL Encounters Code Encounter Date Provider Facility CPT-07204 Level 5 Est. Patient 11:51:47 CDT Fadumo dunn [facility] CPT-93125 Level 5 Est. Patient 12:49:59 CDT Kisha rendon [facility] CPT-53390 Level 4 Est. Patient 10:56:25 CDT Fito russell MD [facility] Procedures Code Procedure Name Date Entry Date Standard Desc ription CPT-13473 Postop F/U Visit 19:34:43 CDT CPT-68828 Postop F/U Visit 14:39:09 CDT
--- OUTSIDE RECORDS SUMMARY | 2019-07-28 22:55 | XMS REPORT | Clinical Summary ---
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 Davey Jimenez MD Malignant neoplasm of kidney, except pel vis Medication List Medication Instructions Start Date Stop Date Generic Name NDC Status Provider Patient Instruction ALEVE 220 MG ORAL TABLET 2 tabs once every 4-6hrs PRN NAPROXEN SODIUM 80044212168 Active Brigitte Saucedo MA Active LANTUS SOLOSTAR SOLUTION PEN-INJECTOR 18 units at bedtime 2 INSULIN GLARGINE SOPN 59920001572 Active Brigitte Saucedo MA Active GLYBURIDE 2.5 MG ORAL TABLET 1 tab by mouth daily 2017 GLYBURIDE 56383953266 No Longer Active Brigitte Saucedo MA Acti ve CLIMARA 0.025 MG/24HR TRANSDERMAL PATCH WEEKLY Place 1 patch every week ESTRADIOL 83104234698 Active Davey Jimenez MD Active ONDANSETRON 4 MG ORAL TABLET DISINTEGRATING 1 q4h PRN nausea 07/30 ONDANSETRON 72193045837 Active Davey Jimenez MD Active SIMVASTATIN 20 MG ORAL TABLET 1 tab daily at bedtime SIMVASTATIN 28615719672 Active J Toams Jimenez MD Active LOSARTAN POTASSIUM 25 MG ORAL TABLET 1 pill daily, for blood pressure LOSARTAN POTASSIUM 54357641545 Active Davey Jimenez MD Active GLYBURIDE 2.5 MG ORAL TABLET 1 tab by mouth daily 2017 GLYBURIDE 2.5 MG ORAL TABLET 131498 GLYBURIDE Inactive Advance Directives Directive Description Start Date PERMISSION TO SHARE Vital Signs Date Name Value Unit Range Description height E&M 62 [in_us] Bdy height weight [...] weight E&M 135 [lb_av] Weight Measure d Encounters Code Encounter Date Provider Facility CPT-25643 Level 4 Est. Patient 10:56:25 CDT Fito russell MD [facility] Procedures Code Procedure Name Date Entry Date Standard Desc ription CPT-33395 Postop F/U Visit 14:39:09 CDT
--- OUTSIDE RECORDS SUMMARY | 2019-07-28 22:55 | XMS REPORT | Clinical Summary ---
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 Davey Jimenez MD Malignant neoplasm of kidney, except pel vis Body Mass Index 24.0-24.9 Adult Inactive 2017 Fadumo Babin PUBLIC HEALTH DOCTOR Body Mass Index between 19-24, adult Type 2 diabetes mellitus with hyperglycemia 250.00 Act charley Maliheh Ziglari CORE CARRIER Diabetes mellitus without me ntion of complication, type II or unspecified type, not stated as uncontrolled Body Mass Index 23.0-23.9 Adult Active 2017 Maliheh Ziglari CORE CARRIER Body Mass Index between 19-24, adult Type 2 diabetes mellitus with diabetic polyneuropathy Active Maliheh Ziglari CORE CARRIER 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 80 Inactive Fadumo Babin PUBLIC HEALTH DOCTOR Medication List Medication Instructions Start Date Stop Date Generic Name NDC Status Provider Patient Instruction CONTOUR NEXT TEST IN VITRO STRIP check blood sugars 3 times a day for DM E11.65 GLUCOSE BLOOD 02492304168 Active Ksenia Devine Active CONTOUR NEXT TEST IN VITRO STRIP check blood sugars 3 times a day for DM E11.65 GLUCOSE BLOOD 16384609903 Active Fadumo Babin A PRN Active GLIMEPIRIDE 2 MG ORAL TABLET 2 tabs PO daily GL IMEPIRIDE 88152532433 Active Fadumo Babin PUBLIC HEALTH DOCTOR Active ELIZABETH CONTOUR MONITOR W/DEVICE KIT BLOOD GLUCOSE MONITORING SUPPL 81756436261 No Longer Active Fadumo Babin APRN A ctive ALE[address] 220 MG ORAL TABLET 2 tabs once every 4-6hrs PRN NAPROXEN SODIUM 56946132994 Active Brigitte Saucedo MA Active LANTUS SOLOSTAR SOLUTION PEN-INJECTOR 18 units at bedtime 2 INSULIN GLARGINE SOPN 68758463049 Active Brigitte Saucedo MA Active GLYBURIDE 2.5 MG ORAL TABLET 1 tab by mouth daily 2017 GLYBURIDE 72130536910 No Longer Active Brigitte Saucedo MA Acti ve CLIMARA 0.025 MG/24HR TRANSDERMAL PATCH WEEKLY Place 1 patch every week ESTRADIOL 17409484674 Active Davey Jimenez MD Active ONDANSETRON 4 MG ORAL TABLET DISINTEGRATING 1 q4h PRN nausea 07/30 ONDANSETRON 06883195746 Active Davey Jimenez MD Active SIMVASTATIN 20 MG ORAL TABLET 1 tab daily at bedtime SIMVASTATIN 91325494143 Active Davey Jimenez MD Active LOSARTAN POTASSIUM 25 MG ORAL TABLET 1 pill daily, for blood pressure LOSARTAN POTASSIUM 12521305575 Active Davey Jimenez MD Active GLYBURIDE 2.5 MG ORAL TABLET 1 tab by mouth daily 2017 GLYBURIDE 2.5 MG ORAL TABLET 466216 GLYBURIDE Inactive Advance Directives Directive Description Start [...] mg/dL Encounters Code Encounter Date Provider Facility CPT-33872 Level 5 Est. Patient 11:51:47 CDT Fadumo dunn [facility] CPT-94256 Level 5 Est. Patient 12:49:59 CDT Kisha rendon [facility] CPT-68585 Level 4 Est. Patient 10:56:25 CDT Fito russell MD [facility] Procedures Code Procedure Name Date Entry Date Standard Desc ription CPT-03660 Postop F/U Visit 19:34:43 CDT CPT-23670 Postop F/U Visit 14:39:09 CDT
--- OUTSIDE RECORDS SUMMARY | 2019-07-28 22:55 | XMS REPORT | Clinical Summary ---
Author Author Karina, Leeann Vasquez Organization [facility] Address Unknown Phone Unavailable Allergies, Adverse Reactions, [...] pel vis Body Mass Index 24.0-24.9 Adult Active 2017 Fito Lambert MD Body Mass Index between 19-24, adult Medication List Medication Instructions Start Date Stop Date Generic Name NDC Status Provider Patient Instruction ALEVE 220 MG ORAL TABLET 2 tabs once every 4-6hrs PRN NAPROXEN SODIUM 91806586222 Active Brigitte Saucedo MA Active LANTUS SOLOSTAR SOLUTION PEN-INJECTOR 18 units at bedtime 2 INSULIN GLARGINE SOPN 95468581924 Active Brigitte Saucedo MA Active GLYBURIDE 2.5 MG ORAL TABLET 1 tab by mouth daily 2017 GLYBURIDE 85619619415 No Longer Active Brigitte Saucedo MA Acti ve CLIMARA 0.025 MG/24HR TRANSDERMAL PATCH WEEKLY Place 1 patch every week ESTRADIOL 38371920137 Active Davey Jimenez MD Active ONDANSETRON 4 MG ORAL TABLET DISINTEGRATING 1 q4h PRN nausea 07/30 ONDANSETRON 94046304817 Active Davey Jimenez MD Active SIMVASTATIN 20 MG ORAL TABLET 1 tab daily at bedtime SIMVASTATIN 12758511997 Active Davey Jimenez MD Active LOSARTAN POTASSIUM 25 MG ORAL TABLET 1 pill daily, for blood pressure LOSARTAN POTASSIUM 25089634465 Active Davey Jimenez MD Active GLYBURIDE 2.5 MG ORAL TABLET 1 tab by mouth daily 2017 GLYBURIDE 2.5 MG ORAL TABLET 001413 GLYBURIDE Inactive Advance Directives Directive Description Start [...] d Encounters Code Encounter Date Provider Facility CPT-39126 Level 4 Est. Patient 10:56:25 CDT Fito russell MD [facility] Procedures Code Procedure Name Date Entry Date Standard Desc ription CPT-59503 Postop F/U Visit 19:34:43 CDT CPT-22258 Postop F/U Visit 14:39:09 CDT
--- OUTSIDE RECORDS SUMMARY | 2019-07-28 22:55 | XMS REPORT | Clinical Summary ---
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 Davey Jimenez MD Malignant neoplasm of kidney, except pel vis Body Mass Index 24.0-24.9 Adult Inactive 2017 Fadumo Babin PIPING DESIGNER Body Mass Index between 19-24, adult Type 2 diabetes mellitus with hyperglycemia 250.00 Act charley Maliheh Ziglari ELECTRONICS ENGINEERING MANAGER Diabetes mellitus without me ntion of complication, type II or unspecified type, not stated as uncontrolled Body Mass Index 23.0-23.9 Adult Active 2017 Maliheh Ziglari ELECTRONICS ENGINEERING MANAGER Body Mass Index between 19-24, adult Type 2 diabetes mellitus with diabetic polyneuropathy Active Maliheh Ziglari ELECTRONICS ENGINEERING MANAGER ocean transportation intermediary use of insulin treatment V58.67 Active 2 Maliheh Ziglari ELECTRONICS ENGINEERING MANAGER Long-term (current) use of insulin Type 2 diabetes mellitus with hypoglycemia without coma 250.80 Resolved Fadumo Babin PIPING DESIGNER Diabetes mellitus with other specified manifestations, type II or unspecified type, not stated as uncontrolled Body Mass Index 24.0-24.9 Adult Inac tive Fadumo Babin PIPING DESIGNER Body Mass Index 24.0-24.9 Adult Ina tive Fadumo Babin PIPING DESIGNER Type 2 diabetes mellitus with hypoglycemia without coma ICD-250. 80 Inactive Fadumo Babin PIPING DESIGNER Medication List Medication Instructions Start Date Stop Date Generic Name NDC Status Provider Patient Instruction CONTOUR NEXT TEST IN VITRO STRIP check blood sugars 3 times a day for DM E11.65 GLUCOSE BLOOD 16081851668 Active Fadumo Babin A PRN Active GLIMEPIRIDE 2 MG ORAL TABLET 2 tabs PO daily GL IMEPIRIDE 49820151586 Active Fadumo Babin PIPING DESIGNER Active ELIZABETH CONTOUR TEST IN VITRO STRIP check blood sugars 3 times a day for DM E11.65 GLUCOSE BLOOD 99882990575 Active Fadumo Babin A PRN Active ELIZABETH CONTOUR MONITOR W/DEVICE KIT BLOOD GLUCOSE MONITORING SUPPL 20825878805 No Longer Active Fadumo Babin PIPING DESIGNER A ctive [address]LE[address] 220 MG ORAL TABLET 2 tabs once every 4-6hrs PRN NAPROXEN SODIUM 25122079169 Active Brigitte Saucedo MA Active LANTUS SOLOSTAR SOLUTION PEN-INJECTOR 18 units at bedtime 2 INSULIN GLARGINE SOPN 34509805177 Active Brigitte Saucedo MA Active GLYBURIDE 2.5 MG ORAL TABLET 1 tab by mouth daily 2017 GLYBURIDE 93143675783 No Longer Active Brigitte Saucedo MA Acti ve CLIMARA 0.025 MG/24HR TRANSDERMAL PATCH WEEKLY Place 1 patch every week ESTRADIOL 98992341804 Active Davey Jimenez MD Active ONDANSETRON 4 MG ORAL TABLET DISINTEGRATING 1 q4h PRN nausea 07/30 ONDANSETRON 14612942059 Active Davey Jimenez MD Active SIMVASTATIN 20 MG ORAL TABLET 1 tab daily at bedtime SIMVASTATIN 43595060867 Active Davey Jimenez MD Active LOSARTAN POTASSIUM 25 MG ORAL TABLET 1 pill daily, for blood pressure LOSARTAN POTASSIUM 56992148555 Active Davey Jimenez MD Active GLYBURIDE 2.5 MG ORAL TABLET 1 tab by mouth daily 2017 GLYBURIDE 2.5 MG ORAL TABLET 265949 GLYBURIDE Inactive Advance Directives Directive Description Start [...] mg/dL Encounters Code Encounter Date Provider Facility CPT-69317 Level 5 Est. Patient 11:51:47 CDT Fadumo dunn [facility] CPT-26929 Level 5 Est. Patient 12:49:59 CDT Kisha rendon [facility] CPT-78290 Level 4 Est. Patient 10:56:25 CDT Fito russell MD [facility] Procedures Code Procedure Name Date Entry Date Standard Desc ription CPT-68086 Postop F/U Visit 19:34:43 CDT CPT-61287 Postop F/U Visit 14:39:09 CDT
--- OUTSIDE RECORDS SUMMARY | 2019-07-28 22:55 | XMS REPORT | Clinical Summary ---
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 Davey Jimenez MD Malignant neoplasm of kidney, except pel vis Body Mass Index 24.0-24.9 Adult Inactive 2017 Fadumo Babin INSTRUMENTATION TECHNOLOGIST Body Mass Index between 19-24, adult Type 2 diabetes mellitus with hyperglycemia 250.00 Act charley Maliheh Ziglari DISPENSING AUDIOLOGIST Diabetes mellitus without me ntion of complication, type II or unspecified type, not stated as uncontrolled Body Mass Index 23.0-23.9 Adult Active 2017 Maliheh Ziglari DISPENSING AUDIOLOGIST Body Mass Index between 19-24, adult Type 2 diabetes mellitus with diabetic polyneuropathy Active Maliheh Ziglari DISPENSING AUDIOLOGIST 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 80 Inactive Fadumo Babin INSTRUMENTATION TECHNOLOGIST Medication List Medication Instructions Start Date Stop Date Generic Name NDC Status Provider Patient Instruction CONTOUR NEXT TEST IN VITRO STRIP check blood sugars 3 times a day for DM E11.65 GLUCOSE BLOOD 98710462535 Active Fadumo Babin A PRN Active GLIMEPIRIDE 2 MG ORAL TABLET 2 tabs PO daily GL IMEPIRIDE 69228740758 Active Fadumo Talya INSTRUMENTATION TECHNOLOGIST Active ELIZABETH CONTOUR TEST IN VITRO STRIP check blood sugars 3 times a day for DM E11.65 GLUCOSE BLOOD 50294192866 Active Fadumo Babin A PRN Active ELIZABETH CONTOUR MONITOR W/DEVICE KIT BLOOD GLUCOSE MONITORING SUPPL 16719334296 No Longer Active Fadumo Babin INSTRUMENTATION TECHNOLOGIST A ctive ALEVE 220 MG ORAL TABLET 2 tabs once every 4-6hrs PRN NAPROXEN SODIUM 94693219419 Active Brigitte Saucedo MA Active LANTUS SOLOSTAR SOLUTION PEN-INJECTOR 18 units at bedtime 2 INSULIN GLARGINE SOPN 53898117335 Active Brigitte Saucedo MA Active GLYBURIDE 2.5 MG ORAL TABLET 1 tab by mouth daily 2017 GLYBURIDE 69287224998 No Longer Active Brigitte Saucedo MA Acti ve CLIMARA 0.025 MG/24HR TRANSDERMAL PATCH WEEKLY Place 1 patch every week ESTRADIOL 34697740514 Active Davey Jimenez MD Active ONDANSETRON 4 MG ORAL TABLET DISINTEGRATING 1 q4h PRN nausea 07/30 ONDANSETRON 87431464753 Active Davey Jimenez MD Active SIMVASTATIN 20 MG ORAL TABLET 1 tab daily at bedtime SIMVASTATIN 80647386543 Active Davey Jimenez MD Active LOSARTAN POTASSIUM 25 MG ORAL TABLET 1 pill daily, for blood pressure LOSARTAN POTASSIUM 16086000807 Active Davey Jimenez MD Active GLYBURIDE 2.5 MG ORAL TABLET 1 tab by mouth daily 2017 GLYBURIDE 2.5 MG ORAL TABLET 518008 GLYBURIDE Inactive Advance Directives Directive Description Start [...] mg/dL Encounters Code Encounter Date Provider Facility CPT-13932 Level 5 Est. Patient 11:51:47 CDT Fadumo dunn [facility] CPT-16738 Level 5 Est. Patient 12:49:59 CDT Kisha rendon [facility] CPT-71387 Level 4 Est. Patient 10:56:25 CDT Fito russell MD [facility] Procedures Code Procedure Name Date Entry Date Standard Desc ription CPT-49619 Postop F/U Visit 19:34:43 CDT CPT-18893 Postop F/U Visit 14:39:09 CDT
--- OUTSIDE RECORDS SUMMARY | 2019-07-28 22:56 | XMS REPORT | Clinical Summary ---
Author Author Karina, Leeann Vasquez Organization [facility] Address Unknown Phone Unavailable Allergies, Adverse Reactions, [...] with other cholecystitis, without mention of obstruction Medication List Medication Instructions Start Date Stop Date Generic Name NDC Status Provider Patient Instruction ALEVE 220 MG ORAL TABLET 2 tabs once every 4-6hrs PRN NAPROXEN SODIUM 57909221801 Active Brigitte Saucedo MA Active LANTUS SOLOSTAR SOLUTION PEN-INJECTOR 18 units at bedtime 2 INSULIN GLARGINE SOPN 33132577697 Active Brigitte Saucedo MA Active GLYBURIDE 2.5 MG ORAL TABLET 1 tab by mouth daily 2017 GLYBURIDE 70139242794 No Longer Active Brigitte Saucedo MA Acti ve CLIMARA 0.025 MG/24HR TRANSDERMAL PATCH WEEKLY Place 1 patch every week ESTRADIOL 91990743726 Carrie Jimenez MD Active ONDANSETRON 4 MG ORAL TABLET DISINTEGRATING 1 q4h PRN nausea 07/30 ONDANSETRON 16108975316 Carrie Jimenez MD Active SIMVASTATIN 20 MG ORAL TABLET 1 tab daily at bedtime SIMVASTATIN 74953478632 Carrie Jimenez MD Active LOSARTAN POTASSIUM 25 MG ORAL TABLET 1 pill daily, for blood pressure LOSARTAN POTASSIUM 39366154187 Active J Tomas Jimenez MD Active GLYBURIDE 2.5 MG ORAL TABLET 1 tab by mouth daily 2017 GLYBURIDE 2.5 MG ORAL TABLET 794165 GLYBURIDE Inactive Advance Directives Directive Description Start Date PERMISSION TO SHARE Vital Signs Date Name Value Unit Range Description blood pressure, diastolic 71 mm[Hg] BP davis [...] d Encounters Code Encounter Date Provider Facility CPT-33875 Level 4 Est. Patient 10:56:25 CDT Fito russell MD [facility]
--- OUTSIDE RECORDS SUMMARY | 2019-07-28 22:56 | XMS REPORT | Clinical Summary ---
Author Author Karina, Leeann Vasquez Organization [employer] Address Unknown Phone Unavailable Allergies, Adverse Reactions, [...] MD Body Mass Index between 19-24, adult Type 2 diabetes mellitus with hyperglycemia 250.00 Act charley Maliheh Donnieglari POLYMER TESTER Diabetes mellitus without me ntion of complication, type II or unspecified type, not stated as uncontrolled Body Mass Index 23.0-23.9 Adult Active 2017 Maliheh Donnieglari POLYMER TESTER Body Mass Index between 19-24, adult Type 2 diabetes mellitus with diabetic polyneuropathy Active Maliheh Ziglari POLYMER TESTER USP use of insulin treatment V58.67 Active 2 Kisha Fieldsglari POLYMER TESTER Long-term (current) use of insulin Type 2 diabetes mellitus with hypoglycemia without coma 250.80 Active Kisha VALLE Diabetes me llitus with other specified manifestations, type II or unspecified type, not stated as uncontrolled Medication List Medication Instructions Start Date Stop Date Generic Name NDC Status Provider Patient Instruction GLIMEPIRIDE 2 MG ORAL TABLET by mouth one a day GLIMEPIRIDE 26537919254 Active Kisha Christian LEONARD Active ALEVE 220 MG ORAL TABLET 2 tabs once every 4-6hrs PRN NAPROXEN SODIUM 55780845999 Active Brigitte Saucedo MA Active LANTUS SOLOSTAR SOLUTION PEN-INJECTOR 18 units at bedtime 2 INSULIN GLARGINE SOPN 77726936276 Active Brigitte Saucedo MA Active GLYBURIDE 2.5 MG ORAL TABLET 1 tab by mouth daily 2017 GLYBURIDE 28263605695 No Longer Active Brigitte Saucedo MA Acti ve CLIMARA 0.025 MG/24HR TRANSDERMAL PATCH WEEKLY Place 1 patch every week ESTRADIOL 72506972149 Active Davey Jimenez MD Active ONDANSETRON 4 MG ORAL TABLET DISINTEGRATING 1 q4h PRN nausea 07/30 ONDANSETRON 26356733153 Active Davey Jimenez MD Active SIMVASTATIN 20 MG ORAL TABLET 1 tab daily at bedtime SIMVASTATIN 02204122488 Active Davey Jimenez MD Active LOSARTAN POTASSIUM 25 MG ORAL TABLET 1 pill daily, for blood pressure LOSARTAN POTASSIUM 77546892966 Active Davey Jimenez MD Active GLYBURIDE 2.5 MG ORAL TABLET 1 tab by mouth daily 2017 GLYBURIDE 2.5 MG ORAL TABLET 122462 GLYBURIDE Inactive Advance Directives Directive Description Start [...] - Basic LDL target level 100 mg/dL Office Visit: Diabetes Visit - Chemistry home glucose monitor utilized Yes cholesterol, target level 200 mg/dL triglyceride, target level 200 mg/dL HDL cholesterol, serum, target level 35 mg/dL Encounters Code Encounter Date Provider Facility CPT-88910 Level 5 Est. [facility] 12[facility]49:[facility] Level 4 Est. Patient 10:56:25 CDT Fito russell MD [facility] Procedures Code Procedure Name Date Entry Date Standard Desc ription CPT-09941 Postop F/U Visit 19:34:43 CDT CPT-38050 Postop F/U Visit 14:39:09 CDT
--- OUTSIDE RECORDS SUMMARY | 2019-07-28 22:56 | XMS REPORT | Clinical Summary ---
Author Author Karina, Leeann Vasquez Organization [facility] Address Unknown Phone Unavailable Allergies, Adverse Reactions, [...] tabs once every 4-6hrs PRN NAPROXEN SODIUM 75616684197 Active Brigitte Saucedo MA Active LANTUS SOLOSTAR SOLUTION PEN-INJECTOR 18 units at bedtime 2 INSULIN GLARGINE SOPN 50145192027 Active Brigitte Saucedo MA Active GLYBURIDE 2.5 MG ORAL TABLET 1 tab by mouth daily 2017 GLYBURIDE 01454894667 No Longer Active Brigitte Saucedo MA Acti ve CLIMARA 0.025 MG/24HR TRANSDERMAL PATCH WEEKLY Place 1 patch every week ESTRADIOL 91894366495 Active Davey Jimenez MD Active ONDANSETRON 4 MG ORAL TABLET DISINTEGRATING 1 q4h PRN nausea 07/30 ONDANSETRON 82044377445 Active Davey Jimenez MD Active SIMVASTATIN 20 MG ORAL TABLET 1 tab daily at bedtime SIMVASTATIN 48484133330 Active Davey Jimenez MD Active LOSARTAN POTASSIUM 25 MG ORAL TABLET 1 pill daily, for blood pressure LOSARTAN POTASSIUM 63071226242 Active Davey Jimenez MD Active GLYBURIDE 2.5 MG ORAL TABLET 1 tab by mouth daily 2017 GLYBURIDE 2.5 MG ORAL TABLET 075078 GLYBURIDE Inactive Advance Directives Directive Description Start [...] d Encounters Code Encounter Date Provider Facility CPT-63382 Level 4 Est. Patient 10:56:25 CDT Fito russell MD [facility] Procedures Code Procedure Name Date Entry Date Standard Desc ription CPT-44067 Postop F/U Visit 19:34:43 CDT CPT-20594 Postop F/U Visit 14:39:09 CDT
--- OUTSIDE RECORDS SUMMARY | 2019-07-28 22:56 | XMS REPORT | Clinical Summary ---
Author Author Karina, Leeann Vasquez Organization [employer] Address Unknown Phone Unavailable Allergies, Adverse Reactions, [...] with hyperglycemia 250.00 Act charley Maliheh Donnieglari HOUSESMITH Diabetes mellitus without me ntion of complication, type II or unspecified type, not stated as uncontrolled Body Mass Index 23.0-23.9 Adult Active 2017 Maliheh Donnieglari HOUSESMITH Body Mass Index between 19-24, adult Type 2 diabetes mellitus with diabetic polyneuropathy Active Maliheh Ziglari HOUSESMITH [facility] use of insulin treatment V58.67 Active 2 Kisha Fieldsglari HOUSESMITH Long-term (current) use of insulin Type 2 diabetes mellitus with hypoglycemia without coma 250.80 Active Kisha VALLE Diabetes me llitus with other specified manifestations, type II or unspecified type, not stated as uncontrolled Medication List Medication Instructions Start Date Stop Date Generic Name NDC Status Provider Patient Instruction GLIMEPIRIDE 2 MG ORAL TABLET by mouth one a day GLIMEPIRIDE 69685347523 Active Kisha Christian LEONARD Active ALEVE 220 MG ORAL TABLET 2 tabs once every 4-6hrs PRN NAPROXEN SODIUM 33716978684 Active Brigitte Saucedo MA Active LANTUS SOLOSTAR SOLUTION PEN-INJECTOR 18 units at bedtime 2 INSULIN GLARGINE SOPN 08043131025 Active Brigitte Saucedo MA Active GLYBURIDE 2.5 MG ORAL TABLET 1 tab by mouth daily 2017 GLYBURIDE 79189826259 No Longer Active Brigitte Saucedo MA Acti ve CLIMARA 0.025 MG/24HR TRANSDERMAL PATCH WEEKLY Place 1 patch every week ESTRADIOL 69769631573 Active Davey Jimenez MD Active ONDANSETRON 4 MG ORAL TABLET DISINTEGRATING 1 q4h PRN nausea 07/30 ONDANSETRON 92247890212 Active Davey Jimenez MD Active SIMVASTATIN 20 MG ORAL TABLET 1 tab daily at bedtime SIMVASTATIN 74407281310 Active Davey Jimenez MD Active LOSARTAN POTASSIUM 25 MG ORAL TABLET 1 pill daily, for blood pressure LOSARTAN POTASSIUM 84962447506 Active Davey Jimenez MD Active GLYBURIDE 2.5 MG ORAL TABLET 1 tab by mouth daily 2017 GLYBURIDE 2.5 MG ORAL TABLET 974624 GLYBURIDE Inactive Advance Directives Directive Description Start [...] mg/dL Encounters Code Encounter Date Provider Facility CPT-93736 Level 5 Est. [facility] 12:49:59 [facility] Level 4 Est. Patient 10:56:25 CDT Fito russell MD [facility] Procedures Code Procedure Name Date Entry Date Standard Desc ription CPT-12812 Postop F/U Visit 19:34:43 CDT CPT-79496 Postop F/U Visit 14:39:09 CDT
--- OUTSIDE RECORDS SUMMARY | 2019-07-28 22:56 | XMS REPORT | Clinical Summary ---
Author Author Karina, Leeann Vasquez Organization [facility] Address Unknown Phone Unavailable Allergies, [...] tabs once every 4-6hrs PRN NAPROXEN SODIUM 87206299710 Active Brigitte Saucedo MA Active LANTUS SOLOSTAR SOLUTION PEN-INJECTOR 18 units at bedtime 2 INSULIN GLARGINE SOPN 82671507440 Active Brigitte Saucedo MA Active GLYBURIDE 2.5 MG ORAL TABLET 1 tab by mouth daily 2017 GLYBURIDE 32327851696 No Longer Active Brigitte Saucedo MA Acti ve CLIMARA 0.025 MG/24HR TRANSDERMAL PATCH WEEKLY Place 1 patch every week ESTRADIOL 01430843155 Carrie Jimenez MD Active ONDANSETRON 4 MG ORAL TABLET DISINTEGRATING 1 q4h PRN nausea 07/30 ONDANSETRON 89450154395 Carrie Jimenez MD Active SIMVASTATIN 20 MG ORAL TABLET 1 tab daily at bedtime SIMVASTATIN 71140275922 Carrie Jimenez MD Active LOSARTAN POTASSIUM 25 MG ORAL TABLET 1 pill daily, for blood pressure LOSARTAN POTASSIUM 19598487942 Active J Tomas Jimenez MD Active GLYBURIDE 2.5 MG ORAL TABLET 1 tab by mouth daily 2017 GLYBURIDE 2.5 MG ORAL TABLET 725228 GLYBURIDE Inactive Vital Signs Date Name Value Unit Range [...] d Encounters Code Encounter Date Provider Facility CPT-90032 Level 4 Est. Patient 10:56:25 CDT Fito russell MD [facility]
--- OUTSIDE RECORDS SUMMARY | 2019-07-28 22:56 | XMS REPORT | Clinical Summary ---
Author Author Karina, Leeann Vasquez Organization [facility] Address Unknown Phone Unavailable Allergies, Adverse [...] MD Unspecified disorder of kidney and ureter Medication List Medication Instructions Start Date Stop Date Generic Name NDC Status Provider Patient Instruction CLIMARA 0.025 MG/24HR TRANSDERMAL PATCH WEEKLY Place 1 patch every week ESTRADIOL 22967124940 Active Davey Jimenez MD Active GLYBURIDE 2.5 MG ORAL TABLET 1 tab by mouth daily GLYBURIDE 92088529749 Active Davey Jimenez MD Active ONDANSETRON 4 MG ORAL TABLET DISINTEGRATING 1 q4h PRN nausea 07/30 ONDANSETRON 75021441353 Active Davey Jimenez MD Active SIMVASTATIN 20 MG ORAL TABLET 1 tab daily at bedtime SIMVASTATIN 13256486464 Active Davey Jimenez MD Active LOSARTAN POTASSIUM 25 MG ORAL TABLET 1 pill daily, for blood pressure LOSARTAN POTASSIUM 58401418955 Active Davey Jimenez MD Active Vital Signs Date Name Value Unit Range Description blood pressure, diastolic 75 mm[Hg] BP davis blood pressure, systolic 115 mm[Hg] BP sys height E&M 62 [in_us] Bdy height pulse rate E&M 94 /min Heart rate temperature E&M 97.6 [degF] Body temp erature weight E&M 135 [lb_av] Weight Measure d
--- OUTSIDE RECORDS SUMMARY | 2019-07-28 22:56 | XMS REPORT | Clinical Summary ---
Author Author Karina, Leeann Vasquez Organization [facility] Address Unknown Phone Unavailable Allergies, [...] tabs once every 4-6hrs PRN NAPROXEN SODIUM 54069724444 Active Brigitte Saucedo MA Active LANTUS SOLOSTAR SOLUTION PEN-INJECTOR 18 units at bedtime 2 INSULIN GLARGINE SOPN 89234153342 Active Brigitte Saucedo MA Active GLYBURIDE 2.5 MG ORAL TABLET 1 tab by mouth daily 2017 GLYBURIDE 20315857219 No Longer Active Brigitte Saucedo MA Acti ve CLIMARA 0.025 MG/24HR TRANSDERMAL PATCH WEEKLY Place 1 patch every week ESTRADIOL 49616234962 Carrie Jimenez MD Active ONDANSETRON 4 MG ORAL TABLET DISINTEGRATING 1 q4h PRN nausea 07/30 ONDANSETRON 40032109114 Carrie Jimenez MD Active SIMVASTATIN 20 MG ORAL TABLET 1 tab daily at bedtime SIMVASTATIN 56408719522 Carrie Jimenez MD Active LOSARTAN POTASSIUM 25 MG ORAL TABLET 1 pill daily, for blood pressure LOSARTAN POTASSIUM 66385002880 Active J Tomas Jimenez MD Active GLYBURIDE 2.5 MG ORAL TABLET 1 tab by mouth daily 2017 GLYBURIDE 2.5 MG ORAL TABLET 734011 GLYBURIDE Inactive Vital Signs Date Name Value [...] d Encounters Code Encounter Date Provider Facility CPT-87411 Level 4 Est. Patient 10:56:25 CDT Fito russell MD [facility]
--- OUTSIDE RECORDS SUMMARY | 2019-07-28 22:56 | XMS REPORT | Clinical Summary ---
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 Davey Jimenez MD Malignant neoplasm of kidney, except pel vis Body Mass Index 24.0-24.9 Adult Inactive 2017 Fadumo Babin MANAGER OF SUPPLY CHAIN Body Mass Index between 19-24, adult Type 2 diabetes mellitus with hyperglycemia 250.00 Act charley Maliheh Ziglari CLIENT PORTFOLIO MANAGER Diabetes mellitus without me ntion of complication, type II or unspecified type, not stated as uncontrolled Body Mass Index 23.0-23.9 Adult Active 2017 Maliheh Ziglari CLIENT PORTFOLIO MANAGER Body Mass Index between 19-24, adult Type 2 diabetes mellitus with diabetic polyneuropathy Active Maliheh Ziglari CLIENT PORTFOLIO MANAGER 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 80 Inactive Fadumo Babin MANAGER OF SUPPLY CHAIN Medication List Medication Instructions Start Date Stop Date Generic Name ND Status Provider Patient Instruction GLIMEPIRIDE 2 MG ORAL TABLET 2 tabs PO daily GL IMEPIRIDE 47423049370 Active Fadumo Babin MANAGER OF SUPPLY CHAIN Active ELIZABETH CONTOUR TEST IN VITRO STRIP check blood sugars 3 times a day for DM E11.65 GLUCOSE BLOOD 05597207309 Active Fadumojeny Babin A PRN Active ELIZABETH CONTOUR MONITOR W/DEVICE KIT BLOOD GLUCOSE MONITORING SUPPL 33078739935 Active Fadumo Babin MANAGER OF SUPPLY CHAIN Activ e ALEVE 220 MG ORAL TABLET 2 tabs once every 4-6hrs PRN NAPROXEN SODIUM 86741224254 Active Brigitte Saucedo MA Active LANTUS SOLOSTAR SOLUTION PEN-INJECTOR 18 units at bedtime 2 INSULIN GLARGINE SOPN 53740821281 Active Brigitte Saucedo MA Active GLYBURIDE 2.5 MG ORAL TABLET 1 tab by mouth daily 2017 GLYBURIDE 79525055866 No Longer Active Brigitte Saucedo MA Acti ve CLIMARA 0.025 MG/24HR TRANSDERMAL PATCH WEEKLY Place 1 patch every week ESTRADIOL 50521766077 Carrie Jimenez MD Active ONDANSETRON 4 MG ORAL TABLET DISINTEGRATING 1 q4h PRN nausea 07/30 ONDANSETRON 16089117921 Carrie Jimenez MD Active SIMVASTATIN 20 MG ORAL TABLET 1 tab daily at bedtime SIMVASTATIN 21953302422 Carrie Jimenez MD Active LOSARTAN POTASSIUM 25 MG ORAL TABLET 1 pill daily, for blood pressure LOSARTAN POTASSIUM 89572807540 Active Davey Jimenez MD Active GLYBURIDE 2.5 MG ORAL TABLET 1 tab by mouth daily 2017 GLYBURIDE 2.5 MG ORAL TABLET 701719 GLYBURIDE Inactive Advance Directives Directive Description Start [...] mg/dL Encounters Code Encounter Date Provider Facility CPT-51316 Level 5 Est. Patient 11:51:47 CDT Fadumo dunn [facility] CPT-28530 Level 5 Est. Patient 12:49:59 CDT Kisha rendon [facility] CPT-50368 Level 4 Est. Patient 10:56:25 CDT Fito russell [facility] Procedures Code Procedure Name Date Entry Date Standard Desc ription CPT-24710 Postop F/U Visit 19:34:43 CDT [facility]-46274 Postop F/U Visit 14:39:09 CDT
--- OUTSIDE RECORDS SUMMARY | 2019-07-28 22:56 | XMS REPORT | Clinical Summary ---
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 Davey Jimenez MD Malignant neoplasm of kidney, except pel vis Body Mass Index 24.0-24.9 Adult Inactive 2017 Fadumo Babin STOCK REPAIRER Body Mass Index between 19-24, adult Type 2 diabetes mellitus with hyperglycemia 250.00 Act charley Maliheh Ziglari SAMPLE COLLECTOR Diabetes mellitus without me ntion of complication, type II or unspecified type, not stated as uncontrolled Body Mass Index 23.0-23.9 Adult Active 2017 Maliheh Ziglari SAMPLE COLLECTOR Body Mass Index between 19-24, adult Type 2 diabetes mellitus with diabetic polyneuropathy Active Maliheh Ziglari SAMPLE COLLECTOR ocean transportation intermediary use of insulin treatment V58.67 Active 2 Maliheh Ziglari SAMPLE COLLECTOR Long-term (current) use of insulin Type 2 diabetes mellitus with hypoglycemia without coma 250.80 Resolved Fadumo Babin STOCK REPAIRER Diabetes mellitus with other specified manifestations, type II or unspecified type, not stated as uncontrolled Body Mass Index 24.0-24.9 Adult Ina tive Fadumo Babin STOCK REPAIRER Body Mass Index 24.0-24.9 Adult [facility] tive Fadumo Babin STOCK REPAIRER Type 2 diabetes mellitus with hypoglycemia without coma ICD-250. 80 Inactive Fadumo Babin STOCK REPAIRER Medication List Medication Instructions Start Date Stop Date Generic Name ND Status Provider Patient Instruction GLIMEPIRIDE 2 MG ORAL TABLET 2 tabs PO daily GL IMEPIRIDE 09427453921 Active Fadumo Babin STOCK REPAIRER Active ELIZABETH CONTOUR TEST IN VITRO STRIP check blood sugars 3 times a day for DM E11.65 GLUCOSE BLOOD 36345935553 Active Fadumojeny Babin A PRN Active ELIZABETH CONTOUR MONITOR W/DEVICE KIT BLOOD GLUCOSE MONITORING SUPPL 84066121588 Active Fadumo Babin STOCK REPAIRER Activ e ALEVE 220 MG ORAL TABLET 2 tabs once every 4-6hrs PRN NAPROXEN SODIUM 49120039498 Active Brigitte Saucedo MA Active LANTUS SOLOSTAR SOLUTION PEN-INJECTOR 18 units at bedtime 2 INSULIN GLARGINE SOPN 76882488288 Active Brigitte Saucedo MA Active GLYBURIDE 2.5 MG ORAL TABLET 1 tab by mouth daily 2017 GLYBURIDE 00314488905 No Longer Active Brigitte Saucedo MA Acti ve CLIMARA 0.025 MG/24HR TRANSDERMAL PATCH WEEKLY Place 1 patch every week ESTRADIOL 10420148604 Carrie Jimenez MD Active ONDANSETRON 4 MG ORAL TABLET DISINTEGRATING 1 q4h PRN nausea 07/30 ONDANSETRON 93937041985 Carrie Jimenez MD Active SIMVASTATIN 20 MG ORAL TABLET 1 tab daily at bedtime SIMVASTATIN 10820029208 Carrie Jimenez MD Active LOSARTAN POTASSIUM 25 MG ORAL TABLET 1 pill daily, for blood pressure LOSARTAN POTASSIUM 89408630998 Active Davey Jimenez MD Active GLYBURIDE 2.5 MG ORAL TABLET 1 tab by mouth daily 2017 GLYBURIDE 2.5 MG ORAL TABLET 428277 GLYBURIDE Inactive Advance Directives Directive Description Start [...] mg/dL Encounters Code Encounter Date Provider Facility CPT-47084 Level 5 Est. Patient 11:51:47 CDT Fadumo dunn [facility] CPT-53817 Level 5 Est. Patient 12:49:59 CDT Kisha rendon [facility] CPT-53814 Level 4 Est. Patient 10:56:25 CDT F[facility]ell [facility] Procedures Code Procedure Name Date Entry Date Standard Desc ription CPT-39214 Postop F/U Visit 19:34:43 CDT [facility]-71762 Postop F/U Visit 14:39:09 CDT
--- OUTSIDE RECORDS SUMMARY | 2019-07-28 22:56 | XMS REPORT | Clinical Summary ---
Author Author Karina, Leeann Vasquez Organization [facility] Address Unknown Phone Unavailable Allergies, [...] tabs once every 4-6hrs PRN NAPROXEN SODIUM 90942787554 Active Brigitte Saucedo MA Active LANTUS SOLOSTAR SOLUTION PEN-INJECTOR 18 units at bedtime 2 INSULIN GLARGINE SOPN 70236615467 Active Brigitte Saucedo MA Active GLYBURIDE 2.5 MG ORAL TABLET 1 tab by mouth daily 2017 GLYBURIDE 00303995612 No Longer Active Brigitte Saucedo MA Acti ve CLIMARA 0.025 MG/24HR TRANSDERMAL PATCH WEEKLY Place 1 patch every week ESTRADIOL 50270393235 Carrie Jimenez MD Active ONDANSETRON 4 MG ORAL TABLET DISINTEGRATING 1 q4h PRN nausea 07/30 ONDANSETRON 53536418066 Carrie Jimenez MD Active SIMVASTATIN 20 MG ORAL TABLET 1 tab daily at bedtime SIMVASTATIN 40034317360 Carrie Jimenez MD Active LOSARTAN POTASSIUM 25 MG ORAL TABLET 1 pill daily, for blood pressure LOSARTAN POTASSIUM 49988464459 Active J Tomas Jimenez MD Active GLYBURIDE 2.5 MG ORAL TABLET 1 tab by mouth daily 2017 GLYBURIDE 2.5 MG ORAL TABLET 323639 GLYBURIDE Inactive Advance Directives Directive Description Start [...] d Encounters Code Encounter Date Provider Facility CPT-55634 Level 4 Est. Patient 10:56:25 CDT Fito russell MD [facility]
--- OUTSIDE RECORDS SUMMARY | 2019-07-28 22:56 | XMS REPORT | Clinical Summary ---
Author Author Karina, Leeann Vasquez Organization [facility] Address Unknown Phone Unavailable Allergies, Adverse Reactions, [...] tabs once every 4-6hrs PRN NAPROXEN SODIUM 06704914465 Active Brigitte Saucedo MA Active LANTUS SOLOSTAR SOLUTION PEN-INJECTOR 18 units at bedtime 2 INSULIN GLARGINE SOPN 96003341668 Active Brigitte Saucedo MA Active GLYBURIDE 2.5 MG ORAL TABLET 1 tab by mouth daily 2017 GLYBURIDE 78077183457 No Longer Active Brigitte Saucedo MA Acti ve CLIMARA 0.025 MG/24HR TRANSDERMAL PATCH WEEKLY Place 1 patch every week ESTRADIOL 80916246577 Carrie Jimenez MD Active ONDANSETRON 4 MG ORAL TABLET DISINTEGRATING 1 q4h PRN nausea 07/30 ONDANSETRON 44393658961 Carrie Jimenez MD Active SIMVASTATIN 20 MG ORAL TABLET 1 tab daily at bedtime SIMVASTATIN 38622113344 Carrie Jimenez MD Active LOSARTAN POTASSIUM 25 MG ORAL TABLET 1 pill daily, for blood pressure LOSARTAN POTASSIUM 53927502145 Active J Tomas Jimenez MD Active GLYBURIDE 2.5 MG ORAL TABLET 1 tab by mouth daily 2017 GLYBURIDE 2.5 MG ORAL TABLET 215750 GLYBURIDE Inactive Vital Signs Date Name Value [...] d Encounters Code Encounter Date Provider Facility CPT-15309 Level 4 Est. Patient 10:56:25 CDT Fito russell MD [facility]
--- OUTSIDE RECORDS SUMMARY | 2019-07-28 22:56 | XMS REPORT | Clinical Summary ---
[...] tabs once every 4-6hrs PRN NAPROXEN SODIUM 57350772146 Active Brigitte Saucedo MA Active LANTUS SOLOSTAR SOLUTION PEN-INJECTOR 18 units at bedtime 2 INSULIN GLARGINE SOPN 94567650023 Active Brigitte Saucedo MA Active GLYBURIDE 2.5 MG ORAL TABLET 1 tab by mouth daily 2017 GLYBURIDE 32710886535 No Longer Active Brigitte Saucedo MA Acti ve CLIMARA 0.025 MG/24HR TRANSDERMAL PATCH WEEKLY Place 1 patch every week ESTRADIOL 44992192933 Active Davey Jimenez MD Active ONDANSETRON 4 MG ORAL TABLET DISINTEGRATING 1 q4h PRN nausea 07/30 ONDANSETRON 49688912485 Active Davey Jimenez MD Active SIMVASTATIN 20 MG ORAL TABLET 1 tab daily at bedtime SIMVASTATIN 68738475664 Active Davey Jimenez MD Active LOSARTAN POTASSIUM 25 MG ORAL TABLET 1 pill daily, for blood pressure LOSARTAN POTASSIUM 55347670276 Active Davey Jimenez MD Active GLYBURIDE 2.5 MG ORAL TABLET 1 tab by mouth daily 2017 GLYBURIDE 2.5 MG ORAL TABLET 353424 GLYBURIDE Inactive Advance Directives Directive Description Start [...] d Encounters Code Encounter Date Provider Facility CPT-27888 Level 4 Est. Patient 10:56:25 CDT Fito russell MD [facility] Procedures Code Procedure Name Date Entry Date Standard Desc ription CPT-55093 Postop F/U Visit 19:34:43 CDT CPT-95915 Postop F/U Visit 14:39:09 CDT
--- OUTSIDE RECORDS SUMMARY | 2019-07-28 22:57 | XMS REPORT | Clinical Summary ---
Author Author Karina, Leeann Vasquez Organization [facility] Address Unknown Phone Unavailable Allergies, Adverse Reactions, [...] diabetes mellitus with hyperglycemia 250.00 Act charley Lianeteh Donnieglari TELEVISION SERVICE ENGINEER Diabetes mellitus without me ntion of complication, type II or unspecified type, not stated as uncontrolled Body Mass Index 23.0-23.9 Adult Active 2017 Lianeteh Donnieglari TELEVISION SERVICE ENGINEER Body Mass Index between 19-24, adult Type 2 diabetes mellitus with diabetic polyneuropathy Active Shoniheh Donnieglari TELEVISION SERVICE ENGINEER shelter use of insulin treatment V58.67 Active 2 Kisha VALLE Long-term (current) use of insulin Type 2 diabetes mellitus with hypoglycemia without coma 250.80 Active Kisha VALLE Diabetes me llitus with other specified manifestations, type II or unspecified type, not stated as uncontrolled Medication List Medication Instructions Start Date Stop Date Generic Name NDC Status Provider Patient Instruction GLIMEPIRIDE 2 MG ORAL TABLET by mouth one a day GLIMEPIRIDE 82293182461 Active Kisha VALLE Active ALEVE 220 MG ORAL TABLET 2 tabs once every 4-6hrs PRN NAPROXEN SODIUM 73516436136 Active Brigitte Saucedo MA Active LANTUS SOLOSTAR SOLUTION PEN-INJECTOR 18 units at bedtime 2 INSULIN GLARGINE SOPN 59428557477 Active Brigitte Saucedo MA Active GLYBURIDE 2.5 MG ORAL TABLET 1 tab by mouth daily 2017 GLYBURIDE 56075906734 No Longer Active Brigitte Saucedo MA Acti ve CLIMARA 0.025 MG/24HR TRANSDERMAL PATCH WEEKLY Place 1 patch every week ESTRADIOL 14143558804 Active Davey Jimenez MD Active ONDANSETRON 4 MG ORAL TABLET DISINTEGRATING 1 q4h PRN nausea 07/30 ONDANSETRON 25787820054 Active Davey Jimenez MD Active SIMVASTATIN 20 MG ORAL TABLET 1 tab daily at bedtime SIMVASTATIN 39625647881 Active Davey Jimenez MD Active LOSARTAN POTASSIUM 25 MG ORAL TABLET 1 pill daily, for blood pressure LOSARTAN POTASSIUM 54183152211 Active Davey Jimenez MD Active GLYBURIDE 2.5 MG ORAL TABLET 1 tab by mouth daily 2017 GLYBURIDE 2.5 MG ORAL TABLET 513119 GLYBURIDE Inactive Advance Directives Directive Description Start [...] mg/dL Encounters Code Encounter Date Provider Facility CPT-51017 Level 5 Est. [facility] 12[facility]49:59 [facility] Level 4 Est. Patient 10:56:25 CDT Fito russell MD [facility] Procedures Code Procedure Name Date Entry Date Standard Desc ription CPT-78184 Postop F/U Visit 19:34:43 CDT CPT-60193 Postop F/U Visit 14:39:09 CDT
--- OUTSIDE RECORDS SUMMARY | 2019-07-28 22:57 | XMS REPORT | Clinical Summary ---
Author Author Karina, Leeann Vasquez Organization [facility] Address Unknown Phone Unavailable Allergies, Adverse [...] tabs once every 4-6hrs PRN NAPROXEN SODIUM 59400389797 Active Brigitte Saucedo MA Active LANTUS SOLOSTAR SOLUTION PEN-INJECTOR 18 units at bedtime 2 INSULIN GLARGINE SOPN 43463177862 Active Brigitte Saucedo MA Active GLYBURIDE 2.5 MG ORAL TABLET 1 tab by mouth daily 2017 GLYBURIDE 76590367878 No Longer Active Brigitte Saucedo MA Acti ve CLIMARA 0.025 MG/24HR TRANSDERMAL PATCH WEEKLY Place 1 patch every week ESTRADIOL 72245968395 Active Davey Jimenez MD Active ONDANSETRON 4 MG ORAL TABLET DISINTEGRATING 1 q4h PRN nausea 07/30 ONDANSETRON 49393007947 Active J Tomas Jimenez MD Active SIMVASTATIN 20 MG ORAL TABLET 1 tab daily at bedtime SIMVASTATIN 60372773959 Active Davey Jimenez MD Active LOSARTAN POTASSIUM 25 MG ORAL TABLET 1 pill daily, for blood pressure LOSARTAN POTASSIUM 17120087727 Active Davey Jimenez MD Active GLYBURIDE 2.5 MG ORAL TABLET 1 tab by mouth daily 2017 GLYBURIDE 2.5 MG ORAL TABLET 747326 GLYBURIDE Inactive Advance Directives Directive Description Start [...] d Encounters Code Encounter Date Provider Facility CPT-30878 Level 4 Est. Patient 10:56:25 CDT Fito russell MD [facility] Procedures Code Procedure Name Date Entry Date Standard Desc ription CPT-06283 Postop F/U Visit 14:39:09 CDT
--- OUTSIDE RECORDS SUMMARY | 2019-07-28 22:57 | XMS REPORT | Clinical Summary ---
Author Author Karina, Leeann Vasquez Organization [facility] Address Unknown Phone Unavailable Allergies, Adverse [...] tabs once every 4-6hrs PRN NAPROXEN SODIUM 54306939165 Active Brigitte Saucedo MA Active LANTUS SOLOSTAR SOLUTION PEN-INJECTOR 18 units at bedtime 2 INSULIN GLARGINE SOPN 04442256592 Active Brigitte Saucedo MA Active GLYBURIDE 2.5 MG ORAL TABLET 1 tab by mouth daily 2017 GLYBURIDE 38977868646 No Longer Active Brigitte Saucedo MA Acti ve CLIMARA 0.025 MG/24HR TRANSDERMAL PATCH WEEKLY Place 1 patch every week ESTRADIOL 92524332843 Carrie Jimenez MD Active ONDANSETRON 4 MG ORAL TABLET DISINTEGRATING 1 q4h PRN nausea 07/30 ONDANSETRON 81847890439 Carrie Jimenez MD Active SIMVASTATIN 20 MG ORAL TABLET 1 tab daily at bedtime SIMVASTATIN 14398078839 Carrie Jimenez MD Active LOSARTAN POTASSIUM 25 MG ORAL TABLET 1 pill daily, for blood pressure LOSARTAN POTASSIUM 22746408645 Active J Tomas Jimenez MD Active GLYBURIDE 2.5 MG ORAL TABLET 1 tab by mouth daily 2017 GLYBURIDE 2.5 MG ORAL TABLET 104310 GLYBURIDE Inactive Advance Directives Directive Description Start [...] d Encounters Code Encounter Date Provider Facility CPT-83060 Level 4 Est. Patient 10:56:25 CDT Fito russell MD [facility]
--- OUTSIDE RECORDS SUMMARY | 2019-07-28 22:57 | XMS REPORT | Clinical Summary ---
Author Author Karina, Leeann Vasquez Organization [facility] Address Unknown Phone Unavailable Allergies, Adverse Reactions, [...] tabs once every 4-6hrs PRN NAPROXEN SODIUM 03948232537 Active Brigitte Saucedo MA Active LANTUS SOLOSTAR SOLUTION PEN-INJECTOR 18 units at bedtime 2 INSULIN GLARGINE SOPN 47460741511 Active Brigitte Saucedo MA Active GLYBURIDE 2.5 MG ORAL TABLET 1 tab by mouth daily 2017 GLYBURIDE 99862109810 No Longer Active Brigitte Saucedo MA Acti ve CLIMARA 0.025 MG/24HR TRANSDERMAL PATCH WEEKLY Place 1 patch every week ESTRADIOL 79562515804 Carrie Jimenez MD Active ONDANSETRON 4 MG ORAL TABLET DISINTEGRATING 1 q4h PRN nausea 07/30 ONDANSETRON 19044185297 Carrie Jimenez MD Active SIMVASTATIN 20 MG ORAL TABLET 1 tab daily at bedtime SIMVASTATIN 62970479121 Carrie Jimenez MD Active LOSARTAN POTASSIUM 25 MG ORAL TABLET 1 pill daily, for blood pressure LOSARTAN POTASSIUM 96816814642 Active J Tomas Jimenez MD Active GLYBURIDE 2.5 MG ORAL TABLET 1 tab by mouth daily 2017 GLYBURIDE 2.5 MG ORAL TABLET 661412 GLYBURIDE Inactive Advance Directives Directive Description Start [...] d Encounters Code Encounter Date Provider Facility CPT-54839 Level 4 Est. Patient 10:56:25 CDT Fito russell MD [facility]
--- OUTSIDE RECORDS SUMMARY | 2019-07-28 22:57 | XMS REPORT | Continuity of Care Document ---
Author Organization Unknown Address Unknown Phone Unavailable Allergies Active Description Code Type Severity Reaction Onset Reported/Identified Relationship to Patient Clinical Status Yes No Known Drug Allergies [id number] Drug Allergy Unknown N/A 07/26/2019 Medications There is no data. 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 09/14/2017 Davey Jimenez MD Z68.24 Body Mass Index 24.0-24.9 Adult 09/18/2017 Davey Jimenez MD Z68.24 Body Mass Index 24.0-24.9 Adult 10/20/2017 Davey Jimenez MD E11.42 Type 2 diabetes mellitus with diabetic polyneuropathy 10/20/2017 Davey Jimenez MD E11.649 Type 2 diabetes mellitus with hypoglycemia without com a 10/20/2017 Davey Jimenez MD E11.65 Type 2 diabetes mellitus with hyperglycemia 10/20/2017 Davey Jimenez MD 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 10/20/2017 Davey Jimenez MD Z68.23 Body Mass Index 23.0-23.9 Adult 12/18/2017 Davey Jimenez MD E11.42 Type 2 diabetes with diabetic polyneuropathy 12/18/2017 Davey Jimenez MD Z91.11 Noncompliance with dietary regimen 12/18/2017 Davey Jimenez MD Z68.24 Body Mass Index 24.0-24.9 Adult 04/05/2018 Davey Jimenez MD Z68.26 Body Mass Index 26.0-26.9 Adult 04/14/2018 Davey Jimenez MD E7 8.5 Hyperlipidemia 05/04/2018 Davey Jimenez MD Z68.25 BMI 25-25.9 07/26/2018 Davey Jimenez MD Z2 3 Influenza Vaccination for Prophylaxis 07/28/2019 RONI MITCHELL MD Ot C64.2 MALIGNANT NEOPLASM OF LEFT KIDNEY, EXCEP 07/28/2019 RONI MITCHELL MD Ot N20.0 CALCULUS OF KIDNEY 07/28/2019 RONI MITCHELL MD Ot R19.8 OTH SYMPTOMS AND SIGNS INVOLVING THE DGS 07/28/2019 RONI MITCHELL MD, Ot Z98.890 OTHER SPECIFIED POSTPROCEDURAL STATES Procedures There is no data. Results Test Result Range C-PEPTIDE, SERUM - 10/27/18 09:02 C-PEPTIDE 0.60 ng/mL 0.80-3.85 VITAMIN D, 25-H - 10/27/18 09:02 VITAMIN D,25-OH,TOTAL,IA 19 ng/mL 30-10 0 A1C - 10/27/18 09:02 HEMOGLOBIN A1c 11.7 % of total Hgb <5.7 VITAMIN B12 - 10/27/18 09:03 VITAMIN B12 622 pg/mL 200-1100 C-PEPTIDE, SERUM - 11/16/18 10:38 C-PEPTIDE 0.61 ng/mL 0.80-3.85 EXTRA ZAVALA-TOP TUBE - 11/16/18 10:38 EXTRA ZAVALA-TOP TUBE NRG CBC - 03/01/19 14:42 WHITE BLOOD CELL COUNT 5.5 Thousand/uL 3 .8-10.8 RED BLOOD CELL COUNT 4.00 Million/uL 3.8 0-5.10 HEMOGLOBIN 12.0 g/dL 11.7-15.5 HEMATOCRIT 35.6 % 35.0-45.0 MCV 89.0 fL 80.0-100.0 MCH 30.0 pg 27.0-33.0 MCHC 33.7 g/dL 32.0-36.0 RDW 13.1 % 11.0-15.0 PLATELET COUNT 197 Thousand/uL 140-400 MPV 12.8 fL 7.5-12.5 ABSOLUTE NEUTROPHILS 3405 cells/uL 1500- 7800 ABSOLUTE LYMPHOCYTES 1183 cells/uL 850-3 900 ABSOLUTE MONOCYTES 528 cells/uL 200-950 ABSOLUTE EOSINOPHILS 297 cells/uL 15-500 ABSOLUTE BASOPHILS 88 cells/uL 0-200 NEUTROPHILS 61.9 % NRG LYMPHOCYTES 21.5 % NRG MONOCYTES 9.6 % NRG EOSINOPHILS 5.4 % NRG BASOPHILS 1.6 % NRG A1C - 07/04/19 10:32 HEMOGLOBIN A1c 11.0 % of total Hgb <5.7 Complete urinalysis with reflex to cultu re - 07/26/19 19:40 Urine color determination YELLOW NRG Urine clarity determination CLEAR NR G Urine pH measurement by test strip 6.0 5-9 Specific gravity of urine by test strip 1.020 1.016-1.022 Urine protein assay by test strip, semi-quantitative 2+ NEGATIVE Urine glucose detection by automated test strip 3+ NEGATIVE Erythrocytes detection in urine sediment by light micr oscopy 2+ NEGATIVE Urine ketones detection by automated test strip NE GATIVE NEGATIVE Urine nitrite detection by test strip NEGATIVE NEGATIVE Urine total bilirubin detection by test strip NEGA TIVE NEGATIVE Urine urobilinogen measurement by automated test strip (mass/volume) 0.2 mg/dL < = 1.0 Urine leukocyte esterase detection by dipstick TRA CE NEGATIVE Automated urine sediment erythrocyte cou nt by microscopy (number/high power field) [HPF] NRG Automated urine sediment leukocyte count by microscopy (number/high power field) [HPF] NRG Bacteria detection in urine sediment by light microsco py NEGATIVE NRG Squamous epithelial cells detection in u rine sediment by light microscopy 0-2 NRG Crystals detection in urine sediment by light microsco py NONE NRG Casts detection in urine sediment by light microscopy NONE NRG Mucus detection in urine sediment by light microscopy NEGATIVE NRG Complete urinalysis with reflex to culture NO NRG Encounters ACCT No. Visit Date/Time Discharge Status Pt. Type Provider Facility Loc./Unit Complaint [id number] 07/07/2019 13:45:00 07/07/2019 23:59: 59 CLS [facility] [id number] 07/04/2019 10:00:00 Document Registration [id number] 03/01/2019 09:15:00 Document Registration [id number] 11/16/2018 10:15:00 Document Registration [id number] 10/27/2018 09:00:00 Document Registration [id number] 07/26/2019 19:33:00 020 20:50:00 DIS Emergency NABIL WAGNER, PING [facility] FS POSS KIDNEY STONE [id number] 07/25/2019 12:14:00 020 23:59:59 CLS Outpatient STEPHEN WAGNER, RONI Vasquez [facility] FS MALIGNANT NEOPLASM OF LEFT KIDNEY [id number] 10/30/2018 09:14:25 ACT Document Registration [id number] 10/29/2018 20:06:47 ACT Unknown Tony WAGNER, Davey Marin
--- OUTSIDE RECORDS SUMMARY | 2019-07-28 22:57 | XMS REPORT | Clinical Summary ---
Author Author Karina, Leeann Vasquez Organization [facility] Address Unknown Phone Unavailable Allergies, Adverse Reactions, [...] with hyperglycemia 250.00 Act charley Maliheh Donnieglari BALING MACHINE OPERATOR Diabetes mellitus without me ntion of complication, type II or unspecified type, not stated as uncontrolled Body Mass Index 23.0-23.9 Adult Active 2017 Maliheh Donnieglari BALING MACHINE OPERATOR Body Mass Index between 19-24, adult Type 2 diabetes mellitus with diabetic polyneuropathy Active Maliheh Ziglari BALING MACHINE OPERATOR assisted use of insulin treatment V58.67 Active 2 Kisha Fieldsglari BALING MACHINE OPERATOR Long-term (current) use of insulin Type 2 diabetes mellitus with hypoglycemia without coma 250.80 Active Kisha VALLE Diabetes me llitus with other specified manifestations, type II or unspecified type, not stated as uncontrolled Medication List Medication Instructions Start Date Stop Date Generic Name NDC Status Provider Patient Instruction GLIMEPIRIDE 2 MG ORAL TABLET by mouth one a day GLIMEPIRIDE 19569741460 Active Kisha Christian LEONARD Active ALEVE 220 MG ORAL TABLET 2 tabs once every 4-6hrs PRN NAPROXEN SODIUM 39543720573 Active Brigitte Saucedo MA Active LANTUS SOLOSTAR SOLUTION PEN-INJECTOR 18 units at bedtime 2 INSULIN GLARGINE SOPN 54242656708 Active Brigitte Saucedo MA Active GLYBURIDE 2.5 MG ORAL TABLET 1 tab by mouth daily 2017 GLYBURIDE 98710924147 No Longer Active Brigitte Saucedo MA Acti ve CLIMARA 0.025 MG/24HR TRANSDERMAL PATCH WEEKLY Place 1 patch every week ESTRADIOL 10112517728 Active Davey Jimenez MD Active ONDANSETRON 4 MG ORAL TABLET DISINTEGRATING 1 q4h PRN nausea 07/30 ONDANSETRON 56611683602 Active Davey Jimenez MD Active SIMVASTATIN 20 MG ORAL TABLET 1 tab daily at bedtime SIMVASTATIN 76323082309 Active Davey Jimenez MD Active LOSARTAN POTASSIUM 25 MG ORAL TABLET 1 pill daily, for blood pressure LOSARTAN POTASSIUM 13094257621 Active Davey Jimenez MD Active GLYBURIDE 2.5 MG ORAL TABLET 1 tab by mouth daily 2017 GLYBURIDE 2.5 MG ORAL TABLET 869223 GLYBURIDE Inactive Advance Directives Directive Description Start [...] mg/dL Encounters Code Encounter Date Provider Facility CPT-82033 Level 5 Est. [facility] 12[facility]49:[facility] Level 4 Est. Patient 10:56:25 CDT Fito russell MD [facility] Procedures Code Procedure Name Date Entry Date Standard Desc ription CPT-56554 Postop F/U Visit 19:34:43 CDT CPT-84161 Postop F/U Visit 14:39:09 CDT
--- OUTSIDE RECORDS SUMMARY | 2019-07-28 22:57 | XMS REPORT | Clinical Summary ---
Author Author Karina, Leeann Vasquez Organization [facility] Address Unknown Phone Unavailable Allergies, Adverse [...] tabs once every 4-6hrs PRN NAPROXEN SODIUM 63261211180 Active Brigitte Saucedo MA Active LANTUS SOLOSTAR SOLUTION PEN-INJECTOR 18 units at bedtime 2 INSULIN GLARGINE SOPN 40955890453 Active Brigitte Saucedo MA Active GLYBURIDE 2.5 MG ORAL TABLET 1 tab by mouth daily 2017 GLYBURIDE 62597316708 No Longer Active Brigitte Saucedo MA Acti ve CLIMARA 0.025 MG/24HR TRANSDERMAL PATCH WEEKLY Place 1 patch every week ESTRADIOL 14035816955 Active Davey Jimenez MD Active ONDANSETRON 4 MG ORAL TABLET DISINTEGRATING 1 q4h PRN nausea 07/30 ONDANSETRON 02607519554 Active Davey Jimenez MD Active SIMVASTATIN 20 MG ORAL TABLET 1 tab daily at bedtime SIMVASTATIN 90831617229 Active J Tomas Jimenez MD Active LOSARTAN POTASSIUM 25 MG ORAL TABLET 1 pill daily, for blood pressure LOSARTAN POTASSIUM 32750649571 Active Davey Jimenez MD Active GLYBURIDE 2.5 MG ORAL TABLET 1 tab by mouth daily 2017 GLYBURIDE 2.5 MG ORAL TABLET 666375 GLYBURIDE Inactive Advance Directives Directive Description Start [...] d Encounters Code Encounter Date Provider Facility CPT-47432 Level 4 Est. Patient 10:56:25 CDT Fito russell MD [facility] Procedures Code Procedure Name Date Entry Date Standard Desc ription CPT-74501 Postop F/U Visit 14:39:09 CDT
--- OUTSIDE RECORDS SUMMARY | 2019-07-28 22:57 | XMS REPORT | Clinical Summary ---
Author Author Karina, Leeann Vasquez Organization [facility] Address Unknown Phone Unavailable Allergies, Adverse Reactions, [...] tabs once every 4-6hrs PRN NAPROXEN SODIUM 17351505108 Active Brigitte Saucedo MA Active LANTUS SOLOSTAR SOLUTION PEN-INJECTOR 18 units at bedtime 2 INSULIN GLARGINE SOPN 70424284495 Active Brigitte Saucedo MA Active GLYBURIDE 2.5 MG ORAL TABLET 1 tab by mouth daily 2017 GLYBURIDE 36573501612 No Longer Active Brigitte Saucedo MA Acti ve CLIMARA 0.025 MG/24HR TRANSDERMAL PATCH WEEKLY Place 1 patch every week ESTRADIOL 27305706889 Active Davey Jimenez MD Active ONDANSETRON 4 MG ORAL TABLET DISINTEGRATING 1 q4h PRN nausea 07/30 ONDANSETRON 99697724419 Active Davey Jimenez MD Active SIMVASTATIN 20 MG ORAL TABLET 1 tab daily at bedtime SIMVASTATIN 19704720124 Active J Tomas Jimenez MD Active LOSARTAN POTASSIUM 25 MG ORAL TABLET 1 pill daily, for blood pressure LOSARTAN POTASSIUM 27331914169 Active Davey Jimenez MD Active GLYBURIDE 2.5 MG ORAL TABLET 1 tab by mouth daily 2017 GLYBURIDE 2.5 MG ORAL TABLET 812737 GLYBURIDE Inactive Advance Directives Directive Description Start [...] d Encounters Code Encounter Date Provider Facility CPT-53700 Level 4 Est. Patient 10:56:25 CDT Fito russell MD [facility] Procedures Code Procedure Name Date Entry Date Standard Desc ription CPT-41792 Postop F/U Visit 14:39:09 CDT
--- OUTSIDE RECORDS SUMMARY | 2019-07-28 22:57 | XMS REPORT | Clinical Summary ---
Author Author Karina, Leeann Vasquez Organization [employer] Address Unknown Phone Unavailable Allergies, Adverse Reactions, [...] with hyperglycemia 250.00 Act charley Maliheh Donnieglari ELECTRIC SHIPYARD OPERATOR Diabetes mellitus without me ntion of complication, type II or unspecified type, not stated as uncontrolled Body Mass Index 23.0-23.9 Adult Active 2017 Maliheh Donnieglari ELECTRIC SHIPYARD OPERATOR Body Mass Index between 19-24, adult Type 2 diabetes mellitus with diabetic polyneuropathy Active Maliheh Ziglari ELECTRIC SHIPYARD OPERATOR intermediate use of insulin treatment V58.67 Active 2 Kisha Fieldsglari ELECTRIC SHIPYARD OPERATOR Long-term (current) use of insulin Type 2 diabetes mellitus with hypoglycemia without coma 250.80 Active Kisha VALLE Diabetes me llitus with other specified manifestations, type II or unspecified type, not stated as uncontrolled Medication List Medication Instructions Start Date Stop Date Generic Name NDC Status Provider Patient Instruction GLIMEPIRIDE 2 MG ORAL TABLET by mouth one a day GLIMEPIRIDE 92012469447 Active Kisha Christian LEONARD Active ALEVE 220 MG ORAL TABLET 2 tabs once every 4-6hrs PRN NAPROXEN SODIUM 31842049262 Active Brigitte Saucedo MA Active LANTUS SOLOSTAR SOLUTION PEN-INJECTOR 18 units at bedtime 2 INSULIN GLARGINE SOPN 15174119485 Active Brigitte Saucedo MA Active GLYBURIDE 2.5 MG ORAL TABLET 1 tab by mouth daily 2017 GLYBURIDE 03650617447 No Longer Active Brigitte Saucedo MA Acti ve CLIMARA 0.025 MG/24HR TRANSDERMAL PATCH WEEKLY Place 1 patch every week ESTRADIOL 60794902684 Active Davey Jimenez MD Active ONDANSETRON 4 MG ORAL TABLET DISINTEGRATING 1 q4h PRN nausea 07/30 ONDANSETRON 08332990885 Active Davey Jimenez MD Active SIMVASTATIN 20 MG ORAL TABLET 1 tab daily at bedtime SIMVASTATIN 67979363711 Active Davey Jimenez MD Active LOSARTAN POTASSIUM 25 MG ORAL TABLET 1 pill daily, for blood pressure LOSARTAN POTASSIUM 94447582196 Active Davey Jimenez MD Active GLYBURIDE 2.5 MG ORAL TABLET 1 tab by mouth daily 2017 GLYBURIDE 2.5 MG ORAL TABLET 038213 GLYBURIDE Inactive Advance Directives Directive Description Start [...] mg/dL Encounters Code Encounter Date Provider Facility CPT-16731 Level 5 Est. Patient 12:49:59 CDT Kisha JONASHCA [facility] CPT-39687 Level 4 Est. Patient 10:56:25 CDT Fito russell MD [facility] Procedures Code Procedure Name Date Entry Date Standard Desc ription CPT-47918 Postop F/U Visit 19:34:43 CDT CPT-37521 Postop F/U Visit 14:39:09 CDT
== END 2019-07-26 20:50 | disposition home or self-care (01) ==
LOC: EDUNIT# 19:31 → ER FS 19:33
DX: R10.9 Unspecified abdominal pain (principal); N02.9 Recurrent and persistent hematuria with unspecified morphologic changes
CPT/HCPCS: 81000; 99282

== ENCOUNTER 2020-07-06 19:08 | Emergency (ER) | payer MEDICARE, OTHER ==
[~2020-07-06] VITALS: Ht 157.4 cm; Wt 63.5 kg
--- NOTE | 2020-07-06 19:38 | Diagnostic Imaging Report ---
INDICATION: Left ankle injury. COMPARISON: None. EXAMINATION: Three views of the left ankle. FINDINGS: Nondisplaced distal fibula fracture. The ankle mortise and medial malleolus appear well aligned. No radiopaque foreign body seen. IMPRESSION: Distal left fibula fracture. Dictated by: Dictated on workstation # [id number]
--- NOTE | 2020-07-06 20:12 | ED Lower Extremity ---
General Chief Complaint: Lower Extremity Stated Complaint: FELL, LT ANKLE PAIN Nursing Triage Note: pt in per POV with left ankle injury, reports slipped and fell on ice, states ankles always swollen, rates pain sitting at 5 and if attempts movement 10-10. Nursing Sepsis Screen: No Definite Risk Exam Limitations: no limitations History of Present Illness Date Seen by Provider: Jul 06, 2020 Time Seen by Provider: 19:30 Initial Comments Patient is a 75-year-old female who presents with l an isolated eft ankle injury after slipping on the ice and falling from standing. She denies hitting her head, headache neck pain or any other injury. She is not on blood thinners. Injury occurred just prior to ED arrival. Patient is nonweightbearing secondary to pain. On exam, there is subtle deformity with swelling to the left lateral malleolus with tenderness to palpation. There is no leg, knee or hip injury. No other symptoms or complaints. Onset: just prior to arrival Severity: moderate Pain/Injury Location: left ankle Method of Injury: twisted Modifying Factors: Improves With Movement Allergies and Home Medications Allergies Coded Allergies: No Known Drug Allergies (Unverified , 07/26/19) Home Medications Tamsulosin HCl 0.4 Mg Cap, 0.4 MG PO DAILY Prescribed by: PING FERRER on 07/26/192046 Patient Home Medication List Home Medication List Reviewed: Yes Review of Systems Constitutional: no symptoms reported Past Ssqtitq-Kayvit-Ljhhfa Hx Patient Social History Alcohol Use: Denies Use 2nd Hand Smoke Exposure: No Recent Infectious Disease Expo: No Recent Hopitalizations: No Seasonal Allergies Seasonal Allergies: No Past Medical History Surgeries: Yes (left kidney removed) Gallbladder, Hysterectomy Respiratory: No Cardiac: Yes Hypertension Neurological: Yes Neuropathy 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 oz. kg; 25.00 BMI Method: General Appearance: WD/WN Ankles: left ankle pain, left ankle soft tissue tenderness, left ankle swelling Neurologic/Tendon: normal sensation Neurologic/Psychiatric: pressure washer II-XII nml as tested, no motor/sensory deficits Skin: normal color Progress/Results/Core Measures Results/Orders My Orders Orders - FRANSICO DOMINGUEZ DO Ankle 3 View Left (07/06/20 19:22) Nursing Communication (Order) (07/06/20 20:03) Vital Signs/I&O 07/06/20 19:13 Temp 36.6 Pulse 91 Resp 16 B/P (MAP) 220/69 (119) Pulse Ox 99 O2 Delivery Room Air Blood Pressure Mean: 119 Departure Communication (Admissions) Patient with x-ray left ankle, nondisplaced left distal fibular fracture. Patient placed in splint. Declines pain medication. She has a walker available. Ankle fracture is weightbearing she is instructed to follow-up with local orthopedic provider. Return precautions reviewed. Patient verbalizes understanding agreement discharge instructions prior to departure. Impression Primary Impression: Closed left ankle fracture Disposition: HOME, SELF-CARE Condition: Stable Departure-Patient Inst. Decision time for Depature: 20:22 Referrals: RONI MITCHELL MD (PCP/Family) Primary Care Physician Patient Instructions: Ankle Fracture (DC) Add. Discharge Instructions: Please use walker and wear splint. Take Tylenol for pain and follow-up with local orthopedic provider. Return to the closest ED if new or concerning symptoms All discharge instructions reviewed with patient and/or family. Voiced understanding. FRANSICO DOMINGUEZ DO Jul 06, 2020 20:12
[2020-07-06 20:33] VITALS: BP 211/90
== END 2020-07-06 20:33 ==
LOC: EDUNIT# 19:08 → ER FS 19:10
DX: S82.832A Other fracture of upper and lower end of left fibula, initial encounter for closed fracture (principal); Z85.528 Personal history of other malignant neoplasm of kidney; W00.0XXA Fall on same level due to ice and snow, initial encounter
CPT/HCPCS: 73610; 99282; L4350

== ENCOUNTER → 2020-07-06 | Outpatient (CLI) | payer MEDICARE, OTHER ==
--- NOTE | 2020-07-06 09:25 | Diagnostic Imaging Report ---
PROCEDURE: CT chest without contrast. TECHNIQUE: Multiple contiguous axial images were obtained through the chest without the use of intravenous contrast. Auto Exposure Controls were utilized during the CT exam to meet ALARA standards for radiation dose reduction. DATE: July 06, 2020. COMPARISON: None. INDICATION: 75-year-old female, bilateral rib pain for one year with intermittent back pain. No known injury. History of prior removal of a left renal mass. PROCEDURE: Axial noncontrasted CT images of the chest. Noncontrasted limits the evaluation of the mediastinum and vascular structures. FINDINGS: There is a 5 mm left lower lobe pulmonary nodule on axial image 114. There is no lung mass. There is a 4 mm right middle lobe pulmonary nodule on axial image 88. There is a small adjacent probable pneumatocele. There is no additional focal airspace consolidation. There is no pneumothorax. There is no pleural effusion. The central airways are patent. The heart is not enlarged. There is no pericardial effusion. There are coronary artery calcifications and additional areas of atherosclerotic disease. There is no identified abnormally enlarged mediastinal or axillary lymph node meeting CT size criteria for adenopathy. There is an aberrant right subclavian artery. The gallbladder is surgically absent. Limited evaluation of the additional imaged portions of the upper abdomen is unremarkable. There is no identified bone lesion. There is no identified acute fracture. There are mild disc degenerative changes of the thoracic spine. IMPRESSION: 1. No identified acute cardiopulmonary abnormality. 2. 5 mm left lower lobe pulmonary nodule and 4 mm right middle lobe pulmonary nodule. 3. No acute fracture or bone lesion. 4. Mild disc degenerative changes of the thoracic spine. Dictated by: Dictated on workstation # [id number]
== END ==
LOC: RAD FS 08:17
PROVIDERS: ATTEND Family Medicine
DX: M47.814 Spondylosis without myelopathy or radiculopathy, thoracic region (principal); R91.8 Other nonspecific abnormal finding of lung field
CPT/HCPCS: 71250

== ENCOUNTER → 2020-07-24 | Outpatient (CLI) | payer MEDICARE, OTHER ==
--- NOTE | 2020-07-24 14:55 | Diagnostic Imaging Report ---
INDICATION: Left ankle fracture. TECHNIQUE: AP, oblique, and lateral views of the left ankle were obtained. FINDINGS: The oblique fracture of the distal fibula above the ankle joint level is unchanged in alignment and appearance compared with 07/06/2020. The distal tibia, talus, and calcaneus are intact. IMPRESSION: Stable alignment of the distal fibular oblique fracture compared with 07/06/2020. Dictated by: Dictated on workstation # [id number]
== END ==
LOC: RAD FS 13:24
PROVIDERS: ATTEND Nurse Practitioner
DX: S82.832A Other fracture of upper and lower end of left fibula, initial encounter for closed fracture (principal); X58.XXXA Exposure to other specified factors, initial encounter
CPT/HCPCS: 73610

== ENCOUNTER → 2020-08-14 | Outpatient (CLI) | payer MEDICARE, OTHER ==
--- NOTE | 2020-08-14 16:00 | Diagnostic Imaging Report ---
INDICATION: Left ankle fracture. TECHNIQUE/COMPARISON: AP, oblique, and lateral views of the left ankle were obtained and compared with 07/24/2020. FINDINGS: The oblique fracture of the distal fibula above the ankle joint level is again noted without change in alignment or appearance compared to the prior study except for mild increased callus formation. There is no new bony abnormality. The ankle joint is in good alignment. IMPRESSION: Stable alignment of distal fibular fracture with some increased callus formation compared to the prior study. No new abnormality. Dictated by: Dictated on workstation # [id number]
== END ==
LOC: RAD FS 12:55
PROVIDERS: ATTEND Nurse Practitioner
DX: S82.832D Other fracture of upper and lower end of left fibula, subsequent encounter for closed fracture with routine healing (principal); X58.XXXD Exposure to other specified factors, subsequent encounter
CPT/HCPCS: 73610

== ENCOUNTER → 2020-09-13 | Outpatient (CLI) | payer MEDICARE, OTHER ==
--- NOTE | 2020-09-13 14:04 | Diagnostic Imaging Report ---
INDICATION: Follow-up fracture. COMPARISON: 08/14/2020 FINDINGS: Three radiographic views of the left ankle were obtained and again demonstrate nonacute nondisplaced obliquely oriented fracture of the distal fibula. There is partial bridging callus formation. Fracture line remains conspicuous. No new acute fracture or dislocation is seen. Tibiotalar joint space is appropriate. No unexpected radiopaque foreign bodies are identified. IMPRESSION: 1. Stable appearing partially healed nonacute fracture of the distal left fibula. Dictated by: Dictated on workstation # [id number]
== END ==
LOC: RAD FS 13:09
PROVIDERS: ATTEND Nurse Practitioner
DX: S82.832D Other fracture of upper and lower end of left fibula, subsequent encounter for closed fracture with routine healing (principal); X58.XXXD Exposure to other specified factors, subsequent encounter
CPT/HCPCS: 73610

== ENCOUNTER 2020-09-24 13:28 | Emergency (ER) | payer MEDICARE, OTHER ==
[~2020-09-24] VITALS: Ht 160 cm; Wt 75.0 kg
[2020-09-24] MEDS ORDERED: cloNIDine 0.2 MG (CATAPRES) TAB PO ONE (13:45)
[2020-09-24 14:11] LABS: HEMATOCRIT 32 % (35-52); HEMOGLOBIN 10.9 G/DL (11.5-16.0); MEAN CORPUSCULAR HEMOGLOBIN 31 PG (25-34); MEAN CORPUSCULAR HGB CONC 34 G/DL (32-36); MEAN CORPUSCULAR VOLUME 91 FL (80-99); MEAN PLATELET VOLUME 11.5 FL (7.4-10.4); PLATELET COUNT 203 10^3/uL (130-400)
[2020-09-24 14:12] LABS: BASOPHILS # (AUTO) 0.1 10^3/uL (0.0-0.1); BASOPHILS % (AUTO) 1 % (0-10); EOSINOPHILS # (AUTO) 0.1 10^3/uL (0.0-0.3); EOSINOPHILS % (AUTO) 2 % (0-10); LYMPHOCYTES # (AUTO) 1.1 X 10^3 (1.0-4.0); LYMPHOCYTES % (AUTO) 16 % (12-44); MONOCYTES # (AUTO) 0.4 X 10^3 (0.0-1.0); MONOCYTES % (AUTO) 6 % (0-12); NEUTROPHILS # (AUTO) 5.3 X 10^3 (1.8-7.8); NEUTROPHILS % (AUTO) 75 % (42-75)
[2020-09-24 14:32] LABS: BACTERIA,URINE NEGATIVE /HPF; BILIRUBIN,URINE NEGATIVE (NEGATIVE); CLARITY,URINE CLEAR; COLOR,URINE PALE YELLOW; GLUCOSE, URINE (UA) 3+ (NEGATIVE); KETONES,URINE NEGATIVE (NEGATIVE); LEUKOCYTE ESTERASE ,URINE NEGATIVE (NEGATIVE); NITRITE,URINE NEGATIVE (NEGATIVE); PROTEIN,URINE 2+ (NEGATIVE); RBC,URINE 0-2 /HPF; SQUAMOUS EPITHELIAL CELL,UR 0-2 /HPF
[2020-09-24 14:42] LABS: SODIUM 132 MMOL/L (135-145)
[2020-09-24 14:43] LABS: ALANINE AMINOTRANSFERASE 22 U/L (0-55); ALKALINE PHOSPHATASE 212 U/L (40-136); BILIRUBIN,TOTAL 0.3 MG/DL (0.1-1.0); BUN/CREATININE RATIO 18; CALCIUM 9.1 MG/DL (8.5-10.1); CARBON DIOXIDE 23 MMOL/L (21-32); CHLORIDE 101 MMOL/L (98-107); CREATININE SERUM 1.31 MG/DL (0.60-1.30); GFR ESTIMATED 40; GLUCOSE 400 MG/DL (70-105); MAGNESIUM 1.5 MG/DL (1.6-2.4); POTASSIUM 4.8 MMOL/L (3.6-5.0); TOTAL PROTEIN 6.3 GM/DL (6.4-8.2)
[2020-09-24 14:44] LABS: ALBUMIN 3.6 GM/DL (3.2-4.5)
[2020-09-24] MEDS: NS IV 1000 ML 1,000 ML IV SCH ×2 (15:07→15:35)
--- NOTE | 2020-09-24 15:53 | ED General ---
General Chief Complaint: Cardiac/General Problems Stated Complaint: ELEV BP Nursing Triage Note: TIRED FOR [address] 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 Nursing Sepsis Screen: No Definite Risk Source of Information: Patient Exam Limitations: No Limitations History of Present Illness Date Seen by Provider: September 24, 2020 Time Seen by Provider: 12:30 Initial Comments Patient is a 75-year-old female who presents with generalized fatigue for the past 2 weeks and complaints of hypertension. Patient was seen at [facility] prior to ED arrival and referred to the ED for further evaluation. Patient was noted to have a blood pressure 180s over 90s. patient compliant with medication last week medications morning prior to visiting PCP. Patient denies dizziness lightheadedness, headache, change in vision, neck pain, stiffness, extremity weakness or loss of sensation. She denies chest pain palpitations, shortness of breath. She denies abdominal pain, nausea vomiting, constipation and diarrhea. She denies increased leg pain or swelling. No urinary frequency urgency or burning. No other acute symptoms or complaints. Severity: Mild Modifying Factors: improves with Other Associated Systoms: Other Allergies and Home Medications Allergies Coded Allergies: No Known Drug Allergies (Unverified , 07/26/19) Home Medications Tamsulosin HCl 0.4 Mg Cap, 0.4 MG PO DAILY Prescribed by: PING FERRER on 07/26/192046 Patient Home Medication List Home Medication List Reviewed: Yes Review of Systems Review of Systems Constitutional: see HPI EENTM: see HPI Respiratory: see HPI Cardiovascular: see HPI Gastrointestinal: see HPI Genitourinary: see HPI Musculoskeletal: see HPI Skin: see HPI Psychiatric/Neurological: See HPI Hematologic/Lymphatic: See HPI Immunological/Allergic: see HPI All Other Systems Reviewed Negative Unless Noted: Yes Past Anhcvwn-Yhrilj-Xublso Hx Past Med/Social Hx: Reviewed Nursing Past Med/Soc Hx Patient Social History Alcohol Use: Denies Use Smoking Status: Never a Smoker 2nd Hand Smoke Exposure: No Recent Infectious Disease Expo: No Recent Hopitalizations: No Seasonal Allergies Seasonal Allergies: No Past Medical History Surgeries: Yes (left kidney removed) Gallbladder, Hysterectomy Respiratory: No Cardiac: Yes Hypertension 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 oz. kg; 29.00 BMI Method: General Appearance: No Apparent Distress, WD/WN Eyes: Bilateral Eye Normal Inspection, Bilateral Eye PERRL, Bilateral Eye EOMI HEENT: PERRL/EOMI, Normal ENT Inspection, Pharynx Normal Neck: Full Range of Motion, Normal Inspection, Non Tender, Supple Respiratory: Chest Non Tender, Normal Breath Sounds Cardiovascular: Regular Rate, Rhythm, No Edema, No Gallop Gastrointestinal: Non Tender, Soft Extremity: Normal Capillary Refill, Normal Inspection, Non Tender Neurologic/Psychiatric: Alert, Oriented x3, No Motor/Sensory Deficits, director process improvement II- XII Norm as Tested Skin: Normal Color, Warm/Dry Focused Exam Sepsis Stage: Ruled Out Progress/Results/Core Measures Suspected Sepsis Recent Fever Within 48 Hours: No Infection Criteria Present: None New/Unexplained Altered Menta: No Sepsis Screen: No Definite Risk SIRS Temperature: Pulse: 76 Respiratory Rate: 18 Laboratory Tests 09/24/20 13:55: White Blood Count 7.0 Blood Pressure 186 /54 Mean: 98 Laboratory Tests 09/24/20 13:55: Creatinine 1.31H, Platelet Count 203, Total Bilirubin 0.3 Results/Orders Lab Results Laboratory Tests Test 09/24/20 13:55 09/24/20 14:07 Range/Units White Blood Count 7.0 4.3-11.0 10^3/uL Red Blood Count 3.51 L 4.35-5.85 10^6/uL Hemoglobin 10.9 L 11.5-16.0 G/DL Hematocrit 32 L 35-52 % Mean Corpuscular Volume 91 80-99 FL Mean Corpuscular Hemoglobin 31 25-34 PG Mean Corpuscular Hemoglobin Concent 34 32-36 G/DL Red Cell Distribution Width 12.6 10.0-14.5 % Platelet Count 203 130-400 10^3/uL Mean Platelet Volume 11.5 H 7.4-10.4 FL Immature Granulocyte % (Auto) 0 % Neutrophils (%) (Auto) 75 42-75 % Lymphocytes (%) (Auto) 16 12-44 % Monocytes (%) (Auto) 6 0-12 % Eosinophils (%) (Auto) 2 0-10 % Basophils (%) (Auto) 1 0-10 % Neutrophils # (Auto) 5.3 1.8-7.8 X 10^3 Lymphocytes # (Auto) 1.1 1.0-4.0 X 10^3 Monocytes # (Auto) 0.4 0.0-1.0 X 10^3 Eosinophils # (Auto) 0.1 0.0-0.3 10^3/uL Basophils # (Auto) 0.1 0.0-0.1 10^3/uL Immature Granulocyte # (Auto) 0.0 0.0-0.1 10^3/uL Sodium Level 132 L 135-145 MMOL/L Potassium Level 4.8 3.6-5.0 MMOL/L Chloride Level 101 98-107 MMOL/L Carbon Dioxide Level 23 21-32 MMOL/L Anion Gap 8 5-14 MMOL/L Blood Urea Nitrogen 23 H 7-18 MG/DL Creatinine 1.31 H 0.60-1.30 MG/DL Estimat Glomerular Filtration Rate 40 BUN/Creatinine Ratio 18 Glucose Level 400 H 70-105 MG/DL Calcium Level 9.1 8.5-10.1 MG/DL Corrected Calcium 9.4 8.5-10.1 MG/DL Magnesium Level 1.5 L 1.6-2.4 MG/DL Total Bilirubin 0.3 0.1-1.0 MG/DL Aspartate Amino Transf (AST/SGOT) 23 5-34 U/L Alanine Aminotransferase (ALT/SGPT) 22 0-55 U/L Alkaline Phosphatase 212 H 40-136 U/L Troponin I < 0.30 <0.30 NG/ML Pro-B-Type Natriuretic Peptide 1078.0 H <75.0 PG/ML Total Protein 6.3 L 6.4-8.2 GM/DL Albumin 3.6 3.2-4.5 GM/DL Urine Color PALE YELLOW Urine Clarity CLEAR Urine pH 6.0 5-9 Urine Specific Revloc 1.020 1.016-1.022 Urine Protein 2+ H NEGATIVE Urine Glucose (UA) 3+ H NEGATIVE Urine Ketones NEGATIVE NEGATIVE Urine Nitrite NEGATIVE NEGATIVE Urine Bilirubin NEGATIVE NEGATIVE Urine Urobilinogen 0.2 < = 1.0 MG/DL Urine Leukocyte Esterase NEGATIVE NEGATIVE Urine RBC (Auto) 1+ H NEGATIVE Urine RBC 0-2 /HPF Urine WBC NONE /HPF Urine Squamous Epithelial Cells 0-2 /HPF Urine Crystals NONE /LPF Urine Bacteria NEGATIVE /HPF Urine Casts NONE /LPF Urine Mucus NEGATIVE /LPF Urine Culture Indicated NO My Orders Orders - FRANSICO DOMINGUEZ DO Cbc With Automated Diff (09/24/20 13:39) Comprehensive Metabolic Panel (09/24/20 13:39) Urinalysis (09/24/20 13:39) Troponin I Fs (09/24/20 13:39) Probnp Fs (09/24/20 13:39) Magnesium (09/24/20 13:39) Clonidine Tablet (Catapres Tablet) (09/24/20 13:45) Ns Iv 1000 Ml (Sodium Chloride 0.9%) (09/24/20 15:00) Accucheck Fasting (09/24/20 16:03) Insulin (Regular) Human (Novolin R (Per (09/24/20 16:30) Medications Given in ED Current Medications Medications Dose Ordered Sig/Trace Route Start Time Stop Time Status Last Admin Dose Admin Clonidine HCl 0.2 mg ONCE ONCE PO 09/24/20 13:45 09/24/20 13:46 DC 09/24/20 13:44 0.2 MG Vital Signs/I&O 09/24/20 09/24/20 13:30 16:05 Temp 36.3 Pulse 76 Resp 18 B/P (MAP) 186/54 (98) 124/68 (86) Pulse Ox 99 O2 Delivery Room Air Capillary Refill : Less Than 3 Seconds Blood Pressure Mean: 98 Departure Communication (Admissions) Patient with persistent elevation of blood sugar likely contributing to her fatigue. 2 L of IV fluids given. Blood sugar remains relatively unchanged. 10 units of regular insulin given. Patient wears a disposable insulin pump. We will have her remove insulin pump and change insertion site upon returning home. Recommendations are continued home monitoring and close PCP follow-up. Return precautions reviewed. Patient verbalizes understanding agreement with discharge instructions prior to departure. Impression Primary Impression: Fatigue Additional Impression: Hyperglycemia Disposition: 01 HOME, SELF-CARE Condition: Stable Departure-Patient Inst. Decision time for Depature: 16:19 Referrals: RONI MITCHELL MD (PCP/Family) Primary Care Physician Patient Instructions: Fatigue (DC), Hyperglycemia, Adult (DC) Add. Discharge Instructions: You were evaluated in the emergency department for fatigue and high blood p ressure. Your blood sugar was found to be 400. IV fluids and insulin were given. Please change your insulin pump site upon returning home and resume normal schedule and check blood sugars every 1-2 hours until normal. Follow-up with your PCP tomorrow for further evaluation and management of insulin and blood pressure medication. Return to the ED if new or worsening symptoms. All discharge instructions reviewed with patient and/or family. Voiced understanding. FRANSICO DOMINGUEZ DO September 24, 2020 15:53
[2020-09-24] MEDS ORDERED: inSUlin (REGULAR) HUMAN 1 UNIT/0.01 ML (CHARGE PER UNIT) ONE (16:10)
[2020-09-24 16:27] VITALS: BP 142/86
[2020-09-24] MEDS ORDERED: inSUlin (REGULAR) HUMAN 1 UNIT/0.01 ML (CHARGE PER UNIT) SC ONE (16:30)
== END 2020-09-24 16:28 | disposition home or self-care (01) ==
LOC: EDUNIT# 13:28 → ER FS 13:30
DX: R53.83 Other fatigue (principal); E11.65 Type 2 diabetes mellitus with hyperglycemia; I10 Essential (primary) hypertension
CPT/HCPCS: 36415; 80053; 81000; 82947; 83735; 83880; 84484; 85025

== ENCOUNTER → 2020-10-11 | Outpatient (CLI) | payer MEDICARE, OTHER ==
--- NOTE | 2020-10-11 13:44 | Diagnostic Imaging Report ---
INDICATION: Follow-up fracture. COMPARISON: 09/13/2020 FINDINGS: 3 radiographic views of the left ankle were obtained and again demonstrate an nonacute nondisplaced oblique oriented fracture of the distal fibular shaft. Partial healing is again noted and appears stable. No new acute fracture or dislocation left ankle is seen. Joint spaces are maintained. There is persistent overlying soft tissue swelling and edema. No unexpected radiopaque foreign bodies are seen. IMPRESSION: 1. Stable nonacute fracture of the distal left fibula as described above. Dictated by: Dictated on workstation # [id number]
== END ==
LOC: RAD FS 13:20
PROVIDERS: ATTEND Nurse Practitioner
DX: S82.832D Other fracture of upper and lower end of left fibula, subsequent encounter for closed fracture with routine healing (principal); X58.XXXD Exposure to other specified factors, subsequent encounter
CPT/HCPCS: 73610

== ENCOUNTER 2020-10-18 13:10 | Emergency (ER) | payer MEDICARE, OTHER ==
[~2020-10-18] VITALS: Ht 157.5 cm; Wt 61.7 kg
[2020-10-18] MEDS ORDERED: NS IV 1000 ML 1,000 ML IV STA (13:25)
[2020-10-18] MEDS ORDERED: hydrALAZINE (APESOLINE) 20 MG/ML VIAL IV STA (13:25)
[2020-10-18 13:36] LABS: EOSINOPHILS % (AUTO) 3 % (0-10); HEMATOCRIT 30 % (35-52); HEMOGLOBIN 10.2 G/DL (11.5-16.0); LYMPHOCYTES % (AUTO) 19 % (12-44); MEAN CORPUSCULAR HEMOGLOBIN 31 PG (25-34); MEAN CORPUSCULAR HGB CONC 34 G/DL (32-36); MEAN CORPUSCULAR VOLUME 93 FL (80-99); MEAN PLATELET VOLUME 11.1 FL (7.4-10.4); MONOCYTES % (AUTO) 8 % (0-12); NEUTROPHILS % (AUTO) 70 % (42-75); PLATELET COUNT 187 10^3/uL (130-400)
[2020-10-18 13:37] LABS: BASOPHILS # (AUTO) 0.1 10^3/uL (0.0-0.1); BASOPHILS % (AUTO) 1 % (0-10); EOSINOPHILS # (AUTO) 0.2 10^3/uL (0.0-0.3); LYMPHOCYTES # (AUTO) 1.1 X 10^3 (1.0-4.0); MONOCYTES # (AUTO) 0.5 X 10^3 (0.0-1.0); NEUTROPHILS # (AUTO) 4.2 X 10^3 (1.8-7.8)
[2020-10-18] MEDS ORDERED: inSUlin (REGULAR) HUMAN 1 UNIT/0.01 ML (CHARGE PER UNIT) IV STA (13:42)
[2020-10-18 13:46] LABS: INR 0.9 (0.8-1.4); PROTHROMBIN TIME PATIENT 12.4 SEC (12.2-14.7)
--- NOTE | 2020-10-18 13:48 | ED General ---
General Chief Complaint: Glucose Problems Stated Complaint: ELV BP/GLUCOSE Source of Information: Patient History of Present Illness Date Seen by Provider: Oct 18, 2020 Time Seen by Provider: 13:11 Initial Comments 75 yo female presenting from the clinic where she had gone for an office visit. She reports having elevated blood sugar since last night. She has an insulin pump and a sensor to read her sugars. Since last night her sensors just been reading high. She also has been having elevated blood pressure and rib pain. She was seen September 24 for similar issues with her blood pressure but no changes were made by the clinic with any of her treatments or medications. She states that she changed her Humalog insulin this morning in the pump but did not feel the pump was working correctly since her sugars were running high. She denies any headache, blurry vision, chest pain other than her rib pain that she has been having, nausea, vomiting, abdominal pain. She has chronic neuropathy. When seen in the clinic her sugar was reading 504 so she was given 5 units of regular insulin and sent to the emergency department because her blood pressure was also elevated. Timing/Duration: 12-24 Hours Associated Systoms: No Chest Pain (other than her chronic rib pain she has been having), No Cough, No Diaphoresis, No Fever/Chills, No Headaches, No Loss of Appetite, No Malaise, No Nausea/Vomiting, No Rash, No Seizure, No Shortness of Air, No Syncope, No Weakness Allergies and Home Medications Allergies Coded Allergies: gabapentin (Verified Allergy, Unknown, 10/18/20) Home Medications Tamsulosin HCl 0.4 Mg Cap, 0.4 MG PO DAILY Prescribed by: PING FERRER on 07/26/192046 Patient Home Medication List Home Medication List Reviewed: Yes Review of Systems Review of Systems Constitutional: No chills, No diaphoresis, No dizziness, No fever EENTM: no symptoms reported Respiratory: No cough, No short of breath Cardiovascular: see HPI Gastrointestinal: no symptoms reported Genitourinary: no symptoms reported Musculoskeletal: other (rib pain) Skin: no symptoms reported Psychiatric/Neurological: See HPI Hematologic/Lymphatic: Denies Blood Clots Past Ouhfwed-Baaydh-Eykbnn Hx Past Med/Social Hx: Reviewed Nursing Past Med/Soc Hx Patient Social History Alcohol Use: Denies Use Smoking Status: Never a Smoker 2nd Hand Smoke Exposure: No Recent Hopitalizations: No Seasonal Allergies Seasonal Allergies: No Past Medical History Surgeries: Yes (left kidney removed) Gallbladder, Hysterectomy Respiratory: No Cardiac: Yes Hypertension 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 oz. 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 Norm as Tested Skin: Normal Color, Warm/Dry Progress/Results/Core Measures Suspected Sepsis SIRS Temperature: Pulse: Respiratory Rate: Laboratory Tests 10/18/20 13:20: White Blood Count 6.0 Blood Pressure / Mean: Laboratory Tests 10/18/20 13:20: Creatinine 1.77H, INR Comment 0.9, Platelet Count 187, Total Bilirubin 0.3 Results/Orders Lab Results Laboratory Tests Test 10/18/20 13:20 10/18/20 13:23 10/18/20 13:35 10/18/20 14:27 Range/Units White Blood Count 6.0 4.3-11.0 10^3/uL Red Blood Count 3.25 L 4.35-5.85 10^6/uL Hemoglobin 10.2 L 11.5-16.0 G/DL Hematocrit 30 L 35-52 % Mean Corpuscular Volume 93 80-99 FL Mean Corpuscular Hemoglobin 31 25-34 PG Mean Corpuscular Hemoglobin Concent 34 32-36 G/DL Red Cell Distribution Width 12.7 10.0-14.5 % Platelet Count 187 130-400 10^3/uL Mean Platelet Volume 11.1 H 7.4-10.4 FL Immature Granulocyte % (Auto) 0 % Neutrophils (%) (Auto) 70 42-75 % Lymphocytes (%) (Auto) 19 12-44 % Monocytes (%) (Auto) 8 0-12 % Eosinophils (%) (Auto) 3 0-10 % Basophils (%) (Auto) 1 0-10 % Neutrophils # (Auto) 4.2 1.8-7.8 X 10^3 Lymphocytes # (Auto) 1.1 1.0-4.0 X 10^3 Monocytes # (Auto) 0.5 0.0-1.0 X 10^3 Eosinophils # (Auto) 0.2 0.0-0.3 10^3/uL Basophils # (Auto) 0.1 0.0-0.1 10^3/uL Immature Granulocyte # (Auto) 0.0 0.0-0.1 10^3/uL Prothrombin Time 12.4 12.2-14.7 SEC INR Comment 0.9 0.8-1.4 Activated Partial Thromboplast Time 24 24-35 SEC Sodium Level 135 135-145 MMOL/L Potassium Level 4.5 3.6-5.0 MMOL/L Chloride Level 100 98-107 MMOL/L Carbon Dioxide Level 23 21-32 MMOL/L Anion Gap 12 5-14 MMOL/L Blood Urea Nitrogen 27 H 7-18 MG/DL Creatinine 1.77 H 0.60-1.30 MG/DL Estimat Glomerular Filtration Rate 28 BUN/Creatinine Ratio 15 Glucose Level 528 *H 70-105 MG/DL Calcium Level 9.3 8.5-10.1 MG/DL Corrected Calcium 9.6 8.5-10.1 MG/DL Magnesium Level 1.5 L 1.6-2.4 MG/DL Total Bilirubin 0.3 0.1-1.0 MG/DL Aspartate Amino Transf (AST/SGOT) 18 5-34 U/L Alanine Aminotransferase (ALT/SGPT) 23 0-55 U/L Alkaline Phosphatase 264 H 40-136 U/L Troponin I < 0.30 <0.30 NG/ML Pro-B-Type Natriuretic Peptide 2494.0 H <75.0 PG/ML Total Protein 6.5 6.4-8.2 GM/DL Albumin 3.6 3.2-4.5 GM/DL Lipase 47 8-78 U/L Glucometer 523 *H 269 H 70-110 MG/DL Urine Color YELLOW Urine Clarity CLEAR Urine pH 6.5 5-9 Urine Specific [place] 1.025 H 1.016-1.022 Urine Protein 3+ H NEGATIVE Urine Glucose (UA) 3+ H NEGATIVE Urine Ketones NEGATIVE NEGATIVE Urine Nitrite NEGATIVE NEGATIVE Urine Bilirubin NEGATIVE NEGATIVE Urine Urobilinogen NORMAL < = 1.0 MG/DL Urine Leukocyte Esterase NEGATIVE NEGATIVE Urine RBC (Auto) 2+ H NEGATIVE Urine RBC 2-5 H /HPF Urine WBC NONE /HPF Urine Squamous Epithelial Cells 0-2 /HPF Urine Crystals NONE /LPF Urine Bacteria NEGATIVE /HPF Urine Casts PRESENT /LPF Urine Hyaline Casts 0-2 H /LPF Urine Mucus NEGATIVE /LPF Urine Culture Indicated NO My Orders Orders - HUMZA BOOTH MD Cbc With Automated Diff (10/18/20 13:23) Magnesium (10/18/20 13:23) Chest 1 View Ap/Pa Only (10/18/20 13:23) Ekg Tracing (10/18/20 13:23) Comprehensive Metabolic Panel (10/18/20 13:23) Protime With Inr (10/18/20 13:23) Partial Thromboplastin Time (10/18/20 13:23) O2 (10/18/20 13:23) Monitor-Rhythm Ecg Trace Only (10/18/20 13:23) Ed Iv/Invasive Line Start (10/18/20 13:23) Lipase (10/18/20 13:23) Troponin I Fs (10/18/20 13:23) Probnp Fs (10/18/20 13:23) Accucheck Stat ONCE (10/18/20 13:23) Ua Culture If Indicated (10/18/20 13:23) Ns Iv 1000 Ml (Sodium Chloride 0.9%) (10/18/20 13:25) Hydralazine Injection (Apresoline Inject (10/18/20 13:25) Insulin (Regular) Human (Novolin R (Per (10/18/20 13:42) Vital Signs/I&O 10/18/20 10/18/20 13:13 15:00 Temp 36.5 Pulse 92 82 Resp 16 18 B/P (MAP) 236/95 (142) 177/60 Pulse Ox 97 98 O2 Delivery Room Air Room Air Capillary Refill : Point of Care Testing Finger Stick Blood Glucose: 523 Blood Glucose Action Taken: Dr. Booth notified Progress Note #1: Progress Note Obtain labs as well as electrocardiogram and urine. Chest x-ray to evaluate for fluid collection and her cardiomegaly or reasons that she might have elevated blood pressure. Patient states that she feels like her blood pressure is up because of her chronic rib pain. We will give IV fluids for hydration and 10 mg of hydralazine to help with blood pressure, 10 units of regular insulin IV to help with blood sugar. Differential diagnosis includes mechanical complication from insulin pump, coronary artery disease, CHF, renal failure, pneumonia, UTI Progress Note #2: Progress Note Chest x-ray without acute abnormality. Her CBC is stable. Her chemistry showed mild increase in her creatinine level. Glucose responded to insulin dose here in the ED. Blood pressure was coming down here in the emergency department as well. Again patient was having no symptoms of high blood pressure. There was concerned that her insulin pump may not be working and that the patient needed further education about using insulin pump or may need to just use insulin shots to control her sugars. The clinic and diabetic education nurse was willing to take her back into the clinic to do further education and work with her about her pump before discharge home. Advised to work with Dr. Mitchell and the clinic about her elevated blood pressures and may need adjustment of her medicines. Counseled on follow-up and return precautions. ECG Initial ECG Impression Date: Oct 18, 2020 Initial ECG Impression Time: 13:24 Initial ECG Rate: 99 Initial ECG Rhythm: Normal Sinus Initial ECG Comparisson: No Previous ECG Available Comment Normal sinus rhythm with a heart rate of 99 bpm. PA interval [address] elevation. QT interval 330 ms with a QTc interval 424 ms. No prior tracing available for comparison. Diagnostic Imaging Diagonstic Imaging: Xray Plain Films/CT/US/NM/MRI: chest Comments NAME: CONOR SAEZ [facility] REC#: [id number] PT STATUS: REG ER : 1945 PHYSICIAN: HUMZA BOOTH MD ADMIT DATE: 10/18/20/ER FS Draft Date of Exam:10/18/20 CHEST 1 VIEW AP/PA ONLY INDICATION: Hypertension. TECHNIQUE: Frontal chest obtained at 01:23 p.m. COMPARISON: There is no prior study for comparison. FINDINGS: Heart and mediastinal silhouette are normal for a portable view. Lungs are clear. There is no pneumothorax or pleural fluid. IMPRESSION: Negative chest. Dictated on workstation # [id number] Dict: 10/18/20 1346 Trans: 10/18/20 1353 AS6 [id number] Interpreted by: ADA CANSECO MD Electronically signed by: Departure Impression Primary Impression: Diabetes mellitus with hyperglycemia, with long-term current use of insulin Qualified Codes: E13.65 - Other specified diabetes mellitus with hyperglycemia; Z79.4 - care home (current) use of insulin Additional Impression: Hypertension associated with diabetes Disposition: HOME, SELF-CARE Condition: Stable Departure-Patient Inst. Decision time for Depature: 14:41 Referrals: RONI MITCHELL MD (PCP/Family) Primary Care Physician Patient Instructions: How to Prevent High Blood Sugar Emergencies in Diabetes, High Blood Pressure in Adults Add. Discharge Instructions: Return to the clinic for further education and plan for managing blood sugar and using insulin pump. See about obtaining a new blood pressure cuff to help monitor your blood press ures and work with clinic about your medicines. They may want to adjust your dose of medicines. The chest xray does not show anything for your rib pain. The clinic may need to look into this further if it persists. All discharge instructions reviewed with patient and/or family. Voiced understanding. HUMZA BOOTH MD Oct 18, 2020 13:48
[2020-10-18 13:51] LABS: CLARITY,URINE CLEAR; COLOR,URINE YELLOW
[2020-10-18 13:52] LABS: BACTERIA,URINE NEGATIVE /HPF; BILIRUBIN,URINE NEGATIVE (NEGATIVE); GLUCOSE, URINE (UA) 3+ (NEGATIVE); HYALINE CASTS, URINE 0-2 /LPF; KETONES,URINE NEGATIVE (NEGATIVE); LEUKOCYTE ESTERASE ,URINE NEGATIVE (NEGATIVE); NITRITE,URINE NEGATIVE (NEGATIVE); PH,URINE 6.5 (5-9); PROTEIN,URINE 3+ (NEGATIVE); SQUAMOUS EPITHELIAL CELL,UR 0-2 /HPF
--- NOTE | 2020-10-18 13:54 | Diagnostic Imaging Report ---
INDICATION: Hypertension. TECHNIQUE: Frontal chest obtained at 01:23 p.m. COMPARISON: There is no prior study for comparison. FINDINGS: Heart and mediastinal silhouette are normal for a portable view. Lungs are clear. There is no pneumothorax or pleural fluid. IMPRESSION: Negative chest. Dictated by: Dictated on workstation # [id number]
[2020-10-18 14:07] LABS: POTASSIUM 4.5 MMOL/L (3.6-5.0)
[2020-10-18 14:08] LABS: ALBUMIN 3.6 GM/DL (3.2-4.5); BILIRUBIN,TOTAL 0.3 MG/DL (0.1-1.0); CALCIUM 9.3 MG/DL (8.5-10.1); CREATININE SERUM 1.77 MG/DL (0.60-1.30); MAGNESIUM 1.5 MG/DL (1.6-2.4); TOTAL PROTEIN 6.5 GM/DL (6.4-8.2)
[2020-10-18 15:00] VITALS: BP 177/60
== END 2020-10-18 15:00 | disposition home or self-care (01) ==
LOC: EDUNIT# 13:10 → ER FS 13:11
DX: E11.65 Type 2 diabetes mellitus with hyperglycemia (principal); I10 Essential (primary) hypertension; Z88.8 Allergy status to other drugs, medicaments and biological substances; Z79.4 Long term (current) use of insulin
CPT/HCPCS: 36415; 71045; 80053; 81000; 82947; 83690; 83735; 83880; 84484; 85025; 85610; 85730; 93005; 93041

== ENCOUNTER 2020-12-06 16:04 | Emergency (ER) | payer MEDICARE, OTHER ==
[~2020-12-06] VITALS: Ht 157.5 cm; Wt 64.4 kg
--- NOTE | 2020-12-06 16:28 | ED Lower Extremity ---
General Chief Complaint: Lower Extremity Stated Complaint: LEG NUMBNESS Source: patient History of Present Illness Date Seen by Provider: Dec 06, 2020 Time Seen by Provider: 16:15 Initial Comments Patient is a 75-year-old female present with history of neuropathy and diabetes who who presents multiple medical complaints. She reports generalized weakness, inability to stand or walk since yesterday. Patient attempted to get out of her chair yesterday and slid to the floor. She reports subjective fever, chills and sweats 5 days ago. She also reports decreased caloric intake although she is tolerating fluids. Reports mild headache. Denies blurred vision, no chest pain, palpitations, shortness of breath. No abdominal pain. No urinary frequency urgency or dysuria. No other acute symptoms or complaints. Onset: this morning Method of Injury: other Modifying Factors: Improves With Other Allergies and Home Medications Allergies Coded Allergies: gabapentin (Verified Allergy, Unknown, 10/18/20) Home Medications Tamsulosin HCl 0.4 Mg Cap, 0.4 MG PO DAILY Prescribed by: PING FERRER on 07/26/192046 Patient Home Medication List Home Medication List Reviewed: Yes Review of Systems Constitutional: see HPI EENTM: see HPI Respiratory: see HPI Cardiovascular: see HPI Gastrointestinal: see HPI Genitourinary: see HPI Musculoskeletal: see HPI Skin: see HPI Psychiatric/Neurological: See HPI All Other Systems Reviewed Negative Unless Noted: Yes Past Zaewohn-Qzymtz-Loauml Hx Patient Social History Tobacco Use?: Yes Seasonal Allergies Seasonal Allergies: No Past Medical History Surgeries: Yes (left kidney removed) Gallbladder, Hysterectomy Respiratory: No Cardiac: Yes Hypertension 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 oz. 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, alert, oriented x 3 Skin: normal color Progress/Results/Core Measures Results/Orders Lab Results Laboratory Tests Test 12/06/20 16:36 12/06/20 16:48 12/06/20 18:15 12/06/20 19:35 Range/Units White Blood Count 6.7 4.3-11.0 10^3/uL Red Blood Count 3.27 L 4.35-5.85 10^6/uL Hemoglobin 10.0 L 11.5-16.0 G/DL Hematocrit 29 L 35-52 % Mean Corpuscular Volume 90 80-99 FL Mean Corpuscular Hemoglobin 31 25-34 PG Mean Corpuscular Hemoglobin Concent 34 32-36 G/DL Red Cell Distribution Width 12.3 10.0-14.5 % Platelet Count 108 L 130-400 10^3/uL Mean Platelet Volume 12.4 H 7.4-10.4 FL Immature Granulocyte % (Auto) 1 % Neutrophils (%) (Auto) 83 H 42-75 % Lymphocytes (%) (Auto) 8 L 12-44 % Monocytes (%) (Auto) 8 0-12 % Eosinophils (%) (Auto) 0 0-10 % Basophils (%) (Auto) 0 0-10 % Neutrophils # (Auto) 5.6 1.8-7.8 X 10^3 Lymphocytes # (Auto) 0.6 L 1.0-4.0 X 10^3 Monocytes # (Auto) 0.6 0.0-1.0 X 10^3 Eosinophils # (Auto) 0.0 0.0-0.3 10^3/uL Basophils # (Auto) 0.0 0.0-0.1 10^3/uL Immature Granulocyte # (Auto) 0.0 0.0-0.1 10^3/uL Neutrophils % (Manual) 65 % Lymphocytes % (Manual) 8 % Monocytes % (Manual) 12 % Eosinophils % (Manual) % Basophils % (Manual) 1 % Band Neutrophils 14 % Percent Immature Platelet Fraction 7.4 0.0-7.6 % Blood Morphology Comment NORMAL Sodium Level 131 L 135-145 MMOL/L Potassium Level 4.1 3.6-5.0 MMOL/L Chloride Level 96 L 98-107 MMOL/L Carbon Dioxide Level 21 21-32 MMOL/L Anion Gap 14 5-14 MMOL/L Blood Urea Nitrogen 39 H 7-18 MG/DL Creatinine 1.98 H 0.60-1.30 MG/DL Estimat Glomerular Filtration Rate 25 BUN/Creatinine Ratio 20 Glucose Level 320 H 70-105 MG/DL Calcium Level 8.4 L 8.5-10.1 MG/DL Corrected Calcium 9.3 8.5-10.1 MG/DL Total Bilirubin 0.5 0.1-1.0 MG/DL Aspartate Amino Transf (AST/SGOT) 32 5-34 U/L Alanine Aminotransferase (ALT/SGPT) 18 0-55 U/L Alkaline Phosphatase 188 H 40-136 U/L Troponin I < 0.30 <0.30 NG/ML C-Reactive Protein 10.13 H <0.50 MG/DL Total Protein 5.9 L 6.4-8.2 GM/DL Albumin 2.9 L 3.2-4.5 GM/DL Urine Color YELLOW Urine Clarity CLOUDY H Urine pH 6.0 5-9 Urine Specific [place] 1.025 H 1.016-1.022 Urine Protein 3+ H NEGATIVE Urine Glucose (UA) 2+ H NEGATIVE Urine Ketones NEGATIVE NEGATIVE Urine Nitrite NEGATIVE NEGATIVE Urine Bilirubin NEGATIVE NEGATIVE Urine Urobilinogen 0.2 < = 1.0 MG/DL Urine Leukocyte Esterase NEGATIVE NEGATIVE Urine RBC (Auto) 2+ H NEGATIVE Urine RBC 10-25 H /HPF Urine WBC 0-2 /HPF Urine Squamous Epithelial Cells NONE /HPF Urine Crystals PRESENT H /LPF Urine Amorphous Sediment MOD ROHAN URATES H /LPF Urine Bacteria NEGATIVE /HPF Urine Casts PRESENT /LPF Urine Coarse Granular Casts 10-25 H /LPF Urine Mucus NEGATIVE /LPF Urine Culture Indicated NO Lactic Acid Level 1.20 0.50-2.00 MMOL/L My Orders [place] - FRANSICO DOMINGUEZ DO Cbc With Automated Diff (12/06/20 16:29) Comprehensive Metabolic Panel (12/06/20 16:29) Ua Culture If Indicated (12/06/20 16:29) Chest 1 View Ap/Pa Only (12/06/20 16:29) Troponin I Fs (12/06/20 16:29) Ns Iv 1000 Ml (Sodium Chloride 0.9%) (12/06/20 16:30) Manual Differential (12/06/20 16:36) Crp Fs (12/06/20 18:01) Blood Culture (12/06/20 18:01) Lactic Acid Analyzer (12/06/20 18:01) Blood Culture (12/06/20 18:45) Coronavirus Sars-Cov-2 So 2019 (12/06/20 19:33) Vital Signs/I&O 12/06/20 16:24 Temp 37.3 Pulse 103 Resp 16 B/P (MAP) 184/84 (117) Pulse Ox 94 O2 Delivery Room Air Departure Communication (Admissions) Chest x-ray no acute cardiopulmonary disease EKG lab and imaging studies reviewed. Patient with fever earlier in the week, nonspecific symptoms and generalized weakness likely secondary to dehydration, viral syndrome and decreased caloric intake. IV fluids given. Patient feels significantly improved. She is able to sit up on bed without assistance eat and walk with steady gait. She requests discharge home. Covid swab obtained. Recommendations are for watchful waiting supportive care and close PCP follow- up. Return precautions reviewed. Patient verbalizes understanding agreement with discharge instructions prior to departure. Impression Primary Impression: Generalized weakness Additional Impressions: Dehydration Viral syndrome Disposition: HOME, SELF-CARE Condition: Stable Departure-Patient Inst. Decision time for Depature: 19:44 Referrals: RONI MITCHELL MD (PCP/Family) Primary Care Physician Patient Instructions: Dehydration, Adult ED, Weakness ED, Viral Syndrome (DC) Add. Discharge Instructions: Please increase daily fluid and caloric intake. Take newly prescribed medications as directed and follow-up with your PCP in 2 to 3 days for reevaluation pending Covid results. Return to the ED if new or worsening symptoms All discharge instructions reviewed with patient and/or family. Voiced understanding. Scripts Azithromycin (Zithromax) 250 Mg Tablet 250 MG PO UD, #6 TAB TAKE 2 TABLETS TODAY, THEN TAKE 1 TABLET DAILY FOR 4 MORE DAYS Prov: FRANSICO DOMINGUEZ DO 12/06/20 FRANSICO DOMINGUEZ DO Dec 06, 2020 16:28
[2020-12-06] MEDS ORDERED: NS IV 1000 ML 1,000 ML IV SCH (16:30)
--- NOTE | 2020-12-06 16:50 | Diagnostic Imaging Report ---
INDICATION: Chest pain EXAM: Portable chest at 4:31 PM FINDINGS: The heart size and pulmonary vascularity are normal. Lungs are clear. There are no effusions or pneumothoraces. IMPRESSION: Negative chest. Dictated by: Dictated on workstation # [id number]
[2020-12-06 16:57] LABS: BASOPHILS % (AUTO) 0 % (0-10); EOSINOPHILS % (AUTO) 0 % (0-10); HEMATOCRIT 29 % (35-52); LYMPHOCYTES # (AUTO) 0.6 X 10^3 (1.0-4.0); LYMPHOCYTES % (AUTO) 8 % (12-44); MEAN CORPUSCULAR HEMOGLOBIN 31 PG (25-34); MEAN CORPUSCULAR HGB CONC 34 G/DL (32-36); MEAN CORPUSCULAR VOLUME 90 FL (80-99); MEAN PLATELET VOLUME 12.4 FL (7.4-10.4); MONOCYTES % (AUTO) 8 % (0-12); NEUTROPHILS # (AUTO) 5.6 X 10^3 (1.8-7.8); NEUTROPHILS % (AUTO) 83 % (42-75); PLATELET COUNT 108 10^3/uL (130-400); WHITE BLOOD COUNT 6.7 10^3/uL (4.3-11.0)
[2020-12-06 16:58] LABS: MONOCYTES # (AUTO) 0.6 X 10^3 (0.0-1.0)
[2020-12-06 17:23] LABS: BAND NEUTROPHILS 14 %; BASOPHILS % (MANUAL) 1 %; LYMPHOCYTES % (MANUAL) 8 %; MONOCYTES % (MANUAL) 12 %; NEUTROPHILS % (MANUAL) 65 %; RBC MORPH NORMAL
[2020-12-06 17:24] LABS: ALANINE AMINOTRANSFERASE 18 U/L (0-55); ALKALINE PHOSPHATASE 188 U/L (40-136); BILIRUBIN,TOTAL 0.5 MG/DL (0.1-1.0); BUN/CREATININE RATIO 20; CALCIUM 8.4 MG/DL (8.5-10.1); CARBON DIOXIDE 21 MMOL/L (21-32); CHLORIDE 96 MMOL/L (98-107); CREATININE SERUM 1.98 MG/DL (0.60-1.30); GFR ESTIMATED 25; GLUCOSE 320 MG/DL (70-105); POTASSIUM 4.1 MMOL/L (3.6-5.0); SODIUM 131 MMOL/L (135-145)
[2020-12-06 17:25] LABS: ALBUMIN 2.9 GM/DL (3.2-4.5); TOTAL PROTEIN 5.9 GM/DL (6.4-8.2)
[2020-12-06 17:32] LABS: BILIRUBIN,URINE NEGATIVE (NEGATIVE); CLARITY,URINE CLOUDY; COLOR,URINE YELLOW; GLUCOSE, URINE (UA) 2+ (NEGATIVE); KETONES,URINE NEGATIVE (NEGATIVE); LEUKOCYTE ESTERASE ,URINE NEGATIVE (NEGATIVE); NITRITE,URINE NEGATIVE (NEGATIVE); PROTEIN,URINE 3+ (NEGATIVE)
[2020-12-06 17:33] LABS: AMORPHOUS SEDIMENT,UR MOD AMOR URATES /LPF; BACTERIA,URINE NEGATIVE /HPF; WBC,URINE 0-2 /HPF
[2020-12-06] MEDS ORDERED: AZIT250T PO (19:45)
[2020-12-06 19:56] VITALS: BP 176/78
== END 2020-12-06 19:58 | disposition home or self-care (01) ==
LOC: EDUNIT# 16:04 → ER FS 16:06
DX: U07.1 COVID-19 (principal); R53.1 Weakness; E86.0 Dehydration; I10 Essential (primary) hypertension; E11.9 Type 2 diabetes mellitus without complications
CPT/HCPCS: 36415; 51701; 71045; 80053; 81000; 83605; 84484; 85007; 85027; 86141; 87040; 87636

== ENCOUNTER 2021-06-15 13:15 | Inpatient (IN) | payer MEDICARE, OTHER ==
[~2021-06-15] VITALS: Ht 157 cm; Wt 62.1 kg
[~2021-06-15 13:15] MED LIST changes: +AZIT250T PO
[2021-06-15 13:35] LABS: BASOPHILS # (AUTO) 0.1 10^3/uL (0.0-0.1); BASOPHILS % (AUTO) 1 % (0-10); EOSINOPHILS # (AUTO) 0.3 10^3/uL (0.0-0.3); EOSINOPHILS % (AUTO) 6 % (0-10); HEMATOCRIT 30 % (35-52); HEMOGLOBIN 10.1 g/dL (11.5-16.0); LYMPHOCYTES # (AUTO) 1.4 X 10^3 (1.0-4.0); LYMPHOCYTES % (AUTO) 23 % (12-44); MEAN CORPUSCULAR HEMOGLOBIN 30 pg (25-34); MEAN CORPUSCULAR HGB CONC 34 g/dL (32-36); MEAN CORPUSCULAR VOLUME 89 fL (80-99); MEAN PLATELET VOLUME 10.8 fL (9.0-12.2); MONOCYTES # (AUTO) 0.5 X 10^3 (0.0-1.0); MONOCYTES % (AUTO) 8 % (0-12); NEUTROPHILS # (AUTO) 3.9 X 10^3 (1.8-7.8); NEUTROPHILS % (AUTO) 63 % (42-75); PLATELET COUNT 209 10^3/uL (130-400); WHITE BLOOD COUNT 6.2 10^3/uL (4.3-11.0)
--- NOTE | 2021-06-15 13:37 | ED Neurological Problem ---
General Chief Complaint: Neuro-Stroke Like Symptoms Stated Complaint: DIFFICULTY SWALLOWING/SPEECH, RIGHT FACIAL Source: patient, family History of Present Illness Date Seen by Provider: Jun 15, 2021 Time Seen by Provider: 13:12 Initial Comments 76-year-old female presenting with family due to concern for possible stroke. She states she went to bed her 11 PM last night and woke up at 11 AM this morning. She denies having any deficits or problems last night when she went to bed. When she woke up at 11 she was feeling like her left side of the face did not move normally and she was having trouble with her speech. She did try eating and felt like she was having difficulty swallowing. She feels like she is off balance and was having trouble walking. She denies any weakness in one arm or leg or to one side of the body other than the left side of her face. She denies having symptoms like this previously. She does have a headache. She had some pain going into her left arm. She is tearful at times and anxious Associated Symptoms: No confusion, No fatigue, No fever/chills, No insomnia, No loss of consciousness, No muscle spasms, No nausea/vomiting, No numbness in legs/feet, No paresthesia, No ringing in ears, No seizures, No sleepy; slurred speech; No tingling in legs/feet; trouble walking (Feels off balance), vision changes (chronic issues with retinas. Had injection for retina on right eye Thursday but then had hemorrhage to surface of eye since that procedure. ); No weakness Allergies and Home Medications Allergies Coded Allergies: gabapentin (Verified Allergy, Unknown, 10/18/20) Patient Home Medication List Home Medication List Reviewed: Yes Azithromycin (Zithromax) 250 Mg Tablet, 250 MG PO UD Prescribed by: FRANSICO DOMINGUEZ on 12/06/201944 Tamsulosin HCl (Flomax) 0.4 Mg Cap, 0.4 MG PO DAILY Prescribed by: PING FERRER on 07/26/192046 Review of Systems Review of Systems Constitutional: No chills, No diaphoresis; dizziness; No fever Eyes: Denies Photophobia, Denies Vision Changes (no acute vision change) Ears, Nose, Mouth, Throat: no symptoms reported Respiratory: no symptoms reported Cardiovascular: no symptoms reported Gastrointestinal: no symptoms reported Genitourinary: no symptoms reported Musculoskeletal: no symptoms reported Skin: no symptoms reported Psychiatric/Neurological: Anxiety, Headache (genralized); Denies Numbness, Denies Unable to Move Lower Ext, Denies Unable to Move Upper Ext; Other (left facial droop, trouble swallowing, slurred speech since waking up at 11 am) Hematologic/Lymphatic: Denies Blood Clots Past Katzyxf-[id number]-Exqdec Hx Patient Social History Tobacco Use?: No Use of E-Cig and/or Vaping dev: No Substance use?: No Alcohol Use?: No Pt feels they are or have been: No Immunizations Up To Date Influenza Vaccine Up-to-Date: Yes; Up-to-Date First/Initial COVID19 Vaccinat: 2020 Second COVID19 Vaccination Kobe: 2020 COVID19 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: [employer] Seasonal Allergies Seasonal Allergies: No Past Medical History Surgery/Hospitalization HX: Insulin Dependent DM, Ulcerative Colitis with colectomy and iliostomy, hysterectomy, cholecystectomy, HTN Surgeries: Yes (left kidney removed) Abdominal, Gallbladder, Hysterectomy Respiratory: No Cardiac: Yes Hypertension Neurological: Yes Neuropathy 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 oz. kg; 25.00 BMI Method: General Appearance: other (anxious and tearful at times) HEENT: PERRL/EOMI, pharynx normal Neck: non-tender, full range of motion, supple Respiratory: chest non-tender, lungs clear, normal breath sounds, no respiratory distress, no accessory muscle use Cardiovascular: normal peripheral pulses, regular rate, rhythm Gastrointestinal: normal bowel sounds, non tender, soft, no pulsatile mass Back: no CVA tenderness Extremities: normal range of motion, non-tender, normal capillary refill Neurologic/Psychiatric: alert, oriented x 3, facial droop (left sided), other (dysarthria) Crainal Nerves: normal hearing, PERRL Coordination/Gait: other (unable to test gait as pt felt too off balance to walk) Motor/Sensory: no sensory deficit Skin: normal color, warm/dry Stroke Onset of Symptoms Date of Onset of Symptoms: Jun 15, 2021 Symptoms onset unknown: Yes (was normal 2300 on 06/14, woke up with problems) NIH Stroke Scale Assessment Select: Initial Level of Consciousness: 0=Alert (0), Level of Consciousness- Questions: 0=Answers both month/age (0), LOC Commands: 0=Performs both tasks (0), Gaze: Normal (0), Visual Spaulding: 0=No visual loss (0), Facial Movement (Facial Paresis): 1=Minor paralysis (1), Motor Function-Arms Right: 0=No drift (0), Motor Function-Arms Left: 0=No drift (0), Motor Function-Legs Right: 0=No drift (0), Motor Function-Legs Left: 0=No drift (0), Limb Ataxia: 0=Absent (0), Sensory: 0=Normal:no loss (0), Best Language: 0=No aphasia (0), Dysarthria: 1=Mild to moderate loss (1), Extinction & Inattention: 0=No abno rmality (0), Total: 2 Stroke Thrombolytic Exclusion Age 18 or Over: Yes Acute intenal hemorrhage: No History of CVA: No Uncontrolled Coagulation Defec: No Intracranial Hemorrhage: No Severe Hypertension: Yes GI or Bleed: No Subarachnoid Hemorrhage: No Intracranial Neoplasm/Aneurysm: No Oral Anticoagulants: No Surgery or Trauma: Yes (Eye surgery for retina 06/11) Puncture of Non-Compressible V: No Recent CPR: No Diabetic Hemorrhagic Retinopat: No Organ Biopsy: No Recent Obstetric Delivery: No Glucose: No Significant Hepatic Dysfunctio: No NIH Stoke Scale >22: No Bacterial Endocarditis: No Pericarditis: No Improving Symptoms: No Platelets: No TPA Contraindication: Yes (Out of time window, HTN, Eye surgery with hemmorhage) IV - TPa Received IV - TPa Procedure Performed?: No (pt not a candidate. Outside of window, HTN, Eye surgery) Progress/Results/Core Measures Results/Orders Lab Results Laboratory Tests Test 06/15/21 13:22 06/15/21 13:30 1/29/22 15:36 Range/Units White Blood Count 6.2 4.3-11.0 10^3/uL Red Blood Count 3.35 L 3.80-5.11 10^6/uL Hemoglobin 10.1 L 11.5-16.0 g/dL Hematocrit 30 L 35-52 % Mean Corpuscular Volume 89 80-99 fL Mean Corpuscular Hemoglobin 30 25-34 pg Mean Corpuscular Hemoglobin Concent 34 32-36 g/dL Red Cell Distribution Width 13.0 10.0-14.5 % Platelet Count 209 130-400 10^3/uL Mean Platelet Volume 10.8 9.0-12.2 fL Immature Granulocyte % (Auto) 0 % Neutrophils (%) (Auto) 63 42-75 % Lymphocytes (%) (Auto) 23 12-44 % Monocytes (%) (Auto) 8 0-12 % Eosinophils (%) (Auto) 6 0-10 % Basophils (%) (Auto) 1 0-10 % Neutrophils # (Auto) 3.9 1.8-7.8 X 10^3 Lymphocytes # (Auto) 1.4 1.0-4.0 X 10^3 Monocytes # (Auto) 0.5 0.0-1.0 X 10^3 Eosinophils # (Auto) 0.3 0.0-0.3 10^3/uL Basophils # (Auto) 0.1 0.0-0.1 10^3/uL Immature Granulocyte # (Auto) 0.0 0.0-0.1 10^3/uL Prothrombin Time 13.2 12.2-14.7 SEC INR Comment 1.0 0.8-1.4 Activated Partial Thromboplast Time 25 24-35 SEC Sodium Level 138 135-145 MMOL/L Potassium Level 4.7 3.6-5.0 MMOL/L Chloride Level 105 98-107 MMOL/L Carbon Dioxide Level 19 L 21-32 MMOL/L Anion Gap 14 5-14 MMOL/L Blood Urea Nitrogen 47 H 7-18 MG/DL Creatinine 2.31 H 0.60-1.30 MG/DL Estimat Glomerular Filtration Rate 21 BUN/Creatinine Ratio 20 Glucose Level 125 H 70-105 MG/DL Calcium Level 9.5 8.5-10.1 MG/DL Corrected Calcium 9.7 8.5-10.1 MG/DL Total Bilirubin < 0.2 0.1-1.0 MG/DL Aspartate Amino Transf (AST/SGOT) 25 5-34 U/L Alanine Aminotransferase (ALT/SGPT) 27 0-55 U/L Alkaline Phosphatase 240 H 40-136 U/L Troponin I < 0.30 <0.30 NG/ML Total Protein 6.9 6.4-8.2 GM/DL Albumin 3.8 3.2-4.5 GM/DL Glucometer 119 H 70-110 MG/DL Urine Color YELLOW Urine Clarity CLOUDY Urine pH 5.5 5-9 Urine Specific [place] 1.025 H 1.016-1.022 Urine Protein 2+ H NEGATIVE Urine Glucose (UA) NEGATIVE NEGATIVE Urine Ketones NEGATIVE NEGATIVE Urine Nitrite POSITIVE H NEGATIVE Urine Bilirubin NEGATIVE NEGATIVE Urine Urobilinogen 0.2 < = 1.0 MG/DL Urine Leukocyte Esterase 1+ H NEGATIVE Urine RBC (Auto) NEGATIVE NEGATIVE Urine RBC NONE /HPF Urine WBC >100 H /HPF Urine Crystals NONE /LPF Urine Bacteria LARGE H /HPF Urine Casts NONE /LPF Urine Mucus NEGATIVE /LPF Urine Culture Indicated YES My Orders Orders - HUMZA BOOTH MD Cbc With Automated Diff (06/15/21 13:31) Protime With Inr (06/15/21 13:31) Partial Thromboplastin Time (06/15/21 13:31) Comprehensive Metabolic Panel (06/15/21 13:31) Troponin I Fs (06/15/21 13:31) Ua Culture If Indicated (06/15/21 13:31) Chest 1 View Ap/Pa Only (06/15/21 13:31) Ekg Tracing (06/15/21 13:31) Nothing By Mouth (06/15/21 Lunch) Accucheck Stat ONCE (06/15/21 13:31) Ed Iv/Invasive Line Start (06/15/21 13:31) Vital Signs Stroke Patient Q15M (06/15/21 13:31) Ct Head Wo-R/O Stroke (06/15/21 13:31) O2 (06/15/21 13:31) Intake & Output 06,14,22 (06/15/21 13:31) Monitor-Rhythm Ecg Trace Only (06/15/21 13:31) Dysphagia Screening Tool (06/15/21 13:31) Hydralazine Injection (Apresoline Inject (06/15/21 14:24) Aspirin Chewable Tablet (Baby Aspirin Ch (06/15/21 15:15) Clopidogrel Tablet (Plavix Tablet) (06/15/21 15:15) Ed Admission (Communication) (06/15/21 15:16) Ns Iv 1000 Ml (Sodium Chloride 0.9%) (06/15/21 15:25) Urine Culture (06/15/21 15:36) Vital Signs/I&O 06/15/21 06/15/21 06/15/21 13:20 13:38 16:21 Temp 36.5 36.2 Pulse 105 100 111 Resp 20 16 16 B/P (MAP) 207/91 (129) 194/86 175/110 Pulse Ox 100 100 97 O2 Delivery Room Air Room Air Progress Progress Note #1: Progress Note NIH stroke scale is a 2 with taking 1 off her left facial droop while off her slight dysarthria. She is hypertensive and complaining of a headache. Will obtain stroke work-up with CT head and blood work as well as electrocardiogram and cardiac enzymes. Progress Note #2: Progress Note Labs appear stable with chronic anemia hemoglobin around 10. Her renal function shows chronic renal failure with creatinine 2.3. She has normal coags and are not elevated. Her attempts to obtain a urine were unsuccessful as she missed giving us a specimen. Her troponin was less than 0.3. Chest x-ray did not show an acute process. The CT scan of her head showed signs of old stroke in the right frontal and right basal ganglia. There is no acute signs of stroke or hemorrhage. [address] Schmidt with Neurology as she was on for Stroke at [facility]. Reviewed findings and results. Images were clouded over to [facility] or she could look at them. She had suggested that the patient likely have a small lacunar infarct. She suggested starting aspirin 81 mg a day and Plavix 75 mg a day for at least 3 weeks. She also recommended admission to do further work-up for stroke risk stratification such as looking at her lipids and hemoglobin A1c. Imaging to evaluate her carotids and possibly echocardiogram to look at her heart. During an MRI or CT angiogram could help to look at this. With her chronic renal failure and GFR of [address] angiogram she would at least need hydration before trying to give her any IV contrast. She also recommended that long-term her blood pressure goal would be to keep her systolic blood pressure less than 130 but in the short-term at least having it under 185 while she was admitted. Obtain a urinalysis to ensure that she did not have a UTI that was complicating her findings. [address] Avilez the on-call physician for [facility] and will admit to the ICU for neuro monitoring and blood pressure monitoring. She will place queued orders for the patient. Will order some fluids for hydration as well was start her on aspirin and Plavix here in the ED Progress Note #3: Progress Note After patient left with EMS to go to [facility] I saw that her urine had resulted with signs of nitrates and WBC concerning for UTI. Will notify Dr. Avilez so she is aware the pt did not get antibiotics prior to transfer. Initial ECG Impression Date: Jun 15, 2021 Initial ECG Impression Time: 13:29 Initial ECG Rate: 93 Initial ECG Rhythm: Normal Sinus Initial ECG Comparisson: Unchanged Comment Normal sinus rhythm with heart rate 93 bpm. SC interval [address] elevation. QT interval 358 ms with a QTc interval of 446 ms. Overall appears similar to prior tracing from October of 2020 Diagnostic Imaging Diagonstic Imaging: Xray Plain Films/CT/US/NM/MRI: chest Comments [facility] [place] NAME: CONOR SAEZ [facility] REC#: [id number] PT STATUS: REG ER : 1945 PHYSICIAN: HUMZA BOOTH MD ADMIT DATE: 06/15/21/ER FS Signed Date of Exam:06/15/21 CHEST 1 VIEW AP/PA ONLY INDICATION: Slurred speech and left arm pain. Comparison made with prior examination from 12/06/2020. FINDINGS: The heart size, mediastinal configuration, and pulmonary vascularity are within normal limits. There is no pleural effusion, pneumothorax, or pneumonia. The osseous structures are unremarkable. IMPRESSION: No acute cardiopulmonary abnormality. Dictated by: Dictated on workstation # [id number] Dict: 06/15/21 1351 Trans: 06/15/21 1428 [facility] [id number] Interpreted by: AMEE SAEZ MD Electronically signed by: AMEE SAEZ MD 06/15/21 1428 Reviewed: Reviewed by Me Diagonstic Imaging: CT Plain Films/CT/US/NM/MRI: head Comments [facility] [place] NAME: CONOR SAEZ [facility] REC#: [id number] PT STATUS: REG ER : 1945 PHYSICIAN: HUMZA BOOTH MD ADMIT DATE: 06/15/21/ER FS Signed Date of Exam:06/15/21 CT HEAD WO-R/O STROKE PROCEDURE: CT head wo r/o stroke. TECHNIQUE: Multiple contiguous axial images were obtained through the brain without the use of intravenous contrast. Auto Exposure Controls were utilized during the CT exam to meet ALARA standards for radiation dose reduction. INDICATION: Slurred speech and headache. Balance abnormalities. COMPARISON: No comparison is available. FINDINGS: There is marked low density demonstrated within the right basal ganglia along the anterior limb of the internal capsule and involving the caudate and putamen. There is some low density within the adjacent white matter. The findings are compatible with a prior vascular insult but given the marked low density, this is believed to be remote. There also are some scattered minimal microvascular changes in the subcortical white matter. There is no convincing evidence of territorial loss of rodriguez-white differentiation. There is no hemorrhage, mass effect, or hydrocephalus. There are no findings of vasogenic edema. There is atherosclerotic calcification within the vessels of the skull base. There is no asymmetric hyperdense blood vessel demonstrated. The mastoid air cells appear clear. The paranasal sinuses are clear. IMPRESSION: 1. Low-attenuation foci within the deep white matter of the right frontal lobe and marked low density within the right basal ganglia. The low density is compatible with a remote chronic insult. 2. No new territorial loss of rodriguez-white differentiation to suggest acute ischemia by CT. 3. No hyperdense blood vessel. 4. No hemorrhage, mass effect, or hydrocephalus. Dictated by: Dictated on workstation # [id number] Dict: 06/15/21 1359 Trans: 06/15/21 1528 [id number] Interpreted by: JESIKA EVANS MD Electronically signed by: JESIKA EVANS MD 06/15/21 1528 Reviewed: Reviewed by Me Departure Communication (Admissions) Time/Spoke to Admitting Phy: 15:[address] Avilez and she accepted patient for admission to the ICU for neuro and stroke work-up Impression Primary Impression: Ischemic stroke Additional Impressions: Weakness on left side of face Dysarthria Dysphagia Qualified Codes: R13.10 - Dysphagia, unspecified Elevated blood pressure reading with diagnosis of hypertension Acute cystitis without hematuria Disposition: 30 STILL A PATIENT Condition: Stable Admissions Decision to Admit Reason: Admit from ER (General) Decision to Admit/Date: Jun 15, 2021 Time/Decision to Admit Time: 15:11 Departure-Patient Inst. Referrals: RONI MITCHELL MD (PCP/Family) Primary Care Physician HUMZA BOOTH MD Jun 15, 2021 13:37
[2021-06-15 13:38] VITALS: BP 194/86
[2021-06-15 13:38] LABS: PROTHROMBIN TIME PATIENT 13.2 SEC (12.2-14.7)
[2021-06-15 13:46] LABS: ALANINE AMINOTRANSFERASE 27 U/L (0-55); ALBUMIN 3.8 GM/DL (3.2-4.5); ALKALINE PHOSPHATASE 240 U/L (40-136); BILIRUBIN,TOTAL < 0.2 MG/DL (0.1-1.0); BUN/CREATININE RATIO 20; CALCIUM 9.5 MG/DL (8.5-10.1); CARBON DIOXIDE 19 MMOL/L (21-32); CHLORIDE 105 MMOL/L (98-107); CREATININE SERUM 2.31 MG/DL (0.60-1.30); GFR ESTIMATED 21; GLUCOSE 125 MG/DL (70-105); POTASSIUM 4.7 MMOL/L (3.6-5.0); SODIUM 138 MMOL/L (135-145); TOTAL PROTEIN 6.9 GM/DL (6.4-8.2)
--- NOTE | 2021-06-15 13:57 | Diagnostic Imaging Report ---
INDICATION: Slurred speech and left arm pain. Comparison made with prior examination from 12/06/2020. FINDINGS: The heart size, mediastinal configuration, and pulmonary vascularity are within normal limits. There is no pleural effusion, pneumothorax, or pneumonia. The osseous structures are unremarkable. IMPRESSION: No acute cardiopulmonary abnormality. Dictated by: Dictated on workstation # [id number]
[2021-06-15] MEDS ORDERED: hydrALAZINE (APESOLINE) 20 MG/ML VIAL IV STA (14:24)
--- NOTE | 2021-06-15 14:36 | Diagnostic Imaging Report ---
PROCEDURE: CT head wo r/o stroke. TECHNIQUE: Multiple contiguous axial images were obtained through the brain without the use of intravenous contrast. Auto Exposure Controls were utilized during the CT exam to meet ALARA standards for radiation dose reduction. INDICATION: Slurred speech and headache. Balance abnormalities. COMPARISON: No comparison is available. FINDINGS: There is marked low density demonstrated within the right basal ganglia along the anterior limb of the internal capsule and involving the caudate and putamen. There is some low density within the adjacent white matter. The findings are compatible with a prior vascular insult but given the marked low density, this is believed to be remote. There also are some scattered minimal microvascular changes in the subcortical white matter. There is no convincing evidence of territorial loss of rodriguez-white differentiation. There is no hemorrhage, mass effect, or hydrocephalus. There are no findings of vasogenic edema. There is atherosclerotic calcification within the vessels of the skull base. There is no asymmetric hyperdense blood vessel demonstrated. The mastoid air cells appear clear. The paranasal sinuses are clear. IMPRESSION: 1. Low-attenuation foci within the deep white matter of the right frontal lobe and marked low density within the right basal ganglia. The low density is compatible with a remote chronic insult. 2. No new territorial loss of rodriguez-white differentiation to suggest acute ischemia by CT. 3. No hyperdense blood vessel. 4. No hemorrhage, mass effect, or hydrocephalus. Dictated by: Dictated on workstation # [id number]
[2021-06-15] MEDS ORDERED: ASPIRIN 81 MG CHEW (CHILDREN'S ASA) PO STA (15:15)
[2021-06-15] MEDS ORDERED: CLOPIDOGREL 75 MG (PLAVIX) TABLET PO STA (15:15)
[2021-06-15] MEDS ORDERED: NS IV 1000 ML 1,000 ML IV STA (15:25)
[2021-06-15 15:51] LABS: BACTERIA,URINE LARGE /HPF; BILIRUBIN,URINE NEGATIVE (NEGATIVE); CLARITY,URINE CLOUDY; COLOR,URINE YELLOW; GLUCOSE, URINE (UA) NEGATIVE (NEGATIVE); KETONES,URINE NEGATIVE (NEGATIVE); LEUKOCYTE ESTERASE ,URINE 1+ (NEGATIVE); NITRITE,URINE POSITIVE (NEGATIVE); PH,URINE 5.5 (5-9); PROTEIN,URINE 2+ (NEGATIVE); WBC,URINE >100 /HPF
[2021-06-15] MEDS ORDERED: ANTACID SUSP 30 ML UDC (MYLANTA) PO PRN (17:30)
[2021-06-15] MEDS ORDERED: ONDANSETRON 4 MG (ZOFRAN) ORAL DISSOLVE TAB PO PRN (17:30)
[2021-06-15] MEDS ORDERED: ONDANSETRON 4 MG/2 ML (SDV) Z0FRAN IV PRN (17:30)
[2021-06-15] MEDS ORDERED: BISACODYL 10 MG SUPP (DULCOLAX) PR PRN (17:30)
[2021-06-15] MEDS ORDERED: polyethylene glycoL POWDER 17 GM (MIRALAX) PACK PO PRN (17:30)
[2021-06-15] MEDS ORDERED: morphine INJ 4 MG/ML 1 ML (VIAL/SYRINGE) IV PRN (17:30)
[2021-06-15] MEDS ORDERED: ENOXAPARIN 40 MG/0.4 ML (LOVENOX) SYR SC SCH ×2 (17:30→21:00)
--- NOTE | 2021-06-15 18:01 | Tele-ICU Consult ---
Progress Note 76 y/o patient admitte dto ICU monitoring for neuro checks Patiet presents with s/s of stroke [facility] stroke [facility] consulted. Patient outside windowe for tPa CT head shos only small lacunar infarct Awaiting CT head and angio and MRI Patient has creat of 2.3 so awaiting hydration prior to contrast Focused Exam Height, Weight, BMI Height: '" Weight: lbs. oz. kg; 25.00 BMI Method: Laboratory Tests 06/15/21 13:22 Labs Labs Laboratory Tests 06/15/21 13:22: White Blood Count 6.2, Red Blood Count 3.35L, Hemoglobin 10.1L, Hematocrit 30L, Mean Corpuscular Volume 89, Mean Corpuscular Hemoglobin 30, Mean Corpuscular Hemoglobin Concent 34, Red Cell Distribution Width 13.0, Platelet Count 209, Mean Platelet Volume 10.8, Immature Granulocyte % (Auto) 0, Neutrophils (%) (Auto) 63, Lymphocytes (%) (Auto) 23, Monocytes (%) (Auto) 8, Eosinophils (%) (Auto) 6, Basophils (%) (Auto) 1, Neutrophils # (Auto) 3.9, Lymphocytes # (Auto) 1.4, Monocytes # (Auto) 0.5, Eosinophils # (Auto) 0.3, Basophils # (Auto) 0.1, Immature Granulocyte # (Auto) 0.0, Prothrombin Time 13.2, INR Comment 1.0, Activated Partial Thromboplast Time 25, Sodium Level 138, Potassium Level 4.7, Chloride Level 105, Carbon Dioxide Level 19L, Anion Gap 14, Blood Urea Nitrogen 47H, Creatinine 2.31H, Estimat Glomerular Filtration Rate 21, BUN/Creatinine Ratio 20, Glucose Level 125H, Calcium Level 9.5, Corrected Calcium 9.7, Total Bilirubin < 0.2, Aspartate Amino Transf (AST/SGOT) 25, Alanine Aminotransferase (ALT/SGPT) 27, Alkaline Phosphatase 240H, Troponin I < 0.30, Total Protein 6.9, Albumin 3.8 06/15/21 13:30: Glucometer 119H 06/15/21 15:36: Urine Color YELLOW, Urine Clarity CLOUDY, Urine pH 5.5, Urine Specific [place] 1.025H, Urine Protein 2+H, Urine Glucose (UA) NEGATIVE, Urine Ketones NEGATIVE, Urine Nitrite POSITIVEH, Urine Bilirubin NEGATIVE, Urine Urobilinogen 0.2, Urine Leukocyte Esterase 1+H, Urine RBC (Auto) NEGATIVE, Urine RBC NONE, Urine WBC >100H, Urine Crystals NONE, Urine Bacteria LARGEH, Urine Casts NONE, Urine Mucus NEGATIVE, Urine Culture Indicated YES JANAY BARNARD MD Jun 15, 2021 18:01
[2021-06-15 18:45] LABS: CHOLESTEROL 226 MG/DL (< 200); HDL CHOLESTEROL 76 MG/DL (40-60); TRIGLYCERIDES 125 MG/DL (<150); VLDL CHOLESTEROL 25 MG/DL (5-40)
[2021-06-15 20:35] VITALS: BP 200/90
[2021-06-15] MEDS: DOCUSATE SODIUM 100 MG (COLACE) CAP PO SCH (20:42)
[2021-06-15] MEDS ORDERED: hydrALAZINE (APESOLINE) 20 MG/ML VIAL ONE (20:44)
[2021-06-15] MEDS ORDERED: ACETAMINOPHEN 325 MG TABLET ONE (20:44)
[2021-06-15] MEDS ORDERED: ENOXAPARIN 40 MG/0.4 ML (LOVENOX) SYR ONE (20:45)
[2021-06-15] MEDS ORDERED: RT-ALBUTEROL SULF 2.5 MG/3 ML PRE-MIX VIAL INH PRN (20:45)
[2021-06-15] MEDS: hydrALAZINE (APESOLINE) 20 MG/ML VIAL IV PRN (20:49)
[2021-06-15] MEDS: inSUlin ASPART (NovoLOG) 1 UNIT/0.01 ML (CHARGE PER UNIT) SC SCH (20:49)
[2021-06-15] MEDS: ACETAMINOPHEN 325 MG TABLET PO PRN (20:49)
[2021-06-15] MEDS: cefTRIAXone 1 GM PRE-MIX 50 ML IV SCH (22:55)
[2021-06-16] MEDS: ACETAMINOPHEN 325 MG TABLET PO PRN ×2 (06:00→22:44)
--- NOTE | 2021-06-16 06:42 | History & Physical-Hospitalist ---
History of Present Illness HPI/Chief Complaint CC: CVA HPI: This is a 76yoWF who presented to the [facility] ER with left sided weakness and left facial droop. BP was elevated. Patient was not a tPa candidate due to last well time was 12+ hours before. Currently she is doing well and NIH score is 1. Left facial droop is subtle but still present. Plavix and ASA started and Dr Jarquin consulted. Source: patient Exam Limitations: no limitations Date Seen 06/16/21 Time Seen by a Provider: 12:30 Attending Physician Selena Avilez DO PCP Sam Merritt MD Referring Physician Date of Admission Jun 15, 2021 at 17:12 Home Medications & Allergies Home Medications Reviewed patient Home Medication Reconciliation performed by pharmacy medication reconciliations solar energy technician and/or nursing. Patients Allergies have been reviewed. Allergies Allergies Coded Allergies gabapentin (Verified Allergy, Unknown, 10/18/20) Past [id number]-[id number] Hx Patient Social History Marrital Status: single Employed/Student: retired Tobacco Use?: No Smoking Status: Never a Smoker Use of E-Cig and/or Vaping dev: No Substance use?: No Alcohol Use?: No Pt feels they are or have been: No Immunizations Up To Date Date of Influenza Vaccine: Mar 15, 2021 First/Initial COVID19 Vaccinat: 2020 Second COVID19 Vaccination Kobe: 2020 Seasonal Allergies Seasonal Allergies: No Current Status status: No Advance Directives: No Communicates: Verbally Primary Language: [place] Island[place] Preferred Spoken Language: [place] Island[place] Is interpretation needed?: No Past Medical History Surgeries: Abdominal, Gallbladder, Hysterectomy 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 Diabetes, Insulin dep Kidney Did You Recieve Any Treatments: Yes What Type of Treatment Did You: Surgical Intervention Blood Disorders: No Review of Systems Constitutional: see HPI, malaise, weakness EENTM: no symptoms reported Respiratory: no symptoms reported Cardiovascular: no symptoms reported Gastrointestinal: no symptoms reported Genitourinary: no symptoms reported Musculoskeletal: no symptoms reported Skin: no symptoms reported Psychiatric/Neurological: Numbness, Paresthesia Physical Exam Physical Exam Vital Signs Vital Signs - First Documented 06/15/21 06/15/21 13:20 20:35 Temp 36.5 Pulse 105 Resp 20 B/P (MAP) 207/91 (129) Pulse Ox 100 O2 Delivery Room Air FiO2 21 Capillary Refill : Less Than 3 Seconds Height, Weight, BMI Height: '" Weight: lbs. oz. kg; 25.96 BMI Method: General Appearance: No Apparent Distress, Chronically ill Eyes: Right Eye Normal Inspection, Right Eye PERRL HEENT: PERRL/EOMI, Normal ENT Inspection, Pharynx Normal, Moist Mucous Membranes Neck: Full Range of Motion, Normal Inspection, Non Tender Respiratory: Chest Non Tender, Lungs Clear, Normal Breath Sounds, No Accessory Muscle Use, No Respiratory Distress Cardiovascular: Regular Rate, Rhythm, No Edema, No Gallop, No JVD, No Murmur, Normal Peripheral Pulses Gastrointestinal: Normal Bowel Sounds, No Organomegaly, No Pulsatile Mass, Non Tender, Soft Back: Normal Inspection, No CVA Tenderness, No Vertebral Tenderness Extremity: Normal Capillary Refill, Normal Inspection, Normal Range of Motion, Non Tender, No Calf Tenderness, No Pedal Edema Neurologic/Psychiatric: Alert, Oriented x3, No Motor/Sensory Deficits, Normal Mood/Affect, admission nurse coordinator II-XII Norm as Tested, Facial Droop (left) Skin: Normal Color, Warm/Dry Lymphatic: No Adenopathy Results Results/Procedures Labs Laboratory Tests 06/15/21 13:22 06/16/21 07:20 Patient resulted labs reviewed. Assessment/Plan Admission Diagnosis Assessment: Subacute CVA not a tPa candidate Acute UTI HTN Left facial droop subtle CKD HLP Plan: Rocephin ASA Plavix Monitor closely Admission Status: Inpatient Order (span 2 midnights) Reason for Inpatient Admission: cva Diagnosis/Problems Diagnosis/Problems (1) Ischemic stroke Status: Acute (2) Weakness on left side of face Status: Acute (3) Dysarthria Status: Acute (4) Acute cystitis without hematuria Status: Acute Clinical Quality Measures Stroke: Date of last known well: Jun 15, 2021 Symptoms onset unknown: Yes (was normal 2300 on 06/14, woke up with problems) SELENA AVILEZ DO Jun 16, 2021 06:42
[2021-06-16] MEDS: inSUlin ASPART (NovoLOG) 1 UNIT/0.01 ML (CHARGE PER UNIT) SC SCH ×4 (06:51→20:54)
[2021-06-16 07:30] LABS: BASOPHILS % (AUTO) 1 % (0-10); EOSINOPHILS # (AUTO) 0.2 10^3/uL (0.0-0.3); EOSINOPHILS % (AUTO) 4 % (0-10); HEMATOCRIT 31 % (35-52); HEMOGLOBIN 10.1 g/dL (11.5-16.0); LYMPHOCYTES % (AUTO) 21 % (12-44); MEAN CORPUSCULAR HEMOGLOBIN 30 pg (25-34); MEAN CORPUSCULAR HGB CONC 33 g/dL (32-36); MEAN CORPUSCULAR VOLUME 91 fL (80-99); MEAN PLATELET VOLUME 11.6 fL (9.0-12.2); MONOCYTES # (AUTO) 0.4 10^3/uL (0.0-1.0); MONOCYTES % (AUTO) 9 % (0-12); NEUTROPHILS % (AUTO) 65 % (42-75); PLATELET COUNT 182 10^3/uL (130-400); WHITE BLOOD COUNT 4.6 10^3/uL (4.3-11.0)
[2021-06-16 07:46] LABS: CALCIUM 8.9 MG/DL (8.5-10.1); CREATININE SERUM 2.06 MG/DL (0.60-1.30); MAGNESIUM 1.6 MG/DL (1.6-2.4); PHOSPHORUS 4.6 MG/DL (2.3-4.7); POTASSIUM 4.1 MMOL/L (3.6-5.0)
[2021-06-16] MEDS: DOCUSATE SODIUM 100 MG (COLACE) CAP PO SCH ×2 (07:53→19:54)
[2021-06-16] MEDS: ASPIRIN 81 MG CHEW (CHILDREN'S ASA) PO SCH (07:53)
[2021-06-16] MEDS: CLOPIDOGREL 75 MG (PLAVIX) TABLET PO SCH (07:54)
[2021-06-16] MEDS: hydrALAZINE (APESOLINE) 20 MG/ML VIAL IV PRN ×2 (07:56→22:49)
[2021-06-16 08:17] LABS: EOSINOPHILS % (MANUAL) 4 %; LYMPHOCYTES % (MANUAL) 14 %; MONOCYTES % (MANUAL) 10 %; NEUTROPHILS % (MANUAL) 72 %; RBC MORPH NORMAL
--- NOTE | 2021-06-16 09:11 | Tele-ICU Progress Note ---
Subjective Date Seen by a Provider: Jun 16, 2021 Time Seen by a Provider: 07:00 Subjective/Events-last exam This virtual visit was conducted using real time audio/video. Thank you for asking us to see this patient with a now resolved facial droop. CTH w small lacunar infarct PE: Resting comfortably. VSS.174/85. O2 sat 98% on RA HEENT: No obvious masses, adenopathy or JVD. Chest: clear to auscultation. CV: RRR S1 S2 No murmur or added sounds. Abd: Non-tender. Bowel sounds Y. : Unremarkable. 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 No obvious focal findings. Extremities: No edema. Capillary refill < 3 seconds. Skin: unremarkable. Results: Elevated BUN 40, Creat 2.06, both improved. Decreased HB 10.1. CXR: unrem Available chart/ vitals / labs / images reviewed. Video assessment done using teleICU camera, rest of exam as per RN. A/P: Critical Care: critically ill patient. Cont. Hydration prior to imaging. Cont hydral., plavix, ASA. SSI, Jacob. Discussed with GLORIA Francisco. Asked RN to reach out to eICU if any questions or concerns later. Time spent with patient/coordination of care with other health professionals (mins): 15 Sepsis Event Evaluation Height, Weight, BMI Height: '" Weight: lbs. oz. kg; 25.96 BMI Method: Exam Exam Patient acknowledged, consented, and participated in this virtual visit which w as conducted using real time audio/video Vital Signs Date Time Temp Pulse Resp B/P (MAP) Pulse Ox O2 Delivery O2 Flow Rate FiO2 06/16/21 08:00 36.6 06/16/21 08:00 103 174/85 99 Room Air 06/16/21 07:00 85 179/88 99 Room Air 06/16/21 07:00 92 06/16/21 06:00 102 162/81 99 Room Air 06/16/21 05:00 88 168/82 100 Room Air 06/16/21 04:00 98 Room Air 06/16/21 04:00 96 158/71 97 Room Air 06/16/21 03:00 99 155/68 96 Room Air 06/16/21 02:00 102 181/77 97 Room Air 06/16/21 01:00 111 162/74 98 Room Air 06/16/21 01:00 111 06/16/21 00:00 112 15 157/60 97 Room Air 06/16/21 00:00 98 Room Air 06/15/21 23:32 37.1 06/15/21 23:00 112 15 134/55 98 Room Air 06/15/21 22:28 97 Room Air 06/15/21 22:00 114 12 140/58 98 Room Air 06/15/21 21:00 105 13 161/64 98 Room Air 06/15/21 20:35 111 98 21 06/15/21 20:00 101 12 186/111 98 Room Air 06/15/21 20:00 98 Room Air 06/15/21 20:00 36.3 06/15/21 19:00 108 13 136/91 97 Room Air 06/15/21 19:00 108 06/15/21 18:08 36.5 06/15/21 18:00 111 16 200/90 98 Room Air 06/15/21 17:59 113 06/15/21 17:47 Room Air 06/15/21 17:45 109 16 192/75 99 Room Air 06/15/21 16:21 36.2 111 16 175/110 97 Room Air 06/15/21 13:38 100 16 194/86 100 06/15/21 13:20 36.5 105 20 207/91 (129) 100 Room Air I & O 06/16/21 07:00 Intake Total 440 ml Balance 440 ml Height & Weight Height: '" Weight: lbs. oz. kg; 25.96 BMI Method: General Appearance: No Apparent Distress Capillary Refill: Less Than 3 Seconds Peripheral Pulses: 1+ Dorsalis Pedis (R), 1+ Left Dors-Pedis (L) Gastrointestinal: normal bowel sounds, non tender, soft, no pulsatile mass Results Lab Laboratory Tests 06/15/21 13:22 06/16/21 07:20 Assessment/Plan Assessment/Plan See free text Critical Care: Critically Ill Patient (See free text) MYA WRIGHT MD Jun 16, 2021 09:11
--- NOTE | 2021-06-16 09:15 | Consultation-Cardiology ---
HPI-Cardiology Cardiology Consultation Date of Consultation 06/16/21 Date of Admission Time Seen by Provider: 09:10 Indication: Acute CVA HPI 76-year-old lady with history of hypertension, woke up in the morning with facial droop and slurred speech, came into the emergency room and diagnosed with acute CVA, she had small lacunar infarct in the frontal lobe. Did not qualify for thrombolytics. This morning she is reporting that she is feeling better, her speech is better. She still have slight facial droop and weakness on the left side of her body. She denied any chest pain but admits to having palpitation on and off. Denied any shortness of breath. No syncope or near syncopal episodes. Home Medications & Allergies Allergies: Coded Allergies: gabapentin (Verified Allergy, Unknown, 10/18/20) Home Medication List Reviewed: Yes [id number] Hx Patient Social History Marital Status: Smoking Status: Never a Smoker 2nd Hand Smoke Exposure: No Recent Hopitalizations: No Have you traveled recently?: No Alcohol Use?: No Immunizations Up To Date Date of Influenza Vaccine: Mar 15, 2021 Past Medical History Discussed below Family Medical History Family Medical Hx Noncontributory Review of Systems-General Review of Systems Constitutional: No chills, No diaphoresis; dizziness; No fever EENTM: see HPI, no symptoms reported Respiratory: see HPI; No cough, No dyspnea on exertion, No hemoptysis, No orthopnea, No phlegm, No short of breath, No stridor, No wheezing, No other Cardiovascular: see HPI; No chest pain, No edema, No Hx of Intervention; palpitations; No syncope, No vascular heart diseas, No other Gastrointestinal: no symptoms reported Genitourinary: no symptoms reported Musculoskeletal: no symptoms reported Skin: no symptoms reported Psychiatric/Neurological: See HPI, Other (Facial droop, slurred speech and left side weakness) Reviewed Test Results Reviewed Test Results Lab Laboratory Tests Test 06/15/21 13:22 06/15/21 13:30 06/15/21 15:36 06/15/21 18:15 Range/Units White Blood Count 6.2 4.3-11.0 10^3/uL Red Blood Count 3.35 L 3.80-5.11 10^6/uL Hemoglobin 10.1 L 11.5-16.0 g/dL Hematocrit 30 L 35-52 % Mean Corpuscular Volume 89 80-99 fL Mean Corpuscular Hemoglobin 30 25-34 pg Mean Corpuscular Hemoglobin Concent 34 32-36 g/dL Red Cell Distribution Width 13.0 10.0-14.5 % Platelet Count 209 130-400 10^3/uL Mean Platelet Volume 10.8 9.0-12.2 fL Immature Granulocyte % (Auto) 0 % Neutrophils (%) (Auto) 63 42-75 % Lymphocytes (%) (Auto) 23 12-44 % Monocytes (%) (Auto) 8 0-12 % Eosinophils (%) (Auto) 6 0-10 % Basophils (%) (Auto) 1 0-10 % Neutrophils # (Auto) 3.9 1.8-7.8 X 10^3 Lymphocytes # (Auto) 1.4 1.0-4.0 X 10^3 Monocytes # (Auto) 0.5 0.0-1.0 X 10^3 Eosinophils # (Auto) 0.3 0.0-0.3 10^3/uL Basophils # (Auto) 0.1 0.0-0.1 10^3/uL Immature Granulocyte # (Auto) 0.0 0.0-0.1 10^3/uL Prothrombin Time 13.2 12.2-14.7 SEC INR Comment 1.0 0.8-1.4 Activated Partial Thromboplast Time 25 24-35 SEC Sodium Level 138 135-145 MMOL/L Potassium Level 4.7 3.6-5.0 MMOL/L Chloride Level 105 98-107 MMOL/L Carbon Dioxide Level 19 L 21-32 MMOL/L Anion Gap 14 5-14 MMOL/L Blood Urea Nitrogen 47 H 7-18 MG/DL Creatinine 2.31 H 0.60-1.30 MG/DL Estimat Glomerular Filtration Rate 21 BUN/Creatinine Ratio 20 Glucose Level 125 H 70-105 MG/DL Calcium Level 9.5 8.5-10.1 MG/DL Corrected Calcium 9.7 8.5-10.1 MG/DL Total Bilirubin < 0.2 0.1-1.0 MG/DL Aspartate Amino Transf (AST/SGOT) 25 5-34 U/L Alanine Aminotransferase (ALT/SGPT) 27 0-55 U/L Alkaline Phosphatase 240 H 40-136 U/L Troponin I < 0.30 <0.30 NG/ML Total Protein 6.9 6.4-8.2 GM/DL Albumin 3.8 3.2-4.5 GM/DL Glucometer 119 H 70-110 MG/DL Urine Color YELLOW Urine Clarity CLOUDY Urine pH 5.5 5-9 Urine Specific Fenton 1.025 H 1.016-1.022 Urine Protein 2+ H NEGATIVE Urine Glucose (UA) NEGATIVE NEGATIVE Urine Ketones NEGATIVE NEGATIVE Urine Nitrite POSITIVE H NEGATIVE Urine Bilirubin NEGATIVE NEGATIVE Urine Urobilinogen 0.2 < = 1.0 MG/DL Urine Leukocyte Esterase 1+ H NEGATIVE Urine RBC (Auto) NEGATIVE NEGATIVE Urine RBC NONE /HPF Urine WBC >100 H /HPF Urine Crystals NONE /LPF Urine Bacteria LARGE H /HPF Urine Casts NONE /LPF Urine Mucus NEGATIVE /LPF Urine Culture Indicated YES Triglycerides Level 125 <150 MG/DL Cholesterol Level 226 H < 200 MG/DL LDL Cholesterol Direct 124 1-129 MG/DL VLDL Cholesterol 25 5-40 MG/DL HDL Cholesterol 76 H 40-60 MG/DL Test 06/16/21 07:20 Range/Units White Blood Count 4.6 4.3-11.0 10^3/uL Red Blood Count 3.35 L 3.80-5.11 10^6/uL Hemoglobin 10.1 L 11.5-16.0 g/dL Hematocrit 31 L 35-52 % Mean Corpuscular Volume 91 80-99 fL Mean Corpuscular Hemoglobin 30 25-34 pg Mean Corpuscular Hemoglobin Concent 33 32-36 g/dL Red Cell Distribution Width 13.0 10.0-14.5 % Platelet Count 182 130-400 10^3/uL Mean Platelet Volume 11.6 9.0-12.2 fL Immature Granulocyte % (Auto) 0 % Neutrophils (%) (Auto) 65 42-75 % Lymphocytes (%) (Auto) 21 12-44 % Monocytes (%) (Auto) 9 0-12 % Eosinophils (%) (Auto) 4 0-10 % Basophils (%) (Auto) 1 0-10 % Neutrophils # (Auto) 3.0 1.8-7.8 10^3/uL Lymphocytes # (Auto) 1.0 1.0-4.0 10^3/uL Monocytes # (Auto) 0.4 0.0-1.0 10^3/uL Eosinophils # (Auto) 0.2 0.0-0.3 10^3/uL Basophils # (Auto) 0.0 0.0-0.1 10^3/uL Immature Granulocyte # (Auto) 0.0 0.0-0.1 10^3/uL Neutrophils % (Manual) 72 % Lymphocytes % (Manual) 14 % Monocytes % (Manual) 10 % Eosinophils % (Manual) 4 % Blood Morphology Comment NORMAL Sodium Level 140 135-145 MMOL/L Potassium Level 4.1 3.6-5.0 MMOL/L Chloride Level 113 H 98-107 MMOL/L Carbon Dioxide Level 15 L 21-32 MMOL/L Anion Gap 12 5-14 MMOL/L Blood Urea Nitrogen 40 H 7-18 MG/DL Creatinine 2.06 H 0.60-1.30 MG/DL Estimat Glomerular Filtration Rate 25 BUN/Creatinine Ratio 19 Glucose Level 62 L 70-105 MG/DL Calcium Level 8.9 8.5-10.1 MG/DL Phosphorus Level 4.6 2.3-4.7 MG/DL Magnesium Level 1.6 1.6-2.4 MG/DL Physical Exam Physical Exam Vital Signs Vital Signs - First Documented 06/15/21 06/15/21 13:20 20:35 Temp 36.5 Pulse 105 Resp 20 B/P (MAP) 207/91 (129) Pulse Ox 100 O2 Delivery Room Air FiO2 21 Capillary Refill : Less Than 3 Seconds Height, Weight, BMI Height: '" Weight: lbs. oz. kg; 25.96 BMI Method: General Appearance: No Apparent Distress, WD/WN Eyes: Bilateral Eye Normal Inspection, Bilateral Eye PERRL, Bilateral Eye EOMI HEENT: PERRL/EOMI, TMs Normal, Normal ENT Inspection, Pharynx Normal, Moist Mucous Membranes Neck: Full Range of Motion, Normal Inspection, Non Tender, Supple, Carotid Bru it Respiratory: Chest Non Tender, Normal Breath Sounds, No Accessory Muscle Use, No Respiratory Distress Cardiovascular: Regular Rate, Rhythm, No Edema, No JVD, No Murmur, Normal Peripheral Pulses, Gallop/S3 Gastrointestinal: Normal Bowel Sounds, No Organomegaly, No Pulsatile Mass, Non Tender, Soft Back: Normal Inspection, No CVA Tenderness, No Vertebral Tenderness Extremity: Normal Capillary Refill, Normal Inspection, Normal Range of Motion, Non Tender, No Calf Tenderness, No Pedal Edema Neurologic/Psychiatric: Alert, Oriented x3, Normal Mood/Affect, Motor Weakness (Mild weakness on the left upper extremity with left-sided facial droop) Skin: Normal Color, Warm/Dry Lymphatic: No Adenopathy A/P-Cardiology Admission Diagnosis CVA Hypertension Hyperlipidemia Diabetes mellitus Assessment/Plan Subacute CVA, did not qualify for thrombolytic, lacunar infarct was noted on the frontal lobe. Started on aspirin and Plavix Etiology is unknown, we will continue monitoring on telemetry Planning to evaluate 2D echo. Recurrent palpitation, patient is reporting feeling irregular heartbeat, palpitation on and off in the past. Questionable underlying atrial fibrillation as a cause for her stroke. We will continue monitor telemetry, will consider loop monitor implant for cryptogenic stroke Hypertension, starting Toprol-XL 25 mg daily, restart home medications Hyperlipidemia, LDL 124, total cholesterol 226, switching to Lipitor 80 mg daily and monitor tolerance and response Diabetes mellitus, followed and managed by primary care physician Acute renal insufficiency, probably underlying diabetic nephropathy. Renal function improving slowly. Continue to monitor closely. Clinical Quality Measures Stroke: Date of last known well: Jun 15, 2021 Symptoms onset unknown: Yes (was normal 2300 on 06/14, woke up with problems) THOMAS ROSA MD Jun 16, 2021 09:15
[2021-06-16] MEDS ORDERED: LOSA100T3 PO (15:20)
[2021-06-16] MEDS ORDERED: SIMV40TA25 PO (15:20)
[2021-06-16] MEDS ORDERED: INSU100V6 SQ ×2 (15:21)
[2021-06-16] MEDS: ENOXAPARIN 30 MG/0.3 ML (LOVENOX) SYR SC SCH (19:55)
[2021-06-16] MEDS: cefTRIAXone 1 GM PRE-MIX 50 ML IV SCH (21:26)
[2021-06-17] MEDS: inSUlin ASPART (NovoLOG) 1 UNIT/0.01 ML (CHARGE PER UNIT) SC SCH ×4 (06:42→22:20)
[2021-06-17 06:56] LABS: BASOPHILS # (AUTO) 0.1 10^3/uL (0.0-0.1); BASOPHILS % (AUTO) 1 % (0-10); EOSINOPHILS # (AUTO) 0.2 10^3/uL (0.0-0.3); EOSINOPHILS % (AUTO) 4 % (0-10); HEMATOCRIT 29 % (35-52); HEMOGLOBIN 9.8 g/dL (11.5-16.0); LYMPHOCYTES # (AUTO) 1.3 10^3/uL (1.0-4.0); LYMPHOCYTES % (AUTO) 24 % (12-44); MEAN CORPUSCULAR HEMOGLOBIN 30 pg (25-34); MEAN CORPUSCULAR HGB CONC 33 g/dL (32-36); MEAN CORPUSCULAR VOLUME 91 fL (80-99); MEAN PLATELET VOLUME 11.6 fL (9.0-12.2); MONOCYTES # (AUTO) 0.5 10^3/uL (0.0-1.0); MONOCYTES % (AUTO) 9 % (0-12); NEUTROPHILS # (AUTO) 3.4 10^3/uL (1.8-7.8); NEUTROPHILS % (AUTO) 62 % (42-75); PLATELET COUNT 203 10^3/uL (130-400); WHITE BLOOD COUNT 5.5 10^3/uL (4.3-11.0)
[2021-06-17 07:15] LABS: ALBUMIN 3.2 GM/DL (3.2-4.5); BILIRUBIN,TOTAL 0.3 MG/DL (0.1-1.0); CALCIUM 9.2 MG/DL (8.5-10.1); CREATININE SERUM 2.06 MG/DL (0.60-1.30); POTASSIUM 4.5 MMOL/L (3.6-5.0); TOTAL PROTEIN 6.7 GM/DL (6.4-8.2)
[2021-06-17] MEDS: ASPIRIN 81 MG CHEW (CHILDREN'S ASA) PO SCH (08:29)
--- NOTE | 2021-06-17 08:29 | Diagnostic Imaging Report ---
PROCEDURE: MR imaging of the brain without contrast. TECHNIQUE: Multiplanar, multisequence MR imaging of the brain was performed without contrast. INDICATION: Stroke. Weakness. Slurred speech. COMPARISON: CT head without contrast 06/15/2021. FINDINGS: Examination is limited by motion. Patient was unable to complete the exam. The gradient sequence and T1 sagittal sequence were not performed. There are several scattered small regions of restricted water diffusion scattered throughout the right temporal lobe, parietal lobe and frontal lobe, within the right MCA distribution. The largest of these is in the deep white matter of the posterior right frontal lobe and measures up to 1.3 cm. There is also a tiny 0.5 cm focus of restricted water diffusion in the anterior right eric. No evidence of a large hemorrhagic conversion. Chronic infarct in the right basal ganglia. Moderate to advanced T2 hyperintensities in the supratentorial white matter compatible with chronic small vessel ischemic change. No hydrocephalus or extra-axial fluid collections. Normal intracranial flow voids. Postoperative changes in the globes. Mild mucosal thickening in the paranasal sinuses. Mastoids clear. Normal bone marrow signal. IMPRESSION: 1. Several small foci of acute to subacute infarct are primarily in the right MCA distribution. There is also a small 0.5 cm focus of acute to subacute infarct in the anterior right eric. This distribution and pattern is suspicious for an embolic process. 2. Chronic infarct in the right basal ganglia. 3. Moderate to advanced chronic small vessel ischemic change. Dictated by: Dictated on workstation # [id number]
[2021-06-17] MEDS: CLOPIDOGREL 75 MG (PLAVIX) TABLET PO SCH (08:32)
--- NOTE | 2021-06-17 09:13 | Cardiology Progress Note ---
Subjective Date Seen by Provider: Jun 17, 2021 Time Seen by Provider: 09:10 Subjective/Events-last exam Patient is laying down in bed, feeling better, MRI showed multiple strokes, probably embolic. Review of Systems General: No Chills, No Night Sweats; Fatigue; No Malaise, No Appetite, No Other HEENT: No Head Aches, No Visual Changes, No Eye Pain, No Ear Pain, No Dy sphasia, No Sinus Congestion, No Post Nasal Drip, No Sore Throat, No Other Pulmonary: No Dyspnea, No Cough, No Pleuritic Chest Pain, No Other Cardiovascular: No: Chest Pain, Palpitations, Orthopnea, Paroxysmal Noc. Dyspnea, Edema, Lt Headedness, Other Objective-Cardiology Exam Last Set of Vital Signs Vital Signs 06/15/21 06/17/21 06/17/21 20:35 03:57 07:29 Temp 36.9 Pulse 116 Resp 20 B/P (MAP) 157/71 Pulse Ox 97 O2 Delivery Room Air FiO2 21 I&O Intake and Output 06/17/21 00:00 Intake Total 1225 ml Balance 1225 ml Intake Oral 1175 ml IV Total 50 ml # Voids 9 General: Alert, Oriented X3, Cooperative HEENT: Atraumatic, PERRLA Neck: Supple, No JVD, No Thyromegaly Lungs: Clear to Auscultation, Normal Air Movement Heart: Regular Rate, Normal S1, Normal S2, No Murmurs Abdomen: Normal Bowel Sounds, Soft, No Tenderness, No Hepatosplenomegaly, No Masses Extremities: No Clubbing, No Cyanosis, No Edema, Normal Pulses, No Tenderness /Swelling Skin: No Rashes, No Breakdown, No Significant Lesion Neuro: Normal Speech, Other (Left-sided facial droop) Psych/Mental Status: Mental Status NL, Mood NL Results Lab Laboratory Tests 06/17/21 06:43 A/P-Cardiology Admission Diagnosis CVA Hypertension Hyperlipidemia Diabetes mellitus Assessment/Plan Subacute CVA, did not qualify for thrombolytic, lacunar infarct was noted on the frontal lobe. MRI is suggestive of multiple emboli with small foci of acute to subacute infarct in the right MCA distribution, there is also small 0.5 cm focus of acute subacute infarct in the anterior right eric with distribution suggestive of embolic process Maintained on aspirin and Plavix Planning to proceed with 2D echo evaluation and I will place a loop monitor Recurrent palpitation, patient is reporting feeling irregular heartbeat, palpitation on and off in the past. Questionable underlying atrial fibrillation as a cause for her stroke. We will continue monitor telemetry, will consider loop monitor implant for cryptogenic stroke Hypertension, I will increase Toprol to 50 mg daily Hyperlipidemia, LDL 124, total cholesterol 226, switching to Lipitor 80 mg daily and monitor tolerance and response Diabetes mellitus, followed and managed by primary care physician Acute renal insufficiency, probably underlying diabetic nephropathy. Renal function improving slowly. Continue to monitor closely. THOMAS ROSA MD Jun 17, 2021 09:13
--- NOTE | 2021-06-17 09:30 | ST Cognitive Linguistic Eval ---
Speech Evaluation-General Medical Diagnosis Stroke Onset Date: Jun 14, 2021 Therapy Diagnosis Therapy Diagnosis: Mild Dysarthria Precautions Precautions: Fall Precautions/Isolations: Standard Precautions Referral Referring Physician: Dr. Selena Avilez Reason for Referral: Evaluation/Treatment Medical History Current History The patient is a 76 year old female with a past medical history of diabetes and HTN, who presented to [facility] following a stroke with a left sided facial droop and left sided weakness. Reviewed History: Yes Social History Current Living Status: Alone Speech PLF-Current Status Prior Level of Function The patient reported independence with ADL's prior to admission. Subjective The patient was lying down, awake and alert upon entrance. The patient greeted the clinician appropriately and was agreeable to participation in the cognitive linguistic assessment. Language Eval: Auditory Comprehends Simple Yes/No Ques: Functional Indent/Objects Multiple Spaulding: Functional Ident/Pics in Multiple Spaulding: Functional Follows 1-Step Commands: Functional Follows Complex Directions: Functional Follows General Conversations: Functional Language Eval: Verbal Language Completes Spontaneous Greeting: Functional Produces Auto, Serial Info: Functional Imitates Simple Words/Phrases: Functional Word Finding: Functional Requests Basic Needs: Functional States Basic Personal Info: Functional Expresses Complex Ideas: Functional Language Evaluation: Reading The patient reports a history of vision complications which causes difficulty with reading and writing. Cognitive Patient Orientation The patient reports a history of vision complications which causes difficulty with reading and writing. Objective Cognitive Domain Attention: WNL Memory: WNL (Age-appropriate.) Problem Solving: Functional Objective Oral Motor/Speech Production The patient demonstrated a left facial droop at rest. Decreased left sided labial retraction and protrusion was present (moderate) and decreased left sided facial sensation was reported. The patient demonstrated mild dysarthria characterized by decreased articulatory precision. Per patient, "It feels like my tongue is fat." Regardless of the dysarthria present, the patient remained 100% intelligible in known and unknown contexts. Impression The patient demonstrated mild dysarthria (consistent with flaccid-type) characterized by reduced articulatory precision. The patient displayed language (expressive and receptive) and cognitive skills within normal limits. Speech Short Term Goals Short Term Goals Short Term Goals 1. The patient will demonstrate intelligibility strategies and oral motor exercises with 90% accuracy, independently. Speech Long-Term Goals Long-Term Goals 1. The patient will demonstrate continued intelligibility in unknown contexts (100%), independently. Speech-Plan Patient/Family Goals Patient/Family Goals: The patient wishes to return home, independently. Treatment Plan Speech Therapy Treatment Plan: Continue Plan of Care Treatment Duration: Jun 24, 2021 Frequency: 2 times per week Estimated Hrs Per Day: .25 hour per day Rehab Potential: Good Pt/Family Agrees to Plan: Yes Safety Risks/Education Teaching Recipient: Patient Teaching Methods: Discussion Response to Teaching: Verbalize Understanding Education Topics Provided: Results of the Evaluation, Recommendations, Plan of Care Time Speech Therapy Time In: 08:59 Speech Therapy Time Out: 09:21 Total Billed Time: 22 Billed Treatment Time 1, PEDRO AMOR ELIZABETH Jun 17, 2021 09:30
--- NOTE | 2021-06-17 09:35 | Diagnostic Imaging Report ---
PROCEDURE: US carotid duplex, bilateral. TECHNIQUE: Multiple real-time grayscale images were obtained over the carotid arteries in various projections, bilaterally. Additional spectral analysis and color Doppler duplex images were also obtained. INDICATION: Dysarthria and dysphagia. Diabetes and hypertension. COMPARISON: None available. FINDINGS: Right carotid circulation: The right common carotid artery is normal in caliber, and there is no significant stenosis. Peak systolic velocity in the right common carotid artery is 93 cm/sec. There is a small amount of atherosclerotic plaque in the carotid bulb and proximal internal carotid artery, which results in less than 50% luminal narrowing by washburn scale imaging. The peak systolic velocity in the proximal internal carotid artery is 123 cm/sec. Proximal aspect of the external carotid artery is patent with expected high resistance waveforms, and peak systolic velocity of 198 cm/sec. Left carotid circulation: The left common carotid artery is normal in caliber, and there is no significant stenosis. Peak systolic velocity in the left common carotid artery is 120 cm/sec. There is a small amount of atherosclerotic plaque in the carotid bulb and proximal internal carotid artery, which results in less than 50% luminal narrowing by washburn scale imaging. The peak systolic velocity in the proximal internal carotid artery is 132 cm/sec. Proximal aspect of the external carotid artery is patent with expected high resistance waveforms, and peak systolic velocity of 196 cm/sec. Vertebral arteries: Flow in the bilateral vertebral arteries is antegrade. IMPRESSION: 1. 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 2. Atherosclerotic plaquing results in less than 50% stenosis of the right ICA. 3. Patent vertebral arteries with antegrade flow. Parameters based on the consensus panel [place]-Scale and Doppler ultrasound criteria published March 2003, Radiology, Volume 229. DOPPLER (peak systolic velocity M/S Right Left CCA .93 1.2 ICA Proximal .96 1.3 ICA Mid 1.0 1.3 ICA Distal 1.2 1.4 RATIO 1.3 1.2 ECA 2.0 2.0 VERT .66 .74 Dictated by: Dictated on workstation # [id number]
[2021-06-17] MEDS ORDERED: LIDOCAINE 1% INJ 20 ML VIAL ONE (10:09)
[2021-06-17] MEDS ORDERED: LOSA100T57 PO (10:13)
[2021-06-17] MEDS ORDERED: INSU100I10 SC ×2 (10:13)
[2021-06-17] MEDS ORDERED: ACET-2267 PO (10:13)
[2021-06-17] MEDS: DOCUSATE SODIUM 100 MG (COLACE) CAP PO SCH ×2 (10:42→20:49)
--- NOTE | 2021-06-17 10:55 | Implantation of Loop Monitor ---
Implant of Loop Monitior IMPLANTATION OF LOOP MONITOR REPORT DATE OF PROCEDURE: 06/17/21 PREOP DIAGNOSIS: Cryptogenic stroke POSTOP DIAGNOSIS: Cryptogenic stroke PROCEDURE DETAILS: The patient is a 76 female with cryptogenic stroke, MRI is suggestive of embolic process. Therefore implantable loop recorder was discussed and agreed with the patient. Informed consent was taken. All risks and complications were discussed at length. The patient was draped and prepped in the usual sterile fashion. Local anesthesia was lidocaine, which was given in the substernal area close to the 4th intercostal space. Loop monitor [employer] with serial # [id number] was implanted according to the protocol. Steri-Strips were placed at the end of the procedure. There were no complications and the patient tolerated the procedure well. ANESTHESIA: Local anesthesia with lidocaine. COMPLICATIONS: None CONTRAST/FLUOROSCOPY: None CONCLUSION: Successful implantation of loop monitor with no complication THOMAS ROSA MD Jun 17, 2021 10:55
[2021-06-17] MEDS ORDERED: LIDOCAINE 1% INJ 20 ML VIAL INJ ONE (11:45)
--- NOTE | 2021-06-17 12:53 | Occupational Therapy Eval ---
OT Evaluation-General/PLF Medical Diagnosis Admission Date Jun 15, 2021 at 17:12 Medical Diagnosis: CVA Onset Date: Jun 15, 2021 Therapy Diagnosis Therapy Diagnosis: decreased ADL status Precautions Precautions/Isolations: Fall Prevention, Standard Precautions Referral Physician: Raghav Grant Reason: Evaluation/Treatment Medical History Additional Medical History HTN, neuropathy, DM Current History Present to [facility] ED with L side weakness and L facial droop, elevated BP. Pt not a candidate for tPA. Social History Current Living Status: Alone ADL-Prior Level of Function SCALE: Activities may be completed with or without assistive devices. 7-Pjcmprtlir-jfnjjpv completes the activity by him/herself with no assistance from a helper. 5-Set-up or Clean-up Assistance-helper sets up or cleans up; patient completes activity. [place] assists only prior to or following the activity. 4-Supervision or Touching Assistance-helper provides verbal cues and/or touching/steadying and/or contact guard assistance as patient completes activity. Assistance may be provided throughout the activity or intermittently. 3-Partial/Moderate Assistance-helper does LESS THAN HALF the effort. [place] lifts, holds or supports trunk or limbs, but provides less than half the effort. 2-Substantial/Maximal Assistance-helper does MORE THAN HALF the effort. [place] lifts or holds trunk or limbs and provides more than half the effort. 4-Vptvjrish-clipip does ALL the effort. Patient does none of the effort to complete the activity. Or, the assistance of 2 or more helpers is required for the patient to complete the activity. If activity was not attempted, code reason: 7-Patient Refused. 9-Not Applicable-not attempted and the patient did not perform the activity before the current illness, exacerbation or injury. 10-Not Attempted due to Environmental Limitations-(lack of equipment, weather restraints, etc.). 88-Not Attempted due to Medical Conditions or Safety Concerns. ADL PLOF Comments Pt reports IND with ADLs and functional mobility at PLOF. Self Care: Independent Functional Cognition: Independent OT Current Status Subjective Pt in bed, agreeable to OT Tx. Mental Status/Objective Patient Orientation: Person, Place, Situation Current Hand Dominance: Right Upper Extremity ROM WFL Upper Extremity Coordination slightly decreased fine motor coordination Upper Extremity Sensation pt reports intact light touch and sensation BUEs. Upper Extremity Strength LUE grossly 3+/5, RUE grossly 4/5 ADL-Treatment Eating (QC): 4 (OT provided set up assistance. Pt knocked over soda, requiring assistance to clean spill. Supervision provided initially) On/Off Footwear (QC): 3 (Min A with donning R gripper sock.) Other Treatments Pt in bed, transferred supine to sit EOB with CGA. Pt used FWW to transfer to recliner, CGA. Pt doffed/donned gripper socks, min A with R gripper sock and increased time. Pt's lunch arrived, pt able to open soda can using butter knife, OT assisted pt with opening milk carton. Pt spilled soda can slightly, assist ance provided to clean up spill. Pt asked OT how she is supposed to eat her chicken pot pie, OT instructed pt to cut it and eat it how she normally would. Post tx, pt in recliner, call light in reach and all needs met. Education OT Patient Education: Correct positioning, Energy conservation, Modified ADL techniques, Progress toward Goal/Update tx plan, Purpose of tx/functional activities, Rehab process Teaching Recipient: Patient Teaching Methods: Discussion Response to Teaching: Verbalize Understanding OT Fci Goals Transmitter Operator Goals Time Frame: Jun 26, 2021 Eating (QC): 6 Oral Hygiene (QC): 6 Toileting Hygiene (QC): 6 Shower/Bathe Self (QC): 6 Upper Body Dressing (QC): 6 Lower Body Dressing (QC): 6 On/Off Footwear (QC): 6 Additional Goals: 1-Demonstrate ADL Tasks, 2-Verbalize Understanding, 3- ImproveStrength/Jackie 1=Demonstrate adherence to instructed precautions during ADL tasks. 2=Patient will verbalize/demonstrate understanding of assistive devices/modifications for ADL. 3=Patient will improve strength/tolerance for activity to enable patient to perform ADL's. OT Education/Plan Problem List/Assessment Assessment: Decreased Activ Tolerance, Decreased UE Strength, Impaired Funct Balance, Impaired I ADL's, Impaired Self-Care Skills Discharge Recommendations Plan/Recommendations: Continue POC Treatment Plan/Plan of Care Patient would benefit from OT for education, treatment and training to promote independence in ADL's, mobility, safety and/or upper extremity function for ADL's. Plan of Care: ADL Retraining, Functional Mobility, UE Funct Exercise/Act, UE Neuromus Re-Ed/Coord Treatment Duration: Jun 26, 2021 Frequency: 5 times per week Estimated Hrs Per Day: .25 hour per day Agreement: Yes Rehab Potential: Fair Time/GCodes Start Time: 11:40 Stop Time: 11:55 Total Time Billed (hr/min): 15 Billed Treatment Time 1, ALYX JAMA OT Jun 17, 2021 12:53
[2021-06-17] MEDS: hydrALAZINE (APESOLINE) 20 MG/ML VIAL IV PRN (13:50)
--- NOTE | 2021-06-17 14:12 | Physical Therapy Evaluation ---
PT Evaluation-General Medical Diagnosis Admission Date Jun 15, 2021 at 17:12 Medical Diagnosis: Stroke Onset Date: Jun 14, 2021 Therapy Diagnosis Therapy Diagnosis: weakness, debility Precautions Precautions/Isolations: Standard Precautions Weight Bear Status Right Lower Extremity: Right Weight Bearing/Tolerated Left Lower Extremity: Left Weight Bearing/Tolerated Referral Physician: Raghav Reason for Referral: Evaluation/Treatment Medical History Pertinent Medical History: DM, HTN, Neuropathy Additional Medical History Ulcerative Colitis Current History Patient presented ED via EMS after waking up and feeling weakness and loss of sensation on her left side. Reviewed History: Yes Social History Home: Single Level Current Living Status: Alone Entry Into Home: Stairs With Railing PT Steps Into Home: 3 Prior Prior Level of Function SCALE: Activities may be completed with or without assistive devices. 1-Yyanjrdxsg-qhzeaoz completes the activity by him/herself with no assistance from a helper. 5-Set-up or Clean-up Assistance-helper sets up or cleans up; patient completes activity. [place] assists only prior to or following the activity. 4-Supervision or Touching Assistance-helper provides verbal cues and/or touching/steadying and/or contact guard assistance as patient completes activity. Assistance may be provided throughout the activity or intermittently. 3-Partial/Moderate Assistance-helper does LESS THAN HALF the effort. [place] lifts, holds or supports trunk or limbs, but provides less than half the effort. 2-Substantial/Maximal Assistance-helper does MORE THAN HALF the effort. [place] lifts or holds trunk or limbs and provides more than half the effort. 6-Wlddokokd-ibirbc does ALL the effort. Patient does none of the effort to complete the activity. Or, the assistance of 2 or more helpers is required for the patient to complete the activity. If activity was not attempted, code reason: 7-Patient Refused. 9-Not Applicable-not attempted and the patient did not perform the activity before the current illness, exacerbation or injury. 10-Not Attempted due to Environmental Limitations-(lack of equipment, weather restraints, etc.). 88-Not Attempted due to Medical Conditions or Safety Concerns. Bed Mobility: 6 Transfers (B,C,W/C): 6 Gait: 6 Stairs: 6 Indoor Mobility (Ambulation): Independent Stairs: Independent Prior Devices Use: Walker PT Evaluation-Current Subjective Patient presented in bed and agrees to participate with therapy. Objective Patient Orientation: Person, Place, Time, Situation ROM/Strength ROM Lower Extremities WFL Strength Lower Extremities 4/5 strength bilateral grossly Integumentary/Posture Bowel Incontinence: No Bladder Incontinence: No Neuromuscular (Tone, Coordination, Reflexes) Patient tone, coordination, and reflex all seem to be intact bilaterally. Sensory Vision: Functional Hearing: Functional Hand Dominance: Right Transfers Lying to Sitting/Side of Bed(Q: 4 Sit to Stand (QC): 4 Chair/Ixn-aw-Fhcdi Xfer(QC): 4 Gait Does the Patient Walk?: Yes Mode of Locomotion: Walk Anticipated Mode of Locomotion: Walk Walk 10 feet (QC): 4 Walk 50 ft with 2 Turns(QC): 4 Walk 150 ft (QC): 4 Distance: 200' Gait Assistive Device: FWW Comments/Gait Description Patient ambulated for 200' with FWW and CGA. Patient initially ambulated with step to step pattern leading with the right foot but patient started to perform step through gait pattern after about 75'. Wheelchair Training Does the Pt Use a Wheelchair?: No Balance Sitting Static: Normal Sitting Dynamic: Normal Standing Static: Fair Standing Dynamic: Fair Assessment/Needs Patient performed transfers and ambulated with CGA today. Patient ambulated with FWW and CGA for 200'. Patient was very tearful after ambulation and reported that she walked better than she expected. Patient was independent for all activities prior to getting sick and coming to the hospital. Patient requires skilled therapy to gain strength and endurance to return to OF. Rehab Potential: Fair PT Burr Bench Operator Goals Mcc Goals PT Burr Bench Operator Goals Time Frame: Jun 29, 2021 Roll Left & Right (QC): 6 Sit to Lying (QC): 6 Lying-Sitting on Side/Bed(QC): 6 Sit to Stand (QC): 6 Chair/Hlb-zv-Wxudq Xfer(QC): 6 Toilet Transfer (QC): 6 Does the Patient Walk: Yes Walk 10 feet (QC): 6 Walk 50ft with 2 Turns (QC): 6 Walk 150 ft (QC): 6 Does the Pt use WC or Scooter?: No PT Plan Problem List Problem List: Activity Tolerance, Functional Strength, Safety, Balance, Gait, Transfer, Bed Mobility, ROM Treatment/Plan Treatment Plan: Continue Plan of Care Treatment Plan: Bed Mobility, Education, Functional Activity Jackie, Functional Strength, Gait, Safety, Therapeutic Exercise, Transfers Treatment Duration: Jun 29, 2021 Frequency: 6 times per week Estimated Hrs Per Day: .5 hour per day Patient and/or Family Agrees t: Yes Safety Risks/Education Patient Education: Gait Training, Safety Issues Teaching Recipient: Patient Time/GCodes Time In: 1310 Time Out: 1328 Total Billed Treatment Time: 18 Total Billed Treatment 1 Visit EVModC 18 min LAUREN ROY PT Jun 17, 2021 14:12
--- NOTE | 2021-06-17 17:15 | Progress Note ---
Subjective Subjective/Events-last exam Afebrile, no acute events, states she is feeling pretty well. Had loop recorder placed this am. Objective Exam Last Set of Vital Signs Vital Signs Date Time Temp Pulse Resp B/P (MAP) Pulse Ox O2 Delivery O2 Flow Rate FiO2 06/17/21 17:04 96 162/72 06/17/21 15:59 36.3 18 97 Room Air 06/15/21 20:35 21 Capillary Refill : Less Than 3 Seconds I&O Intake and Output 06/17/21 00:00 Intake Total 1225 ml Balance 1225 ml Intake Oral 1175 ml IV Total 50 ml # Voids 9 General: Alert, No Acute Distress Lungs: Clear to Auscultation, Normal Air Movement Heart: Regular Rate, No Murmurs Abdomen: Normal Bowel Sounds, Soft, Other (ostomy bag in place) Extremities: No Edema Neuro: Normal Speech, Other (left facial droop, remainder of cranial nerves intact, 3+/5 strength bilateral hip flexion, 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) Psych/Mental Status: Mental Status NL, Mood NL Results/Procedures Lab Laboratory Tests 06/17/21 06:43: White Blood Count 5.5, Red Blood Count 3.22L, Hemoglobin 9.8L, Hematocrit 29L, Mean Corpuscular Volume 91, Mean Corpuscular Hemoglobin 30, Mean Corpuscular Hemoglobin Concent 33, Red Cell Distribution Width 13.0, Platelet Count 203, Mean Platelet Volume 11.6, Immature Granulocyte % (Auto) 0, Neutrophils (%) (Auto) 62, Lymphocytes (%) (Auto) 24, Monocytes (%) (Auto) 9, Eosinophils (%) (Auto) 4, Basophils (%) (Auto) 1, Neutrophils # (Auto) 3.4, Lymphocytes # (Auto) 1.3, Monocytes # (Auto) 0.5, Eosinophils # (Auto) 0.2, Basophils # (Auto) 0.1, Immature Granulocyte # (Auto) 0.0, Sodium Level 136, Potassium Level 4.5, Chloride Level 110H, Carbon Dioxide Level 15L, Anion Gap 11, Blood Urea Nitrogen 40H, Creatinine 2.06H, Estimat Glomerular Filtration Rate 25, BUN/Creatinine Ratio 19, Glucose Level 207H, Calcium Level 9.2, Corrected Calcium 9.8, Total Bilirubin 0.3, Aspartate Amino Transf (AST/SGOT) 26, Alanine Aminotransferase (ALT/SGPT) 23, Alkaline Phosphatase 187H, Total Protein 6.7, Albumin 3.2 06/17/21 11:32: Glucometer 240H 06/17/21 12:09: Glucometer 233H 06/17/21 16:05: Glucometer 203H Microbiology 06/15/21 Urine Culture - Preliminary, Resulted Gram Pos Mixed Bacterial Leonora Klebsiella pneumoniae Susceptibility To Follow Assessment/Plan Assessment/Plan Assessment & Plan Subacute CVA not a tPa candidate- working with PT/OT/ST today, doing fairly well. MRI pending, echo and carotid US pending. Started asa and plavix. Acute UTI- ceftriaxone, culture pending HTN- avoiding aggressive control for now, appreciate Cardiology recommendations CKD- uncertain baseline, monitor closely HLP- statin DVT ppx- enoxaparin Clinical Quality Measures Stroke: Date of last known well: Jun 15, 2021 Symptoms onset unknown: Yes (was normal 2300 on 06/14, woke up with problems) BRET SNOW MD Jun 17, 2021 17:15
[2021-06-17] MEDS: ENOXAPARIN 30 MG/0.3 ML (LOVENOX) SYR SC SCH (20:49)
[2021-06-17] MEDS: cefTRIAXone 1 GM PRE-MIX 50 ML IV SCH (22:20)
[2021-06-18] MEDS: ACETAMINOPHEN 325 MG TABLET PO PRN (00:59)
[2021-06-18] MEDS: inSUlin ASPART (NovoLOG) 1 UNIT/0.01 ML (CHARGE PER UNIT) SC SCH ×2 (06:32→11:43)
--- NOTE | 2021-06-18 08:03 | Cardiology Progress Note ---
Subjective Date Seen by Provider: Jun 18, 2021 Time Seen by Provider: 08:01 Subjective/Events-last exam Patient was seen at bedside, sitting comfortably, eating breakfast. No new complaint Review of Systems General: No Chills, No Night Sweats, No Fatigue, No Malaise, No Appetite, No Other HEENT: No Head Aches, No Visual Changes, No Eye Pain, No Ear Pain, No Dysphasia, No Sinus Congestion, No Post Nasal Drip, No Sore Throat, No Other Pulmonary: No Dyspnea, No Cough, No Pleuritic Chest Pain, No Other Cardiovascular: No: Chest Pain, Palpitations, Orthopnea, Paroxysmal Noc. Dyspnea, Edema, Lt Headedness, Other Objective-Cardiology Exam Last Set of Vital Signs Vital Signs 06/15/21 06/18/21 06/18/21 06/18/21 06/18/21 20:35 03:44 04:05 07:00 07:36 Temp 37.4 Pulse 92 Resp 18 B/P (MAP) 153/60 Pulse Ox 98 O2 Delivery Room Air O2 Flow Rate 0.00 FiO2 21 I&O Intake and Output 06/18/21 00:00 Intake Total 1140 ml Output Total 160 ml Balance 980 ml Intake Oral 1140 ml Output Stool Total 160 ml # Voids 11 General: Alert, Oriented X3, Cooperative, No Acute Distress HEENT: Atraumatic, PERRLA Neck: Supple, No JVD, No Thyromegaly Lungs: Clear to Auscultation, Normal Air Movement Heart: Regular Rate, Normal S1, Normal S2, No Murmurs Abdomen: Normal Bowel Sounds, Soft, Other (ostomy bag in place) Extremities: No Clubbing, No Cyanosis, No Edema Skin: No Rashes, No Breakdown, No Significant Lesion Neuro: Normal Speech, Other (left facial droop, remainder of cranial nerves intact, 3+/5 strength bilateral hip flexion, 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 Still having left-sided facial droop and slight weakness in the left upper extremity, receiving physical therapy MRI is suggestive of multiple emboli with small foci of acute to subacute infarct in the right MCA distribution, there is also small 0.5 cm focus of acute subacute infarct in the anterior right eric with distribution suggestive of embolic process Maintained on aspirin and Plavix 2D echo did not show any abnormality suggestive of cardiac source of embolization Loop monitor was implanted Continue aspirin and Plavix Recurrent palpitation, patient is reporting feeling irregular heartbeat, palpitation on and off in the past. Questionable underlying atrial fibrillation as a cause for her stroke. Status post loop monitor implantation Hypertension, better controlled, continue on Toprol Hyperlipidemia, LDL 124, total cholesterol 226, switching to Lipitor 80 mg daily and monitor tolerance and response Diabetes mellitus, followed and managed by primary care physician Acute renal insufficiency, probably underlying diabetic nephropathy. Renal function improving slowly. Continue to monitor closely. Okay for discharge and follow-up as an outpatient THOMAS ROSA MD Jun 18, 2021 08:03
[2021-06-18] MEDS: CLOPIDOGREL 75 MG (PLAVIX) TABLET PO SCH (08:27)
[2021-06-18] MEDS: ASPIRIN 81 MG CHEW (CHILDREN'S ASA) PO SCH (08:27)
[2021-06-18] MEDS: DOCUSATE SODIUM 100 MG (COLACE) CAP PO SCH (08:31)
[2021-06-18 08:52] LABS: HEMATOCRIT 26 % (35-52); HEMOGLOBIN 8.4 g/dL (11.5-16.0); MEAN CORPUSCULAR HEMOGLOBIN 30 pg (25-34); MEAN CORPUSCULAR HGB CONC 33 g/dL (32-36); MEAN CORPUSCULAR VOLUME 92 fL (80-99); MEAN PLATELET VOLUME 11.5 fL (9.0-12.2); PLATELET COUNT 162 10^3/uL (130-400); WHITE BLOOD COUNT 4.8 10^3/uL (4.3-11.0)
[2021-06-18] MEDS ORDERED: meTOproloL SUCCINATE 50 MG (TOPROL XL) TAB PO SCH (09:00)
--- NOTE | 2021-06-18 09:23 | Occupational Ther Daily Note ---
OT Current Status-Daily Note Subjective Pt in recliner. Pt agreeable to OT tx. Mental Status/Objective Patient Orientation: Person, Place, Situation Attachments: IV, Telemetry ADL-Treatment Therapy Code Descriptions/Definitions Functional [place] Measure: 0=Not Assessed/NA 4=Minimal Assistance 1=Total Assistance 5=Supervision or Setup 2=Maximal Assistance 6=Modified [place] 3=Moderate Assistance 7=Complete IndependenceSCALE: Activities may be completed with or without assistive devices. 3-Zhkzzisfrp-kxwatuv completes the activity by him/herself with no assistance from a helper. 5-Set-up or Clean-up Assistance-helper sets up or cleans up; patient completes activity. [place] assists only prior to or following the activity. 4-Supervision or Touching Assistance-helper provides verbal cues and/or touch ing/steadying and/or contact guard assistance as patient completes activity. Assistance may be provided throughout the activity or intermittently. 3-Partial/Moderate Assistance-helper does LESS THAN HALF the effort. [place] lifts, holds or supports trunk or limbs, but provides less than half the effort. 2-Substantial/Maximal Assistance-helper does MORE THAN HALF the effort. [place] lifts or holds trunk or limbs and provides more than half the effort. 8-Nzkknzbmv-naogbg does ALL the effort. Patient does none of the effort to complete the activity. Or, the assistance of 2 or more helpers is required for the patient to complete the activity. If activity was not attempted, code reason: 7-Patient Refused. 9-Not Applicable-not attempted and the patient did not perform the activity before the current illness, exacerbation or injury. 10-Not Attempted due to Environmental Limitations-(lack of equipment, weather restraints, etc.). 88-Not Attempted due to Medical Conditions or Safety Concerns. Other Treatment Pt in recliner. Pt denied completing oral hygiene and toileting, but was agreeable to wash her face and brush her hair, with setup. Pt completed x10 reps of the following BUE exercises to work on arm strengthening: shoulder flexion, elbow flexion/extension, front punches and wrist flexion/extension, verbal cues needed to finish the exercise. Pt was encouraged to continue doing BUE exercises throughout the day and when she goes home to work on arm strengthening. Pt in recliner, call light in reach and all needs met. Education OT Patient Education: Correct positioning, Energy conservation, Exercise program, Modified ADL techniques, Progress toward Goal/Update tx plan, Purpose of tx/functional activities Teaching Recipient: Patient Teaching Methods: Demonstration, Discussion Response to Teaching: Verbalize Understanding, Return Demonstration, Reinforcement Needed OT Custodial Goals Custodial Goals Time Frame: Jun 26, 2021 Eating (QC): 6 Oral Hygiene (QC): 6 Toileting Hygiene (QC): 6 Shower/Bathe Self (QC): 6 Upper Body Dressing (QC): 6 Lower Body Dressing (QC): 6 On/Off Footwear (QC): 6 Additional Goals: 1-Demonstrate ADL Tasks, 2-Verbalize Understanding, 3-ImproveStrength/Jackie 1=Demonstrate adherence to instructed precautions during ADL tasks. 2=Patient will verbalize/demonstrate understanding of assistive devices/modifications for ADL. 3=Patient will improve strength/tolerance for activity to enable patient to perform ADL's. OT Education/Plan Problem List/Assessment Assessment: Decreased Activ Tolerance, Decreased UE Strength, Impaired Funct Balance, Impaired I ADL's, Impaired Self-Care Skills Discharge Recommendations Plan/Recommendations: Continue POC Treatment Plan/Plan of Care Patient would benefit from OT for education, treatment and training to promote independence in ADL's, mobility, safety and/or upper extremity function for ADL's. Plan of Care: ADL Retraining, Functional Mobility, UE Funct Exercise/Act, UE Neuromus Re-Ed/Coord Treatment Duration: Jun 26, 2021 Frequency: 5 times per week Estimated Hrs Per Day: .25 hour per day Agreement: Yes Rehab Potential: Fair Time/GCodes Start Time: 09:07 Stop Time: 09:16 Total Time Billed (hr/min): 9 Billed Treatment Time 1, EX (9) ALYX ASHLEY OT Jun 18, 2021 09:22
[2021-06-18 09:24] LABS: CALCIUM 8.8 MG/DL (8.5-10.1); CREATININE SERUM 2.37 MG/DL (0.60-1.30); POTASSIUM 4.5 MMOL/L (3.6-5.0)
--- NOTE | 2021-06-18 09:29 | Physical Therapy Daily Note ---
PT Daily Note-Current Subjective Patient agrees to physical therapy and reports that she wants to go home soon. Mental Status Patient Orientation: Person, Place Transfers SCALE: Activities may be completed with or without assistive devices. 1-Ynmaftsjsh-ihapqfq completes the activity by him/herself with no assistance from a helper. 5-Set-up or Clean-up Assistance-helper sets up or cleans up; patient completes activity. [place] assists only prior to or following the activity. 4-Supervision or Touching Assistance-helper provides verbal cues and/or touching/steadying and/or contact guard assistance as patient completes activity. Assistance may be provided throughout the activity or intermittently. 3-Partial/Moderate Assistance-helper does LESS THAN HALF the effort. [place] lif ts, holds or supports trunk or limbs, but provides less than half the effort. 2-Substantial/Maximal Assistance-helper does MORE THAN HALF the effort. [place] lifts or holds trunk or limbs and provides more than half the effort. 2-Gdxewqkfb-ytnlzj does ALL the effort. Patient does none of the effort to complete the activity. Or, the assistance of 2 or more helpers is required for the patient to complete the activity. If activity was not attempted, code reason: 7-Patient Refused. 9-Not Applicable-not attempted and the patient did not perform the activity before the current illness, exacerbation or injury. 10-Not Attempted due to Environmental Limitations-(lack of equipment, weather restraints, etc.). 88-Not Attempted due to Medical Conditions or Safety Concerns. Roll Left & Right (QC): 5 Lying to Sitting/Side of Bed(Q: 4 Sit to Stand (QC): 4 Chair/Zex-om-Fnsql Xfer(QC): 4 Patient performed bed mobility with only set up assistance and performed all other transfers with CGA. Weight Bearing Right Lower Extremity: Right Weight Bearing/Tolerated Left Lower Extremity: Left Weight Bearing/Tolerated Gait Training Does the Patient Walk?: Yes Distance: >300' Walk 10 feet (QC): 4 Walk 50 ft with 2 Turns(QC): 4 Walk 150 ft (QC): 4 Gait Assistive Device: FWW Patient still performs step to gait sequence but after ambulating for a few steps starting to perform a more normal gait pattern. Patient does not step past her right foot with her left at any point during ambulation. Patient has diffi culty controlling her walker at times and likes to veer to the left. Stair Training Stair Training: Handrails/: 1 handrail #of Steps: 12 1 Step (curb) (QC): 3 4 Steps (QC): 3 12 Steps (QC): 3 Stairs: Pattern: Step to Patient required min assist for ascending and mod assist for descending stairs. Patient performed step to gait pattern on the stairs leading with her right foot going both up and down. Patient was more unsteady with descending stairs. Exercises Seated Therapy Exercises: Ankle pumps, Long arc quads, Hip flexion Seated Reps: 10 Assessment Patient ambulated, performed stair training, and seated exercises. Patient reported significant fatigue after ambulation and stair training. Patient reports that she only has one step to get into her house. Patient requested to be done with therapy after only a few seated exercises due to fatigue. PT Alf Goals Alf Goals PT Electrical Automation Engineer Goals Time Frame: Jun 29, 2021 Roll Left & Right (QC): 6 Sit to Lying (QC): 6 Lying-Sitting on Side/Bed(QC): 6 Sit to Stand (QC): 6 Chair/Odc-gh-Xoygu Xfer(QC): 6 Toilet Transfer (QC): 6 Does the Patient Walk: Yes Walk 10 feet (QC): 6 Walk 50ft with 2 Turns (QC): 6 Walk 150 ft (QC): 6 Does the Pt use WC or Scooter?: No PT Plan Problem List Problem List: Activity Tolerance, Functional Strength, Safety, Balance, Gait, Transfer, Bed Mobility, ROM Treatment/Plan Treatment Plan: Continue Plan of Care Treatment Plan: Bed Mobility, Education, Functional Activity Jackie, Functional Strength, Gait, Safety, Therapeutic Exercise, Transfers Treatment Duration: Jun 29, 2021 Frequency: 6 times per week Estimated Hrs Per Day: .5 hour per day Patient and/or Family Agrees t: Yes Safety Risks/Education Patient Education: Steps, Disease Process Teaching Recipient: Patient Teaching Methods: Discussion Time/GCodes Time In: 844 Time Out: 858 Total Billed Treatment Time: 14 Total Billed Treatment 1 Visit FA 14 min LAUREN ROY PT Jun 18, 2021 09:29
[2021-06-18 10:11] VITALS: BP 131/73
[2021-06-18] MEDS ORDERED: METO50TA7 PO (10:34)
[2021-06-18] MEDS ORDERED: CLOP75TA28 PO (10:34)
[2021-06-18] MEDS ORDERED: ASPI81TA64 PO (10:34)
[2021-06-18] MEDS ORDERED: CEFD300C3 PO (10:34)
[2021-06-18] MEDS ORDERED: ATOR80TA76 PO (10:34)
[2021-06-18 13:10] VITALS: BP 131/73
--- NOTE | 2021-06-18 13:54 | Discharge Summary ---
Discharge Summary Instructions for Patient Assessment/Instructions s/p CVA. Follow up with primary physician within a week of discharge. Follow up with Cardiology in a week for wound check/Loop recorder follow up. 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 MRI showed several small foci of acute to subacute infarct primarily in right MCA distribution, suspicious for embolic process and chronic infarct in right basal ganglia. She did well with PT/OT and was able to swallow adequately, walk with walker, but she did continue to have left facial droop. She was discharged with home health services, and had Loop recorder implanted prior to d/c per Cardiology to evaluate for atrial fibrillation. She was discharged on on aspirin and clopidogrel and high intensity statin. She had klebsiella in her urine, sensitivity still pending at d/c, but was doing well on ceftriaxone inpatient, so she was discharged on cefdinir. Her creatinine was 2.37 on discharge, appears to be possibly above baseline from the summer, but stable throughout stay. Labs and Pending Lab Test: Laboratory Tests 06/17/21 16:05: Glucometer 203H 06/17/21 20:36: Glucometer 342H 06/17/21 22:00: Glucometer 367H 06/18/21 05:56: Glucometer 163H 06/18/21 08:43: White Blood Count 4.8, Red Blood Count 2.78L, Hemoglobin 8.4L, Hematocrit 26L, Mean Corpuscular Volume 92, Mean Corpuscular Hemoglobin 30, Mean Corpuscular Hemoglobin Concent 33, Red Cell Distribution Width 12.8, Platelet Count 162, Mean Platelet Volume 11.5, Sodium Level 138, Potassium Level 4.5, Chloride Level 111H, Carbon Dioxide Level 17L, Anion Gap 10, Blood Urea Nitrogen 45H, Creatinine 2.37H, Estimat Glomerular Filtration Rate 21, BUN/Creatinine Ratio 19, Glucose Level 185H, Calcium Level 8.8 06/18/21 10:45: Glucometer 204H Microbiology 06/15/21 Urine Culture - Final, Complete Gram Pos Mixed Bacterial Leonora Klebsiella pneumoniae Home Meds Active Children's Aspirin (Aspirin) 81 Mg Tab.chew 81 Mg PO DAILY Metoprolol Succinate 50 Mg Tab.er.24h 50 Mg PO DAILY Atorvastatin Calcium 80 Mg Tablet 80 Mg PO HS Clopidogrel (Clopidogrel Bisulfate) 75 Mg Tablet 75 Mg PO DAILY Cefdinir 300 Mg Capsule 300 Mg PO BID 5 Days Reported Tylenol Extra Strength (Acetaminophen) 500 Mg Tablet 500-1,000 Mg PO Q8H PRN Lantus Solostar (Insulin Glargine,Hum.rec.anlog) 100 Unit/1 Ml Insuln.pen 13 Unit SC HS Lantus Solostar (Insulin Glargine,Hum.rec.anlog) 100 Unit/1 Ml Insuln.pen 19 Units SC DAILY Patient Allergies: Coded Allergies: gabapentin (Verified Allergy, Unknown, 10/18/20) Home Health Need/Face to Face Date of Face to Face: Jun 18, 2021 Clinical Findings: Instability I have seen Pt gtrd-ok-rfnh: Yes Discharged To: Home Diagnosis/Conditions: See discharge diagnoses Patient is Homebound due to: Desmond fall risk due to instabilty Homebound Status Due to the above stated illness, injury or surgical procedure (medical condition or diagnosis) and associated clinical findings, the patient is homebound because of his/her inability to leave home except with aid of a supportive device and/or person AND leaving the home requires a considerable and taxing effort or is medically contraindicated. Pt req the following assistanc: Walker Home Health Nursing Orders Home Health Services Order: It Application Development Manager-Evaluate & Treat, Physical Therapy-Evaluate & Treat Home Health Infusion Therapy Line Start Date: Jun 15, 2021 Certify Stmt I certify that this patient is under my care and that I, a nurse practitioner or a physician; a quality assistant working with me, had a face to face encounter that - meets the physician face to face encounter requirements with this patient as dated. Discharge Physical Exam General: Alert Lungs: Clear to Auscultation Heart: Regular Rate Abdomen: Normal Bowel Sounds, Soft Extremities: No Edema Neuro: Normal Speech, Other (left facial droop, alert and oriented x 3) Psych/Mental Status: Mood NL BRET SNOW MD Jun 18, 2021 13:50
== END 2021-06-18 13:20 | disposition home health service (06) | DRG 41 ==
LOC: EDUNIT# 13:15 → ER FS 13:17 → ICU 17:12 → 4TH 06-16 22:32
PROVIDERS: ADMIT Internal Medicine; ATTEND Family Medicine
PROC: 0JH632Z Insertion of Monitoring Device into Chest Subcutaneous Tissue and Fascia, Percutaneous Approach (ICD-10-PCS; principal; 2021-06-17)
DX: I63.411 Cerebral infarction due to embolism of right middle cerebral artery (principal); N30.00 Acute cystitis without hematuria; R29.810 Facial weakness; R47.1 Dysarthria and anarthria; R13.10 Dysphagia, unspecified; R29.702 NIHSS score 2; B96.1 Klebsiella pneumoniae [K. pneumoniae] as the cause of diseases classified elsewhere; I12.9 Hypertensive chronic kidney disease with stage 1 through stage 4 chronic kidney disease, or unspecified chronic kidney disease; E11.22 Type 2 diabetes mellitus with diabetic chronic kidney disease; N18.9 Chronic kidney disease, unspecified; Z79.4 Long term (current) use of insulin; E11.40 Type 2 diabetes mellitus with diabetic neuropathy, unspecified; E11.21 Type 2 diabetes mellitus with diabetic nephropathy; N28.9 Disorder of kidney and ureter, unspecified; E78.5 Hyperlipidemia, unspecified; I35.0 Nonrheumatic aortic (valve) stenosis; Z88.6 Allergy status to analgesic agent
CPT/HCPCS: 33285; 36415; 70450; 70551; 71045; 80048; 80053; 80061; 81000; 82947; 83735; 84100; 84484; 85007; 85025; 85027; 85610; 85730; 87077; 87088; 87186; 93005; 93041; 93306; 93880; 94760

== ENCOUNTER → 2021-09-25 | Outpatient (CLI) | payer MEDICARE, OTHER ==
[~2021-09-25] MED LIST changes: +ACET-2267 PO; +ASPI81TA64 PO; +ATOR80TA76 PO; +CEFD300C3 PO; +CLOP75TA28 PO; +INSU100I10 SC; +INSU100V6 SQ; +LOSA100T3 PO; +LOSA100T57 PO; +METO50TA7 PO; +SIMV40TA25 PO
--- NOTE | 2021-09-25 13:28 | Diagnostic Imaging Report ---
PROCEDURE: CT abdomen and pelvis without contrast. TECHNIQUE: Multiple contiguous axial images were obtained through the abdomen and pelvis without the use of intravenous contrast. Auto Exposure Controls were utilized during the CT exam to meet ALARA standards for radiation dose reduction. INDICATION: Abnormal liver function tests. COMPARISON: 07/25/2019. FINDINGS: Unenhanced images of the liver and spleen reveal no focal abnormality. Gallbladder is surgically absent. There is no evidence of pancreatic or adrenal gland lesion. Surgical residue is seen along the anterior aspect of the lower pole of the right kidney. Kidneys are otherwise stable and unremarkable. There is no evidence of hydronephrosis or obstructive uropathy. Calcifications in the left retroperitoneum are likely due to phleboliths. Unopacified bladder is unremarkable. There is no evidence of organized fluid collection. Right mid abdominal ostomy is again noted without evidence of herniation of bowel obstruction. There are rather advanced lumbar degenerative findings. IMPRESSION: Stable chronic findings including surgical residue in the lower right kidney. There is no evidence of acute abnormality within the abdomen or pelvis. Dictated by: Dictated on workstation # [id number]
== END ==
LOC: RAD FS 12:59
PROVIDERS: ATTEND Urology
DX: R79.89 Other specified abnormal findings of blood chemistry (principal)
CPT/HCPCS: 74176

== ENCOUNTER → 2022-01-15 | Outpatient (CLI) | payer MEDICARE, OTHER ==
[~2022-01-15] VITALS: Ht 157 cm; Wt 62.1 kg
[2022-01-15 13:32] LABS: HEMOGLOBIN 9.3 g/dL (11.5-16.0)
[2022-01-15 14:15] VITALS: BP 215/87
== END ==
LOC: SDC 12:26
PROVIDERS: ATTEND Internal Medicine Nephrology
DX: D63.1 Anemia in chronic kidney disease (principal)
CPT/HCPCS: 36415; 85014; 85018

== ENCOUNTER 2022-02-11 11:34 | Outpatient (RCR) | payer MEDICARE, OTHER ==
[2022-02-04 11:50] VITALS: BP 206/84
[2022-02-04] MEDS: FERRIC CARBOXYMALTOSE INJ 750 MG in NS (IVPB) 250 ML IV SCH (12:23)
[~2022-02-11] VITALS: Wt 62.1 kg
[2022-02-11 11:30] VITALS: BP 175/59
[~2022-02-11 11:34] MED LIST changes: +ACETAMINOPHEN 500 MG TAB (TYLENOL) PO PRN; +diphenhydrAMINE 25 MG TAB (BENADRYL) PO PRN; +diphenhydrAMINE 50 MG/ML INJ (BENADRYL) IV PRN
[2022-02-11] MEDS: FERRIC CARBOXYMALTOSE INJ 750 MG in NS (IVPB) 250 ML IV SCH (11:58)
== END 2022-02-11 12:40 | disposition home or self-care (01) ==
LOC: SDC 11:34
PROVIDERS: ATTEND Internal Medicine Nephrology
DX: N18.5 Chronic kidney disease, stage 5 (principal); D63.1 Anemia in chronic kidney disease
CPT/HCPCS: 96365

== ENCOUNTER 2022-05-06 10:25 | Emergency (ER) | payer MEDICARE, OTHER ==
[~2022-05-06] VITALS: Ht 157.5 cm; Wt 62.1 kg
[~2022-05-06 10:25] MED LIST changes: -ACETAMINOPHEN 500 MG TAB (TYLENOL) PO PRN; -diphenhydrAMINE 25 MG TAB (BENADRYL) PO PRN; -diphenhydrAMINE 50 MG/ML INJ (BENADRYL) IV PRN
--- NOTE | 2022-05-06 10:43 | ED General ---
General Chief Complaint: Cough/Cold/Flu Symptoms Stated Complaint: LOW O2; FEVER Source of Information: Patient, Family Exam Limitations: No Limitations History of Present Illness Date Seen by Provider: May 06, 2022 Time Seen by Provider: 10:30 Initial Comments 76-year-old female with chronic kidney disease, diabetes mellitus, history of CVA presents to the emergency department today for reportedly low oxygen saturation. Home health had come to her house and her oxygen was reportedly 84- 86%. She does not use oxygen at home. EMS was called and she was started on oxygen in route. She was not feeling subjectively short of breath during this time but does endorse some increased upper respiratory congestion, nasal congestion and cough over the last couple of days. She has chronic back pain which is unchanged. Notably she had a fistula placed in her right arm 2 weeks ago. She has not yet had any dialysis sessions either via catheter or her fistula. She does have lower extremity swelling which is at baseline. Reportedly had a fever to 100.8 when taken by home health nurse. On my evalu ation she is asymptomatic outside of her chronic back pain. Allergies and Home Medications Allergies Coded Allergies: gabapentin (Verified Allergy, Unknown, 10/18/20) Patient Home Medication List Home Medication List Reviewed: Yes Acetaminophen (Tylenol Extra Strength) 500 Mg Tablet, 500-1,000 MG PO Q8H PRN for PAIN-MILD (1-4), (Reported) Entered as Reported by: ROD LUGO on 06/17/21 1013 Aspirin (Children's Aspirin) 81 Mg Tab.chew, 81 MG PO DAILY Prescribed by: BRET SNOW on 06/18/21 1034 Atorvastatin Calcium (Atorvastatin Calcium) 80 Mg Tablet, 80 MG PO HS Prescribed by: BRET SNOW on 06/18/21 1034 Cefdinir (Cefdinir) 300 Mg Capsule, 300 MG PO BID Prescribed by: BRET SNOW on 06/18/21 1034 Clopidogrel Bisulfate (Clopidogrel) 75 Mg Tablet, 75 MG PO DAILY Prescribed by: BRET SNOW on 06/18/21 1034 Insulin Glargine,Hum.rec.anlog (Lantus Solostar) 100 Unit/1 Ml Insuln.pen, 19 UNITS SC DAILY, (Reported) Entered as Reported by: ROD LUGO on 06/17/21 1013 Insulin Glargine,Hum.rec.anlog (Lantus Solostar) 100 Unit/1 Ml Insuln.pen, 13 UNIT SC HS, (Reported) Entered as Reported by: ROD LUGO on 06/17/21 1013 Metoprolol Succinate (Metoprolol Succinate) 50 Mg Tab.er.24h, 50 MG PO DAILY Prescribed by: BRET SNOW on 06/18/21 1034 Review of Systems Review of Systems Constitutional: fever EENTM: nose congestion Respiratory: cough Cardiovascular: no symptoms reported Gastrointestinal: no symptoms reported Genitourinary: no symptoms reported Musculoskeletal: no symptoms reported Skin: no symptoms reported Psychiatric/Neurological: No Symptoms Reported Hematologic/Lymphatic: No Symptoms Reported Immunological/Allergic: no symptoms reported Past Bijajsa-Ewhfnw-Rqehkj Hx Patient Social History Tobacco Use?: No Use of E-Cig and/or Vaping dev: No Substance use?: No Alcohol Use?: No Immunizations Up To Date First/Initial COVID19 Vaccinat: 2020 Second COVID19 Vaccination Kobe: 2020 Seasonal Allergies Seasonal Allergies: No Past Medical History Surgery/Hospitalization HX: Insulin Dependent DM, Ulcerative Colitis with colectomy and iliostomy, hysterectomy, cholecystectomy, HTN Surgeries: Yes (left kidney removed) Abdominal, Gallbladder, Hysterectomy Respiratory: No Cardiac: Yes Hypertension Neurological: Yes 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 oz. kg; 25.96 BMI Method: General Appearance: No Apparent Distress, WD/WN HEENT: PERRL/EOMI, TMs Normal, Normal ENT Inspection, Pharynx Normal Neck: Full Range of Motion, Normal Inspection, Non Tender, Supple Respiratory: Chest Non Tender, No Accessory Muscle Use, No Respiratory Distress, Rhonci Cardiovascular: Regular Rate, Rhythm, No Murmur, Normal Peripheral Pulses, Other (Frequent PVCs) Gastrointestinal: Normal Bowel Sounds, No Organomegaly, No Pulsatile Mass, Non Tender, Soft Extremity: Normal Capillary Refill, Normal Range of Motion, Non Tender, No Calf Tenderness, Other (2+ pitting edema bilateral lower extremities) Neurologic/Psychiatric: Alert, Oriented x3, Normal Mood/Affect Skin: Normal Color, Warm/Dry Progress/Results/Core Measures Suspected Sepsis SIRS Temperature: Pulse: Respiratory Rate: Laboratory Tests 05/06/22 10:33: White Blood Count 8.1 Blood Pressure / Mean: Laboratory Tests 05/06/22 10:33: Creatinine 5.29H, Platelet Count 150, Total Bilirubin 0.2 Results/Orders Lab Results Laboratory Tests Test 05/06/22 10:33 Range/Units White Blood Count 8.1 4.3-11.0 10^3/uL Red Blood Count 2.67 L 3.80-5.11 10^6/uL Hemoglobin 8.5 L 11.5-16.0 g/dL Hematocrit 26 L 35-52 % Mean Corpuscular Volume 96 80-99 fL Mean Corpuscular Hemoglobin 32 25-34 pg Mean Corpuscular Hemoglobin Concent 33 32-36 g/dL Red Cell Distribution Width 13.2 10.0-14.5 % Platelet Count 150 130-400 10^3/uL Mean Platelet Volume 11.0 9.0-12.2 fL Immature Granulocyte % (Auto) 1 % Neutrophils (%) (Auto) 69 42-75 % Lymphocytes (%) (Auto) 18 12-44 % Monocytes (%) (Auto) 12 0-12 % Eosinophils (%) (Auto) 0 0-10 % Basophils (%) (Auto) 1 0-10 % Neutrophils # (Auto) 5.6 1.8-7.8 10^3/uL Lymphocytes # (Auto) 1.4 1.0-4.0 10^3/uL Monocytes # (Auto) 1.0 0.0-1.0 10^3/uL Eosinophils # (Auto) 0.0 0.0-0.3 10^3/uL Basophils # (Auto) 0.1 0.0-0.1 10^3/uL Immature Granulocyte # (Auto) 0.0 0.0-0.1 10^3/uL Sodium Level 140 135-145 MMOL/L Potassium Level 4.0 3.6-5.0 MMOL/L Chloride Level 103 98-107 MMOL/L Carbon Dioxide Level 23 21-32 MMOL/L Anion Gap 14 5-14 MMOL/L Blood Urea Nitrogen 48 H 7-18 MG/DL Creatinine 5.29 H 0.60-1.30 MG/DL Estimat Glomerular Filtration Rate 8 BUN/Creatinine Ratio 9 Glucose Level 128 H 70-105 MG/DL Calcium Level 8.8 8.5-10.1 MG/DL Corrected Calcium 9.7 8.5-10.1 MG/DL Magnesium Level 1.6 1.6-2.4 MG/DL Total Bilirubin 0.2 0.1-1.0 MG/DL Aspartate Amino Transf (AST/SGOT) 46 H 5-34 U/L Alanine Aminotransferase (ALT/SGPT) 49 0-55 U/L Alkaline Phosphatase 444 H 40-136 U/L Total Protein 5.9 L 6.4-8.2 GM/DL Albumin 2.9 L 3.2-4.5 GM/DL Influenza Type A (RT-PCR) Detected H Not Detecte Influenza Type B (RT-PCR) Not Detected Not Detecte SARS-CoV-2 RNA (RT-PCR) Not Detected Not Detecte My Orders Orders - SIVAKUMAR KHOURY DO Comprehensive Metabolic Panel (05/06/22 10:40) Cbc With Automated Diff (05/06/22 10:40) Covid 19 Inhouse Test (05/06/22 10:40) Influenza A And B By Pcr (05/06/22 10:40) Ekg Tracing (05/06/22 10:40) Magnesium (05/06/22 10:41) Chest 1 View Ap/Pa Only (05/06/22 10:43) Vital Signs/I&O 05/06/22 05/06/22 05/06/22 10:25 11:10 11:32 Temp 36.6 36.6 Pulse 89 86 Resp 22 23 B/P (MAP) 194/92 (126) 189/87 Pulse Ox 99 97 O2 Delivery Room Air Room Air Room Air Capillary Refill : ECG EKG : Comment Sinus rhythm with a rate of 89 bpm. Normal intervals. Borderline left axis deviation. No ST or T wave abnormality. No ectopy. No STEMI Departure Communication (Admissions) Patient is hemodynamically stable. Oxygen saturation is completely normal here, greater than 95% for the majority of the time. Really low so seen is 94%. Chest x-ray shows no focal abnormalities. Influenza A positive. She has been sick for about 3 days now. Though she is high risk I recommended against Tamiflu given the myriad of side effects that can cause in the minimal effect. She and her daughter are agreeable to this at this time. Strict return precautions and discharged home in stable condition. Impression Primary Impression: Influenza A Disposition: 01 HOME, SELF-CARE Condition: Stable Departure-Patient Inst. Referrals: RADHA STRATTON APRN (PCP) Primary Care Physician [facility] (Family) Primary Care Physician Patient Instructions: Flu, Adult (DC) Add. Discharge Instructions: Leeann has influenza A which is certainly going around right now. This is likely the source of her symptoms however her oxygen levels have been completely normal since she has been here. Recommend a moderate amount of fluids but we need to balance this with her kidney failure. After discussion with Tamiflu I believe it is best not to take this medicine at this time. Return to the emergency department should she be struggling to breathe or if her symptoms change in any way concerning to you. Follow-up with her primary doctor in the next 48 to 72 hours. All discharge instructions reviewed with patient and/or family. Voiced understanding. SIVAKUMAR KHOURY DO May 06, 2022 10:43
[2022-05-06 10:47] LABS: BASOPHILS # (AUTO) 0.1 10^3/uL (0.0-0.1); BASOPHILS % (AUTO) 1 % (0-10); EOSINOPHILS % (AUTO) 0 % (0-10); HEMATOCRIT 26 % (35-52); HEMOGLOBIN 8.5 g/dL (11.5-16.0); LYMPHOCYTES # (AUTO) 1.4 10^3/uL (1.0-4.0); LYMPHOCYTES % (AUTO) 18 % (12-44); MEAN CORPUSCULAR HEMOGLOBIN 32 pg (25-34); MEAN CORPUSCULAR HGB CONC 33 g/dL (32-36); MEAN CORPUSCULAR VOLUME 96 fL (80-99); MONOCYTES % (AUTO) 12 % (0-12); NEUTROPHILS # (AUTO) 5.6 10^3/uL (1.8-7.8); NEUTROPHILS % (AUTO) 69 % (42-75); PLATELET COUNT 150 10^3/uL (130-400); WHITE BLOOD COUNT 8.1 10^3/uL (4.3-11.0)
--- NOTE | 2022-05-06 11:08 | Diagnostic Imaging Report ---
INDICATION: dyspnea, reported hypoxia, cough COMPARISON: 06/15/2021 FINDINGS: Single frontal view of the chest demonstrates normal heart size and pulmonary vascularity. The lungs are well aerated and clear. No large pleural effusion or pneumothorax is seen. The visualized osseous structures show no acute abnormalities. IMPRESSION: 1. No acute cardiopulmonary process. Dictated by: Dictated on workstation # [id number]
[2022-05-06 11:16] LABS: ALBUMIN 2.9 GM/DL (3.2-4.5); BILIRUBIN,TOTAL 0.2 MG/DL (0.1-1.0); CALCIUM 8.8 MG/DL (8.5-10.1); CREATININE SERUM 5.29 MG/DL (0.60-1.30); MAGNESIUM 1.6 MG/DL (1.6-2.4); TOTAL PROTEIN 5.9 GM/DL (6.4-8.2)
[2022-05-06 11:32] VITALS: BP 189/87
== END 2022-05-06 11:32 | disposition home or self-care (01) ==
LOC: EDUNIT# 10:25 → ER FS 10:26
DX: J10.1 Influenza due to other identified influenza virus with other respiratory manifestations (principal); E11.22 Type 2 diabetes mellitus with diabetic chronic kidney disease; N18.9 Chronic kidney disease, unspecified; Z79.4 Long term (current) use of insulin; Z20.822 Contact with and (suspected) exposure to COVID-19
CPT/HCPCS: 36415; 71045; 80053; 83735; 85025; 87636; 93005

== ENCOUNTER 2022-08-26 23:10 | Emergency (ER) | payer MEDICARE, OTHER ==
[~2022-08-26] VITALS: Ht 157.4 cm; Wt 58.9 kg
[~2022-08-26 23:10] MED LIST changes: -LOSA100T3 PO; +LOSA100T4 PO
[2022-08-26 23:19] VITALS: BP 187/76
--- NOTE | 2022-08-26 23:24 | ED General ---
General Stated Complaint: BLOOD CLOTS History of Present Illness Date Seen by Provider: Aug 26, 2022 Time Seen by Provider: 23:24 Initial Comments 77-year-old female with PMH of hysterectomy 20 years ago/CKD 5 with hemodialysis due tomorrow morning/DM2, is here with complaints of vaginal discharge that has been going on for the past 3 weeks, with occassional dark brown discharge, and is in the process of being worked up by her PCP. But tonight at 8 PM patient started having one episode of bright red bleeding with passage of 2 clots. Patient is on Plavix. Patient has a fistula on right arm, and a glucose monitor on her left arm. Denies fever and chills, abdominal or pelvic pain, dysuria, hematuria, dizziness, chest pain, palpitations. No active vaginal bleeding in the ER. Allergies and Home Medications Allergies Coded Allergies: gabapentin (Verified Allergy, Unknown, 10/18/20) Patient Home Medication List Home Medication List Reviewed: Yes Acetaminophen (Tylenol Extra Strength) 500 Mg Tablet, 500-1,000 MG PO Q8H PRN for PAIN-MILD (1-4), (Reported) Entered as Reported by: ROD LUGO on 06/17/21 1013 Aspirin (Children's Aspirin) 81 Mg Tab.chew, 81 MG PO DAILY Prescribed by: BRET SNOW on 06/18/21 1034 Atorvastatin Calcium (Atorvastatin Calcium) 80 Mg Tablet, 80 MG PO HS Prescribed by: BRET SNOW on 06/18/21 1034 Cefdinir (Cefdinir) 300 Mg Capsule, 300 MG PO BID Prescribed by: BRET SNOW on 06/18/21 1034 Clopidogrel Bisulfate (Clopidogrel) 75 Mg Tablet, 75 MG PO DAILY Prescribed by: BRET SNOW on 06/18/21 1034 Insulin Glargine,Hum.rec.anlog (Lantus Solostar) 100 Unit/1 Ml Insuln.pen, 19 UNITS SC DAILY, (Reported) Entered as Reported by: ROD LUGO on 06/17/21 1013 Insulin Glargine,Hum.rec.anlog (Lantus Solostar) 100 Unit/1 Ml Insuln.pen, 13 UNIT SC HS, (Reported) Entered as Reported by: ROD LUGO on 06/17/21 1013 Metoprolol Succinate (Metoprolol Succinate) 50 Mg Tab.er.24h, 50 MG PO DAILY Prescribed by: BRET SNOW on 06/18/21 1034 Review of Systems Review of Systems Constitutional: no symptoms reported EENTM: no symptoms reported Respiratory: no symptoms reported Cardiovascular: no symptoms reported Gastrointestinal: no symptoms reported Genitourinary: see HPI, other Musculoskeletal: no symptoms reported Skin: no symptoms reported Psychiatric/Neurological: No Symptoms Reported Hematologic/Lymphatic: No Symptoms Reported Immunological/Allergic: no symptoms reported Past Zxosocl-Lfrjyv-Emlmxs Hx Immunizations Up To Date First/Initial COVID19 Vaccinat: 2020 Second COVID19 Vaccination Kobe: 2020 Third COVID19 Vaccination Date: 2020 Seasonal Allergies Seasonal Allergies: No Past Medical History Surgery/Hospitalization HX: Insulin Dependent DM, Ulcerative Colitis with colectomy and iliostomy,hysterectomy, cholecystectomy, HTN; CKD; Dialysis fistula right upper arm. Surgeries: Yes (left kidney removed) Abdominal, Gallbladder, Hysterectomy Respiratory: No Cardiac: Yes Hypertension Neurological: Yes Neuropathy [employer] History: Hysterectomy Genitourinary: No Gastrointestinal: No Musculoskeletal: No Endocrine: Yes Diabetes, Insulin dep HEENT: No Cancer: Yes Kidney Did You Recieve Any Treatments: Yes What Type of Treatment Did You: Surgical Intervention Psychosocial: No Integumentary: No Blood Disorders: No Family Medical History No Pertinent Family Hx Physical Exam Vital Signs Vital Signs - First Documented 08/26/22 23:19 Temp 36.4 Pulse 97 Resp 16 B/P (MAP) 187/76 (113) Pulse Ox 98 O2 Delivery Room Air Capillary Refill : Height, Weight, BMI Height: '" Weight: lbs. oz. kg; 25.00 BMI Method: General Appearance: No Apparent Distress, WD/WN HEENT: PERRL/EOMI Neck: Full Range of Motion Respiratory: Lungs Clear, Normal Breath Sounds Cardiovascular: Regular Rate, Rhythm, No Edema Gastrointestinal: Normal Bowel Sounds, No Organomegaly, Non Tender, Soft Rectal: Normal Exam Genital/Rectal: Normal Rectal Exam (No bleeding seen on rectal exam, no hemorrhoids), Normal Rectal Tone, Normal Vaginal Exam (Minimal white discharge seen) Back: No CVA Tenderness Extremity: Normal Range of Motion Neurologic/Psychiatric: Alert, Oriented x3 Skin: Normal Color Progress/Results/Core Measures Suspected Sepsis SIRS Temperature: Pulse: Respiratory Rate: Laboratory Tests 08/26/22 23:46: White Blood Count 7.0 Blood Pressure / Mean: Laboratory Tests 08/26/22 23:46: Creatinine 5.58H, Platelet Count 201, Total Bilirubin 0.2 Results/Orders Lab Results Laboratory Tests Test 08/26/22 23:46 Range/Units White Blood Count 7.0 4.3-11.0 10^3/uL Red Blood Count 3.60 L 3.80-5.11 10^6/uL Hemoglobin 11.5 11.5-16.0 g/dL Hematocrit 35 35-52 % Mean Corpuscular Volume 97 80-99 fL Mean Corpuscular Hemoglobin 32 25-34 pg Mean Corpuscular Hemoglobin Concent 33 32-36 g/dL Red Cell Distribution Width 13.5 10.0-14.5 % Platelet Count 201 130-400 10^3/uL Mean Platelet Volume 11.4 9.0-12.2 fL Immature Granulocyte % (Auto) 0 % Neutrophils (%) (Auto) 60 42-75 % Lymphocytes (%) (Auto) 25 12-44 % Monocytes (%) (Auto) 10 0-12 % Eosinophils (%) (Auto) 4 0-10 % Basophils (%) (Auto) 1 0-10 % Neutrophils # (Auto) 4.2 1.8-7.8 10^3/uL Lymphocytes # (Auto) 1.7 1.0-4.0 10^3/uL Monocytes # (Auto) 0.7 0.0-1.0 10^3/uL Eosinophils # (Auto) 0.3 0.0-0.3 10^3/uL Basophils # (Auto) 0.1 0.0-0.1 10^3/uL Immature Granulocyte # (Auto) 0.0 0.0-0.1 10^3/uL Sodium Level 136 135-145 MMOL/L Potassium Level 4.8 3.6-5.0 MMOL/L Chloride Level 98 98-107 MMOL/L Carbon Dioxide Level 23 21-32 MMOL/L Anion Gap 15 H 5-14 MMOL/L Blood Urea Nitrogen 63 H 7-18 MG/DL Creatinine 5.58 H 0.60-1.30 MG/DL Estimat Glomerular Filtration Rate 7 BUN/Creatinine Ratio 11 Glucose Level 164 H 70-105 MG/DL Calcium Level 9.9 8.5-10.1 MG/DL Corrected Calcium 10.1 8.5-10.1 MG/DL Total Bilirubin 0.2 0.1-1.0 MG/DL Aspartate Amino Transf (AST/SGOT) 32 5-34 U/L Alanine Aminotransferase (ALT/SGPT) 56 H 0-55 U/L Alkaline Phosphatase 204 H 40-136 U/L Total Protein 6.8 6.4-8.2 GM/DL Albumin 3.7 3.2-4.5 GM/DL My Orders Orders - MUKUL BARTH MD Cbc With Automated Diff (08/26/22 23:28) Comprehensive Metabolic Panel (08/26/22 23:28) Vital Signs/I&O 08/26/22 23:19 Temp 36.4 Pulse 97 Resp 16 B/P (MAP) 187/76 (113) Pulse Ox 98 O2 Delivery Room Air Capillary Refill : Progress Note : Progress Note 1. VAGINAL BLEEDING: - CBC: Hb is stable : 11.5, normal WBC and platelets - CMP: normal electrolytes, creatinine is elevated at 5.58. Patient has HD tomorrow morning -Since patient is already being worked up in her primary [employer] office for these [employer] issues, advised to follow-up with PCP office tomorrow. -Outpatient pelvic ultrasound and abdominal ultrasound order given for patient to get ultrasound tomorrow morning, with results being sent to PCP office -On speculum exam there was no signs of any bleeding, no clots, no scabbing. A few drops of dried brown blood on the briefs was seen. -Vitals have remained stable in the ER, labs are normal, stable hemoglobin, no focus of bleeding identified, so next step would be to follow-up with PCP and obtain a [employer] referral. -The patient was seen in the ED, and treated appropriately to presentation at a specific point in time. Patient is informed that there is a possibility that disease and illness can evolve and change in acuity rapidly or slowly after patient is discharged from the ER. Precautionary advice given to the patient for immediate return to ER if symptoms worsen or do not resolve, and to seek e mergency care sooner rather than later. Pt also advised on the importance of PCP follow up and compliance with management and follow up plan with PCP and/or specialist, as this is part of the management plan. Pt verbally expressed understanding. Departure Impression Primary Impression: Vaginal bleeding Disposition: 01 HOME, SELF-CARE Condition: Stable Departure-Patient Inst. Referrals: RADHA STRATTON APRN (PCP) Primary Care Physician [facility] (Family) Primary Care Physician Patient Instructions: Bleeding After Menopause Add. Discharge Instructions: -Since patient is already being worked up in her primary [employer] [employer] office for these [employer] issues, advised to follow-up with PCP office tomorrow. -Outpatient pelvic ultrasound and abdominal ultrasound order given for patient to get ultrasound tomorrow morning, with results being sent to PCP office -On speculum exam there was no signs of any bleeding, no clots, no scabbing. A few drops of dried brown blood on the briefs was seen. -Vitals have remained stable in the ER, labs are normal, stable hemoglobin, no focus of bleeding identified, no active bleeding in the ER, so next step would be to follow-up with PCP and obtain a [employer] PH[employer] referral. MUKUL BARTH MD Aug 26, 2022 23:24
[2022-08-26 23:54] LABS: BASOPHILS # (AUTO) 0.1 10^3/uL (0.0-0.1); BASOPHILS % (AUTO) 1 % (0-10); EOSINOPHILS # (AUTO) 0.3 10^3/uL (0.0-0.3); EOSINOPHILS % (AUTO) 4 % (0-10); HEMATOCRIT 35 % (35-52); HEMOGLOBIN 11.5 g/dL (11.5-16.0); LYMPHOCYTES # (AUTO) 1.7 10^3/uL (1.0-4.0); LYMPHOCYTES % (AUTO) 25 % (12-44); MEAN CORPUSCULAR HEMOGLOBIN 32 pg (25-34); MEAN CORPUSCULAR HGB CONC 33 g/dL (32-36); MEAN CORPUSCULAR VOLUME 97 fL (80-99); MEAN PLATELET VOLUME 11.4 fL (9.0-12.2); MONOCYTES # (AUTO) 0.7 10^3/uL (0.0-1.0); MONOCYTES % (AUTO) 10 % (0-12); NEUTROPHILS # (AUTO) 4.2 10^3/uL (1.8-7.8); NEUTROPHILS % (AUTO) 60 % (42-75); PLATELET COUNT 201 10^3/uL (130-400)
[2022-08-27 00:28] LABS: CREATININE SERUM 5.58 MG/DL (0.60-1.30); POTASSIUM 4.8 MMOL/L (3.6-5.0)
[2022-08-27 00:29] LABS: ALBUMIN 3.7 GM/DL (3.2-4.5); BILIRUBIN,TOTAL 0.2 MG/DL (0.1-1.0); CALCIUM 9.9 MG/DL (8.5-10.1); TOTAL PROTEIN 6.8 GM/DL (6.4-8.2)
== END 2022-08-27 00:44 | disposition home or self-care (01) ==
LOC: EDUNIT# 23:10 → ER FS 23:12
DX: N93.9 Abnormal uterine and vaginal bleeding, unspecified (principal); R79.89 Other specified abnormal findings of blood chemistry; I12.0 Hypertensive chronic kidney disease with stage 5 chronic kidney disease or end stage renal disease; E11.22 Type 2 diabetes mellitus with diabetic chronic kidney disease; N18.5 Chronic kidney disease, stage 5; Z99.2 Dependence on renal dialysis; Z79.4 Long term (current) use of insulin; Z79.02 Long term (current) use of antithrombotics/antiplatelets
CPT/HCPCS: 36415; 80053; 85025

== ENCOUNTER → 2022-10-31 | Outpatient (CLI) | payer MEDICARE, OTHER ==
[~2022-10-31] MED LIST changes: -LOSA100T57 PO; +LOSA100T58 PO
[2022-10-31 10:39] LABS: BASOPHILS % (AUTO) 0 % (0-10); EOSINOPHILS % (AUTO) 0 % (0-10); HEMATOCRIT 29 % (35-52); HEMOGLOBIN 9.9 g/dL (11.5-16.0); LYMPHOCYTES # (AUTO) 0.7 10^3/uL (1.0-4.0); LYMPHOCYTES % (AUTO) 6 % (12-44); MEAN CORPUSCULAR HEMOGLOBIN 32 pg (25-34); MEAN CORPUSCULAR HGB CONC 34 g/dL (32-36); MEAN CORPUSCULAR VOLUME 94 fL (80-99); MEAN PLATELET VOLUME 11.6 fL (9.0-12.2); MONOCYTES # (AUTO) 0.3 10^3/uL (0.0-1.0); MONOCYTES % (AUTO) 3 % (0-12); NEUTROPHILS % (AUTO) 90 % (42-75); PLATELET COUNT 233 10^3/uL (130-400)
[2022-10-31 10:46] LABS: ALBUMIN 3.2 GM/DL (3.2-4.5)
[2022-10-31 10:47] LABS: POTASSIUM 4.4 MMOL/L (3.6-5.0)
[2022-10-31 10:48] LABS: CALCIUM 9.1 MG/DL (8.5-10.1)
[2022-10-31 10:49] LABS: TOTAL PROTEIN 6.1 GM/DL (6.4-8.2)
[2022-10-31 10:50] LABS: INR 0.9 (0.8-1.4); PROTHROMBIN TIME PATIENT 12.7 SEC (12.2-14.7)
[2022-10-31 10:51] LABS: BILIRUBIN,TOTAL 0.3 MG/DL (0.1-1.0)
[2022-10-31 10:53] LABS: CREATININE SERUM 4.09 MG/DL (0.60-1.30)
[2022-10-31 11:09] LABS: LYMPHOCYTES % (MANUAL) 6 %; MONOCYTES % (MANUAL) 1 %; NEUTROPHILS % (MANUAL) 93 %
[2022-10-31 11:10] LABS: RBC MORPH NORMAL
== END ==
LOC: LABNPT 10:20
DX: K51.90 Ulcerative colitis, unspecified, without complications (principal); R97.0 Elevated carcinoembryonic antigen [CEA]
CPT/HCPCS: 80053; 82378; 85007; 85027; 85610

== ENCOUNTER → 2023-01-07 | Outpatient (CLI) | payer MEDICARE, OTHER | LOC: LABNPT 09:35 | PROVIDERS: ATTEND Nurse Practitioner Family | DX: K51.911 Ulcerative colitis, unspecified with rectal bleeding (principal); Z93.3 Colostomy status | CPT/HCPCS: 82378 ==

== ENCOUNTER → 2023-03-04 | Outpatient (CLI) | payer MEDICARE, OTHER ==
[~2023-03-04] MED LIST changes: +LOSA-417 PO; -LOSA100T4 PO
== END ==
LOC: LABNPT 10:21
PROVIDERS: ATTEND Internal Medicine Nephrology
DX: Z01.89 Encounter for other specified special examinations (principal)
CPT/HCPCS: 84132

== ENCOUNTER → 2023-03-06 | Outpatient (CLI) | payer MEDICARE, OTHER | LOC: LABNPT 10:32 | PROVIDERS: ATTEND Internal Medicine Nephrology | DX: Z01.89 Encounter for other specified special examinations (principal) | CPT/HCPCS: 84132 ==

== ENCOUNTER → 2023-03-09 | Outpatient (CLI) | payer MEDICARE, OTHER | LOC: LABNPT 10:25 | PROVIDERS: ATTEND Internal Medicine Nephrology | DX: Z01.89 Encounter for other specified special examinations (principal) | CPT/HCPCS: 84132 ==

== ENCOUNTER → 2023-03-11 | Outpatient (CLI) | payer MEDICARE, OTHER | LOC: LABNPT 10:48 | PROVIDERS: ATTEND Internal Medicine Nephrology | DX: Z01.89 Encounter for other specified special examinations (principal) | CPT/HCPCS: 84132 ==

== ENCOUNTER → 2023-03-13 | Outpatient (CLI) | payer MEDICARE, OTHER | LOC: LABNPT 10:34 | PROVIDERS: ATTEND Internal Medicine Nephrology | DX: E11.22 Type 2 diabetes mellitus with diabetic chronic kidney disease (principal) | CPT/HCPCS: 84132 ==